=== PATIENT | female | born 1955 | race Caucasian/White ===

== ENCOUNTER 2021-10-02 18:14 | Observation (INO) ==
[2021-10-02] MEDS ORDERED: PANTOprazole 80 MG in DEXTROSE 5% 100 ML IV STA (20:07)
--- NOTE | 2021-10-02 20:14 | Emergency Department Note ---
Impression & Plan Lower gastrointestinal hemorrhage, Hematochezia, Feeling light headed ED Provider Note Provider: Wisam Alexander MD DATE OF SERVICE: 10/02/2021 CHIEF COMPLAINT: Bloody diarrhea HISTORY OF PRESENT ILLNESS: Patient is a 66-year-old female history of smoking, GI bleed, and thyroid dysfunction presenting here today reporting since this morning she has had numerous bloody bowel movements. Reports some abdominal distention at times and a little bit abdominal discomfort at times but denies any nausea vomiting or. Patient states he is a history of GI bleed last about 8 years ago. Some of these have required hospitalization and ICU stays with transfusion last at [place]. Patient states she has not had issues for the last 8 years. Patient states that been able from her knowledge to isolate where the bleeding was from. She denies significant alcohol or NSAID/aspirin issues. She denies use of blood thinners. Patient states he does feel a bit lightheaded at this time . She denies any sick contacts or suspect food intake. Patient denies fevers. Patient states in the hour and a half she was in the waiting room she had 3 bloody bowel movements in her bathroom. REVIEW OF SYSTEMS: A total of 10 review of systems was obtained and negative except as stated above in the HPI. PAST MEDICAL HISTORY: As noted above MEDICATIONS: Reviewed with patient does not include anticoagulants, an tiplatelets, or PPI SOCIAL HISTORY: Smoker PHYSICAL EXAM: GENERAL: alert and oriented in no acute distress on stretcher Head: normocephalic and atraumatic EYES: No injection, discharge or icterus. NECK: Trachea midline. ENT: Mucous membranes pink and moist. LUNGS: Airway patent. No retractions. Breath sounds clear HEART: Regular rate and rhythm. No chest wall tenderness ABDOMEN: Soft no tenderness. No guarding. SKIN: Acyanotic, warm, dry, without rashes EXTREMITIES: Without swelling, tenderness or deformity NEUROLOGICAL: No focal deficits. No aphasia. No facial droop or slurred speech. Ambulatory. EK beats beats per minute. Normal sinus rhythm. No PVC or PAC. No acute ST segment elevation with nonspecific lateral T wave changes. QTc 462. CONTINUOUS CARDIAC MONITORING: was ordered and showed a heart rate of 70s-80s bpm in normal sinus rhythm Patient's laboratory studies and imaging reviewed. Differential includes Diverticulosis, AVM, coagulopathy, colitis, inflammatory bowel disease, malignancy, So-Branch tear, esophagitis, peptic ulcer disease, variceal bleed, gastritis, epistaxis, fissure, hemorrhoids, as well as other pathologies. IMPRESSION/MEDICAL DECISION MAKING: Patient with significant GI bleed requiring transfusion. Unsure of what may have prompted this. CT of the abdomen pelvis to look for intra-abdominal pathology such as diverticulitis or lower GI bleed will be obtained as this is of most likely origin. Patient is a known AAA but denies any severe abdominal pain and I doubt rupture. Patient complains a little bit of lightheadedness but not hypotensive. Blood work and type and screen obtained. Given a dose of Protonix here although again I believe it is likely based on her description more of a lower GI bleed. Not having other infectious symptomatologies and doubt this is infectious bloody diarrhea. Patient does have a bloody bowel movement of dark red blood while here in the bathroom. Bladder without anemia mild leukocytosis. No significant electrolyte abnormality. Creatinine 1.39. Negative COVID. CT scan per radiology questions large hypodense area in the colon concerning for possible blood but no clear ac tive extract. Patient's had a total of more than 6 bloody bowel movements while here in the emergency department over the last several seems consistent with lower GI bleed again rather than upper GI bleed. Given the persistence of her bleeding and history of significant bleed requiring transfusion in the past discussion with the patient we will pursue observation at this time. Radiology report did not indicate any concerns for diverticulitis and will avoid antibiotics at this juncture. Discussed with the hospitalist. DIAGNOSIS: GI bleed/bloody diarrhea, lightheaded DISPOSITION: Hospitalist will evaluate Patient was agreeable with this plan. Past Med/Surg History Medical History (Updated 10/02/21 @ 22:57 by Wisam Alexander M.D.) Abnormal thyroid function test DM II (diabetes mellitus, type II), controlled Dysfunction of right eustachian tube High blood pressure Kidney disease stage III Lung disease Otalgia, right ear Sensorineural hearing loss (SNHL) of right ear with restricted hearing of left ear Surgical History History of back surgery History of delivery x2 History of hernia repair x2 History of knee replacement bilateral History of ovarian cystectomy History of vaginal hysterectomy Family History Other Allergies Asthma Cancer Hearing loss Heart disease Hypertension Social History Smoking Status: Current every day smoker Tobacco Type: Cigarettes packs per day: 0.5; Cigarettes Per Day: started smoking in 1971; Hx Alcohol Use: Yes Hx Substance Use: No Preferred Language: Egyptian Communication Ability: Effective marital status: Single Current Living Situation: Alone current occupational status: retired How many Children do You have: 1 Feels Safe at Home: Yes Allergies Allergies Allergy/AdvReac Type Severity Reaction Status Date / Time chlorhexidine Allergy Intermediate ITCHING,RED Verified 10/02/21 18:31 NESS Quinolones Allergy Intermediate RASH Verified 10/02/21 18:31 Sulfa (Sulfonamide Allergy Intermediate RASH Verified 10/02/21 18:31 Antibiotics) Penicillins Allergy Unknown Unknown Verified 10/02/21 18:31 azithromycin Allergy Anaphylaxis Verified 10/02/21 18:31 Cipro TABS Allergy Unknown Uncoded 10/02/21 18:31 Home Meds Home Medications Medication Instructions Recorded Confirmed metformin 500 mg tablet 500 mg PO DAILY 09/03/20 10/02/21 rosuvastatin 20 mg tablet 20 mg PO DAILY 09/03/20 10/02/21 Bifidobacterium infantis 4 mg 4 mg PO DAILY 03/17/21 10/02/21 capsule (Align) baclofen 10 mg tablet 10 mg PO DAILY 03/17/21 10/02/21 psyllium husk 3.4 gram/5.4 gram 1 tbsp PO BID 03/17/21 10/02/21 oral powder (Metamucil) lisinopril 30 mg tablet 30 mg PO DAILY 10/02/21 10/02/21 montelukast 10 mg tablet 10 mg PO DAILY 10/02/21 10/02/21 Results & Data (ED) Vital Signs Vital Signs - 24 hr 10/02/21 18:58 10/02/21 20:33 10/02/21 21:07 Temperature 36.8 C Temperature Source Temporal Artery Scan Pulse Rate 97 H Pulse Rate [Finger] 80 82 Pulse Rhythm Regular Pulse Rhythm [Finger] Regular Regular Pulse Strength Normal Pulse Strength [Finger] Normal Normal Respiratory Rate 18 18 18 Respiratory Effort / Characteristics Non-Labored Spontaneous Non-Labored Spontaneous Non-Labored Spontaneous Respiratory Depth Normal Normal Normal Respiratory Pattern Regular Blood Pressure 151/88 H Blood Pressure [Right Arm] 188/102 H 161/97 H Blood Pressure Mean 109 Blood Pressure Mean [Right Arm] 130 118 Blood Pressure Position Sitting Blood Pressure Position [Right Arm] Sitting Sitting Pulse Oximetry 93 98 98 Oxygen Delivery Method Room Air Room Air Room Air Sepsis Recent Fever Within 48 Hours No Sepsis New/Unexplained Change in Mental Status N/A Sepsis Action Taken by Nursing No Action Required 10/02/21 22:57 Temperature Temperature Source Pulse Rate Pulse Rate [Finger] 70 Pulse Rhythm Pulse Rhythm [Finger] Regular Pulse Strength Pulse Strength [Finger] Normal Respiratory Rate 18 Respiratory Effort / Characteristics Non-Labored Spontaneous Respiratory Depth Normal Respiratory Pattern Regular Blood Pressure Blood Pressure [Right Arm] 177/105 H Blood Pressure Mean Blood Pressure Mean [Right Arm] 129 Blood Pressure Position Blood Pressure Position [Right Arm] Sitting Pulse Oximetry 98 Oxygen Delivery Method Room Air Sepsis Recent Fever Within 48 Hours Sepsis New/Unexplained Change in Mental Status Sepsis Action Taken by Nursing Laboratory Data Result diagrams: 10/02/21 20:24 10/02/21 20:24 Lab Results 10/02/21 10/02/21 10/02/21 Range/Units 20:08 20:24 20:24 WBC 12.83 H (4.8-10.8) K/uL RBC 4.41 (4.2-5.4) M/uL Hgb 13.9 (12.0-16.0) g/dL Hct 41.5 (37-47) % MCV 94.1 (80-100) fL MCH 31.5 (25-34) pg MCHC 33.5 (32-36) g/dL RDW Std Deviation 47.5 H (36.4-46.3) fL RDW Coeff of Susan 13.9 (11.5-14.5) % Plt Count 183 (130-400) K/uL MPV 11.7 H (7.4-10.4) fL PT 10.7 (9.0-12.0) Seconds INR 1.0 (0.9-1.1) APTT 24.9 (21.0-31.0) Seconds PTT Ratio 0.9 Sodium (136-145) mmol/L Potassium (3.5-5.1) mmol/L Chloride (98-107) mmol/L Carbon Dioxide (21-32) mmol/L Anion Gap (3-11) BUN (6-23) mg/dl Creatinine (0.6-1.2) mg/dl Est Cr Clr Drug Dosing ml/min Est GFR ( Amer) ml/min Est GFR (Non-Af Amer) ml/min BUN/Creatinine Ratio (10-20) Glucose (70-99(Fasting)) mg/dl Calcium (8.5-10.1) mg/dl Total Bilirubin (0.2-1.0) mg/dl AST (13-39) U/L ALT (7-52) U/L Alkaline Phosphatase (34-104) U/L Troponin I High Sens (0-14) pg/ml Total Protein (6.0-8.3) gm/dl Albumin (3.4-5.0) gm/dl Globulin (2.5-4.0) gm/dl Albumin/Globulin Ratio (0.9-2) Lipase (11-82) U/L TSH (0.300-4.500) uIu/ml POC Stool Occult Blood Positive A (Negative) SARS-CoV-2, RNA, NAAT (NEGATIVE) Blood Type Antibody Screen 10/02/21 10/02/21 10/02/21 Range/Units 20:24 20:24 20:29 WBC (4.8-10.8) K/uL RBC (4.2-5.4) M/uL Hgb (12.0-16.0) g/dL Hct (37-47) % MCV (80-100) fL MCH (25-34) pg MCHC (32-36) g/dL RDW Std Deviation (36.4-46.3) fL RDW Coeff of Susan (11.5-14.5) % Plt Count (130-400) K/uL MPV (7.4-10.4) fL PT (9.0-12.0) Seconds INR (0.9-1.1) APTT (21.0-31.0) Seconds PTT Ratio Sodium 139 (136-145) mmol/L Potassium 4.6 (3.5-5.1) mmol/L Chloride 109 H (98-107) mmol/L Carbon Dioxide 23 (21-32) mmol/L Anion Gap 7 (3-11) BUN 33 H (6-23) mg/dl Creatinine 1.39 H (0.6-1.2) mg/dl Est Cr Clr Drug Dosing 36.1 ml/min Est GFR ( Amer) 45.0 ml/min Est GFR (Non-Af Amer) 38.8 ml/min BUN/Creatinine Ratio 23.7 H (10-20) Glucose 95 (70-99(Fasting)) mg/dl Calcium 8.9 (8.5-10.1) mg/dl Total Bilirubin 0.5 (0.2-1.0) mg/dl AST 14 (13-39) U/L ALT 7 (7-52) U/L Alkaline Phosphatase 69 (34-104) U/L Troponin I High Sens 11.2 (0-14) pg/ml Total Protein 6.9 (6.0-8.3) gm/dl Albumin 4.3 (3.4-5.0) gm/dl Globulin 2.6 (2.5-4.0) gm/dl Albumin/Globulin Ratio 1.7 (0.9-2) Lipase 61 (11-82) U/L TSH 2.275 (0.300-4.500) uIu/ml POC Stool Occult Blood Positive A (Negative) SARS-CoV-2, RNA, NAAT (NEGATIVE) Blood Type Antibody Screen 10/02/21 10/02/21 Range/Units 20:33 21:36 WBC (4.8-10.8) K/uL RBC (4.2-5.4) M/uL Hgb (12.0-16.0) g/dL Hct (37-47) % MCV (80-100) fL MCH (25-34) pg MCHC (32-36) g/dL RDW Std Deviation (36.4-46.3) fL RDW Coeff of Susan (11.5-14.5) % Plt Count (130-400) K/uL MPV (7.4-10.4) fL PT (9.0-12.0) Seconds INR (0.9-1.1) APTT (21.0-31.0) Seconds PTT Ratio Sodium (136-145) mmol/L Potassium (3.5-5.1) mmol/L Chloride (98-107) mmol/L Carbon Dioxide (21-32) mmol/L Anion Gap (3-11) BUN (6-23) mg/dl Creatinine (0.6-1.2) mg/dl Est Cr Clr Drug Dosing ml/min Est GFR ( Amer) ml/min Est GFR (Non-Af Amer) ml/min BUN/Creatinine Ratio (10-20) Glucose (70-99(Fasting)) mg/dl Calcium (8.5-10.1) mg/dl Total Bilirubin (0.2-1.0) mg/dl AST (13-39) U/L ALT (7-52) U/L Alkaline Phosphatase (34-104) U/L Troponin I High Sens (0-14) pg/ml Total Protein (6.0-8.3) gm/dl Albumin (3.4-5.0) gm/dl Globulin (2.5-4.0) gm/dl Albumin/Globulin Ratio (0.9-2) Lipase (11-82) U/L TSH (0.300-4.500) uIu/ml POC Stool Occult Blood (Negative) SARS-CoV-2, RNA, NAAT NEGATIVE (NEGATIVE) Blood Type B Positive Antibody Screen NEGATIVE Administered Medications Discontinued Medications Pantoprazole Sodium 80 mg/ (Dextrose) 100 mls @ 400 mls/hr IV ONE STA Stop: 10/02/21 20:21 Last Infusion: 10/02/21 21:07 Dose: 0 mls/hr Documented by: [id number] Admin: 10/02/21 20:32 Dose: 400 mls/hr Documented by: [id number] Ioversol (Optiray 320 125ml) 120 ml IV ONCE ONE Stop: 10/02/21 21:47 Last Admin: 10/02/21 21:46 Dose: 120 ml Documented by: [id number] Imaging Data Radiologist's Impression: Abdomen/Pelvis CTA 10/02/21 20:10 CT ANGIOGRAM OF THE ABDOMEN AND PELVIS CLINICAL HISTORY: GI bleeding. COMPARISON STUDY: No priors. TECHNIQUE: Following the IV administration of 120 cc of Optiray 320, CT angiogram of the abdomen and pelvis was performed from the lung bases the proximal femora. Images are reviewed in the axial, sagittal, and coronal planes. 3-D MIPS images are created and assessed. IV contrast was administered without complication. A dose lowering technique was utilized adhering to the principles of ALARA. CT DOSE: 260.80 mGy.cm FINDINGS: Lower chest: The heart is normal in size and without pericardial effusion. There are coronary artery calcifications. Emphysematous change is noted at the lung bases. There is bibasilar scarring/atelectasis. No airspace consolidation or pleural effusion is identified. There are scattered calcified granulomas. Liver: The contrast-enhanced liver is normal in size, contour, and attenuation. There is no intrahepatic biliary ductal dilatation. The main portal vein appears patent. Gallbladder: Unremarkable. Spleen: Normal in size and attenuation noting heterogeneous arterial phase and splint. Pancreas: Moderately atrophic and grossly unremarkable. Adrenal glands: Unremarkable. Kidneys: The contrast enhanced kidneys demonstrate cortical atrophy and are without hydronephrosis. The kidneys enhance symmetrically. Abdominal aorta and iliac arteries: There is advanced atherosclerotic plaque se en throughout the abdominal aorta. There is a bilobed infrarenal abdominal aortic aneurysm. The larger inferior component of the aneurysm sac measures up to 4.2 x 4.3 cm (AP x transverse). The aneurysm sac extends approximately 9 cm in craniocaudal length, and originates approximately 0.5 cm below the origin of the left renal artery extending to the bifurcation. The abdominal aorta is patent with mural thrombus within the aneurysm sac. No dissection is seen. Advanced atherosclerotic plaque and irregularity is seen throughout the iliac arteries with diffuse luminal narrowing. There is moderate stenosis at the origin of the right external iliac artery seen on image #240. 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 This extends approximately 6 cm in length with reconstitution above the common femoral artery as seen on image #303. The left internal iliac artery is patent. Major branches of the abdominal aorta: The celiac trunk, superior mesenteric, and inferior mesenteric arteries are patent noting atherosclerotic plaque and irregularity. The inferior mesenteric artery arises from the inferior lobe of the aneurysm sac. Hepatic arterial anatomy is conventional. The splenic artery is patent. There are single bilateral renal arteries. There is at least mild stenosis at the origin of both renal arteries. Bowel: There is advanced colonic diverticulosis without CT evidence of acute diverticulitis. No bowel obstruction is identified. The appendix is not visualized. There is hyperdense material within the lumen of the distal transverse colon seen on axial image #140. This is indeterminant, and a focus of active extravasation is not excluded. Peritoneum: There is no intraperitoneal free air or abdominal ascites. There is evidence of previous ventral hernia repair. There is laxity of the ventral wall of the pelvis with protrusion of bowel loops. Lymphadenopathy: None. Pelvic viscera: The bladder is largely decompressed and grossly unremarkable. The uterus is surgically absent. No adnexal lesion is seen. Skeletal structures: The skeletal structures are osteopenic. There is a sacral spondylosis with postoperative change from lumbar spinal fusion at L4-L5. No lytic or blastic lesions are seen. IMPRESSION: 1. Hyperdense intraluminal material is present within the distal transverse colon. This is nonspecific and a focus of active contrast extravasation is not excluded. This could be further assessed with endoscopy if clinically warranted. 2. Advanced colonic diverticulosis without CT evidence of acute diverticulitis. 3. Emphysema. 4. Advanced atherosclerotic change is seen throughout the abdominal aorta and its major branches. 5. There is a bilobed infrarenal abdominal aortic aneurysm as detailed above. The largest component of the aneurysm sac measures 4.2 x 4.3 cm. 6. 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 7. The major branches of the abdominal aorta are patent. 8. There is at least mild stenosis at the origin of both renal arteries. 9. Additional findings as above. ACT 112: Negative or not required by law. Electronically signed by: Ace Coley M.D. 10/02/2021 10:09 PM Discharge Plan Visit Data Chief Complaint: Rectal Bleed Stated Complaint: RECTAL BLEEDING, BRIGHT RED ED Provider: Wisam Alexander Discharge Problem: Lower gastrointestinal hemorrhage, Hematochezia, Feeling light headed Patient Disposition: Being Evaluated by Hospitalist Forms Stand Alone Forms: My [facility] Prescriptions Prescriptions: No Action rosuvastatin 20 mg tablet 20 mg PO DAILY RF: 0 metformin 500 mg tablet 500 mg PO DAILY RF: 0 baclofen 10 mg tablet 10 mg PO DAILY RF: 0 Metamucil 3.4 gram/5.4 gram powder 1 tbsp PO BID RF: 0 Align 4 mg capsule 4 mg PO DAILY RF: 0 lisinopril 30 mg tablet 30 mg PO DAILY RF: 0 montelukast 10 mg tablet 10 mg PO DAILY RF: 0 Referrals Referrals: Pedro Saba MD [Primary Care Provider] -
[2021-10-02 20:46] LABS: Hematocrit (blood only) 41.5 % (37-47); Hemoglobin 13.9 g/dL (12.0-16.0); Mean Corpuscular Hemoglobin 31.5 pg (25-34); Mean Corpuscular Hgb Conc 33.5 g/dL (32-36); Mean Corpuscular Volume 94.1 fL (80-100); Mean Platelet Volume 11.7 fL (7.4-10.4); Platelet Count 183 K/uL (130-400); RDW Coefficient of Variation 13.9 % (11.5-14.5); RDW Standard Deviation 47.5 fL (36.4-46.3); Red Blood Count 4.41 M/uL (4.2-5.4); White Blood Count 12.83 K/uL (4.8-10.8)
[2021-10-02 21:03] LABS: Partial Thromboplastin Ratio 0.9; Partial Thromboplastin Time 24.9 Seconds (21.0-31.0); Prothrombin Time 10.7 Seconds (9.0-12.0)
[2021-10-02 21:13] LABS: Troponin I High Sensitivity 11.2 pg/ml (0-14)
[2021-10-02 21:17] LABS: Albumin Globulin Ratio 1.7 (0.9-2); Albumin Level 4.3 gm/dl (3.4-5.0); BUN Creatinine Ratio 23.7 (10-20); Bilirubin,Total 0.5 mg/dl (0.2-1.0); Calcium 8.9 mg/dl (8.5-10.1); Creatinine Clr Calc Pharmacy 36.1 ml/min; Est GFR (Non-African American) 38.8 ml/min; Globulin 2.6 gm/dl (2.5-4.0); Potassium 4.6 mmol/L (3.5-5.1); Total Protein 6.9 gm/dl (6.0-8.3)
[2021-10-02] MEDS ORDERED: OPTIRAY 320 125ml IV ONE (21:46)
--- NOTE | 2021-10-02 22:12 | CT Scan Report ---
CT ANGIOGRAM OF THE ABDOMEN AND PELVIS CLINICAL HISTORY: GI bleeding. COMPARISON STUDY: No priors. TECHNIQUE: Following the IV administration of 120 cc of Optiray 320, CT angiogram of the abdomen and pelvis was performed from the lung bases the proximal femora. Images are reviewed in the axial, sagit shena, and coronal planes. 3-D MIPS images are created and assessed. IV contrast was administered witho ut complication. A dose lowering technique was utilized adhering to the principles of ALARA. CT DOSE: 260.80 mGy.cm FINDINGS: Lower chest: The heart is normal in size and without pericardial effusion. There are coronary artery calcifications. Emphysematous change is noted at the lung bases. There is bibasilar scarring/atelecta sis. No airspace consolidation or pleural effusion is identified. There are scattered calcified granu christie. Liver: The contrast-enhanced liver is normal in size, contour, and attenuation. There is no intrahepa tic biliary ductal dilatation. The main portal vein appears patent. Gallbladder: Unremarkable. Spleen: Normal in size and attenuation noting heterogeneous arterial phase and splint. Pancreas: Moderately atrophic and grossly unremarkable. Adrenal glands: Unremarkable. Kidneys: The contrast enhanced kidneys demonstrate cortical atrophy and are without hydronephrosis. T he kidneys enhance symmetrically. Abdominal aorta and iliac arteries: There is advanced atherosclerotic plaque seen throughout the abdo beckie aorta. There is a bilobed infrarenal abdominal aortic aneurysm. The larger inferior component o f the aneurysm sac measures up to 4.2 x 4.3 cm (AP x transverse). The aneurysm sac extends approximat gisel 9 cm in craniocaudal length, and originates approximately 0.5 cm below the origin of the left piage al artery extending to the bifurcation. The abdominal aorta is patent with mural thrombus within the aneurysm sac. No dissection is seen. Advanced atherosclerotic plaque and irregularity is seen through out the iliac arteries with diffuse luminal narrowing. There is moderate stenosis at the origin of th e right external iliac artery seen on image #240. There is complete thrombosis of the left external i liac artery at the iliac bifurcation. This extends approximately 6 cm in length with reconstitution a sima the common femoral artery as seen on image #303. The left internal iliac artery is patent. Major branches of the abdominal aorta: The celiac trunk, superior mesenteric, and inferior mesenteric arteries are patent noting atherosclerotic plaque and irregularity. The inferior mesenteric artery a rises from the inferior lobe of the aneurysm sac. Hepatic arterial anatomy is conventional. The splen ic artery is patent. There are single bilateral renal arteries. There is at least mild stenosis at t he origin of both renal arteries. Bowel: There is advanced colonic diverticulosis without CT evidence of acute diverticulitis. No bowel obstruction is identified. The appendix is not visualized. There is hyperdense material within the lumen of the distal transverse colon seen on axial image #140. This is indeterminant, and a focus of active extravasation is not excluded. Peritoneum: There is no intraperitoneal free air or abdominal ascites. There is evidence of previous ventral hernia repair. There is laxity of the ventral wall of the pelvis with protrusion of bowel loo ps. Lymphadenopathy: None. Pelvic viscera: The bladder is largely decompressed and grossly unremarkable. The uterus is surgicall y absent. No adnexal lesion is seen. Skeletal structures: The skeletal structures are osteopenic. There is a sacral spondylosis with posto perative change from lumbar spinal fusion at L4-L5. No lytic or blastic lesions are seen. IMPRESSION: 1. Hyperdense intraluminal material is present within the distal transverse colon. This is nonspecifi c and a focus of active contrast extravasation is not excluded. This could be further assessed with e ndoscopy if clinically warranted. 2. Advanced colonic diverticulosis without CT evidence of acute diverticulitis. 3. Emphysema. 4. Advanced atherosclerotic change is seen throughout the abdominal aorta and its major branches. 5. There is a bilobed infrarenal abdominal aortic aneurysm as detailed above. The largest component o f the aneurysm sac measures 4.2 x 4.3 cm. 6. 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 7. The major branches of the abdominal aorta are patent. 8. There is at least mild stenosis at the origin of both renal arteries. 9. Additional findings as above. ACT 112: Negative or not required by law. Electronically signed by: Ace Coley M.D. 10/02/2021 10:09 PM
--- NOTE | 2021-10-03 00:05 | XRay Report ---
SINGLE VIEW CHEST CLINICAL HISTORY: Renal failure. FINDINGS: 2 AP, portable, upright chest radiographs are compared to study dated 01/24/2013. The heart is top normal in size noting atherosclerotic calcification of the thoracic aorta. The pulmonary vascu lature is noncongested. Chronic interstitial thickening is similar to previous. Scarring/atelectasis is seen at the lung bases. The lungs and pleural spaces are otherwise clear. No pneumothorax is seen. The skeletal structures are osteopenic. The bony thorax is grossly intact. Fusion hardware is noted in the lower cervical spine. IMPRESSION: No acute cardiopulmonary abnormality. ACT 112: Negative or not required by law. Electronically signed by: Ace Coley M.D. 10/03/2021 12:03 AM
[2021-10-03 00:19] LABS: Magnesium 1.9 mg/dl (1.7-2.4)
[2021-10-03] MEDS ORDERED: SODIUM CHLORIDE 0.9% 1000ML 1,000 ML IV STA (01:18)
[2021-10-03] MEDS ORDERED: amLODIPine BESYLATE 5 MG TAB PO STA (01:18)
--- NOTE | 2021-10-03 01:30 | History & Physical Report ---
Date of Service October 03, 2021 Assessment & Plan (1) GI bleed: Plan: Combined UGI B/L GIB CO PD, stable disease hypertensive urgency secondary to discomfort ARF secondary to diarrhea hyperlipidemia on statin Rx AAA, stable measurement on comparison with most recent outpatient study, patient [place] [facility] [facility] [place]. DM2 on oral medications, well-controlled as of recent hemoglobin A1c of 5.10 May 2021 ongoing tobacco abuse Medical telemetry given elevated BP IV PPI Hold home aspirin for now Serial H&H, transfuse PRBC if hemoglobin less than 8 and or for symptomatic anemia (hx PVD) IV PPI for UGI B GI consult Re: GI bleed N.p.o. until patient seen by GI in a.m. in anticipation of procedure Baseline UA, monitor creatinine response to IVF Appropriate to hold lisinopril for now until creatinine back to baseline Amlodipine for BP control while lisinopril on hold Basal bolus insulin adjusted for n.p.o. status, ISS goal 1 10-1 40 Nicotine patch as needed DVT prophylaxis. SCDs Re: GI bleed Full code Text document was generated using [employer] voice recognition software. It may contain grammatical or spelling errors. Kindly contact undersigned for clarification of any documentation item in question. History of Present Illness Chief Complaint: GI bleed Primary Care Provider: Pedro Saba MD History obtained from patient and records. Medical history significant for CO PD, hypertension, hyperlipidemia, AAA, DM2 on oral medications, diverticulosis, internal hemorrhoids as per records, ongoing tobacco abuse. Last confinement 2009 for COPD exacerbation. 1 day history of bloody bowel movements mixed with black stools. No fever, no chills. No chest pain, no SOB. Some lower abdominal cramping. No recent antibiotic Rx/travel/sick contacts. No emesis. Some lightheadedness. Patient consulted ER for evaluation. IV PPI given for UGIB. 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 Allergies Allergy/AdvReac Type Severity Reaction Status Date / Time chlorhexidine Allergy Intermediate ITCHING,RED Verified 10/02/21 18:31 NESS Quinolones Allergy Intermediate RASH-cipro Verified 10/03/21 01:18 Sulfa (Sulfonamide Allergy Intermediate RASH Verified 10/02/21 18:31 Antibiotics) Penicillins Allergy Unknown Unknown Verified 10/02/21 18:31 azithromycin Allergy Anaphylaxis Verified 10/02/21 18:31 Home Medications Medication Instructions Recorded Confirmed Type metformin 500 mg tablet 500 mg PO DAILY 09/03/20 10/02/21 History rosuvastatin 20 mg tablet 20 mg PO DAILY 09/03/20 10/02/21 History Bifidobacterium infantis 4 mg 4 mg PO DAILY 03/17/21 10/02/21 History capsule (Align) baclofen 10 mg tablet 10 mg PO DAILY 03/17/21 10/02/21 History psyllium husk 3.4 gram/5.4 gram 1 tbsp PO BID 03/17/21 10/02/21 History oral powder (Metamucil) lisinopril 30 mg tablet 30 mg PO DAILY 10/02/21 10/02/21 History montelukast 10 mg tablet 10 mg PO DAILY 10/02/21 10/02/21 History Past Med/Surg History Medical History (Updated 10/03/21 @ 08:36 by Gio Marroquin MD) Abnormal thyroid function test DM II (diabetes mellitus, type II), controlled Dysfunction of right eustachian tube High blood pressure Kidney disease stage III Lung disease Otalgia, right ear Sensorineural hearing loss (SNHL) of right ear with restricted hearing of left ear Surgical History History of back surgery History of delivery x2 History of hernia repair x2 History of knee replacement bilateral History of ovarian cystectomy History of vaginal hysterectomy Family History Other Allergies Asthma Cancer Hearing loss Heart disease Hypertension Social History Smoking Status: Current every day smoker Tobacco Type: Cigarettes packs per day: 0.5; Cigarettes Per Day: started smoking in 1971; Hx Alcohol Use: Yes Alcohol type: beer and hard liquor Hx Substance Use: No Preferred Language: [place] Communication Ability: Effective marital status: Single Current Living Situation: Family current occupational status: retired How many Children do You have: 1 Feels Safe at Home: Yes Review of Systems Review of Systems: As per HPI, all other systems reviewed and negative Physical Exam Physical Exam: GENERAL: Comfortable, pleasant, no respiratory distress SKIN: Normal color, warm HEENT: [place] palpebral conjunctivae, no ptosis, dry buccal mucosa NECK : Supple, no tenderness CHEST : Decreased breath sounds, occasional expiratory wheezes, no tenderness HEART : RRR, no obvious murmurs ABDOMEN: Some distention, nontender EXTREMITIES : No LE swelling/tenderness, no other conspicuous deformities noted NEUROLOGIC : Coherent, no facial asymmetry, no other gross focality Results & Data Results & Data ([facility]) Vital Signs (Past 12 Hours) Vital Signs Temp Pulse Pulse Resp BP BP Pulse Ox 10/03/21 00:47 77 20 174/97 H 93 10/02/21 22:57 70 18 177/105 H 98 10/02/21 21:07 82 18 161/97 H 98 10/02/21 20:33 80 18 188/102 H 98 10/02/21 18:58 36.8 C 97 H 18 151/88 H 93 Laboratory Results Laboratory Results WBC 12.83 K/uL (4.8-10.8) H 10/02/21 20:24 RBC 4.41 M/uL (4.2-5.4) 10/02/21 20:24 Hgb 13.9 g/dL (12.0-16.0) 10/02/21 20:24 Hct 41.5 % (37-47) 10/02/21 20:24 MCV 94.1 fL (80-100) 10/02/21 20:24 MCH 31.5 pg (25-34) 10/02/21 20:24 MCHC 33.5 g/dL (32-36) 10/02/21 20:24 RDW Std Deviation 47.5 fL (36.4-46.3) H 10/02/21 20:24 RDW Coeff of Susan 13.9 % (11.5-14.5) 10/02/21 20:24 Plt Count 183 K/uL (130-400) 10/02/21 20:24 MPV 11.7 fL (7.4-10.4) H 10/02/21 20:24 PT 10.7 Seconds (9.0-12.0) 10/02/21 20:24 INR 1.0 (0.9-1.1) 10/02/21 20:24 APTT 24.9 Seconds (21.0-31.0) 10/02/21 20:24 PTT Ratio 0.9 10/02/21 20:24 Sodium 139 mmol/L (136-145) 10/02/21 20:24 Potassium 4.6 mmol/L (3.5-5.1) 10/02/21 20:24 Chloride 109 mmol/L (98-107) H 10/02/21 20:24 Carbon Dioxide 23 mmol/L (21-32) 10/02/21 20:24 Anion Gap 7 (3-11) 10/02/21 20:24 BUN 33 mg/dl (6-23) H 10/02/21 20:24 Creatinine 1.39 mg/dl (0.6-1.2) H 10/02/21 20:24 Est Cr Clr Drug Dosing 36.1 ml/min 10/02/21 20:24 Est GFR ( Amer) 45.0 ml/min 10/02/21 20:24 Est GFR (Non-Af Amer) 38.8 ml/min 10/02/21 20:24 BUN/Creatinine Ratio 23.7 (10-20) H 10/02/21 20:24 Glucose 95 mg/dl (70-99(Fasting)) 10/02/21 20:24 Calcium 8.9 mg/dl (8.5-10.1) 10/02/21 20:24 Magnesium 1.9 mg/dl (1.7-2.4) 10/02/21 20:24 Total Bilirubin 0.5 mg/dl (0.2-1.0) 10/02/21 20:24 AST 14 U/L (13-39) 10/02/21 20:24 ALT 7 U/L (7-52) 10/02/21 20:24 Alkaline Phosphatase 69 U/L (34-104) 10/02/21 20:24 Troponin I High Sens 11.2 pg/ml (0-14) 10/02/21 20:24 Total Protein 6.9 gm/dl (6.0-8.3) 10/02/21 20:24 Albumin 4.3 gm/dl (3.4-5.0) 10/02/21 20:24 Globulin 2.6 gm/dl (2.5-4.0) 10/02/21 20:24 Albumin/Globulin Ratio 1.7 (0.9-2) 10/02/21 20:24 Lipase 61 U/L (11-82) 10/02/21 20:24 TSH 2.275 uIu/ml (0.300-4.500) 10/02/21 20:24 POC Stool Occult Blood Positive (Negative) A 10/02/21 20:29 SARS-CoV-2, RNA, NAAT NEGATIVE (NEGATIVE) 10/02/21 20:33 Blood Type B Positive 10/02/21 21:36 Antibody Screen NEGATIVE 10/02/21 21:36 Impressions Abdomen/Pelvis CTA 10/02/21 20:10 CT ANGIOGRAM OF THE ABDOMEN AND PELVIS CLINICAL HISTORY: GI bleeding. COMPARISON STUDY: No priors. TECHNIQUE: Following the IV administration of 120 cc of Optiray 320, CT angiogram of the abdomen and pelvis was performed from the lung bases the proximal femora. Images are reviewed in the axial, sagittal, and coronal planes. 3-D MIPS images are created and assessed. IV contrast was administered without complication. A dose lowering technique was utilized adhering to the principles of ALARA. CT DOSE: 260.80 mGy.cm FINDINGS: Lower chest: The heart is normal in size and without pericardial effusion. There are coronary artery calcifications. Emphysematous change is noted at the lung bases. There is bibasilar scarring/atelectasis. No airspace consolidation or pleural effusion is identified. There are scattered calcified granulomas. Liver: The contrast-enhanced liver is normal in size, contour, and attenuation. There is no intrahepatic biliary ductal dilatation. The main portal vein appears patent. Gallbladder: Unremarkable. Spleen: Normal in size and attenuation noting heterogeneous arterial phase and splint. Pancreas: Moderately atrophic and grossly unremarkable. Adrenal glands: Unremarkable. Kidneys: The contrast enhanced kidneys demonstrate cortical atrophy and are without hydronephrosis. The kidneys enhance symmetrically. Abdominal aorta and iliac arteries: There is advanced atherosclerotic plaque seen throughout the abdominal aorta. There is a bilobed infrarenal abdominal aortic aneurysm. The larger inferior component of the aneurysm sac measures up to 4.2 x 4.3 cm (AP x transverse). The aneurysm sac extends approximately 9 cm in craniocaudal length, and originates approximately 0.5 cm below the origin of the left renal artery extending to the bifurcation. The abdominal aorta is patent with mural thrombus within the aneurysm sac. No dissection is seen. Advanced atherosclerotic plaque and irregularity is seen throughout the iliac arteries with diffuse luminal narrowing. There is moderate stenosis at the origin of the right external iliac artery seen on image #240. 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 This extends approximately 6 cm in length with reconstitution above the common femoral artery as seen on image #303. The left internal iliac artery is patent. Major branches of the abdominal aorta: The celiac trunk, superior mesenteric, and inferior mesenteric arteries are patent noting atherosclerotic plaque and irregularity. The inferior mesenteric artery arises from the inferior lobe of the aneurysm sac. Hepatic arterial anatomy is conventional. The splenic artery is patent. There are single bilateral renal arteries. There is at least mild stenosis at the origin of both renal arteries. Bowel: There is advanced colonic diverticulosis without CT evidence of acute diverticulitis. No bowel obstruction is identified. The appendix is not visualized. There is hyperdense material within the lumen of the distal transverse colon seen on axial image #140. This is indeterminant, and a focus of active extravasation is not excluded. Peritoneum: There is no intraperitoneal free air or abdominal ascites. There is evidence of previous ventral hernia repair. There is laxity of the ventral wall of the pelvis with protrusion of bowel loops. Lymphadenopathy: None. Pelvic viscera: The bladder is largely decompressed and grossly unremarkable. The uterus is surgically absent. No adnexal lesion is seen. Skeletal structures: The skeletal structures are osteopenic. There is a sacral spondylosis with postoperative change from lumbar spinal fusion at L4-L5. No lytic or blastic lesions are seen. IMPRESSION: 1. Hyperdense intraluminal material is present within the distal transverse colon. This is nonspecific and a focus of active contrast extravasation is not excluded. This could be further assessed with endoscopy if clinically warranted. 2. Advanced colonic diverticulosis without CT evidence of acute diverticulitis. 3. Emphysema. 4. Advanced atherosclerotic change is seen throughout the abdominal aorta and its major branches. 5. There is a bilobed infrarenal abdominal aortic aneurysm as detailed above. The largest component of the aneurysm sac measures 4.2 x 4.3 cm. 6. 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 7. The major branches of the abdominal aorta are patent. 8. There is at least mild stenosis at the origin of both renal arteries. 9. Additional findings as above. ACT 112: Negative or not required by law. Electronically signed by: Ace Coley M.D. 10/02/2021 10:09 PM Chest X-Ray 10/02/21 23:45 SINGLE VIEW CHEST CLINICAL HISTORY: Renal failure. FINDINGS: 2 AP, portable, upright chest radiographs are compared to study dated 01/24/2013. The heart is top normal in size noting atherosclerotic calcification of the thoracic aorta. The pulmonary vasculature is noncongested. Chronic interstitial thickening is similar to previous. Scarring/atelectasis is seen at the lung bases. The lungs and pleural spaces are otherwise clear. No pneumothorax is seen. The skeletal structures are osteopenic. The bony thorax is grossly intact. Fusion hardware is noted in the lower cervical spine. IMPRESSION: No acute cardiopulmonary abnormality. ACT 112: Negative or not required by law. Electronically signed by: Ace Coley M.D. 10/03/2021 12:03 AM Diagnostic Findings EKG as per my interpretation : Rate 70, NSR, normal axis, nonspecific T wave abNormalities
[2021-10-03 02:26] LABS: Hematocrit (blood only) 35.8 % (37-47); Hemoglobin 11.8 g/dL (12.0-16.0)
[2021-10-03] MEDS ORDERED: GLUCOSE 10 TABS/TUBE PO PRN (03:02)
[2021-10-03] MEDS ORDERED: traMADol HCL 50 MG TABLET PO PRN (03:02)
[2021-10-03] MEDS ORDERED: ACETAMINOPHEN 325 MG TAB PO PRN (03:02)
[2021-10-03] MEDS ORDERED: CARBOHYDRATES FOR HYPOGLYCEMIA PO PRN (03:02)
[2021-10-03] MEDS ORDERED: GLUCAGON FOR INJ 1 MG VIAL SQ PRN (03:02)
[2021-10-03] MEDS ORDERED: DEXTROSE 50% 50 ML SYRINGE IV PRN (03:02)
[2021-10-03] MEDS ORDERED: PROMETHAZINE HCL 6.25 MG in SODIUM CHLORIDE 0.9% 50 ML IV PRN (03:02)
[2021-10-03] MEDS ORDERED: GLUCOSE 40% GEL 15 GM TUBE PO PRN (03:02)
[2021-10-03] MEDS: INSULIN ASPART PER UNIT SC SCH ×5 (03:50→20:43)
[2021-10-03] MEDS: PANTOprazole 40 MG in DEXTROSE 5% 100 ML IV SCH ×4 (05:00→20:10)
[2021-10-03 07:12] LABS: Basophils # (auto) 0.02 K/uL (0-0.2); Basophils % (auto) 0.2 %; Eosinophils # (auto) 0.27 K/uL (0-0.5); Eosinophils % (auto) 2.7 %; Hematocrit (blood only) 35.5 % (37-47); Hemoglobin 11.7 g/dL (12.0-16.0); Immature Granulocytes # (auto) 0.02 K/uL (0.00-0.02); Immature Granulocytes % (auto) 0.2 %; Lymphocytes # (auto) 3.33 K/uL (1.2-3.4); Lymphocytes % (auto) 33.7 %; Mean Corpuscular Volume 94.2 fL (80-100); Mean Platelet Volume 11.5 fL (7.4-10.4); Monocytes # (auto) 0.44 K/uL (0.11-0.59); Monocytes % (auto) 4.4 %; Neutrophils # (auto) 5.81 K/uL (1.4-6.5); Neutrophils % (auto) 58.8 %; Platelet Count 162 K/uL (130-400); RDW Coefficient of Variation 14.1 % (11.5-14.5); RDW Standard Deviation 48.1 fL (36.4-46.3); Red Blood Count 3.77 M/uL (4.2-5.4); White Blood Count 9.89 K/uL (4.8-10.8)
[2021-10-03 07:18] LABS: Appearance Urine Clear (Clear); Bacteria Urine Automated Negative (Negative); Bilirubin Urine Negative (Negative); Blood Urine 2+ (Negative); Color Urine Yellow; Glucose Urine UA Negative (Negative); Ketones Urine Negative (Negative); Leukocyte Esterase Urine Negative (Negative); Nitrite Urine Negative (Negative); Protein Urine Negative (Negative); RBC Urine Automated 0-4 /hpf (0-4); Specific Gravity Urine > 1.045 (1.000-1.030); Urobilinogen Urine Negative (Negative)
[2021-10-03 07:55] LABS: Calcium 8.7 mg/dl (8.5-10.1); Potassium 4.5 mmol/L (3.5-5.1)
[2021-10-03] MEDS: MONTELUKAST SODIUM 10 MG TABLET PO SCH (07:57)
[2021-10-03] MEDS: BACLOFEN 10 MG TAB PO SCH (07:57)
[2021-10-03] MEDS: ROSUVASTATIN CALCIUM 20 MG TAB PO SCH (07:57)
[2021-10-03 08:00] LABS: BUN Creatinine Ratio 29.6 (10-20); Creatinine Clr Calc Pharmacy 42.6 ml/min; Est GFR (African American) 56.6 ml/min; Est GFR (Non-African American) 48.9 ml/min
--- NOTE | 2021-10-03 10:55 | Hospitalist Progress Note ---
Date of Service October 03, 2021 Assessment & Plan Admission and Anticipated Discharge Date Admission Date: October 03, 2021 Subjective Patient admitted earlier today for 1 day of black/tarry stools with streaks of blood. Patient denies NSAIDs use other than aspirin 81mg which she is prescribed Denies abdominal pain, nausea/vomiting, recent illness Currently NPO and on IV protonix. GI consult pending. If not plan for endoscopy by 1pm, would place her on clears for remainder of day Asthma, current smoker. Counseled cessation. Wagner PANTOJA ordered Full note to follow tomorrow Results & Data Results & Data ([facility]) Vital Signs (Past 12 Hours) Vital Signs Temp Pulse Pulse Resp BP Pulse Ox 10/03/21 08:29 36.7 C 82 18 149/76 H 94 10/03/21 07:26 68 10/03/21 03:12 72 10/03/21 02:50 36.5 C 72 18 154/74 H 96 10/03/21 02:35 78 20 144/84 H 97 10/03/21 00:47 77 20 174/97 H 93 10/02/21 22:57 70 18 177/105 H 98
[2021-10-03] MEDS: ALBUT/IPRATROP 3MG/0.5MG NEB 3 ML VIAL NEB SCH ×3 (11:11→20:09)
[2021-10-03 12:33] LABS: Hematocrit (blood only) 34.9 % (37-47); Hemoglobin 11.4 g/dL (12.0-16.0); Mean Corpuscular Hemoglobin 30.7 pg (25-34); Mean Corpuscular Hgb Conc 32.7 g/dL (32-36); Mean Corpuscular Volume 94.1 fL (80-100); Mean Platelet Volume 11.2 fL (7.4-10.4); Platelet Count 157 K/uL (130-400); RDW Coefficient of Variation 14.1 % (11.5-14.5); RDW Standard Deviation 48.5 fL (36.4-46.3); Red Blood Count 3.71 M/uL (4.2-5.4); White Blood Count 7.98 K/uL (4.8-10.8)
--- NOTE | 2021-10-03 13:13 | Gastrointestinal Consultation ---
Date of Consultation October 03, 2021 Supervising Physician Co-Signing Physician Notes IV PPI is fine. No plans for an egd at the current time. Continue IV PPI. Clear liquids. If no further bleeding, consider discharging home to on oral ppi once daily and avoid nsaid's. Likely this was a diverticular bleed, if signs of dark blood continue iv ppi or further drop in hgb or bun rise, keep npo after midnite on tuesday for possible egd tuesday. History of Present Illness Reason for Consultation: ? GI bleedin Requesting Physician: Dr. Gusman Attending Physician: Lexi Salazar MD History of Present Illness 66 yo fm wtih a history of htn, hl, aaa, type 2 dm, copd, admitted through the er overnite for reports of painless hematochezia, ? dark stools. She is sleepy when seeing her but arousable. She reports no issues other than one episode a few hours of ago of hematochezia no ass abd pain. She denies recent nsaid use. No history of liver disease. Recently covid positive within the last 30 days. No acute issues reported to me of pain, nausea, vomiting, diarrhea. Allergies Allergy/AdvReac Type Severity Reaction Status Date / Time chlorhexidine Allergy Intermediate ITCHING,RED Verified 10/02/21 18:31 NESS Quinolones Allergy Intermediate RASH-cipro Verified 10/03/21 01:18 Sulfa (Sulfonamide Allergy Intermediate RASH Verified 10/02/21 18:31 Antibiotics) Penicillins Allergy Unknown Unknown Verified 10/02/21 18:31 azithromycin Allergy Anaphylaxis Verified 10/02/21 18:31 Home Medications Medication Instructions Recorded Confirmed Type metformin 500 mg tablet 500 mg PO DAILY 09/03/20 10/02/21 History rosuvastatin 20 mg tablet 20 mg PO DAILY 09/03/20 10/02/21 History Bifidobacterium infantis 4 mg 4 mg PO DAILY 03/17/21 10/02/21 History capsule (Align) baclofen 10 mg tablet 10 mg PO DAILY 03/17/21 10/02/21 History psyllium husk 3.4 gram/5.4 gram 1 tbsp PO BID 03/17/21 10/02/21 History oral powder (Metamucil) lisinopril 30 mg tablet 30 mg PO DAILY 10/02/21 10/02/21 History montelukast 10 mg tablet 10 mg PO DAILY 10/02/21 10/02/21 History Patient History Medical History (Updated 10/03/21 @ 08:36 by Gio Marroquin MD) Abnormal thyroid function test DM II (diabetes mellitus, type II), controlled Dysfunction of right eustachian tube High blood pressure Kidney disease stage III Lung disease Otalgia, right ear Sensorineural hearing loss (SNHL) of right ear with restricted hearing of left ear Surgical History History of back surgery History of delivery x2 History of hernia repair x2 History of knee replacement bilateral History of ovarian cystectomy History of vaginal hysterectomy Family History Other Allergies Asthma Cancer Hearing loss Heart disease Hypertension Social History Smoking Status: Current every day smoker Tobacco Type: Cigarettes packs per day: 0.5; Cigarettes Per Day: started smoking in 1971; Hx Alcohol Use: Yes Alcohol type: beer and hard liquor Hx Substance Use: No Preferred Language: Irish Communication Ability: Effective marital status: Single Current Living Situation: Family current occupational status: retired How many Children do You have: 1 Feels Safe at Home: Yes Review of Systems Review of Systems: All systems reviewed & are unremarkable except as noted in HPI & below Physical Exam Physical Exam: Thin female in nad Eyes: PERRL, conjunctivae normal, anicteric sclerae Neck: Normal neck Chest (Breasts): Additional Comments: slight scar on her upper chest near her sternal notch Gastrointestinal (Abdomen): normal bowel sounds, soft, nontender, no hepatosplenomegaly Results & Data ([facility]) Vital Signs (Past 12 Hours) Vital Signs Temp Pulse Pulse Resp BP Pulse Ox 10/03/21 12:02 36.7 C 64 18 159/82 H 98 10/03/21 11:14 62 18 96 10/03/21 08:29 36.7 C 82 18 149/76 H 94 10/03/21 07:26 68 10/03/21 03:12 72 10/03/21 02:50 36.5 C 72 18 154/74 H 96 10/03/21 02:35 78 20 144/84 H 97 Laboratory Results 2 gram drop in hgb 13.9->11.4, bun is 34 however no prior one to compare it too Last egd/colon were in 2020 at [facility], significant left sided diverticulosis was noted
[2021-10-03] MEDS ORDERED: amLODIPine BESYLATE 5 MG TAB PO SCH (21:00)
[2021-10-04] MEDS: PANTOprazole 40 MG in DEXTROSE 5% 100 ML IV SCH ×5 (01:32→21:36)
[2021-10-04] MEDS: ALBUT/IPRATROP 3MG/0.5MG NEB 3 ML VIAL NEB SCH ×2 (07:00→10:15)
[2021-10-04 07:20] LABS: Hematocrit (blood only) 33.7 % (37-47); Mean Corpuscular Hemoglobin 30.6 pg (25-34); Mean Corpuscular Hgb Conc 32.6 g/dL (32-36); Mean Corpuscular Volume 93.6 fL (80-100); Platelet Count 152 K/uL (130-400); RDW Coefficient of Variation 14.2 % (11.5-14.5); RDW Standard Deviation 48.8 fL (36.4-46.3); White Blood Count 6.92 K/uL (4.8-10.8)
[2021-10-04] MEDS: MONTELUKAST SODIUM 10 MG TABLET PO SCH (07:41)
[2021-10-04] MEDS: ROSUVASTATIN CALCIUM 20 MG TAB PO SCH (07:41)
[2021-10-04] MEDS: BACLOFEN 10 MG TAB PO SCH (07:41)
[2021-10-04 07:42] LABS: BUN Creatinine Ratio 29.2 (10-20); Creatinine Clr Calc Pharmacy 46.3 ml/min; Est GFR (African American) 62.5 ml/min; Est GFR (Non-African American) 53.9 ml/min; Potassium 4.5 mmol/L (3.5-5.1)
[2021-10-04] MEDS: INSULIN ASPART PER UNIT SC SCH ×4 (08:00→20:43)
--- NOTE | 2021-10-04 08:18 | Electrocardiogram Report ---
Test Reason : Blood Pressure : / mmHG Vent. Rate : 071 BPM Atrial Rate : 071 BPM P-R Int : 190 ms QRS Dur : 080 ms QT Int : 426 ms P-R-T Axes : 068 028 117 degrees QTc Int : 462 ms Normal sinus rhythm Nonspecific ST and T wave abnormality Abnormal ECG When compared with ECG of 24-JAN-2013 12:53, Nonspecific T wave abnormality, worse in Anterior leads Confirmed by Sudarshan Schroeder ([id number]) on 10/04/2021 8:18:24 AM Referred By: REFERRED SELF Confirmed By:Sudarshan Schroeder
--- NOTE | 2021-10-04 12:06 | Communication Note ---
Date of Service: October 04, 2021 Chart reviewed Patient seen sitting in the bed briefly Per chart review - darker stool Hgb and vital remains stable Continue IV PPI, npo after midnitie for possible egd tomorrow.
[2021-10-04] MEDS ORDERED: ALBUT/IPRATROP 3MG/0.5MG NEB 3 ML VIAL NEB PRN (13:14)
[2021-10-04] MEDS: lisinopril 10 MG TAB PO SCH (14:27)
--- NOTE | 2021-10-04 16:21 | Hospitalist Progress Note ---
Date of Service October 04, 2021 Assessment & Plan (1) GI bleed: Plan: Unclear etiology. Continue protonix drip Hb 13.9 on admission and now 11 Possible EGD tomorrow, patient may benefit from colonoscopy as well but will defer management to GI Plan: Poorly controlled HTN -resumed lisinopril 30mg daily NIDDM -correctional scale insulin while here HLD -statin Reactive airway disease -stable currently, continue montelukast, Duoneb PRN DVT ppx SCDs for now Admit to inpatient Admission and Anticipated Discharge Date Admission Date: October 04, 2021 Subjective One episode of black, and blood streaked stools Physical Exam 2 Physical Exam: Appears well, no acute distress, non toxic Respiratory: Breathing comfortably on room air, no wheezing/rhonchi Cardiovascular: regular rate and rhythm, no murmurs/rubs/gallops Gastrointestinal (Abdomen): soft, non tender Musculoskeletal: No edema Neurologic: awake, alert, spontaneously moving extremities Results & Data Results & Data ([facility]) Vital Signs (Past 12 Hours) Vital Signs Temp Pulse Pulse Resp BP BP Pulse Ox 10/04/21 14:39 36.3 C L 72 18 179/86 H 97 10/04/21 11:13 36.5 C 98 H 18 184/92 H 98 10/04/21 10:15 60 18 94 10/04/21 07:39 36.7 C 66 20 156/82 H 95 10/04/21 07:30 64 10/04/21 07:01 76 20 92
[2021-10-05] MEDS: PANTOprazole 40 MG in DEXTROSE 5% 100 ML IV SCH ×3 (02:40→14:04)
[2021-10-05 06:46] LABS: Hematocrit (blood only) 35.3 % (37-47); Hemoglobin 11.7 g/dL (12.0-16.0); Mean Corpuscular Hemoglobin 31.3 pg (25-34); Mean Corpuscular Hgb Conc 33.1 g/dL (32-36); Mean Corpuscular Volume 94.4 fL (80-100); Mean Platelet Volume 11.1 fL (7.4-10.4); Platelet Count 180 K/uL (130-400); RDW Coefficient of Variation 14.2 % (11.5-14.5); RDW Standard Deviation 49.1 fL (36.4-46.3); Red Blood Count 3.74 M/uL (4.2-5.4); White Blood Count 8.01 K/uL (4.8-10.8)
[2021-10-05 07:11] LABS: BUN Creatinine Ratio 25.9 (10-20); Calcium 9.3 mg/dl (8.5-10.1); Creatinine Clr Calc Pharmacy 43.1 ml/min; Est GFR (African American) 58.5 ml/min; Est GFR (Non-African American) 50.4 ml/min; Potassium 3.8 mmol/L (3.5-5.1)
[2021-10-05] MEDS: INSULIN ASPART PER UNIT SC SCH ×4 (07:41→20:37)
--- NOTE | 2021-10-05 08:29 | Anesthesiology Consultation ---
Date of Service October 05, 2021 Assessment & Plan (1) Encounter for pre-operative examination: Chart Review Chart Review: Acceptable Risk for Surgery, Patient NOT seen in Pre Admission Testing and entry level account representative initiated Consults Requested none History Surgery Operation Date: 10/05/21 17:30 Proposed Procedures p Esophagogastroduodenoscopy Dr Knight - Alyson Knight, DO Height/Weight Height: 5 ft 7 in Weight: 56.8 kg Allergies Allergy/AdvReac Type Severity Reaction Status Date / Time chlorhexidine Allergy Intermediate ITCHING,RED Verified 10/02/21 18:31 NESS Quinolones Allergy Intermediate RASH-cipro Verified 10/03/21 01:18 Sulfa (Sulfonamide Allergy Intermediate RASH Verified 10/02/21 18:31 Antibiotics) Penicillins Allergy Unknown Unknown Verified 10/02/21 18:31 azithromycin Allergy Anaphylaxis Verified 10/02/21 18:31 Medications Home Medications Medication Instructions Recorded Confirmed Last Taken metformin 500 mg tablet 500 mg PO DAILY 09/03/20 10/02/21 Unknown rosuvastatin 20 mg tablet 20 mg PO DAILY 09/03/20 10/02/21 Unknown Bifidobacterium infantis 4 mg 4 mg PO DAILY 03/17/21 10/02/21 Unknown capsule (Align) baclofen 10 mg tablet 10 mg PO DAILY 03/17/21 10/02/21 Unknown psyllium husk 3.4 gram/5.4 gram 1 tbsp PO BID 03/17/21 10/02/21 Unknown oral powder (Metamucil) lisinopril 30 mg tablet 30 mg PO DAILY 10/02/21 10/02/21 Unknown montelukast 10 mg tablet 10 mg PO DAILY 10/02/21 10/02/21 Unknown Active Medications Generic Name Dose Route Start Last Admin Trade Name Freq PRN Reason Stop Dose Admin Baclofen 10 mg 10/03/21 09:00 10/04/21 07:41 Baclofen 10 Mg Tab PO 11/02/21 08:59 10 mg DAILY CLARKE Administration Pantoprazole Sodium 40 mg/ 100 mls @ 20 mls/hr 10/03/21 03:45 10/05/21 07:41 Dextrose IV 11/02/21 03:44 8 mg/hr Q5H CLARKE 20 mls/hr Administration 8 MG/HR Insulin Aspart 0 units 10/03/21 16:30 10/05/21 07:41 Insulin Aspart Per Unit SC 07/04/22 16:29 Not Given ACHS CLARKE Lisinopril 30 mg 10/04/21 14:00 10/04/21 14:27 Lisinopril 10 Mg Tab PO 11/03/21 13:59 30 mg QAM CLARKE Administration Montelukast Sodium 10 mg 10/03/21 09:00 10/04/21 07:41 Montelukast Sodium 10 Mg Tablet PO 11/02/21 08:59 10 mg DAILY CLARKE Administration Rosuvastatin Calcium 20 mg 10/03/21 09:00 10/04/21 07:41 Rosuvastatin Calcium 20 Mg Tab PO 11/02/21 08:59 20 mg DAILY CLARKE Administration Past Medical History Medical History (Updated 10/05/21 @ 08:32 by Amrit Guerrero MD) Abnormal thyroid function test DM II (diabetes mellitus, type II), controlled Dysfunction of right eustachian tube Encounter for pre-operative examination High blood pressure Kidney disease stage III Lung disease Otalgia, right ear Sensorineural hearing loss (SNHL) of right ear with restricted hearing of left ear Past Family History Family History Other Allergies Asthma Cancer Hearing loss Heart disease Hypertension Past Surgical History Surgical History History of back surgery History of delivery x2 History of hernia repair x2 History of knee replacement bilateral History of ovarian cystectomy History of vaginal hysterectomy Social History Smoking Status: Current every day smoker Smoking cigarettes per day: started smoking in 1971 Hx Alcohol Use: Yes Alcohol type: beer and hard liquor alcohol intake frequency: a few times a month Hx Substance Use: No Physical Exam Vital Signs Last Vital Signs Temp 36.5 C 10/05/21 06:33 Pulse 68 10/05/21 06:33 Resp 18 10/05/21 06:33 BP 136/74 10/05/21 06:33 Pulse Ox 93 10/05/21 06:33 Testing Laboratory Results 10/05/21 06:29 10/05/21 06:29 PT 10.7 Seconds (9.0-12.0) 10/02/21 20:24 INR 1.0 (0.9-1.1) 10/02/21 20:24 APTT 24.9 Seconds (21.0-31.0) 10/02/21 20:24 Urine Color Yellow 10/03/21 06:35 Urine Appearance Clear (Clear) 10/03/21 06:35 Urine pH 5.0 (4.5-7.5) 10/03/21 06:35 Ur Specific [place] > 1.045 (1.000-1.030) H 10/03/21 06:35 Urine Protein Negative (Negative) 10/03/21 06:35 Urine Glucose (UA) Negative (Negative) 10/03/21 06:35 Urine Ketones Negative (Negative) 10/03/21 06:35 Urine Nitrite Negative (Negative) 10/03/21 06:35 Ur Leukocyte Esterase Negative (Negative) 10/03/21 06:35 Urine WBC (Auto) 1-5 /hpf (0-5) 10/03/21 06:35 Urine RBC (Auto) 0-4 /hpf (0-4) 10/03/21 06:35 U Hyaline Cast (Auto) 1-5 /lpf (0-5) 10/03/21 06:35 U Epithel Cells (Auto) 10-20 /lpf (0-5) H 10/03/21 06:35 Urine Bacteria (Auto) Negative (Negative) 10/03/21 06:35 Blood Type B Positive 10/02/21 21:36 Antibody Screen NEGATIVE 10/02/21 21:36 10/05/21 07:31 POC Glucose 123 H Electrocardiogram Date: 10/02/21 Normal sinus rhythm Nonspecific ST and T wave abnormality Abnormal ECG When compared with ECG of 24-JAN-2013 12:53, Nonspecific T wave abnormality, worse in Anterior leads Confirmed by Sudarshan Schroeder ([id number]) on 10/04/2021 8:18:24 AM Chest X-Ray Date: 10/02/21 SINGLE VIEW CHEST CLINICAL HISTORY: Renal failure. FINDINGS: 2 AP, portable, upright chest radiographs are compared to study dated 01/24/2013. The heart is top normal in size noting atherosclerotic calcification of the thoracic aorta. The pulmonary vasculature is noncongested. Chronic interstitial thickening is similar to previous. Scarring/atelectasis is seen at the lung bases. The lungs and pleural spaces are otherwise clear. No pneumothorax is seen. The skeletal structures are osteopenic. The bony thorax is grossly intact. Fusion hardware is noted in the lower cervical spine. IMPRESSION: No acute cardiopulmonary abnormality.
[2021-10-05] MEDS ORDERED: LIDOCAINE 2% 2 ML VIAL/AMP(20MG/ML) INFIL ONE (08:58)
[2021-10-05] MEDS ORDERED: PROPOFOL IV EMULSION 10 MG/ML 20 ML VIAL IV ONE (08:58)
--- NOTE | 2021-10-05 09:08 | History & Physical Report ---
Date of Service October 05, 2021 Assessment & Plan (1) GI bleed: Plan: EGD today. Suspect bleeding is lower in nature. If EGD is negative, would let patient eat and monitor. Hsjoe just had a colonoscopy in January and has known diverticulosis and hemorrhoids,. Admission and Anticipated Discharge Date Admission Date: October 04, 2021 History of Present Illness Chief Complaint: rectal bleeding; ?melena episode had EGD and colo in January 2021 Primary Care Provider: Pedro Saba MD GI bleed Allergies Allergy/AdvReac Type Severity Reaction Status Date / Time chlorhexidine Allergy Intermediate ITCHING,RED Verified 10/05/21 08:55 NESS Quinolones Allergy Intermediate RASH-cipro Verified 10/05/21 08:55 Sulfa (Sulfonamide Allergy Intermediate RASH Verified 10/05/21 08:55 Antibiotics) Penicillins Allergy Unknown Unknown Verified 10/05/21 08:55 azithromycin Allergy Anaphylaxis Verified 10/05/21 08:55 Home Medications Medication Instructions Recorded Confirmed Type metformin 500 mg tablet 500 mg PO DAILY 09/03/20 10/02/21 History rosuvastatin 20 mg tablet 20 mg PO DAILY 09/03/20 10/02/21 History Bifidobacterium infantis 4 mg 4 mg PO DAILY 03/17/21 10/02/21 History capsule (Align) baclofen 10 mg tablet 10 mg PO DAILY 03/17/21 10/02/21 History psyllium husk 3.4 gram/5.4 gram 1 tbsp PO BID 03/17/21 10/02/21 History oral powder (Metamucil) lisinopril 30 mg tablet 30 mg PO DAILY 10/02/21 10/02/21 History montelukast 10 mg tablet 10 mg PO DAILY 10/02/21 10/02/21 History Past Med/Surg History Medical History Abnormal thyroid function test DM II (diabetes mellitus, type II), controlled Dysfunction of right eustachian tube Encounter for pre-operative examination High blood pressure Kidney disease stage III Lung disease Otalgia, right ear Sensorineural hearing loss (SNHL) of right ear with restricted hearing of left ear Surgical History History of back surgery History of delivery x2 History of hernia repair x2 History of knee replacement bilateral History of ovarian cystectomy History of vaginal hysterectomy Family History Other Allergies Asthma Cancer Hearing loss Heart disease Hypertension Social History Smoking Status: Current every day smoker Tobacco Type: Cigarettes packs per day: 0.5; Cigarettes Per Day: started smoking in 1971; Hx Alcohol Use: Yes Alcohol type: beer and hard liquor Hx Substance Use: No Preferred Language: Mexican Communication Ability: Effective marital status: Single Current Living Situation: Family current occupational status: retired How many Children do You have: 1 Feels Safe at Home: Yes Review of Systems All systems reviewed & are unremarkable except as noted in HPI & below Physical Exam Constitutional: WD/WN, vitals as above Respiratory: normal respiratory effort, lungs clear to auscultation Cardiovascular: RRR, no murmur, no edema Gastrointestinal (Abdomen): normal bowel sounds, soft, nontender, no hepatosplenomegaly Results & Data ([facility]) Vital Signs (Past 12 Hours) Vital Signs Temp Pulse Pulse Resp BP BP Pulse Ox 10/05/21 08:56 36.4 C L 10/05/21 06:33 36.5 C 68 18 136/74 93 10/05/21 03:59 36.8 C 63 16 171/69 H 93 10/04/21 23:46 36.7 C 65 18 169/84 H 98 10/04/21 22:33 66 Code Status & VTE Plan VTE Prophylaxis Plan VTE Prophylaxis will be ordered: Yes
[2021-10-05] MEDS ORDERED: ONDANSETRON INJ 2 MG/ML 2 ML VIAL ONE (09:18)
[2021-10-05] MEDS ORDERED: GLYCOPYRROLATE 0.2 MG/ML VIAL ONE (09:18)
--- NOTE | 2021-10-05 09:52 | GI REPORT ---
Patient Name: Shannan Barrera Procedure Date: 10/05/2021 9:32 AM Date of : 1955 Admit Type: Inpatient Age: 66 Gender: Female Attending MD: Alyson Knight DO Procedure: Upper GI endoscopy Providers: Alyson Knight DO Referring MD: Sofia Salazar Md Indications: Recent gastrointestinal bleeding Medicines: Propofol per Anesthesia Complications: No immediate complications. Estimated blood loss: None. Estimated Blood Loss: Estimated blood loss: none. Procedure: Pre-Anesthesia Assessment: - Prior to the procedure, a History and Physical was performed, and patient medications, allergies and sensitivities were reviewed. The patient's tolerance of previous anesthesia was reviewed. - The risks and benefits of the procedure and the sedation options and risks were discussed with the patient. All questions were answered and informed consent was obtained. - Patient identification and proposed procedure were verified prior to the procedure by the physician and the nurse. The procedure was verified in the pre-procedure area in the procedure room. - Mental Status Examination: alert and oriented. Airway Examination: normal oropharyngeal airway and neck mobility. Respiratory Examination: clear to auscultation. CV Examination: normal. Abdominal Examination: bowel sounds present, abdomen soft and non-tender, no masses or organomegaly noted. - ASA Grade Assessment: II - A patient with mild systemic disease. After obtaining informed consent, the endoscope was passed under direct vision. Throughout the procedure, the patient's blood pressure, pulse, and oxygen saturations were monitored continuously. The Endoscope was introduced through the mouth, and advanced to the second part of duodenum. The upper GI endoscopy was accomplished without difficulty. The patient tolerated the procedure well. Findings: The esophagus was normal. The stomach was normal. The examined duodenum was normal. Impression: - Normal esophagus. No esophagitis. - Normal stomach. No ulcers. - Normal examined duodenum. Recommendation: - Follow an antireflux regimen. - OK to allow patient to eat today. Monitor symptoms. No plan for colonoscopy. - Return patient to hospital [facility] for ongoing care. Paola Richards DO 10/05/2021 9:51:58 AM This report has been signed electronically. Note Initiated On: 10/05/2021 9:32 AM Number of Addenda: 0 I attest to the content of the Intraoperative Record and orders documented therein, exceptions below {[id number]}
[2021-10-05] MEDS: ROSUVASTATIN CALCIUM 20 MG TAB PO SCH (11:00)
[2021-10-05] MEDS: lisinopril 10 MG TAB PO SCH (11:01)
[2021-10-05] MEDS: BACLOFEN 10 MG TAB PO SCH (11:01)
[2021-10-05] MEDS: MONTELUKAST SODIUM 10 MG TABLET PO SCH (11:01)
--- NOTE | 2021-10-05 14:09 | Anesthesiology Progress Note ---
Date of Service October 05, 2021 Anesthesia Post Procedure Vital Signs Vital Signs: Temp Pulse Pulse Resp BP BP Pulse Ox 10/05/21 10:57 36.3 C L 74 18 164/95 H 90 10/05/21 10:15 73 16 152/84 H 95 10/05/21 10:04 74 16 105/70 96 10/05/21 09:49 74 16 106/51 L 97 10/05/21 09:07 64 10/05/21 08:56 36.4 C L 10/05/21 06:33 36.5 C 68 18 136/74 93 10/05/21 03:59 36.8 C 63 16 171/69 H 93 10/04/21 23:46 36.7 C 65 18 169/84 H 98 10/04/21 22:33 66 10/04/21 18:44 36.7 C 71 16 185/88 H 98 10/04/21 16:51 65 10/04/21 14:39 36.3 C L 72 18 179/86 H 97 Transfer of Care Handoff Completed per policy Notes Mental Status: alert / awake / arousable and participated in evaluation Patient Amnestic to Procedure: Yes Nausea / Vomiting: adequately controlled Pain: adequately controlled Airway Patency, RR, SpO2: stable & adequate BP & HR: stable & adequate Hydration State: stable & adequate Anesthetic Complications: no major complications apparent and Pt Satisfied with anesthetic care
--- NOTE | 2021-10-05 15:42 | Hospitalist Progress Note ---
Date of Service October 05, 2021 Assessment & Plan (1) GI bleed: Plan: Likely diverticular bleed EGD normal d/c IV protonix, start PO protonix Plan: Poorly controlled HTN -continue lisinopril 30mg daily NIDDM -correctional scale insulin while here HLD -statin Reactive airway disease -stable currently, continue montelukast, Duoneb PRN DVT ppx SCDs for now Disposition: discharge home tomorrow if H/h remains stable Admission and Anticipated Discharge Date Admission Date: October 04, 2021 Subjective Feels well Had EGD today Tolerating diet No BM since yesterday afternoon (the one she had yesterday afternoon had blood clots) Physical Exam Physical Exam: Appears well, no acute distress, non toxic Respiratory: Breathing comfortably on room air, no wheezing/rhonchi/rales Cardiovascular: regular rate and rhythm, no murmurs/rubs/gallops Gastrointestinal (Abdomen): soft, non tender Musculoskeletal: No edema Neurologic: Awake, alert, spontaneously moving extremities Results & Data Results & Data ([facility]) Vital Signs (Past 12 Hours) Vital Signs Temp Pulse Pulse Resp BP BP Pulse Ox 10/05/21 10:57 36.3 C L 74 18 164/95 H 90 10/05/21 10:15 73 16 152/84 H 95 10/05/21 10:04 74 16 105/70 96 10/05/21 09:49 74 16 106/51 L 97 10/05/21 09:07 64 10/05/21 08:56 36.4 C L 10/05/21 06:33 36.5 C 68 18 136/74 93 10/05/21 03:59 36.8 C 63 16 171/69 H 93 Laboratory Results Short CBC 10/05/21 Range/Units 06:29 WBC 8.01 (4.8-10.8) K/uL Hgb 11.7 L (12.0-16.0) g/dL Hct 35.3 L (37-47) % Plt Count 180 (130-400) K/uL BMP 10/05/21 06:29 Sodium 141 Potassium 3.8 Chloride 111 H Carbon Dioxide 23 BUN 29 H Creatinine 1.12 Glucose 93 Calcium 9.3 Medications Administered Current Inpatient Medications Acetaminophen (Acetaminophen 325 Mg Tab) 650 mg PO Q4H PRN PRN Reason: Pain or Fever Stop: 11/02/21 03:01 Albuterol (Albut/Ipratrop 3mg/0.5mg Neb 3 Ml Vial) 3 ml NEB QIDR PRN; Protocol PRN Reason: Shortness Of Breath Or Wheezing Stop: 10/08/21 10:59 Baclofen (Baclofen 10 Mg Tab) 10 mg PO DAILY CLARKE Stop: 11/02/21 08:59 Last Admin: 10/05/21 11:01 Dose: 10 mg Documented by: Dextrose (Dextrose 50% 50 Ml Syringe) 25 - 50 ml IV UD PRN; Protocol PRN Reason: Hypoglycemia Protocol Stop: 11/02/21 03:01 Glucagon (Glucagon For Inj 1 Mg Vial) 1 mg SQ UD PRN; Protocol PRN Reason: Hypoglycemia Protocol Stop: 11/02/21 03:01 Glucose (Glucose 10 Tabs/Tube) 4 - 8 tabs PO UD PRN; Protocol PRN Reason: Hypoglycemia Protocol Stop: 11/02/21 03:01 Glucose (Glucose 40% Gel 15 Gm Tube) 15 - 30 gm PO UD PRN; Protocol PRN Reason: Hypoglycemia Protocol Stop: 11/02/21 03:01 Promethazine HCl 6.25 mg/ (Sodium Chloride) 50.25 mls @ 201 mls/hr IV Q6H PRN PRN Reason: Nausea And Vomiting Stop: 11/02/21 03:01 Insulin Aspart (Insulin Aspart Per Unit) 0 units SC ACHS [facility] Stop: 11/02/21 16:29 Last Admin: 10/05/21 12:09 Dose: 1 units Documented by: Lisinopril (Lisinopril 10 Mg Tab) 30 mg PO QAM [facility] Stop: 11/03/21 13:59 Last Admin: 10/05/21 11:01 Dose: 30 mg Documented by: Miscellaneous (Carbohydrates For Hypoglycemia ) 15 - 30 gm PO UD PRN PRN Reason: Hypoglycemia Protocol Stop: 11/02/21 03:01 Montelukast Sodium (Montelukast Sodium 10 Mg Tablet) 10 mg PO DAILY [facility] Stop: 11/02/21 08:59 Last Admin: 10/05/21 11:01 Dose: 10 mg Documented by: Pantoprazole Sodium (Pantoprazole 40 Mg Tab) 40 mg PO QAM [facility] Stop: 11/05/21 08:59 Rosuvastatin Calcium (Rosuvastatin Calcium 20 Mg Tab) 20 mg PO DAILY [facility] Stop: 11/02/21 08:59 Last Admin: 10/05/21 11:00 Dose: 20 mg Documented by: Tramadol HCl (Tramadol Hcl 50 Mg Tablet) 25 - 50 mg PO Q4H PRN PRN Reason: Pain Stop: 11/02/21 03:01
[2021-10-06] MEDS ORDERED: lisinopril 40 MG TAB PO SCH (02:45)
[2021-10-06 07:28] LABS: Hematocrit (blood only) 34.1 % (37-47); Mean Corpuscular Hemoglobin 30.2 pg (25-34); Mean Corpuscular Hgb Conc 32.3 g/dL (32-36); Mean Corpuscular Volume 93.7 fL (80-100); Mean Platelet Volume 11.2 fL (7.4-10.4); Platelet Count 174 K/uL (130-400); RDW Coefficient of Variation 14.2 % (11.5-14.5); RDW Standard Deviation 48.1 fL (36.4-46.3); Red Blood Count 3.64 M/uL (4.2-5.4); White Blood Count 8.72 K/uL (4.8-10.8)
[2021-10-06] MEDS: INSULIN ASPART PER UNIT SC SCH ×2 (07:48→12:56)
[2021-10-06 07:49] LABS: BUN Creatinine Ratio 25.5 (10-20); Calcium 8.9 mg/dl (8.5-10.1); Est GFR (African American) 42.8 ml/min; Est GFR (Non-African American) 36.9 ml/min
[2021-10-06] MEDS: BACLOFEN 10 MG TAB PO SCH (07:49)
[2021-10-06] MEDS ORDERED: PANTOprazole 40 MG TAB PO SCH (09:00)
[2021-10-06] MEDS: MONTELUKAST SODIUM 10 MG TABLET PO SCH (09:26)
[2021-10-06] MEDS: ROSUVASTATIN CALCIUM 20 MG TAB PO SCH (09:26)
--- NOTE | 2021-10-06 10:15 | Gastroenterology Progress Note ---
Date of Service October 06, 2021 Assessment & Plan (1) Hematochezia: Plan: 66 y/o female w/ hematochezia. EGD yesterday was normal. H&H stable, tolerating a regular diet. No further GIB. She is HD stable. Abd soft. Suspect etiology of bleeding was lower GI. History of diverticulosis and hemorrhoids on previous colonoscopy 01/2021. - Diet as tolerated - Antireflux regimen - Monitor for recurrent symptoms, document GI output - Trend H&H, transfuse PRN - No plan for repeat colonoscopy - GI will sign off, please call with questions Thank you for allowing us to participate in the care of this patient. Please call with any acute changes, questions or concerns. Please see addendum below with additional recommendation from my supervising physician. Admission and Anticipated Discharge Date Admission Date: October 04, 2021 Supervising Physician Co-Signing Physician Notes Late entry: Patient was seen and examined on 10/06 with Jamie Martines PA-C. Her note reflects our fidnings and plan. Subjective Patient seen and examined, chart reviewed. No acute changes overnight. No stool output, no hematochezia, melena, hematemesis, n/v, abd pain. + passing flatus. Is tolerating a regular diet and feeling well. H&H and BUN are stable. Physical Exam Constitutional: WD/WN, vitals as above Respiratory: normal respiratory effort, lungs clear to auscultation Cardiovascular: RRR, no murmur, no edema Gastrointestinal (Abdomen): normal bowel sounds, soft, nontender, no hepatosplenomegaly Skin: no rashes, warm and dry Psychiatric: A+Ox3, euthymic affect Results & Data ([facility]) Vital Signs (Past 12 Hours) Vital Signs Temp Pulse Resp BP Pulse Ox 10/06/21 09:31 156/74 H 10/06/21 06:37 36.3 C L 61 18 177/97 H 96 10/06/21 03:22 36.8 C 68 18 198/94 H 96 10/05/21 22:54 36.9 C 62 18 174/89 H 94 Laboratory Results 10/06/21 10/06/21 10/06/21 Range/Units 07:32 06:55 06:55 WBC 8.72 (4.8-10.8) K/uL RBC 3.64 L (4.2-5.4) M/uL Hgb 11.0 L (12.0-16.0) g/dL Hct 34.1 L (37-47) % MCV 93.7 (80-100) fL MCH 30.2 (25-34) pg MCHC 32.3 (32-36) g/dL RDW Std Deviation 48.1 H (36.4-46.3) fL RDW Coeff of Susan 14.2 (11.5-14.5) % Plt Count 174 (130-400) K/uL MPV 11.2 H (7.4-10.4) fL Sodium 139 (136-145) mmol/L Potassium 4.0 (3.5-5.1) mmol/L Chloride 110 H (98-107) mmol/L Carbon Dioxide 24 (21-32) mmol/L Anion Gap 5 (3-11) BUN 37 H (6-23) mg/dl Creatinine 1.45 H D (0.6-1.2) mg/dl Est Cr Clr Drug Dosing 34.0 ml/min Est GFR ( Amer) 42.8 ml/min Est GFR (Non-Af Amer) 36.9 ml/min BUN/Creatinine Ratio 25.5 H (10-20) Glucose 95 (70-99(Fasting)) mg/dl POC Glucose 105 H (70-99) mg/dl Calcium 8.9 (8.5-10.1) mg/dl Magnesium 2.0 (1.7-2.4) mg/dl 10/05/21 10/05/21 10/05/21 Range/Units 20:16 16:25 11:24 WBC (4.8-10.8) K/uL RBC (4.2-5.4) M/uL Hgb (12.0-16.0) g/dL Hct (37-47) % MCV (80-100) fL MCH (25-34) pg MCHC (32-36) g/dL RDW Std Deviation (36.4-46.3) fL RDW Coeff of Susan (11.5-14.5) % Plt Count (130-400) K/uL MPV (7.4-10.4) fL Sodium (136-145) mmol/L Potassium (3.5-5.1) mmol/L Chloride (98-107) mmol/L Carbon Dioxide (21-32) mmol/L Anion Gap (3-11) BUN (6-23) mg/dl Creatinine (0.6-1.2) mg/dl Est Cr Clr Drug Dosing ml/min Est GFR ( Amer) ml/min Est GFR (Non-Af Amer) ml/min BUN/Creatinine Ratio (10-20) Glucose (70-99(Fasting)) mg/dl POC Glucose 110 H 128 H 89 (70-99) mg/dl Calcium (8.5-10.1) mg/dl Magnesium (1.7-2.4) mg/dl Diagnostic Findings EGD 10/05/21: Patient Name: Shannan Barrera Procedure Date: 10/05/2021 9:32 AM Date of : 1955 Admit Type: Inpatient Age: 66 Gender: Female Attending MD: Alyson Knight DO Procedure: Upper GI endoscopy Providers: Alyson Knight DO Referring MD: Sofia Salazar Md Indications: Recent gastrointestinal bleeding Medicines: Propofol per Anesthesia Complications: No immediate complications. Estimated blood loss: None. Estimated Blood Loss: Estimated blood loss: none. Procedure: Pre-Anesthesia Assessment: - Prior to the procedure, a History and Physical was performed, and patient medications, allergies and sensitivities were reviewed. The patient's tolerance of previous anesthesia was reviewed. - The risks and benefits of the procedure and the sedation options and risks were discussed with the patient. All questions were answered and informed consent was obtained. - Patient identification and proposed procedure were verified prior to the procedure by the physician and the nurse. The procedure was verified in the pre-procedure area in the procedure room. - Mental Status Examination: alert and oriented. Airway Examination: normal oropharyngeal airway and neck mobility. Respiratory Examination: clear to auscultation. CV Examination: normal. Abdominal Examination: bowel sounds present, abdomen soft and non-tender, no masses or organomegaly noted. - ASA Grade Assessment: II - A patient with mild systemic disease. After obtaining informed consent, the endoscope was passed under direct vision. Throughout the procedure, the patient's blood pressure, pulse, and oxygen saturations were monitored continuously. The Endoscope was introduced through the mouth, and advanced to the second part of duodenum. The upper GI endoscopy was accomplished without difficulty. The patient tolerated the procedure well. Findings: The esophagus was normal. The stomach was normal. The examined duodenum was normal. Impression: - Normal esophagus. No esophagitis. - Normal stomach. No ulcers. - Normal examined duodenum. Recommendation: - Follow an antireflux regimen. - OK to allow patient to eat today. Monitor symptoms. No plan for colonoscopy. - Return patient to hospital [facility] for ongoing care.
--- NOTE | 2021-10-06 13:41 | Discharge Summary ---
Date of Service October 06, 2021 Admission HPI Per Admitting Provider History obtained from patient and records. Medical history significant for CO PD, hypertension, hyperlipidemia, AAA, DM2 on oral medications, diverticulosis, internal hemorrhoids as per records, ongoing tobacco abuse. Last confinement 2009 for COPD exacerbation. 1 day history of bloody bowel movements mixed with black stools. No fever, no chills. No chest pain, no SOB. Some lower abdominal cramping. No recent antibiotic Rx/travel/sick contacts. No emesis. Some lightheadedness. Patient consulted ER for evaluation. IV PPI given for UGIB. Principal Diagnosis Diverticular Bleed Poorly controlled hypertension Acute kidney injury Discharge Exam Patient feels well. Last BM was 10/04. Tolerating diet. Gen- appears well, no acute distress, non toxic CV- regular rate and rhythm Pulm- breathing comfortably on room air, no wheezing/rhonchi Abd- soft, non tender Extr- no edema Discharge Data Allergies Allergy/AdvReac Type Severity Reaction Status Date / Time chlorhexidine Allergy Intermediate ITCHING,RED Verified 10/05/21 08:55 NESS Quinolones Allergy Intermediate RASH-cipro Verified 10/05/21 08:55 Sulfa (Sulfonamide Allergy Intermediate RASH Verified 10/05/21 08:55 Antibiotics) Penicillins Allergy Unknown Unknown Verified 10/05/21 08:55 azithromycin Allergy Anaphylaxis Verified 10/05/21 08:55 Consultations 10/02/21 22:58 ED Decision to Admit Stat 10/03/21 03:02 Consult Gastroenterology Routine Procedures Performed Operation Date: 10/05/21 17:30 Actual Procedures p Esophagogastroduodenoscopy - Alyson Knight, Ordered Studies 10/02/21 20:10 CT angio abdomen pelvis w con Stat Hospital Course (1) GI bleed: Ms Shannan Barrera is a 66 year old female who is a current smoker, who has poorly controlled HTN, non insulin dependent diabetes and diverticulosis presented to the ER 10/03 with several episodes of black stool mixed with blood/clots. Patient with recent colonoscopy 01/2021 which reportedly only showed diverticulosis and she denies NSAIDs or blood thinner use. She also denies epigastric pain or discomfort. She was admitted for GI bleed (upper vs lower) and was placed on a protonix drip. She was seen by GI and since she recently had a colonoscopy it was recommended she receive an EGD here. She had an EGD 10/05 which was normal and she was placed back on a diet. Her GI bleed is likely lower from diverticulosis. Her bleeding had resolved by time of discharge, last episode was 10/04/2021. While here, she was noted to have poorly controlled blood pressure. In addition, she also had JENIFFER with Cr up to 1.45 at the time of discharge. She was instructed to increase her fluid intake and her lisinopril was discontinued. Instead she was discharged on amlodipine 10mg daily. She was instructed to follow up with her PCP for repeat BMP in 1 week and follow up with him in 1-2 weeks for blood pressure management. She was instructed to keep a daily log book of her blood pressure readings. Patient felt comfortable returning home with close follow up and all questions were answered. Her PCP was also updated on her hospital course. Total Time Total Time Spent Total Time Spent (In Minutes): 38 Discharge Plan Discharge Items Patient Disposition: Home - Self-Care Reason For Visit: UGIB, HTN URG Discharge Diagnosis: Diverticular Bleed Poorly controlled hypertension Acute kidney injury Condition on Discharge: Good Activity: Resume your previous activity Non-emergency contact: Primary Care Provider and Craft Superintendent Call non-emergency contact if: you have any medication questions Follow-up/Referrals: Pedro Saba MD [Primary Care Provider] - Diet: Heart Healthy Addtl Attending Provider Instructions: For your bloody stools You were admitted for bloody bowel movements, last was on 10/04 You had an EGD (upper endoscopy) here which was normal You recently had a colonoscopy several months ago which showed diverticulosis Your bleeding was likely from a diverticulosis For your kidney injury and High Blood pressure Your Cr at discharge had increased to 1.45 so your Lisinopril was discontinued. You were started on amlodipine 10mg daily for blood pressure. Please stay hydrated and avoid alcohol and caffeine. Please follow up with your primary care physician for a repeat BMP (chemistry panel) in 1 week. Please keep a log book of your blood pressure readings and follow up with your primary care physician in 1-2 weeks for blood pressure management. Pending Studies at Discharge: No Stand-Alone Forms: [employer] Smoking Cessation Medications and DC Order Prescriptions: New pantoprazole 40 mg Tablet,Delayed Release (Dr/Ec) 40 mg PO QAM 14 Days Qty: 14 RF: 0 amlodipine 10 mg tablet 10 mg PO DAILY Qty: 30 RF: 0 Continued rosuvastatin 20 mg tablet 20 mg PO DAILY RF: 0 metformin 500 mg tablet 500 mg PO DAILY RF: 0 baclofen 10 mg tablet 10 mg PO DAILY RF: 0 Metamucil 3.4 gram/5.4 gram powder 1 tbsp PO BID RF: 0 Align 4 mg capsule 4 mg PO DAILY RF: 0 montelukast 10 mg tablet 10 mg PO DAILY RF: 0 Discontinued lisinopril 30 mg tablet 30 mg PO DAILY RF: 0 Discharge Orders: Discharge Order (Routine); Ordered 10/06/21 Ordered By: Lexi Salazar Admission Data Admit Date/Time: 10/04/21 16:07 Attending Provider: Lexi Salazar Admit Provider: Gio Marroquin Primary Care Provider: Pedro Saba Other Providers: Gio Marroquin ; Rachel Hopson ; Katy Martines ; Emma Nuñez ; More Sanabria ; Shon Ortega ; Rebekah Hope ; Óscar Armando ; Will El ; Joselyn Henry ; Alyson Knight ; Manuela Braga ; Gemini Stern ; Negrita Brooks Other Interventions: Discharge Summary Assessment (RN) Last Done: 10/06/21 13:10
== END 2021-10-06 14:33 | disposition home or self-care (01) ==
LOC: ED 18:14 → 2N 18:14

== ENCOUNTER 2022-05-21 08:54 | Inpatient (IN) ==
[2022-05-21 09:29] LABS: Basophils # (auto) 0.05 K/uL (0-0.2); Basophils % (auto) 0.4 %; Eosinophils # (auto) 0.13 K/uL (0-0.50); Hemoglobin 15.7 g/dl (12.0-16.0); Immature Granulocytes # (auto) 0.03 K/uL (0.00-0.02); Immature Granulocytes % (auto) 0.2 %; Lymphocytes # (auto) 2.51 K/uL (1.2-3.4); Lymphocytes % (auto) 19.2 %; Mean Corpuscular Hemoglobin 29.7 pg (25.0-34.0); Mean Corpuscular Hgb Conc 32.7 g/dL (32.0-36.0); Mean Corpuscular Volume 90.7 fL (80.0-100.0); Mean Platelet Volume 11.6 fL (9.4-12.3); Monocytes # (auto) 0.55 K/uL (0.24-0.82); Monocytes % (auto) 4.2 %; Neutrophils # (auto) 9.77 K/uL (1.4-6.5); Platelet Count 243 K/uL (130-400); RDW Coefficient of Variation 13.4 % (11.5-14.5); RDW Standard Deviation 44.5 fL (36.4-46.3); Red Blood Count 5.29 M/uL (3.93-5.22); White Blood Count 13.04 K/ul (4.8-10.8)
[2022-05-21 09:49] LABS: Albumin Globulin Ratio 1.6 (0.9-2); Albumin Level 4.5 gm/dl (3.4-5.0); BUN Creatinine Ratio 19.3 (10-20); Bilirubin,Total 0.4 mg/dl (0.2-1.0); Calcium 9.4 mg/dl (8.5-10.1); Creatinine Clr Calc Pharmacy 38.7 ml/min; Est GFR (African American) 46.3 ml/min; Globulin 2.9 gm/dl (2.5-4.0); Potassium 3.9 mmol/L (3.5-5.1); Total Protein 7.4 gm/dl (6.0-8.3)
[2022-05-21] MEDS: SODIUM CHLORIDE 0.9% 1000ML 1,000 ML IV SCH ×3 (09:53→18:04)
--- NOTE | 2022-05-21 10:11 | CT Scan Report ---
CT abd pelvis wo con CLINICAL HISTORY: abd pain, distention, constipation TECHNIQUE: Helical axial images of the abdomen and pelvis were obtained. Automated dose lowering tech niques and/or adjustment according to patient size were utilized for this exam. This exam was perfor med without intravenous contrast. CT DOSE: 266.24 mGy.cm COMPARISON: Comparison is made to CT abdomen pelvis 10/02/2021 FINDINGS: Lower chest: Bibasilar atelectasis versus scarring is seen. Liver: Unremarkable. No focal lesions are seen. Gallbladder and biliary tree: No calcified gallstones. Normal caliber wall. No intra- or extrahepatic biliary ductal dilation. Pancreas: Unremarkable, no focal lesions. Spleen: Unremarkable. Adrenals: Unremarkable. Kidneys and ureters: Unremarkable. Bladder: Limited evaluation due to underdistention. Reproductive organs: Unremarkable. Bowel: Numerous diverticula are seen with bowel wall thickening and increased vascularity extending f rom the distal transverse colon to the sigmoid colon.. Thickening is also noted in the distal transve rse colon. Postsurgical changes of appendectomy are seen. Lymph nodes Retroperitoneal: Unremarkable. Pelvic: Unremarkable. Mesenteric: Unremarkable. Peritoneum: Normal. Vessels: Infrarenal aortic aneurysms measure up to 44 mm in diameter. Abdominal wall: Unremarkable. Bones: Degenerative changes in the visualized spine. Posterior fixation hardware is seen spanning L4- L5. IMPRESSION: 1. Thickening of the wall of the sigmoid and transverse colon noted compatible with nonspecific coli tis, infectious/inflammatory or ischemic in the CORINNE distribution. 2. Infrarenal aortic aneurysm. 3. Additional findings as above. ACT 112: Negative or not required by law. Electronically signed by: Russ Thacker M.D. 05/21/2022 10:10 AM
[2022-05-21] MEDS ORDERED: METOCLOPRAMIDE HCL INJ 5 MG/ML 2 ML VIAL IV ONE (12:23)
[2022-05-21] MEDS ORDERED: DICYCLOMINE HCL 10 MG/ML 2 ML AMP/VIAL IM ONE (12:23)
--- NOTE | 2022-05-21 12:23 | Emergency Department Note ---
Impression & Plan Abdominal pain, Constipation ED Provider Note ED Provider Note NAME: ERIKA HI AGE:67 SEX: Female : 1955 ARRIVES VIA: Private vehicle INFORMANT: Patient ED PROVIDER(s): Shraddha Mariano DO CHIEF COMPLAINT: Abdominal pain, distention, constipation HPI: This is a 67-year-old female presents emergency department due to concern for abdominal pain, constipation, and distention. Patient states she does have a long history of bowel problems and has had frequent episodes of constipation previously. No prior history of IBS or IBD. Patient has previously had colonoscopies without any problems or complications per her report. Patient states her last normal bowel movement was somewhere between 10 to 14 days ago. She states in the interim she will pass gas and only passed a very small negative stool. She denies any melena or hematochezia. She states she feels increasingly distended and bloated and has intermittent sharp spasms of abdominal pain. Patient has had prior abdominal surgeries. She denies fevers or chills. States she was nauseated this morning but no overt vomiting. PAST MEDICAL HISTORY:See Below PAST SURGICAL HISTORY:See Below FAMILY HISTORY:See Below SOCIAL HISTORY:See Below HOME MEDICATIONS:See Below ALLERGIES:See Below VITALS:See Below PHYSICAL EXAMINATION: GENERAL: alert, well appearing, well nourished, no distress, non-toxic EYE EXAM: normal conjunctiva, PERRL and EOM's grossly intact OROPHARYNX: no exudate, no erythema, lips, buccal mucosa, and tongue normal and mucous membranes are moist NECK: supple, no nuchal rigidity, no adenopathy, non-tender LUNGS: Clear to auscultation. Normal chest wall mechanics, no w/r/r HEART: no murmurs, S1 normal and S2 normal ABDOMEN: abdomen soft, distended, generalized discomfort with palpation, normo-active bowel sounds, no masses, no rebound or guarding. Tympanitic to percussion. RECTAL: Rectal exam performed at bedside with nurse manager money to him, no obvious external hemorrhoids or anal fissure, no stool in the rectal vault, guaiac testing heme-negative BACK: Back is symmetrical on inspection and there is no deformity, no midline tenderness, no CVA tenderness. SKIN: no rashes, petechiae, orbruising UPPER EXTREMITIES: upper extremities are grossly normal. FROM, nml pulses b/l. LOWER EXTREMITIES: No pitting edema. FROM, nml pulses b/l. NEURO EXAM: Normal sensorium, cranial nerves II-XII grossly intact, normal speech, no facial droop,nogross weakness of arms, no gross weakness of legs. Gross sensation intact. No ataxia. Vital Signs: reviewed and remarkable Differential Diagnosis: Constipation, bowel obstruction, volvulus, perforation, colitis, GI bleed, mesenteric ischemia, as well as others were considered MEDICAL DECISION MAKING: This is a 67-year-old female presents to the emergency department due to concern for abdominal distention, pain, and constipation. Patient with obvious distention on exam and tympany. Given history of prior surgeries, concern for SBO. Rectal exam with no stool in the vault. No obvious constipation on CT however dilated loops of bowel were noted although rad read stated no SBO and no volvulus. Labs are drawn and sent and otherwise reassuring. Patient was given IV fluids here as well as IV Reglan and Bentyl to help with symptoms. Case discussed with general surgery for additional evaluation given atypical history, exam, in conjunction with CT findings. They were in agreement with plan for admission to medicine and possible need for additional GI consult/evaluation. Patient verbalized understanding of all results and was in agreement with the plan. Consultation(s): 1433: Discussed with Nathalia Cotter PA-C with general surgery. They will evaluate the patient 1558: Discussed with Brandy Rodrigez [facility]. ER Treatment Provided: See below Diagnostics Interpreted By Me: -ECG: -Cardiac Monitoring: An order was placed for continuous cardiac monitoring. The monitor shows a rate of 70 with normal sinus rhythm. -Laboratory studies: As stated above and show below. -Imaging studies: CT abdomen and pelvis Triage Nursing Note Reviewed Prior/Outside Records Reviewed -outpatient records of colonoscopy from [facility] from March 2021, as well as EGD from September 2021 Procedures: [] Critical Care: [] Past Med/Surg History Medical History (Updated 05/21/22 @ 16:08 by Kaylie Rankin PA-C) AAA (abdominal aortic aneurysm) Abnormal thyroid function test DM II (diabetes mellitus, type II), controlled Dysfunction of right eustachian tube Feeling light headed Hematochezia HLD (hyperlipidemia) Hypertension Kidney disease stage III Large bowel obstruction Lower gastrointestinal hemorrhage Lung disease Otalgia, right ear Sensorineural hearing loss (SNHL) of right ear with restricted hearing of left ear Surgical History (Updated 05/21/22 @ 15:33 by Gallo Montero DO, FACS) History of back surgery History of delivery x2 History of hernia repair x2 History of knee replacement bilateral History of ovarian cystectomy History of vaginal hysterectomy Family History Other Allergies Asthma Cancer Hearing loss Heart disease Hypertension Social History Smoking Status: Current every day smoker Tobacco Type: Cigarettes packs per day: 0.5; Cigarettes Per Day: started smoking in 1971; Hx Alcohol Use: Yes Alcohol type: beer and hard liquor Hx Substance Use: No Preferred Language: Faroese Communication Ability: Effective marital status: Single Current Living Situation: Family current occupational status: retired How many Children do You have: 1 Feels Safe at Home: Yes Assistive Devices: None Allergies Allergies Allergy/AdvReac Type Severity Reaction Status Date / Time chlorhexidine Allergy Intermediate ITCHING,RED Verified 05/21/22 16:05 NESS Quinolones Allergy Intermediate RASH-cipro Verified 05/21/22 16:05 Sulfa (Sulfonamide Allergy Intermediate RASH Verified 05/21/22 16:05 Antibiotics) Penicillins Allergy Unknown Unknown Verified 05/21/22 16:05 azithromycin Allergy Anaphylaxis Verified 05/21/22 16:05 Home Meds Home Medications Medication Instructions Recorded Confirmed rosuvastatin 20 mg tablet 20 mg PO HS 09/03/20 05/21/22 montelukast 10 mg tablet 10 mg PO HS 10/02/21 05/21/22 amlodipine 5 mg tablet 5 mg PO QAM 05/21/22 05/21/22 aspirin 81 mg tablet,delayed 81 mg PO DAILY 05/21/22 05/21/22 release bismuth subsalicylate 262 mg tablet 2 tab PO QID PRN Gi Upset 05/21/22 05/21/22 duloxetine 30 mg capsule,delayed 30 mg PO QAM 05/21/22 05/21/22 release lisinopril 30 mg tablet 30 mg PO QAM 05/21/22 05/21/22 pantoprazole 40 mg tablet,delayed 40 mg PO QAM 05/21/22 05/21/22 release Results & Data (ED) Vital Signs Vital Signs - 24 hr 05/21/22 09:15 05/21/22 09:31 05/21/22 09:31 Temperature 36.9 C Temperature Source Oral Pulse Rate 74 Pulse Rate [Apical] Pulse Rate from SpO2 Sensor 71 Pulse Rhythm Regular Pulse Strength Normal Respiratory Rate 20 Respiratory Effort / Characteristics Non-Labored Spontaneous Respiratory Depth Normal Respiratory Pattern Regular Blood Pressure 166/86 H 155/87 H Blood Pressure [Right Arm] Blood Pressure Mean 112 109 Blood Pressure Mean [Right Arm] Blood Pressure Position Sitting Pulse Oximetry 98 96 Oxygen Delivery Method Room Air Room Air Sepsis Recent Fever Within 48 Hours No Sepsis New/Unexplained Change in Mental Status N/A Sepsis Action Taken by Nursing No Action Required 05/21/22 10:00 05/21/22 10:00 05/21/22 10:30 Temperature Temperature Source Pulse Rate 69 67 Pulse Rate [Apical] Pulse Rate from SpO2 Sensor 70 67 Pulse Rhythm Pulse Strength Respiratory Rate 19 17 Respiratory Effort / Characteristics Respiratory Depth Respiratory Pattern Blood Pressure 160/91 H Blood Pressure [Right Arm] Blood Pressure Mean 114 Blood Pressure Mean [Right Arm] Blood Pressure Position Pulse Oximetry 97 98 Oxygen Delivery Method Sepsis Recent Fever Within 48 Hours Sepsis New/Unexplained Change in Mental Status Sepsis Action Taken by Nursing 05/21/22 10:31 05/21/22 10:31 05/21/22 11:00 Temperature Temperature Source Pulse Rate 67 Pulse Rate [Apical] 68 Pulse Rate from SpO2 Sensor 67 Pulse Rhythm Pulse Strength Respiratory Rate 20 16 Respiratory Effort / Characteristics Non-Labored Respiratory Depth Normal Respiratory Pattern Blood Pressure 175/85 H Blood Pressure [Right Arm] 188/90 H Blood Pressure Mean 115 Blood Pressure Mean [Right Arm] 122 Blood Pressure Position Pulse Oximetry 98 96 Oxygen Delivery Method Room Air Sepsis Recent Fever Within 48 Hours Sepsis New/Unexplained Change in Mental Status Sepsis Action Taken by Nursing 05/21/22 13:00 05/21/22 15:00 Temperature Temperature Source Pulse Rate Pulse Rate [Apical] 72 83 Pulse Rate from SpO2 Sensor Pulse Rhythm Pulse Strength Respiratory Rate 18 16 Respiratory Effort / Characteristics Non-Labored Non-Labored Respiratory Depth Normal Normal Respiratory Pattern Blood Pressure Blood Pressure [Right Arm] 179/95 H 178/98 H Blood Pressure Mean Blood Pressure Mean [Right Arm] 123 124 Blood Pressure Position Pulse Oximetry 96 98 Oxygen Delivery Method Room Air Room Air Sepsis Recent Fever Within 48 Hours Sepsis New/Unexplained Change in Mental Status Sepsis Action Taken by Nursing Laboratory Data 05/21/22 08:30 05/21/22 08:30 Lab Results 05/21/22 05/21/22 05/21/22 Range/Units 08:30 08:30 10:46 WBC 13.04 H (4.8-10.8) K/ul RBC 5.29 H (3.93-5.22) M/uL Hgb 15.7 (12.0-16.0) g/dl Hct 48.0 H (34.1-44.9) % MCV 90.7 (80.0-100.0) fL MCH 29.7 (25.0-34.0) pg MCHC 32.7 (32.0-36.0) g/dL RDW Std Deviation 44.5 (36.4-46.3) fL RDW Coeff of Susan 13.4 (11.5-14.5) % Plt Count 243 (130-400) K/uL MPV 11.6 (9.4-12.3) fL Immature Gran % (Auto) 0.2 % Neut % (Auto) 75.0 % Lymph % (Auto) 19.2 % White % (Auto) 4.2 % Eos % (Auto) 1.0 % Baso % (Auto) 0.4 % Neut # (Auto) 9.77 H (1.4-6.5) K/uL Lymph # (Auto) 2.51 (1.2-3.4) K/uL White # (Auto) 0.55 (0.24-0.82) K/uL Eos # (Auto) 0.13 (0-0.50) K/uL Baso # (Auto) 0.05 (0-0.2) K/uL Immature Gran # (Auto) 0.03 H (0.00-0.02) K/uL Sodium 139 (136-145) mmol/L Potassium 3.9 (3.5-5.1) mmol/L Chloride 107 (98-107) mmol/L Carbon Dioxide 24 (21-32) mmol/L Anion Gap 8 (3-11) BUN 26 H (6-23) mg/dl Creatinine 1.35 H (0.6-1.2) mg/dl Est Cr Clr Drug Dosing 38.7 ml/min Est GFR ( Amer) 46.3 ml/min Est GFR (Non-Af Amer) 40.0 ml/min BUN/Creatinine Ratio 19.3 (10-20) Glucose 144 H (70-99(Fasting)) mg/dl Lactate 0.8 (0.4-2.0) mmol/L Calcium 9.4 (8.5-10.1) mg/dl Total Bilirubin 0.4 (0.2-1.0) mg/dl AST 12 L (13-39) U/L ALT 6 L (7-52) U/L Alkaline Phosphatase 79 (34-104) U/L Total Protein 7.4 (6.0-8.3) gm/dl Albumin 4.5 (3.4-5.0) gm/dl Globulin 2.9 (2.5-4.0) gm/dl Albumin/Globulin Ratio 1.6 (0.9-2) Lipase 31 (11-82) U/L SARS-CoV-2, RNA, NAAT (NEGATIVE) 05/21/22 Range/Units Unknown WBC (4.8-10.8) K/ul RBC (3.93-5.22) M/uL Hgb (12.0-16.0) g/dl Hct (34.1-44.9) % MCV (80.0-100.0) fL MCH (25.0-34.0) pg MCHC (32.0-36.0) g/dL RDW Std Deviation (36.4-46.3) fL RDW Coeff of Susan (11.5-14.5) % Plt Count (130-400) K/uL MPV (9.4-12.3) fL Immature Gran % (Auto) % Neut % (Auto) % Lymph % (Auto) % White % (Auto) % Eos % (Auto) % Baso % (Auto) % Neut # (Auto) (1.4-6.5) K/uL Lymph # (Auto) (1.2-3.4) K/uL White # (Auto) (0.24-0.82) K/uL Eos # (Auto) (0-0.50) K/uL Baso # (Auto) (0-0.2) K/uL Immature Gran # (Auto) (0.00-0.02) K/uL Sodium (136-145) mmol/L Potassium (3.5-5.1) mmol/L Chloride (98-107) mmol/L Carbon Dioxide (21-32) mmol/L Anion Gap (3-11) BUN (6-23) mg/dl Creatinine (0.6-1.2) mg/dl Est Cr Clr Drug Dosing ml/min Est GFR ( Amer) ml/min Est GFR (Non-Af Amer) ml/min BUN/Creatinine Ratio (10-20) Glucose (70-99(Fasting)) mg/dl Lactate (0.4-2.0) mmol/L Calcium (8.5-10.1) mg/dl Total Bilirubin (0.2-1.0) mg/dl AST (13-39) U/L ALT (7-52) U/L Alkaline Phosphatase (34-104) U/L Total Protein (6.0-8.3) gm/dl Albumin (3.4-5.0) gm/dl Globulin (2.5-4.0) gm/dl Albumin/Globulin Ratio (0.9-2) Lipase (11-82) U/L SARS-CoV-2, RNA, NAAT NEGATIVE (NEGATIVE) Administered Medications Discontinued Medications Dicyclomine HCl (Dicyclomine Hcl 10 Mg/Ml 2 Ml Amp/Vial) 20 mg IM NOW ONE Stop: 05/21/22 12:24 Last Admin: 05/21/22 12:30 Dose: 20 mg Documented By: CITLALY Sodium Chloride (Nss 1000ml) 1,000 mls @ 200 mls/hr IV .Q5H CLARKE Stop: 06/20/22 09:14 Last Infusion: 05/21/22 14:59 Dose: 0 mls/hr Documented By: Admin: 05/21/22 09:53 Dose: 200 mls/hr Documented By: PIPPA Metoclopramide HCl (Metoclopramide Hcl Inj 5 Mg/Ml 2 Ml Vial) 5 mg IV ONE ONE Stop: 05/21/22 12:24 Last Admin: 05/21/22 12:30 Dose: 5 mg Documented By: CITLALY Imaging Data Radiologist's Impression: Abdomen/Pelvis CT 05/21/22 09:13 CT abd pelvis wo con CLINICAL HISTORY: abd pain, distention, constipation TECHNIQUE: Helical axial images of the abdomen and pelvis were obtained. Automated dose lowering techniques and/or adjustment according to patient size were utilized for this exam. This exam was performed without intravenous contrast. CT DOSE: 266.24 mGy.cm COMPARISON: Comparison is made to CT abdomen pelvis 10/02/2021 FINDINGS: Lower chest: Bibasilar atelectasis versus scarring is seen. Liver: Unremarkable. No focal lesions are seen. Gallbladder and biliary tree: No calcified gallstones. Normal caliber wall. No intra- or extrahepatic biliary ductal dilation. Pancreas: Unremarkable, no focal lesions. Spleen: Unremarkable. Adrenals: Unremarkable. Kidneys and ureters: Unremarkable. Bladder: Limited evaluation due to underdistention. Reproductive organs: Unremarkable. Bowel: Numerous diverticula are seen with bowel wall thickening and increased vascularity extending from the distal transverse colon to the sigmoid colon.. Thickening is also noted in the distal transverse colon. Postsurgical changes of appendectomy are seen. Lymph nodes Retroperitoneal: Unremarkable. Pelvic: Unremarkable. Mesenteric: Unremarkable. Peritoneum: Normal. Vessels: Infrarenal aortic aneurysms measure up to 44 mm in diameter. Abdominal wall: Unremarkable. Bones: Degenerative changes in the visualized spine. Posterior fixation hardware is seen spanning L4-L5. IMPRESSION: 1. Thickening of the wall of the sigmoid and transverse colon noted compatible with nonspecific colitis, infectious/inflammatory or ischemic in the CORINNE distribution. 2. Infrarenal aortic aneurysm. 3. Additional findings as above. ACT 112: Negative or not required by law. Electronically signed by: Russ Thacker M.D. 05/21/2022 10:10 AM Discharge Plan Visit Data Chief Complaint: Constipation Stated Complaint: AB PAIN, CONSTIPATION ED Provider: Shraddha Mariano Discharge Problem: Abdominal pain, Constipation Forms Stand Alone Forms: [facility] [employer] Prescriptions Prescriptions: No Action rosuvastatin 20 mg tablet 20 mg PO HS pantoprazole 40 mg tablet,delayed release (DR/EC) 40 mg PO QAM duloxetine 30 mg capsule,delayed release(DR/EC) 30 mg PO QAM amlodipine 5 mg tablet 5 mg PO QAM lisinopril 30 mg tablet 30 mg PO QAM aspirin [Aspir-81] 81 mg Tablet,Delayed Release (Dr/Ec) 81 mg PO DAILY bismuth subsalicylate 262 mg Tablet 2 tab PO QID PRN (Reason: Gi Upset) montelukast 10 mg tablet 10 mg PO HS Referrals Referrals: Pedro Saba MD [Primary Care Provider] -
--- NOTE | 2022-05-21 15:39 | Surgery Consultation ---
Date of Consultation May 21, 2022 Assessment & Plan (1) Large bowel obstruction: 67-year-old female with what appears to be a partial large bowel obstruction of unknown etiology. Most likely this is a diverticular stricture which may or may not be exacerbated by some mild diverticulitis. May also represent an obstructing cancer, though she did have a colonoscopy that showed no tumor but did require pediatric scope due to narrowing, and a normal CT scan performed in the summer. There is no indication for acute surgical intervention, and if this were need to be performed she would likely end up with a colostomy. No acute surgical intervention indicated at this time Recommend medicine admission Would cover with antibiotics Suppositories and/or enemas to assist with bowel movements Recommend GI consultation for colonoscopy and possible decompression Repeat KUB in the morning N.p.o., IV fluids Would need cardiac clearance prior to surgery given aneurysm and smoking has significant risk factors Surgery will continue to follow, call with questions or concerns (2) Current smoker: (3) DM II (diabetes mellitus, type II), controlled: (4) Kidney disease: (5) AAA (abdominal aortic aneurysm): History of Present Illness Reason for Consultation: Large bowel obstruction History of Present Illness 67-year-old female presented to the emergency department with chief complaint of constipation. Over the past 2 weeks she is felt constipated and has not been able to have a bowel movement. She has been passing very minimal flatus over the past day or 2. She tried enemas as well as some fiber. She always has problems going to the bathroom but never this bad. She did have a colonoscopy 2 years ago and they needed to use a pediatric scope due to narrowing at the rectosigmoid colon. I do not have access to these records but they were performed at [facility]. She was here back in the summer for a GI bleed and had an upper endoscopy performed and a CTA, both of which were unremarkable. There was no significant obstruction in her large colon at the time. She is an active smoker and smokes about a half a pack per day. 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 She does not take any blood thinners. She reports a history of C-sections as well as a hysterectomy, and 2 hernias that were repaired in her lower abdomen. She believes they used mesh and is not sure if it was inguinal or incisional. Allergies Allergy/AdvReac Type Severity Reaction Status Date / Time chlorhexidine Allergy Intermediate ITCHING,RED Verified 10/05/21 08:55 NESS Quinolones Allergy Intermediate RASH-cipro Verified 10/05/21 08:55 Sulfa (Sulfonamide Allergy Intermediate RASH Verified 10/05/21 08:55 Antibiotics) Penicillins Allergy Unknown Unknown Verified 10/05/21 08:55 azithromycin Allergy Anaphylaxis Verified 10/05/21 08:55 Home Medications Medication Instructions Recorded Confirmed Type metformin 500 mg tablet 500 mg PO DAILY 09/03/20 10/02/21 History rosuvastatin 20 mg tablet 20 mg PO DAILY 09/03/20 10/02/21 History Bifidobacterium infantis 4 mg 4 mg PO DAILY 03/17/21 10/02/21 History capsule (Align) baclofen 10 mg tablet 10 mg PO DAILY 03/17/21 10/02/21 History psyllium husk 3.4 gram/5.4 gram 1 tbsp PO BID 03/17/21 10/02/21 History oral powder (Metamucil) montelukast 10 mg tablet 10 mg PO DAILY 10/02/21 10/02/21 History amlodipine 10 mg tablet 10 mg PO DAILY #30 tabs 10/06/21 Rx Patient History Medical History (Updated 05/21/22 @ 15:33 by Gallo Montero DO, FACS) AAA (abdominal aortic aneurysm) Abnormal thyroid function test DM II (diabetes mellitus, type II), controlled Dysfunction of right eustachian tube Feeling light headed Hematochezia High blood pressure Kidney disease stage III Large bowel obstruction Lower gastrointestinal hemorrhage Lung disease Otalgia, right ear Sensorineural hearing loss (SNHL) of right ear with restricted hearing of left ear Surgical History (Updated 05/21/22 @ 15:33 by Gallo Montero DO, FACS) History of back surgery History of delivery x2 History of hernia repair x2 History of knee replacement bilateral History of ovarian cystectomy History of vaginal hysterectomy Family History Other Allergies Asthma Cancer Hearing loss Heart disease Hypertension Social History Smoking Status: Current every day smoker Tobacco Type: Cigarettes packs per day: 0.5; Cigarettes Per Day: started smoking in 1971; Hx Alcohol Use: Yes Alcohol type: beer and hard liquor Hx Substance Use: No Preferred Language: Gabonese Communication Ability: Effective marital status: Single Current Living Situation: Family current occupational status: retired How many Children do You have: 1 Feels Safe at Home: Yes Assistive Devices: None Review of Systems Review of Systems: All systems reviewed & are unremarkable except as noted in HPI & below Physical Exam Constitutional: WD/WN, vitals as above no acute distress Respiratory: normal respiratory effort, lungs clear to auscultation Cardiovascular: RRR, no murmur, no edema Gastrointestinal (Abdomen): Inspection/Auscultation: + abdomen distended and + abdominal surgical scar (Low) Percussion/Palpation: abdomen soft and + tympanic to percussion; abdomen nontender, no guarding, abdomen not rigid and no hepatosplenomegaly Results & Data ([facility]) Vital Signs (Past 12 Hours) Vital Signs Temp Pulse Pulse Resp BP BP Pulse Ox 05/21/22 13:00 72 18 179/95 H 96 05/21/22 11:00 68 16 188/90 H 96 05/21/22 10:31 67 20 98 05/21/22 10:31 175/85 H 05/21/22 10:30 67 17 98 05/21/22 10:00 69 19 97 05/21/22 10:00 160/91 H 05/21/22 09:31 96 05/21/22 09:31 155/87 H 05/21/22 09:15 36.9 C 74 20 166/86 H 98 O2 Del Method 05/21/22 13:00 Room Air 05/21/22 11:00 Room Air 05/21/22 10:31 05/21/22 10:31 05/21/22 10:30 05/21/22 10:00 05/21/22 10:00 05/21/22 09:31 Room Air 05/21/22 09:31 05/21/22 09:15 Room Air Laboratory Results Laboratory Results - last 24 hr 05/21/22 05/21/22 05/21/22 08:30 08:30 10:46 WBC 13.04 H RBC 5.29 H Hgb 15.7 Hct 48.0 H MCV 90.7 MCH 29.7 MCHC 32.7 RDW Std Deviation 44.5 RDW Coeff of Susan 13.4 Plt Count 243 MPV 11.6 Immature Gran % (Auto) 0.2 Neut % (Auto) 75.0 Lymph % (Auto) 19.2 Mcmullen % (Auto) 4.2 Eos % (Auto) 1.0 Baso % (Auto) 0.4 Neut # (Auto) 9.77 H Lymph # (Auto) 2.51 Mcmullen # (Auto) 0.55 Eos # (Auto) 0.13 Baso # (Auto) 0.05 Immature Gran # (Auto) 0.03 H Sodium 139 Potassium 3.9 Chloride 107 Carbon Dioxide 24 Anion Gap 8 BUN 26 H Creatinine 1.35 H Est Cr Clr Drug Dosing 38.7 Est GFR ( Amer) 46.3 Est GFR (Non-Af Amer) 40.0 BUN/Creatinine Ratio 19.3 Glucose 144 H Lactate 0.8 Calcium 9.4 Total Bilirubin 0.4 AST 12 L ALT 6 L Alkaline Phosphatase 79 Total Protein 7.4 Albumin 4.5 Globulin 2.9 Albumin/Globulin Ratio 1.6 Lipase 31 Diagnostic Findings I personally reviewed and interpreted the CT scan and also reviewed the scan with the radiologist. I agree with the assessment that there is colonic dilation with a narrowing at the rectosigmoid junction. Unclear etiology, mild colitis around this. Could represent diverticular stricture with mild diverticulitis versus tumor. No free air or obvious evidence of ischemia or perforation. ADDENDUM There is nonspecific focal narrowing at the junction of the descending colon and proximal sigmoid. This may represent physiologic underdistention versus stricture or obstructive mass. No mass lesion was seen at this level on the prior exam. If there is clinical concern, correlation with colonoscopy can be performed. Electronically signed by: Russ Thacker M.D. 05/21/2022 11:[address] abd pelvis wo con CLINICAL HISTORY: abd pain, distention, constipation TECHNIQUE: Helical axial images of the abdomen and pelvis were obtained. Automated dose lowering techniques and/or adjustment according to patient size were utilized for this exam. This exam was performed without intravenous contrast. CT DOSE: 266.24 mGy.cm COMPARISON: Comparison is made to CT abdomen pelvis 10/02/2021 FINDINGS: Lower chest: Bibasilar atelectasis versus scarring is seen. Liver: Unremarkable. No focal lesions are seen. Gallbladder and biliary tree: No calcified gallstones. Normal caliber wall. No intra- or extrahepatic biliary ductal dilation. Pancreas: Unremarkable, no focal lesions. Spleen: Unremarkable. Adrenals: Unremarkable. Kidneys and ureters: Unremarkable. Bladder: Limited evaluation due to underdistention. Reproductive organs: Unremarkable. Bowel: Numerous diverticula are seen with bowel wall thickening and increased vascularity extending from the distal transverse colon to the sigmoid colon.. Thickening is also noted in the distal transverse colon. Postsurgical changes of appendectomy are seen. Lymph nodes Retroperitoneal: Unremarkable. Pelvic: Unremarkable. Mesenteric: Unremarkable. Peritoneum: Normal. Vessels: Infrarenal aortic aneurysms measure up to 44 mm in diameter. Abdominal wall: Unremarkable. Bones: Degenerative changes in the visualized spine. Posterior fixation hardware is seen spanning L4-L5. IMPRESSION: 1. Thickening of the wall of the sigmoid and transverse colon noted compatible with nonspecific colitis, infectious/inflammatory or ischemic in the CORINNE distribution. 2. Infrarenal aortic aneurysm. 3. Additional findings as above. PG Care Time/CCT Total # of Minutes Spent Total Time Spent with Patient: Total time spent is greater than 50% in coordination of care (as documented) at patient's floor/unit and/or counseling patient: Coding Level of Care Code 39317 Office/Outpt Visit, New History Expanded Problem Focused Exam Expanded Problem Focused Medical Decision Making Moderate Complexity Diagnoses Large bowel obstruction K56.609 Current smoker F17.200 DM II (diabetes mellitus, type II), controlled E11.9 Kidney disease N28.9 AAA (abdominal aortic aneurysm) I71.40
--- NOTE | 2022-05-21 16:12 | History & Physical Report ---
Date of Service May 21, 2022 Assessment & Plan (1) Abdominal discomfort: Plan: - Admit to med surg with tele -CT abdomen pelvis is reviewed showing thickening wall of the sigmoid and transverse colon, nonspecific colitis, infectious/inflammatory or ischemic in th e CORINNE distribution -Distention, tinkling BS and tympany on exam concerning for bowel obstruction, no bowel movement x10 days, nausea - if worsening nausea or vomiting then will need NGT placed - WBC is 13 K, lactate is negative, will check blood cultures x 2, Will start IV antibiotics for colitis with cipro flagyl - NSS at 100ml/hr x 3 L -Order dulcolax suppository now, enema prn -Consulted general surgery- appreciate recs -Consult GI for possible decompression with colonoscopy - Last colonoscopy was from 02/12/2021, showing normal colon, significant left- sided diverticulosis, internal hemorrhoids -Last EGD was done on 10/05/2021 after a GI bleed, esophagus was normal, stomach was normal no ulcers and normal examined duodenum (2) Hypertension: Plan: - Pt did not get her home medications today, will transition to IV hydralazine - Hold amlodipine and lisinopril for now (3) HLD (hyperlipidemia): Plan: - Hold statin while NPO (4) AAA (abdominal aortic aneurysm): Plan: - Stable, noted (5) DM II (diabetes mellitus, type II), controlled: Plan: - ISS with accuchecks with achs - Currently NPO, monitor glucose checks - Not on medication for such as an outpatient (6) Kidney disease: Plan: - Stage IIIa - Holding lisinopril and amlodipine DVT ppx: - teds, scds CODE: Full code Dispo: From home, likely to remain in the hospital x 1-2 days A total of 77 minutes were spent with greater than 50% of that time face to face with the patient, personally reviewing all current laboratories, imaging studies, past medication reconciliation, outpatient chart review, and discussion with specialists to collaborate care for the patient with attending. Please see attending documentation for corrections and/or additions. History of Present Illness Chief Complaint: Abdominal distension Primary Care Provider: Pedro Saba MD This is a 67-year-old female with PMHx of HTN, HLD, ANGELITA and COPD overlap syndrome, history of abdominal AAA measuring 4.3 cm, PVD, CKD stage III, chronic low back pain, and history of GI bleed who presents to the ER with acute worsening abdominal distention. She has not had a bowel movement in nearly two weeks,and reports her appetite has been significantly reduced since then She reports that she is nauseous with dry heaves but denies any vomiting today. She feels extremely distended in her abdomen and denies any positional changes alleviate her pain. She has been using enemas, laxative, stool softener and suppository to help alleviate her abdominal pain and promote a bowel movement without success. She has also been using bismuth salicylate p.o. the last 2 days without any relief. She denies any recent illnesses. She lives at home with her son and grandson. Patient also notes that she has had multiple abdominal surgeries including appendectomy, x2, hysterectomy, inguinal hernia repair in the past. She has had no recent abdominal surgeries however. Patient did not take any of her home medications today due to abdominal pain. Allergies Allergy/AdvReac Type Severity Reaction Status Date / Time chlorhexidine Allergy Intermediate ITCHING,RED Verified 05/21/22 16:05 NESS Quinolones Allergy Intermediate RASH-cipro Verified 05/21/22 16:05 Sulfa (Sulfonamide Allergy Intermediate RASH Verified 05/21/22 16:05 Antibiotics) Penicillins Allergy Unknown Unknown Verified 05/21/22 16:05 azithromycin Allergy Anaphylaxis Verified 05/21/22 16:05 Home Medications Medication Instructions Recorded Confirmed Type rosuvastatin 20 mg tablet 20 mg PO HS 09/03/20 05/21/22 History montelukast 10 mg tablet 10 mg PO HS 10/02/21 05/21/22 History amlodipine 5 mg tablet 5 mg PO QAM 05/21/22 05/21/22 History aspirin 81 mg tablet,delayed 81 mg PO DAILY 05/21/22 05/21/22 History release bismuth subsalicylate 262 mg tablet 2 tab PO QID PRN Gi Upset 05/21/22 05/21/22 History duloxetine 30 mg capsule,delayed 30 mg PO QAM 05/21/22 05/21/22 History release lisinopril 30 mg tablet 30 mg PO QAM 05/21/22 05/21/22 History pantoprazole 40 mg tablet,delayed 40 mg PO QAM 05/21/22 05/21/22 History release Past Med/Surg History Medical History (Updated 05/21/22 @ 16:08 by Kaylie Rankin PA-C) AAA (abdominal aortic aneurysm) Abnormal thyroid function test DM II (diabetes mellitus, type II), controlled Dysfunction of right eustachian tube Feeling light headed Hematochezia HLD (hyperlipidemia) Hypertension Kidney disease stage III Large bowel obstruction Lower gastrointestinal hemorrhage Lung disease Otalgia, right ear Sensorineural hearing loss (SNHL) of right ear with restricted hearing of left ear Surgical History (Updated 05/21/22 @ 15:33 by Gallo Montero DO, FACS) History of back surgery History of delivery x2 History of hernia repair x2 History of knee replacement bilateral History of ovarian cystectomy History of vaginal hysterectomy Family History Other Allergies Asthma Cancer Hearing loss Heart disease Hypertension Social History Smoking Status: Current every day smoker Tobacco Type: Cigarettes packs per day: 0.5; Cigarettes Per Day: started smoking in 1971; Hx Alcohol Use: Yes Alcohol type: beer and hard liquor Hx Substance Use: No Preferred Language: Icelandic Communication Ability: Effective marital status: Single Current Living Situation: Family current occupational status: retired How many Children do You have: 1 Feels Safe at Home: Yes Assistive Devices: None Review of Systems Review of Systems: Constitutional: No fever, sweats, + chills Eyes: No diplopia, no worsening or blurred vision ENT: normal hearing, no trouble swallowing Respiratory: No cough, sputum, dyspnea at rest or on exertion Cardiovascular: No chest pain, tightness or palpitations Abdomen:+ abdominal distension and pain as per HPI, +nausea, no vomiting, no BM x 2 weeks. Musculoskeletal: No joint pain, calf pain, swelling Neurologic: No weakness, numbness/tingling, or balance problems Psychiatric: No anxiety or depression Skin: No rash or itch Physical Exam Physical Exam: General: awake, alert, + mild discomfort, no acute distress Head: Normocephalic, atraumatic ENT: PERRL, EOMI, no pharyngeal exudate, mucous membranes moist Chest: Clear to auscultation, on room air, no adventitious breath sounds Cardiac: Regular rate and rhythm, no murmur, no JVD, normal peripheral pulses, good capillary refill Abdominal: + Distended abdomen, + abdominal tinkling in the LUQ and RUQ, +tender to palpation due to distension, no rebound or guarding Extremities: Normal inspection, no peripheral edema or erythema, calfs nontender to palpation Psych: Normal mood and affect Neuro: AAO x 3, strength intact bilaterally and rated 5/5, no motor deficits, speech is clear, no peripheral sensory deficits Results & Data Results & Data ([facility]) Vital Signs (Past 12 Hours) Vital Signs Temp Pulse Pulse Resp BP BP Pulse Ox 05/21/22 15:00 83 16 178/98 H 98 05/21/22 13:00 72 18 179/95 H 96 05/21/22 11:00 68 16 188/90 H 96 05/21/22 10:31 67 20 98 05/21/22 10:31 175/85 H 05/21/22 10:30 67 17 98 05/21/22 10:00 69 19 97 05/21/22 10:00 160/91 H 05/21/22 09:31 96 05/21/22 09:31 155/87 H 05/21/22 09:15 36.9 C 74 20 166/86 H 98 O2 Del Method 05/21/22 15:00 Room Air 05/21/22 13:00 Room Air 05/21/22 11:00 Room Air 05/21/22 10:31 05/21/22 10:31 05/21/22 10:30 05/21/22 10:00 05/21/22 10:00 05/21/22 09:31 Room Air 05/21/22 09:31 05/21/22 09:15 Room Air Laboratory Results 05/21/22 05/21/22 05/21/22 Unknown 10:46 08:30 WBC RBC Hgb Hct MCV MCH MCHC RDW Std Deviation RDW Coeff of Susan Plt Count MPV Immature Gran % (Auto) Neut % (Auto) Lymph % (Auto) Stafford % (Auto) Eos % (Auto) Baso % (Auto) Neut # (Auto) Lymph # (Auto) Stafford # (Auto) Eos # (Auto) Baso # (Auto) Immature Gran # (Auto) Sodium 139 Potassium 3.9 Chloride 107 Carbon Dioxide 24 Anion Gap 8 BUN 26 H Creatinine 1.35 H Est Cr Clr Drug Dosing 38.7 Est GFR ( Amer) 46.3 Est GFR (Non-Af Amer) 40.0 BUN/Creatinine Ratio 19.3 Glucose 144 H Lactate 0.8 Calcium 9.4 Total Bilirubin 0.4 AST 12 L ALT 6 L Alkaline Phosphatase 79 Total Protein 7.4 Albumin 4.5 Globulin 2.9 Albumin/Globulin Ratio 1.6 Lipase 31 SARS-CoV-2, RNA, NAAT NEGATIVE 05/21/22 08:30 WBC 13.04 H RBC 5.29 H Hgb 15.7 Hct 48.0 H MCV 90.7 MCH 29.7 MCHC 32.7 RDW Std Deviation 44.5 RDW Coeff of Susan 13.4 Plt Count 243 MPV 11.6 Immature Gran % (Auto) 0.2 Neut % (Auto) 75.0 Lymph % (Auto) 19.2 Stafford % (Auto) 4.2 Eos % (Auto) 1.0 Baso % (Auto) 0.4 Neut # (Auto) 9.77 H Lymph # (Auto) 2.51 Stafford # (Auto) 0.55 Eos # (Auto) 0.13 Baso # (Auto) 0.05 Immature Gran # (Auto) 0.03 H Sodium Potassium Chloride Carbon Dioxide Anion Gap BUN Creatinine Est Cr Clr Drug Dosing Est GFR ( Amer) Est GFR (Non-Af Amer) BUN/Creatinine Ratio Glucose Lactate Calcium Total Bilirubin AST ALT Alkaline Phosphatase Total Protein Albumin Globulin Albumin/Globulin Ratio Lipase SARS-CoV-2, RNA, NAAT Diagnostic Findings Abdomen/Pelvis CT 05/21/22 09:13 CT abd pelvis wo con CLINICAL HISTORY: abd pain, distention, constipation TECHNIQUE: Helical axial images of the abdomen and pelvis were obtained. Automated dose lowering techniques and/or adjustment according to patient size were utilized for this exam. This exam was performed without intravenous contrast. CT DOSE: 266.24 mGy.cm COMPARISON: Comparison is made to CT abdomen pelvis 10/02/2021 FINDINGS: Lower chest: Bibasilar atelectasis versus scarring is seen. Liver: Unremarkable. No focal lesions are seen. Gallbladder and biliary tree: No calcified gallstones. Normal caliber wall. No intra- or extrahepatic biliary ductal dilation. Pancreas: Unremarkable, no focal lesions. Spleen: Unremarkable. Adrenals: Unremarkable. Kidneys and ureters: Unremarkable. Bladder: Limited evaluation due to underdistention. Reproductive organs: Unremarkable. Bowel: Numerous diverticula are seen with bowel wall thickening and increased vascularity extending from the distal transverse colon to the sigmoid colon.. Thickening is also noted in the distal transverse colon. Postsurgical changes of appendectomy are seen. Lymph nodes Retroperitoneal: Unremarkable. Pelvic: Unremarkable. Mesenteric: Unremarkable. Peritoneum: Normal. Vessels: Infrarenal aortic aneurysms measure up to 44 mm in diameter. Abdominal wall: Unremarkable. Bones: Degenerative changes in the visualized spine. Posterior fixation hardware is seen spanning L4-L5. IMPRESSION: 1. Thickening of the wall of the sigmoid and transverse colon noted compatible with nonspecific colitis, infectious/inflammatory or ischemic in the CORINNE distribution. 2. Infrarenal aortic aneurysm. 3. Additional findings as above. ACT 112: Negative or not required by law. Electronically signed by: Russ Thacker M.D. 05/21/2022 10:10 AM Code Status & VTE Plan Code Status Full code- discussed with the patient at bedside Supervising Physician Co-Signing Physician Notes Attending addendum: The patient was seen and examined in emergency room She has been complaining of abdominal distention and constipation for about last 2 weeks Has had more pain and distention this morning Has been feeling a little better during examination and has had a small bowel movement Denies any fever and or chills, no nausea no vomiting, no chest pain, palpitation or shortness of breath On examination Lying in bed with minimal distress Blood pressure was noted to be high at 178/98 Chest-clear to auscultate bilateral Heart-S1, S2 regular Abdomen-distended, soft, mildly tender all over but more on the left lower quadrant, bowel sound decreased Extremities-trace edema bilateral FRANCHISE MANAGER-alert, awake and oriented x3 Her admission labs, imaging studies and EKG reviewed He did show nonspecific colitis involving sigmoid and transverse colon and also possible stricture involving proximal sigmoid CT did not show any obstruction Blood pressure noted to be high Appreciate surgery input and recommendation Will start intravenous antibiotic with Zosyn and IV fluid GI has been consulted Agree with assessment and plan as outlined above by Kaylie East
[2022-05-21] MEDS ORDERED: hydrALAZINE HCL 20 MG/ML VIAL IV STA (17:03)
[2022-05-21] MEDS ORDERED: GLUCOSE 10 TAB/TUBE PO PRN (17:09)
[2022-05-21] MEDS ORDERED: MoRPHine SULFATE 2 MG/ML CARP IV PRN (17:09)
[2022-05-21] MEDS ORDERED: DEXTROSE 50% 50 ML SYRINGE IV PRN (17:09)
[2022-05-21] MEDS ORDERED: GLUCOSE 40% GEL 15 GM TUBE PO PRN (17:09)
[2022-05-21] MEDS ORDERED: GLUCAGON FOR INJ 1 MG VIAL SQ PRN (17:09)
[2022-05-21] MEDS ORDERED: CARBOHYDRATES FOR HYPOGLYCEMIA PO PRN (17:09)
[2022-05-21] MEDS ORDERED: CIPROFLOXACIN / D5W 400 MG/200 ML BAG IV SCH (17:15)
[2022-05-21] MEDS ORDERED: metroNIDAZOLE 500 MG/100 ML BAG IV ONE (17:45)
[2022-05-21] MEDS: CEFEPIME 2,000 MG in SYRINGE 0 ML IV SCH (20:35)
[2022-05-21] MEDS ORDERED: ONDANSETRON INJ 2 MG/ML 2 ML VIAL IV PRN (21:09)
[2022-05-21] MEDS ORDERED: ACETAMINOPHEN 325 MG TAB PO PRN (21:09)
[2022-05-21] MEDS: hydrALAZINE HCL 20 MG/ML VIAL IV PRN (21:42)
[2022-05-21] MEDS: INSULIN ASPART PER UNIT SC SCH (21:45)
[2022-05-21] MEDS: bisacodyL 10 MG SUPP PR SCH (21:47)
[2022-05-22] MEDS: metroNIDAZOLE 500 MG/100 ML BAG IV SCH ×3 (01:26→17:20)
[2022-05-22] MEDS: SODIUM CHLORIDE 0.9% 1000ML 1,000 ML IV SCH (03:24)
[2022-05-22 06:37] LABS: Hematocrit (blood only) 44.6 % (34.1-44.9); Hemoglobin 14.5 g/dl (12.0-16.0); Mean Corpuscular Hemoglobin 29.5 pg (25.0-34.0); Mean Corpuscular Hgb Conc 32.5 g/dL (32.0-36.0); Mean Corpuscular Volume 90.8 fL (80.0-100.0); Mean Platelet Volume 11.6 fL (9.4-12.3); Platelet Count 212 K/uL (130-400); RDW Coefficient of Variation 13.8 % (11.5-14.5); RDW Standard Deviation 46.1 fL (36.4-46.3); Red Blood Count 4.91 M/uL (3.93-5.22); White Blood Count 15.22 K/ul (4.8-10.8)
[2022-05-22 07:17] LABS: Calcium 9.1 mg/dl (8.5-10.1); Magnesium 2.2 mg/dl (1.7-2.4); Potassium 4.7 mmol/L (3.5-5.1)
[2022-05-22 07:21] LABS: Est GFR (African American) 46.3 ml/min; Phosphorus 4.5 mg/dl (2.5-4.9)
[2022-05-22] MEDS: INSULIN ASPART PER UNIT SC SCH ×4 (07:48→20:13)
[2022-05-22] MEDS: bisacodyL 10 MG SUPP PR SCH (07:49)
[2022-05-22] MEDS: CEFEPIME 2,000 MG in SYRINGE 0 ML IV SCH ×2 (07:50→20:13)
[2022-05-22] MEDS: D5W AND NSS 1,000 ML IV SCH ×2 (09:35→22:33)
--- NOTE | 2022-05-22 10:53 | XRay Report ---
XR KUB/Abdomen 1 view CLINICAL HISTORY: large bowel obstruction TECHNIQUE: 1 view of the abdomen was obtained. Comparison: Comparison is made to CT abdomen pelvis 05/21/2022 FINDINGS: Lung bases are unremarkable. The osseous structures are grossly unremarkable. Compared to the prior C T abdomen pelvis, there is increased distention of small bowel loops measuring up to 34 mm. The cecum is possibly slightly increased in diameter from prior exam measuring 10.5 cm compared to 9.5 cm. IMPRESSION: Interval increase in gaseous distention compatible of small as well as large bowel compatible with co ntinued obstruction from stricture versus less likely mass in this patient with normal colonoscopy 2 years ago. Within the limits of a supine portable radiograph, no evidence of perforation or pneumatos is intestinalis. ACT 112: Negative or not required by law. Electronically signed by: Russ Thacker M.D. 05/22/2022 10:50 AM
--- NOTE | 2022-05-22 12:39 | Gastrointestinal Consultation ---
Date of Consultation May 22, 2022 Assessment & Plan (1) Diverticulitis: (2) Large bowel obstruction: Plan I reviewed CT images from yesterday and KUB images from today with Dr. Thacker (radiology). Yesterday cecal diameter around 9 and today around 10.5 and now bowel dilation is progressing to small bowel as well as small bowel loops are distended on KUB. Patient without any nausea or vomiting clinically but does have notable abdominal distention and feels firm to palpation. I suspect she has diverticulitis with worsening of a known diverticular stricture as last colonoscopy required an ultrathin scope for successful completion in 01/2021. It is highly unlikely a colon cancer causing obstruction that grew in the 2 years since last colonoscopy. Colonoscopy in setting of acute diverticulitis would be contraindicated at this time given very high risk of perforation and with her known stricture this will likely require surgical intervention. I am concerned that her bowel distention is worsening and her small bowel is now distended. plan: -Recommend IV antibiotics which may help to open the stricture which is likely worsened from acute inflammation. -NG tube to LIS given small bowel distention -enemas TID -remain NPO, IV fluids -daily KUB -if worsening distention or patient clinically deteriorates would recommend surgical intervention. Unfortunately, there is nothing we can do with colonoscopy to fix the stricture and colonoscopy in setting of acute divertic ulitis would be contraindicated due to high risk of perforation. -if patient improves and does not require surgery while inpatient would plan for outpatient colonoscopy in 6-8 weeks and can re-evaluate that area -surgery is also following -GI will follow Bella Maloney, Gastroenterology and Hepatology History of Present Illness Reason for Consultation: diverticulitis and colonic distention, concern for stricture vs. mass Attending Physician: Rex Armstrong MD History of Present Illness Shannan Barrera is a 67 y/o F with PMH of AAA, DM2, CKD III, HTN, and SNHL, tobacco abuse currently smoking 1/2 PPD who presented to the ER yesterday with 2 weeks of constipation and lack of bowel movements. She reports that she has tried multiple OTC stool softeners, enemas, and laxatives and was unable to have a bowel movement in 2 weeks despite her best efforts. This progressed over the past couple days to abdominal distention. She did not have any nausea, vomiting, fevers, chills, or associated abdominal pain despite her distention. She had a colonoscopy in 01/2021 through [facility] and was noted to have multiple L sided diverticulosis as well as associated narrowing of the colon due to diverticulosis which required switching from the pediatric colonoscope to the ultrathin scope to achieve successful completion. She has had multiple surgeries in the past including hysterectomy, c-sections, and 2 hernias. On admission patient afebrile with WBC count 15. Ct abd/pelvis with thickening of the wall of the sigmoid and transverse colon compatible with non-specific colitis and focal narrowing at the junction of the descending colon and proximal sigmoid which could be related to stricture vs. possible mass. Today patient overall feels well without any abdominal pain. She is passing gas and having some liquid bowel movements and did have a bowel movement while I was in the room with her. Allergies Allergy/AdvReac Type Severity Reaction Status Date / Time chlorhexidine Allergy Intermediate ITCHING,RED Verified 05/21/22 16:05 NESS Quinolones Allergy Intermediate RASH-cipro Verified 05/21/22 16:05 Sulfa (Sulfonamide Allergy Intermediate RASH Verified 05/21/22 16:05 Antibiotics) Penicillins Allergy Unknown Unknown Verified 05/21/22 16:05 azithromycin Allergy Anaphylaxis Verified 05/21/22 16:05 Home Medications Medication Instructions Recorded Confirmed Type rosuvastatin 20 mg tablet 20 mg PO HS 09/03/20 05/21/22 History montelukast 10 mg tablet 10 mg PO HS 10/02/21 05/21/22 History amlodipine 5 mg tablet 5 mg PO QAM 05/21/22 05/21/22 History aspirin 81 mg tablet,delayed 81 mg PO DAILY 05/21/22 05/21/22 History release bismuth subsalicylate 262 mg tablet 2 tab PO QID PRN Gi Upset 05/21/22 05/21/22 History duloxetine 30 mg capsule,delayed 30 mg PO QAM 05/21/22 05/21/22 History release lisinopril 30 mg tablet 30 mg PO QAM 05/21/22 05/21/22 History pantoprazole 40 mg tablet,delayed 40 mg PO QAM 05/21/22 05/21/22 History release Patient History Medical History (Updated 05/22/22 @ 12:27 by Bella Maloney DO) AAA (abdominal aortic aneurysm) Abnormal thyroid function test DM II (diabetes mellitus, type II), controlled Dysfunction of right eustachian tube Feeling light headed Hematochezia HLD (hyperlipidemia) Hypertension Kidney disease stage III Large bowel obstruction Lower gastrointestinal hemorrhage Lung disease Otalgia, right ear Sensorineural hearing loss (SNHL) of right ear with restricted hearing of left ear Surgical History History of back surgery History of delivery x2 History of hernia repair x2 History of knee replacement bilateral History of ovarian cystectomy History of vaginal hysterectomy Family History Other Allergies Asthma Cancer Hearing loss Heart disease Hypertension Social History Smoking Status: Current every day smoker Tobacco Type: Cigarettes packs per day: 0.5; Cigarettes Per Day: 5; Second Hand Exposure: No; Do You Dip or Chew Tobacco: No; Tobacco Cessation Education Requested by Patient: No Hx Alcohol Use: No Preferred Language: Swedish Communication Ability: Effective Beliefs That Will Affect Care: None marital status: Single Current Living Situation: Family current occupational status: retired How many Children do You have: 1 Other Information That Helps Us Care for You: No Feels Safe at Home: Yes Safety Concerns: Feels Safe At This Time Assistive Devices: None Review of Systems Review of Systems: All systems reviewed & are unremarkable except as noted in HPI & below Physical Exam Constitutional: WD/WN, vitals as above Eyes: PERRL, conjunctivae normal, anicteric sclerae Respiratory: normal respiratory effort, lungs clear to auscultation Cardiovascular: RRR, no murmur, no edema Gastrointestinal (Abdomen): distended, moderately tense, non-tender, hypoactive bowel sounds Skin: no rashes, warm and dry Psychiatric: A+Ox3, euthymic affect Results & Data ([facility]) Vital Signs (Past 12 Hours) Vital Signs Temp Pulse Pulse Resp BP Pulse Ox O2 Del Method 05/22/22 11:40 37.1 C 84 20 183/82 H 94 Room Air 05/22/22 10:00 Room Air 05/22/22 07:36 37.0 C 88 20 150/82 H 91 Room Air 05/22/22 07:15 90 05/22/22 03:08 36.9 C 85 18 145/74 H 91 Room Air 05/22/22 01:17 90
[2022-05-22] MEDS: lisinopril 10 MG TAB PO SCH (12:46)
[2022-05-22] MEDS: amLODIPine BESYLATE 5 MG TAB PO SCH (12:46)
--- NOTE | 2022-05-22 13:16 | Surgery Progress Note ---
Date of Service May 22, 2022 Assessment & Plan (1) Large bowel obstruction: Plan: 67-year-old female with what appears to be a partial large bowel obstruction of unknown etiology. Most likely this is a diverticular stricture which may or may not be exacerbated by some mild diverticulitis. May also represent an obstructing cancer, though she did have a colonoscopy that showed no tumor but did require pediatric scope due to narrowing, and a normal CT scan performed in the summer. There is no indication for acute surgical intervention, and if this were need to be performed she would likely end up with a colostomy. No acute surgical intervention indicated at this time Appreciate medicine management and GI input on this patient Continue antibiotics Patient is not vomiting but does have some small bowel dilation on her x-ray which is new from yesterday, GI is ordered an NG tube Repeat KUB tomorrow N.p.o., IV fluids Would need cardiac clearance prior to surgery given aneurysm and smoking has significant risk factors Surgery will continue to follow, call with questions or concerns (2) Current smoker: (3) DM II (diabetes mellitus, type II), controlled: (4) Kidney disease: (5) AAA (abdominal aortic aneurysm): Admission and Anticipated Discharge Date Admission Date: May 21, 2022 Subjective 67-year-old female admitted for large bowel obstruction likely secondary to diverticular stricture with overlying inflammation from colitis versus diverticulitis. She feels better today, she has had a few bowel movements assoc iated with a suppository. She has passed some gas. Her abdomen feels less bloated but still uncomfortable. Physical Exam Constitutional: WD/WN, vitals as above no acute distress Respiratory: normal respiratory effort, lungs clear to auscultation Cardiovascular: RRR, no murmur, no edema Gastrointestinal (Abdomen): Inspection/Auscultation: + abdomen distended (Less distended than yesterday) and + abdominal surgical scar (Low midline) Percussion/Palpation: abdomen soft and + tympanic to percussion; abdomen nontender, no guarding, abdomen not rigid and no hepatosplenomegaly Results & Data ([facility]) Vital Signs (Past 12 Hours) Vital Signs Temp Pulse Pulse Resp BP Pulse Ox O2 Del Method 05/22/22 11:40 37.1 C 84 20 183/82 H 94 Room Air 05/22/22 10:00 Room Air 05/22/22 07:36 37.0 C 88 20 150/82 H 91 Room Air 05/22/22 07:15 90 05/22/22 03:08 36.9 C 85 18 145/74 H 91 Room Air 05/22/22 01:17 90 Diagnostic Findings Personally viewed and interpreted the x-ray and agree with the assessment of persistent large bowel dilation with some small bowel distention. XR KUB/Abdomen 1 view CLINICAL HISTORY: large bowel obstruction TECHNIQUE: 1 view of the abdomen was obtained. Comparison: Comparison is made to CT abdomen pelvis 05/21/2022 FINDINGS: Lung bases are unremarkable. The osseous structures are grossly unremarkable. Compared to the prior CT abdomen pelvis, there is increased distention of small bowel loops measuring up to 34 mm. The cecum is possibly slightly increased in diameter from prior exam measuring 10.5 cm compared to 9.5 cm. IMPRESSION: Interval increase in gaseous distention compatible of small as well as large bowel compatible with continued obstruction from stricture versus less likely mass in this patient with normal colonoscopy 2 years ago. Within the limits of a supine portable radiograph, no evidence of perforation or pneumatosis intestinalis. PG Care Time/CCT Total # of Minutes Spent Total Time Spent with Patient: Total time spent is greater than 50% in coordination of care (as documented) at patient's floor/unit and/or counseling patient: Coding Level of Care Code 24382 SUB INP/OBS CARE 05/26MIN Diagnoses Large bowel obstruction K56.609 Current smoker F17.200 DM II (diabetes mellitus, type II), controlled E11.9 Kidney disease N28.9 AAA (abdominal aortic aneurysm) I71.40
--- NOTE | 2022-05-22 13:19 | Hospitalist Progress Note ---
Date of Service May 22, 2022 Assessment & Plan (1) Abdominal discomfort: Plan: per Dr. East's notes with addendum: - Admit to med surg with tele -CT abdomen pelvis is reviewed showing thickening wall of the sigmoid and transverse colon, nonspecific colitis, infectious/inflammatory or ischemic in the CORINNE distribution -Distention, tinkling BS and tympany on exam concerning for bowel obstruction, no bowel movement x10 days, nausea - if worsening nausea or vomiting then will need NGT placed - WBC is 13 K, lactate is negative, will check blood cultures x 2, Will start IV antibiotics for colitis with cipro flagyl - NSS at 100ml/hr x 3 L -Order dulcolax suppository now, enema prn -Consulted general surgery- appreciate recs -Consult GI for possible decompression with colonoscopy - Last colonoscopy was from 02/12/2021, showing normal colon, significant left- sided diverticulosis, internal hemorrhoids -Last EGD was done on 10/05/2021 after a GI bleed, esophagus was normal, stomach was normal no ulcers and normal examined duodenum 05/22 KUB: Interval increase in gaseous distention compatible of small as well as large bowel compatible with continued obstruction from stricture versus less likely mass in this patient with normal colonoscopy 2 years ago. Within the limits of a supine portable radiograph, no evidence of perforation or pneumatosis intestinalis. discussed with GI NG tube, Enema TID continue Cefepime + Flagyl NPO, IV fluids repeat KUB tomorrow may need surgical evaluation if patient's bowel obstruction progresses (2) Hypertension: Plan: PO Amlodipine and Lisinopril PRN Hydralazine (3) HLD (hyperlipidemia): Plan: - Hold statin (4) AAA (abdominal aortic aneurysm): Plan: - Stable, noted (5) DM II (diabetes mellitus, type II), controlled: Plan: - ISS with accuchecks with achs - Currently NPO, monitor glucose checks - Not on medication for such as an outpatient (6) Kidney disease: Plan: - Stage IIIa monitor DVT ppx: - teds, scds CODE: Full code Dispo:pending lives at home Admission and Anticipated Discharge Date Admission Date: May 21, 2022 Subjective ff up for small and large bowel obstruction, etc seen resting in bed, not in distress still feels off- tired has intermittent waves of abdominal pain, nausea (+) small BM today no fever/chills no chest pain, dyspnea, palpitations, dizziness no other symptoms Review of Systems Review of Systems: all noted and negative except for above Physical Exam Physical Exam: General- oriented x 3, not in distress, speaks in sentences with no effort or accessory muscle use Eyes- anicteric Neck- no JVD Lungs- clear BS bilaterally, no rales/wheezes Heart- normal rate, regular rhythm; no murmurs Abdomen- normal bowel sounds, nondistended, soft, mild distended, hypoactive BS Extremities- no pretibial edema, no calf tenderness Neuro- alert, oriented x 3; no gross focal neurologic deficits Skin- warm & dry Results & Data Results & Data ([facility]) Vital Signs (Past 12 Hours) Vital Signs Temp Pulse Pulse Resp BP Pulse Ox O2 Del Method 05/22/22 11:40 37.1 C 84 20 183/82 H 94 Room Air 05/22/22 10:00 Room Air 05/22/22 07:36 37.0 C 88 20 150/82 H 91 Room Air 05/22/22 07:15 90 05/22/22 03:08 36.9 C 85 18 145/74 H 91 Room Air 05/22/22 01:17 90 all noted and reviewed including below
--- NOTE | 2022-05-22 14:39 | XRay Report ---
XR KUB/Abdomen 1 view CLINICAL HISTORY: NG tube placement TECHNIQUE: 1 view of the abdomen was obtained. Comparison: Comparison is made to abdomen radiograph 02/19/2023 FINDINGS: Enteric tube tip and side-port appear to lie above the diaphragm. Redemonstration of multiple gas dil ated loops of large and small bowel. Gaseous distention of the colon is seen. IMPRESSION: 1. The enteric tube tip and side-port lie above the diaphragm. Repositioning is recommended. 2. Gaseous distention of the large and small bowel redemonstrated. ACT 112: Negative or not required by law. Electronically signed by: Russ Thacker M.D. 05/22/2022 2:37 PM
--- NOTE | 2022-05-22 14:56 | XRay Report ---
XR KUB/Abdomen 1 view CLINICAL HISTORY: NG tube placement TECHNIQUE: 1 view of the abdomen was obtained. Comparison: Comparison is made to abdomen radiograph 05/22/2012 FINDINGS: Enteric tube is in satisfactory position with the side-port and tip below the diaphragm. Redemonstrat ion of gaseous distention of the large and small bowel. IMPRESSION: Satisfactory position of enteric tube. Redemonstration of gaseous distention of the large and small b owel. ACT 112: Negative or not required by law. Electronically signed by: Russ Thacker M.D. 05/22/2022 2:53 PM
[2022-05-23] MEDS: metroNIDAZOLE 500 MG/100 ML BAG IV SCH ×3 (01:48→18:09)
[2022-05-23] MEDS: amLODIPine BESYLATE 5 MG TAB PO SCH (07:43)
[2022-05-23] MEDS: lisinopril 10 MG TAB PO SCH (07:43)
[2022-05-23] MEDS: bisacodyL 10 MG SUPP PR SCH (07:43)
[2022-05-23] MEDS: CEFEPIME 2,000 MG in SYRINGE 0 ML IV SCH ×2 (07:44→19:26)
[2022-05-23] MEDS ORDERED: ALBUTEROL HFA 8 GM INHALER INH PRN (08:01)
--- NOTE | 2022-05-23 08:53 | XRay Report ---
KUB HISTORY: Obstruction follow up ff up small and large bowel obstruction COMPARISON: KUB 05/22/2022, CT 05/21/2022 FINDINGS: The enteric tube is coiled within the stomach. Persistent small bowel obstruction with dila rosalinda air-filled small bowel loops measuring up to 3.3 cm. Gaseous distention of the large bowel is als o again noted with cecum measuring up to 9.6 cm. No urolith identified. No pneumatosis or pneumoperit oneum. No acute fracture. Postoperative changes of the lumbar spine. IMPRESSION: 1. Enteric tube is coiled within the stomach. 2. Stable to slightly improved large and small bowel dilation suspicious for a distal obstruction. Co ntinued follow-up recommended. ACT 112: Negative or not required by law. The above report was generated using voice recognition software. It may contain grammatical, syntax o r spelling errors. Electronically signed by: Cesar Regan M.D. 05/23/2022 8:52 AM
[2022-05-23] MEDS ORDERED: OLODATEROL HCL 2.5MCG/ACTUATION 60 PUFFS/INHALER INH SCH (09:00)
[2022-05-23] MEDS: INSULIN ASPART PER UNIT SC SCH ×4 (09:30→20:10)
--- NOTE | 2022-05-23 09:47 | Surgery Progress Note ---
Date of Service May 23, 2022 Assessment & Plan (1) Large bowel obstruction: Plan: Partial large bowel obstruction likely secondary to diverticular stricture with overlying inflammation, appears to be improving. No indication for urgent surgical management. Continue NG tube today, repeat KUB in the morning Appreciate GI input, potential colonoscopy as an outpatient Surgery will follow, call questions or concerns Admission and Anticipated Discharge Date Admission Date: May 21, 2022 Subjective 67-year-old female admitted with partial large bowel obstruction secondary to likely diverticular stricture and overlying diverticulitis/colitis. She feels better, has been passing gas. She does not have any nausea. No abdominal pain. Physical Exam Constitutional: WD/WN, vitals as above Gastrointestinal (Abdomen): normal bowel sounds, soft, nontender, no hepatosplenomegaly Inspection/Auscultation: + abdomen distended (Slightly less distended) Results & Data ([facility]) Vital Signs (Past 12 Hours) Vital Signs Temp Pulse Pulse Resp BP BP Pulse Ox 05/23/22 06:31 36.7 C 82 20 152/78 H 92 05/23/22 03:37 36.4 C L 83 20 172/74 H 92 05/22/22 23:48 84 05/22/22 23:34 36.8 C 85 20 158/81 H 92 O2 Del Method 05/23/22 06:31 Room Air 05/23/22 03:37 Room Air 05/22/22 23:48 05/22/22 23:34 Room Air Laboratory Results Laboratory Results - last 24 hr 05/22/22 05/22/22 05/22/22 11:30 17:20 20:12 POC Glucose 125 H 156 H 126 H 05/23/22 07:33 POC Glucose 144 H Diagnostic Findings KUB HISTORY: Obstruction follow up ff up small and large bowel obstruction COMPARISON: KUB 05/22/2022, CT 05/21/2022 FINDINGS: The enteric tube is coiled within the stomach. Persistent small bowel obstruction with dilated air-filled small bowel loops measuring up to 3.3 cm. Gaseous distention of the large bowel is also again noted with cecum measuring up to 9.6 cm. No urolith identified. No pneumatosis or pneumoperitoneum. No acute fracture. Postoperative changes of the lumbar spine. IMPRESSION: 1. Enteric tube is coiled within the stomach. 2. Stable to slightly improved large and small bowel dilation suspicious for a distal obstruction. Continued follow-up recommended. PG Care Time/CCT Total # of Minutes Spent Total Time Spent with Patient: Total time spent is greater than 50% in coordination of care (as documented) at patient's floor/unit and/or counseling patient: Coding Level of Care Code 90756 SUB INP/OBS CARE 05/26MIN Diagnoses Large bowel obstruction K56.609
--- NOTE | 2022-05-23 10:11 | CT Scan Report ---
CT head/brain wo con CLINICAL HISTORY: 67 years-old Female with right lower extremity paresthesia. Acute strokelike sympt oms TECHNIQUE: Multiple axial CT images of the head were obtained without contrast. A dose lowering tech nique was utilized adhering to the principles of ALARA. CT DOSE: 844.62 mGy.cm COMPARISON: None FINDINGS: No acute intracranial hemorrhage, midline shift, intracranial mass, hydrocephalus, territorial ischem ia or abnormal extra-axial collection. White matter hypodensities suggestive of chronic microvascular ischemic disease. More heterogeneous decreased attenuation of the left frontal lobe rosado radiata, internal capsule and lentiform nucleus measuring up to 1.6 cm. Mildly motion degraded exam. Cerebral vascular calcifications. The calvarium is intact. The paranasal sinuses, mastoid air cells, and middle ear cavities are clear . IMPRESSION: 1. No acute intracranial abnormality. 2. White matter hypodensities suggestive of chronic chronic microvascular ischemic disease. 3. More focal hypodense foci within the left frontal lobe rosado radiata and internal capsule suggest pauly of age-indeterminate lacunar infarcts, also likely chronic. ACT 112: Negative or not required by law. The above report was generated using voice recognition software. It may contain grammatical, syntax o r spelling errors. Electronically signed by: Cesar Regan M.D. 05/23/2022 10:10 AM
[2022-05-23] MEDS: FLUTICASONE/VILANTEROL 100/25MCG 14 PUFFS/INHALER INH SCH (10:20)
--- NOTE | 2022-05-23 10:52 | Gastroenterology Progress Note ---
Date of Service May 23, 2022 Assessment & Plan (1) Large bowel obstruction: (2) Diverticulitis: Admission and Anticipated Discharge Date Admission Date: May 21, 2022 Supervising Physician Co-Signing Physician Notes Partial large bowel obstruction likely secondary to diverticular stricture with overlying inflammation, appears to be improving. KUB this AM with slight improvement in small and large bowel dilation. NG tube in place. I suspect she has diverticulitis with worsening of a known diverticular stricture as last colonoscopy required an ultrathin scope for successful completion in 01/2021. It is highly unlikely a colon cancer causing obstruction that grew in the 2 years since last colonoscopy. Colonoscopy in setting of acute diverticulitis would be contraindicated at this time given very high risk of perforation and with her known stricture this will likely require surgical intervention. I am concerned that her bowel distention is worsening and her small bowel is now distended. plan: -Continue with IV antibiotics which may help to open the stricture which is likely worsened from acute inflammation. -NG tube to LIS given small bowel distention -enemas TID -remain NPO, IV fluids -daily KUB -if worsening distention or patient clinically deteriorates would recommend surgical intervention. Unfortunately, there is nothing we can do with colonoscopy to fix the stricture and colonoscopy in setting of acute diverticulitis would be contraindicated due to high risk of perforation. -if patient improves and does not require surgery while inpatient would plan for outpatient colonoscopy in 6-8 weeks and can re-evaluate that area -surgery is also following -GI will follow Bella Maloney, DO Gastroenterology and Hepatology Subjective Patient seen and examined today. Does feel better today but is still not having BMs only passing liquid stools. KUB this AM with improved small and large bowel distention. Cecal diameter 9.6. She is passing gas. Denies abd pain and feels her distention is starting to improve. Review of Systems Review of Systems: All systems reviewed & are unremarkable except as noted in HPI & below Physical Exam Constitutional: WD/WN, vitals as above NG tube in place Eyes: PERRL, conjunctivae normal, anicteric sclerae Respiratory: normal respiratory effort, lungs clear to auscultation Cardiovascular: RRR, no murmur, no edema Gastrointestinal (Abdomen): soft, distended but no guarding or peritoneal signs, hypoactive bowel sounds Results & Data ([facility]) Vital Signs (Past 12 Hours) Vital Signs Temp Pulse Pulse Resp BP BP Pulse Ox 05/23/22 06:31 36.7 C 82 20 152/78 H 92 05/23/22 03:37 36.4 C L 83 20 172/74 H 92 05/22/22 23:48 84 05/22/22 23:34 36.8 C 85 20 158/81 H 92 O2 Del Method 05/23/22 06:31 Room Air 05/23/22 03:37 Room Air 05/22/22 23:48 05/22/22 23:34 Room Air
[2022-05-23] MEDS ORDERED: XOPENEX/ATROVENT 1.25mg/0.5MG NEB COMBO NEB SCH (13:00)
[2022-05-23] MEDS: IPRATROPIUM BROMIDE NEB SOLN 0.02% 2.5 ML VIAL INH SCH ×2 (13:01→19:20)
[2022-05-23] MEDS: LEVALBUTEROL 1.25MG/0.5ML NEB INH SCH ×2 (13:01→19:20)
[2022-05-23] MEDS: D5W AND NSS 1,000 ML IV SCH (15:20)
--- NOTE | 2022-05-23 15:59 | Hospitalist Progress Note ---
Date of Service May 23, 2022 Assessment & Plan (1) Abdominal discomfort: Plan: per Dr. East's notes with addendum: - Admit to med surg with tele -CT abdomen pelvis is reviewed showing thickening wall of the sigmoid and transverse colon, nonspecific colitis, infectious/inflammatory or ischemic in the CORINNE distribution -Distention, tinkling BS and tympany on exam concerning for bowel obstruction, no bowel movement x10 days, nausea - if worsening nausea or vomiting then will need NGT placed - WBC is 13 K, lactate is negative, will check blood cultures x 2, Will start IV antibiotics for colitis with cipro flagyl - NSS at 100ml/hr x 3 L -Order dulcolax suppository now, enema prn -Consulted general surgery- appreciate recs -Consult GI for possible decompression with colonoscopy - Last colonoscopy was from 02/12/2021, showing normal colon, significant left- sided diverticulosis, internal hemorrhoids -Last EGD was done on 10/05/2021 after a GI bleed, esophagus was normal, stomach was normal no ulcers and normal examined duodenum 05/23 Small and large bowel obstruction likely secondary to acute diverticulitis Patient showing improvement after NG tube insertion yesterday and continued IV cefepime plus Flagyl Repeat KUB showing improvement as well Continue with NG tube, enema 3 times daily, cefepime plus Flagyl NPO, IV fluids repeat KUB tomorrow may need surgical evaluation if patient's bowel obstruction progresses Appreciate GI and General surgery recommendations Wheezing, History of Asthma uses PRN Albuterol at home Nebs q6h Right Lower Extremity Paresthesia CT head: negative from radiculopathy? (2) Hypertension: Plan: PO Amlodipine and Lisinopril PRN Hydralazine (3) HLD (hyperlipidemia): Plan: - Hold statin (4) AAA (abdominal aortic aneurysm): Plan: - Stable, noted (5) DM II (diabetes mellitus, type II), controlled: Plan: - ISS with accuchecks with achs - Currently NPO, monitor glucose checks - Not on medication for such as an outpatient (6) Kidney disease: Plan: - Stage IIIa monitor DVT ppx: - teds, scds CODE: Full code Dispo:pending lives at home Admission and Anticipated Discharge Date Admission Date: May 21, 2022 Subjective Follow-up for small and large bowel obstruction, likely secondary to acute diverticulitis, etc. Seen resting in bed, comfortable, not in distress NG tube in place States she feels somewhat improved compared to yesterday, no nausea No abdominal discomfort Positive flatus, no BMs Reports some wheezing Patient states she uses as needed inhalers at home Reports right lower extremity paresthesia-feels heavy, able to move completely No other neurologic deficits Review of Systems Review of Systems: all noted and negative except for above Physical Exam Physical Exam: General- oriented x 3, not in distress, speaks in sentences with no effort or accessory muscle use Nose-NG tube in place draining brownish output Eyes- anicteric Neck- no JVD Lungs-positive faint wheezing bilaterally, no crackles, good air entry bilaterally Heart- normal rate, regular rhythm; no murmurs Abdomen-hypoactive bowel sounds, mildly distended, soft, no tenderness Extremities- no pretibial edema, no calf tenderness Neuro- alert, oriented x 3; no gross focal neurologic deficits Skin- warm & dry Results & Data Results & Data ([facility]) Vital Signs (Past 12 Hours) Vital Signs Temp Pulse Resp BP BP Pulse Ox O2 Del Method 05/23/22 13:02 80 18 91 Room Air 05/23/22 08:00 Room Air 05/23/22 11:44 36.5 C 76 18 180/84 H 91 Room Air 05/23/22 06:31 36.7 C 82 20 152/78 H 92 Room Air all noted and reviewed including below
[2022-05-24] MEDS: metroNIDAZOLE 500 MG/100 ML BAG IV SCH ×3 (01:22→18:10)
[2022-05-24] MEDS: D5W AND NSS 1,000 ML IV SCH ×2 (01:26→14:49)
[2022-05-24] MEDS: IPRATROPIUM BROMIDE NEB SOLN 0.02% 2.5 ML VIAL INH SCH ×3 (06:56→19:16)
[2022-05-24] MEDS: LEVALBUTEROL 1.25MG/0.5ML NEB INH SCH ×3 (06:56→19:16)
[2022-05-24] MEDS: INSULIN ASPART PER UNIT SC SCH ×3 (07:54→16:46)
[2022-05-24 08:13] LABS: Basophils # (auto) 0.05 K/uL (0-0.2); Basophils % (auto) 0.4 %; Eosinophils # (auto) 0.16 K/uL (0-0.50); Eosinophils % (auto) 1.4 %; Hematocrit (blood only) 39.9 % (34.1-44.9); Hemoglobin 13.1 g/dl (12.0-16.0); Immature Granulocytes # (auto) 0.02 K/uL (0.00-0.02); Immature Granulocytes % (auto) 0.2 %; Lymphocytes # (auto) 1.84 K/uL (1.2-3.4); Lymphocytes % (auto) 16.4 %; Mean Corpuscular Hemoglobin 29.2 pg (25.0-34.0); Mean Corpuscular Hgb Conc 32.8 g/dL (32.0-36.0); Mean Corpuscular Volume 88.9 fL (80.0-100.0); Mean Platelet Volume 11.3 fL (9.4-12.3); Monocytes # (auto) 0.81 K/uL (0.24-0.82); Monocytes % (auto) 7.2 %; Neutrophils # (auto) 8.36 K/uL (1.4-6.5); Neutrophils % (auto) 74.4 %; Platelet Count 179 K/uL (130-400); RDW Coefficient of Variation 13.6 % (11.5-14.5); RDW Standard Deviation 44.3 fL (36.4-46.3); Red Blood Count 4.49 M/uL (3.93-5.22); White Blood Count 11.24 K/ul (4.8-10.8)
--- NOTE | 2022-05-24 08:24 | Surgery Progress Note ---
Date of Service May 24, 2022 Assessment & Plan (1) Large bowel obstruction: Plan: bowel obstruction 2/2 likely diverticular stricture pt denies pain/nausea/vomiting. passing flatus, no true BM yet NGT documented 350cc abdomen distended, non tender KUB read pending this AM continue current management for now, will f/u on KUB read Appreciate GI's input Admission and Anticipated Discharge Date Admission Date: May 21, 2022 Supervising Physician Co-Signing Physician Notes Patient seen examined, agree with above. Partial lower bowel obstruction secondary to likely diverticular stricture and overlying diverticulitis. Feels better this morning, less bloated, passing gas and has had several liquid bowel movements. Afebrile stable vitals, abdomen less distended, nontender. KUB reviewed and appears to be improved on my read, however official read pending. Following official read by radiology, will potentially clamp NG. Will need outpatient colonoscopy and likely elective sigmoidectomy. Subjective Patient feeling okay. Denies nausea/vomiting or abdominal pain. Passing some flatus. Is bloated, but says it's getting better. Physical Exam Physical Exam: awake/alert Respiratory: normal respiratory effort Gastrointestinal (Abdomen): Inspection/Auscultation: + abdomen distended Percussion/Palpation: abdomen soft; abdomen nontender Results & Data ([facility]) Vital Signs (Past 12 Hours) Vital Signs Temp Pulse Pulse Resp BP BP Pulse Ox 05/24/22 07:30 75 05/24/22 07:12 36.7 C 60 18 158/67 H 99 05/24/22 06:56 75 18 93 05/24/22 04:16 36.6 C 76 20 161/83 H 93 05/23/22 23:08 81 05/23/22 22:52 36.6 C 81 20 178/89 H 93 O2 Del Method 05/24/22 07:30 05/24/22 07:12 Room Air 05/24/22 06:56 Room Air 05/24/22 04:16 Room Air 05/23/22 23:08 05/23/22 22:52 Room Air PG Care Time/CCT Total # of Minutes Spent Total Time Spent with Patient: Total time spent is greater than 50% in coordination of care (as documented) at patient's floor/unit and/or counseling patient: Coding Level of Care Code 64608 SUB INP/OBS CARE 1/25MIN Diagnoses Large bowel obstruction K56.607
[2022-05-24] MEDS: amLODIPine BESYLATE 5 MG TAB PO SCH (09:12)
[2022-05-24] MEDS: bisacodyL 10 MG SUPP PR SCH (09:12)
[2022-05-24] MEDS: lisinopril 10 MG TAB PO SCH (09:12)
[2022-05-24] MEDS: CEFEPIME 2,000 MG in SYRINGE 0 ML IV SCH ×2 (09:12→20:43)
[2022-05-24] MEDS: FLUTICASONE/VILANTEROL 100/25MCG 14 PUFFS/INHALER INH SCH (09:12)
[2022-05-24 09:23] LABS: BUN Creatinine Ratio 19.2 (10-20); Calcium 8.3 mg/dl (8.5-10.1); Creatinine Clr Calc Pharmacy 53.1 ml/min; Est GFR (African American) 67.4 ml/min; Est GFR (Non-African American) 58.1 ml/min; Magnesium 1.9 mg/dl (1.7-2.4); Potassium 3.8 mmol/L (3.5-5.1)
--- NOTE | 2022-05-24 11:05 | Gastroenterology Progress Note ---
Date of Service May 24, 2022 Assessment & Plan (1) Large bowel obstruction: (2) Diverticulitis: Plan Patient is a 67 years old female with past medical history of AAA, hypertension, hyperlipidemia, diabetes mellitus type 2, kidney disease, who is followed for suspected diverticulitis, diverticular stricture resulting in bowel obstruction. KUB showed improvement in cecal dilation 83 mm today, she is passing flatus and bowel movements this morning. - NPO - Continue Cefepime and Flagyl IV - Daily KUB - NGT to LIS - Dulcolax PRN daily - Surgery following - Defer colonoscopy until acute issues of diverticulitis and obstruction has resolved, in 6-8 weeks time - We will continue to follow along Admission and Anticipated Discharge Date Admission Date: May 21, 2022 Supervising Physician Co-Signing Physician Notes 67 y/o F with partial large bowel obstruction likely secondary to diverticular stricture with overlying inflammation, appears to be improving. KUB this AM with slight improvement in small and large bowel dilation. NG tube in place. I suspect she has diverticulitis with worsening of a known diverticular stricture as last colonoscopy required an ultrathin scope for successful completion in 01/2021. It is highly unlikely a colon cancer causing obstruction that grew in the 2 years since last colonoscopy. Colonoscopy in setting of acute diverticulitis would be contraindicated at this time given very high risk of perforation and with her known stricture this will likely require surgical intervention. Awaiting results of KUB read today. On exam today patient's abdomen is still distended but improved from yesterday and softer. She was finally able to have 2 small bowel movements this AM. Passing gas. Continue IV abx, NG tube to LIS, daily KUB, bowel regimen with enemas TID. If worsening distention or patient clinically deteriorates would recommend surgical intervention. Unfortunately, there is nothing we can do with colonoscopy to fix the stricture and colonoscopy in setting of acute diverticulitis would be contraindicated due to high risk of perforation. If she improves and does not re quire surgery would recommend outpatient colonoscopy in 6-8 weeks. Bella Maloney, DO Gastroenterology and Hepatology Subjective Patient denies any abdominal pain, is passing flatus, and did pass bowel movements as well. No nausea or vomiting. NG tube output about 350 cc Review of Systems Review of Systems: All systems reviewed & are unremarkable except as noted in HPI & below Physical Exam Constitutional: WD/WN, vitals as above well groomed, cooperative and comfortable Eyes: PERRL, conjunctivae normal, anicteric sclerae ENMT: external ear and nose normal, oropharynx normal Respiratory: normal respiratory effort, lungs clear to auscultation Cardiovascular: RRR, no murmur, no edema Chest (Breasts): Additional Comments: Mild distention but soft, bowel sound present, nontender Skin: no rashes, warm and dry no jaundice Psychiatric: A+Ox3, euthymic affect Lymphatic: no lymphedema Results & Data ([facility]) Vital Signs (Past 12 Hours) Vital Signs Temp Pulse Pulse Resp BP BP Pulse Ox 05/24/22 07:30 75 05/24/22 07:12 36.7 C 60 18 158/67 H 99 05/24/22 06:56 75 18 93 05/24/22 04:16 36.6 C 76 20 161/83 H 93 05/23/22 23:08 81 O2 Del Method 05/24/22 07:30 05/24/22 07:12 Room Air 05/24/22 06:56 Room Air 05/24/22 04:16 Room Air 05/23/22 23:08
--- NOTE | 2022-05-24 13:44 | XRay Report ---
XR KUB/Abdomen 1 view CLINICAL HISTORY: ff up small and large bowel obstruction TECHNIQUE: 1 view of the abdomen was obtained. Comparison: Comparison is made to abdomen radiograph 05/23/2022 FINDINGS: Enteric tube is in satisfactory position. Multiple gas-distended loops of large and small bowel are s een. Cecal diameter is minimally decreased. Multiple gas-distended loops of small bowel measuring 36 mm in diameter. Degenerative changes are seen in the visualized skeleton. IMPRESSION: Redemonstration of gaseous distention of large and small bowel, possibly improved from prior exam. ACT 112: Negative or not required by law. Electronically signed by: Russ Thacker M.D. 05/24/2022 1:43 PM
--- NOTE | 2022-05-24 14:49 | Hospitalist Progress Note ---
Date of Service May 24, 2022 Assessment & Plan (1) Abdominal discomfort: Plan: - Admit to med surg with tele -CT abdomen pelvis is reviewed showing thickening wall of the sigmoid and transverse colon, nonspecific colitis, infectious/inflammatory or ischemic in th e CORINNE distribution -Distention, tinkling BS and tympany on exam concerning for bowel obstruction, no bowel movement x10 days, nausea - if worsening nausea or vomiting then will need NGT placed - WBC is 13 K, lactate is negative, will check blood cultures x 2, Will start IV antibiotics for colitis with cipro flagyl - NSS at 100ml/hr x 3 L -Order dulcolax suppository now, enema prn -Consulted general surgery- appreciate recs -Consult GI for possible decompression with colonoscopy - Last colonoscopy was from 02/12/2021, showing normal colon, significant left- sided diverticulosis, internal hemorrhoids -Last EGD was done on 10/05/2021 after a GI bleed, esophagus was normal, stomach was normal no ulcers and normal examined duodenum 05/24 Small and large bowel obstruction likely secondary to acute diverticulitis Continue with NG tube, enema 3 times daily, cefepime plus Flagyl NPO, IV fluids Repeat KUB is showing minimal improvement Appreciate GI and General surgery recommendations-no colonoscopy until the infection is controlled may been about 6 to 8 weeks We will monitor electrolytes Wheezing, History of Asthma Mild exacerbation of asthma treated with every 6 hourly as needed nebs Right Lower Extremity Paresthesia CT head: negative from radiculopathy? (2) Hypertension: Plan: PO Amlodipine and Lisinopril PRN Hydralazine (3) HLD (hyperlipidemia): Plan: - Hold statin (4) AAA (abdominal aortic aneurysm): Plan: - Stable, noted (5) DM II (diabetes mellitus, type II), controlled: Plan: - ISS with accuchecks with achs - Currently NPO, monitor glucose checks - Not on medication for such as an outpatient (6) Kidney disease: Plan: - Stage IIIa monitor DVT ppx: - teds, scds CODE: Full code Dispo:pending lives at home Admission and Anticipated Discharge Date Admission Date: May 21, 2022 Subjective 05/24/2022 The patient was seen and examined in medical telemetry unit She has been feeling a little better with minimal improvement of abdominal swelling and discomfort No nausea and or vomiting and she has been passing gas Review of Systems Review of Systems: All systems reviewed and are unremarkable except as noted below Physical Exam Physical Exam: Lying in bed without any acute distress Constitutional: well developed, well nourished, + ill appearing and average body habitus Eyes: PERRL, conjunctivae normal, anicteric sclerae ENMT: external ear and nose normal, oropharynx normal Neck: trachea midline, no thyromegaly Respiratory: no respiratory distress Auscultation: lungs clear to auscultation bilaterally Cardiovascular: Rate/Rhythm: regular rate and regular rhythm; not tachycardic Heart Sounds: normal S1 and normal S2; no murmur Extremities: no edema Gastrointestinal (Abdomen): Inspection/Auscultation: + abdomen distended (Minimally distended); + abnormal bowel sounds (Sluggish) Percussion/Palpation: + abdomen tender (Mildly tender all over and in right lower quadrant without guarding and rig) and abdomen soft Musculoskeletal: No acute arthritis involving any joint Neurologic: normal touch/pain/proprioception and moves all extremities; no focal motor deficits Psychiatric: A+Ox3, euthymic affect Lymphatic: no cervical or axillary lymphadenopathy Results & Data Results & Data ([facility]) Vital Signs (Past 12 Hours) Vital Signs Temp Pulse Pulse Resp BP BP Pulse Ox 05/24/22 13:30 79 18 92 05/24/22 11:15 36.6 C 79 16 164/82 H 92 05/24/22 07:30 75 05/24/22 07:12 36.7 C 60 18 158/67 H 99 05/24/22 06:56 75 18 93 05/24/22 04:16 36.6 C 76 20 161/83 H 93 O2 Del Method 05/24/22 13:30 Room Air 05/24/22 11:15 Room Air 05/24/22 07:30 05/24/22 07:12 Room Air 05/24/22 06:56 Room Air 05/24/22 04:16 Room Air Laboratory Results Short CBC 05/24/22 Range/Units 07:19 WBC 11.24 H (4.8-10.8) K/ul Hgb 13.1 (12.0-16.0) g/dl Hct 39.9 (34.1-44.9) % Plt Count 179 (130-400) K/uL BMP 05/24/22 05/24/22 07:18 07:18 Sodium 139 Potassium 3.8 Chloride 111 H Carbon Dioxide 23 BUN 19 Creatinine Cancelled 0.99 Glucose 137 H Calcium 8.3 L Medications Administered Current Inpatient Medications Acetaminophen (Acetaminophen 325 Mg Tab) 650 mg PO Q4H PRN PRN Reason: Moderate Pain Stop: 06/20/22 21:08 Amlodipine Besylate (Amlodipine Besylate 5 Mg Tab) 5 mg PO QAM [place] Stop: 06/21/22 11:29 Last Admin: 05/24/22 09:12 Dose: 5 mg Bisacodyl (Bisacodyl 10 Mg Supp) 10 mg LA DAILY [place] Stop: 06/20/22 21:08 Last Admin: 05/24/22 09:12 Dose: 10 mg Dextrose (Dextrose 50% 50 Ml Syringe) 25 - 50 ml IV UD PRN; Protocol PRN Reason: Hypoglycemia Protocol Stop: 06/20/22 17:08 Fluticasone/Vilanterol (Fluticasone/Vilanterol 100/25mcg 14 Puffs/Inhaler) 1 puffs INH DAILY CL[place]KE Stop: 06/22/22 09:29 Last Admin: 05/24/22 09:12 Dose: 1 puffs Glucagon (Glucagon For Inj 1 Mg Vial) 1 mg SQ UD PRN; Protocol PRN Reason: Hypoglycemia Protocol Stop: 06/20/22 17:08 Glucose (Glucose 40% Gel 15 Gm Tube) 15 - 30 gm PO UD PRN; Protocol PRN Reason: Hypoglycemia Protocol Stop: 06/20/22 17:08 Glucose (Glucose 10 Tab/Tube) 4 - 8 tab PO UD PRN; Protocol PRN Reason: Hypoglycemia Treatment Stop: 06/20/22 17:08 Hydralazine HCl (Hydralazine Hcl 20 Mg/Ml Vial) 10 mg IV Q6H PRN PRN Reason: Hypertension Stop: 06/20/22 16:59 Last Admin: 05/21/22 21:42 Dose: 10 mg Metronidazole (Flagyl) 500 mg in 100 mls @ 100 mls/hr IV Q8H [place] Stop: 06/01/22 01:59 Last Infusion: 05/24/22 11:16 Dose: Infused Cefepime HCl 2,000 mg/ Syringe 20 mls @ 5 mls/min IV Q12H [place]KE; Protocol Stop: 05/31/22 19:59 Last Admin: 05/24/22 09:12 Dose: 5 mls/min Dextrose/Sodium Chloride (D5w And Nss) 1,000 mls @ 80 mls/hr IV .[id number] [facility] Stop: 06/21/22 09:29 Last Admin: 05/24/22 01:26 Dose: 80 mls/hr Insulin Aspart (Insulin Aspart Per Unit) 0 units SC ACHS [facility] Stop: 06/20/22 20:59 Last Admin: 05/24/22 12:12 Dose: Not Given Ipratropium [place] (Ipratropium [place] Neb Soln 0.02% 2.5 Ml Vial) 0.5 mg INH Q6RWA [facility] Stop: 06/22/22 12:59 Last Admin: 05/24/22 13:36 Dose: 0.5 mg Levalbuterol HCl (Levalbuterol 1.25mg/0.5ml Neb) 1.25 mg INH Q6RWA [facility] Stop: 06/22/22 12:59 Last Admin: 05/24/22 13:36 Dose: 1.25 mg Lisinopril (Lisinopril 10 Mg Tab) 30 mg PO QAM [facility] Stop: 06/21/22 11:29 Last Admin: 05/24/22 09:12 Dose: 30 mg Miscellaneous (Carbohydrates For Hypoglycemia ) 15 - 30 gm PO UD PRN PRN Reason: Hypoglycemia Protocol Stop: 06/20/22 17:08 Morphine Sulfate (Morphine Sulfate 2 Mg/Ml [place]) 2 mg IV Q6H PRN PRN Reason: Pain, moderate, rating 5-6-7-8 Stop: 06/04/22 17:08 Ondansetron HCl (Ondansetron Inj 2 Mg/Ml 2 Ml Vial) 4 mg IV Q4H PRN PRN Reason: Nausea And Vomiting Stop: 06/20/22 21:08 Last Admin: 05/21/22 21:41 Dose: 4 mg
[2022-05-25] MEDS: INSULIN ASPART PER UNIT SC SCH ×4 (00:42→18:17)
[2022-05-25] MEDS: metroNIDAZOLE 500 MG/100 ML BAG IV SCH ×3 (01:52→17:35)
[2022-05-25] MEDS: D5W AND NSS 1,000 ML IV SCH ×3 (05:25→22:33)
[2022-05-25] MEDS: IPRATROPIUM BROMIDE NEB SOLN 0.02% 2.5 ML VIAL INH SCH (07:05)
[2022-05-25] MEDS: LEVALBUTEROL 1.25MG/0.5ML NEB INH SCH (07:05)
[2022-05-25 08:03] LABS: Creatinine Clr Calc Pharmacy 57.2 ml/min; Est GFR (African American) 73.6 ml/min; Est GFR (Non-African American) 63.5 ml/min
[2022-05-25] MEDS: lisinopril 10 MG TAB PO SCH (08:44)
[2022-05-25] MEDS: bisacodyL 10 MG SUPP PR SCH (08:44)
[2022-05-25] MEDS: amLODIPine BESYLATE 5 MG TAB PO SCH (08:44)
[2022-05-25] MEDS: CEFEPIME 2,000 MG in SYRINGE 0 ML IV SCH ×2 (08:45→22:31)
[2022-05-25] MEDS: FLUTICASONE/VILANTEROL 100/25MCG 14 PUFFS/INHALER INH SCH (08:45)
--- NOTE | 2022-05-25 09:28 | Gastroenterology Progress Note ---
Date of Service May 25, 2022 Assessment & Plan (1) Large bowel obstruction: (2) Diverticulitis: Plan Patient is a 67 years old female with past medical history of AAA, hypertension, hyperlipidemia, diabetes mellitus type 2, kidney disease, who is followed for suspected diverticulitis, diverticular stricture resulting in bowel obstruction. Abd feels more distended today but non tender. Awaiting KUB. - NPO - Continue Cefepime and Flagyl IV - Awaiting KUB - NGT to LIS ; may trial clamp today depending on KUB - Dulcolax OK daily - Surgery following - Defer colonoscopy until acute issues of diverticulitis and obstruction has resolved, in 6-8 weeks time. However if still having colonic distension due to stricture, may consider colonic stent Admission and Anticipated Discharge Date Admission Date: May 21, 2022 Supervising Physician Co-Signing Physician Notes 67 y/o F with partial large bowel obstruction likely secondary to diverticular stricture with overlying inflammation, appears to be improving. KUB this AM with only marginal improvement in small and large bowel dilation. NG tube in place. I suspect she has diverticulitis with worsening of a known diverticular stricture as last colonoscopy required an ultrathin scope for successful completion in 01/2021. It is highly unlikely a colon cancer causing obstruction that grew in the 2 years since last colonoscopy. Colonoscopy in setting of acute diverticulitis would be contraindicated at this time given very high risk of perforation and with her known stricture this will likely require surgical intervention. On exam today patient's abdomen is still distended and slightly worse than yesterday. passing gas and had liquid stool today. KUB only marginally improved. plan: -spoke with advanced endoscopist Dr. Hope as well as Dr. Montero from general surgery regarding this patient. Dr. Hope will attempt a colonic stent tomorrow as a bridge to outpatient surgery. Will need enemas at 10 AM and 12 PM prior to afternoon procedure tomorrow. -NPO at midnight -clears today -continue IV abx -continue NGT to LIS -daily KUB Bella Maloney, DO Gastroenterology and Hepatology Subjective Pt had last BM yesterday afternoon. Is passing flatus. No n/v. NGT output 350ml but she's sipping on water. Review of Systems Review of Systems: All systems reviewed & are unremarkable except as noted in HPI & below Physical Exam Constitutional: WD/WN, vitals as above well groomed, cooperative and comfortable Eyes: PERRL, conjunctivae normal, anicteric sclerae ENMT: external ear and nose normal, oropharynx normal Respiratory: normal respiratory effort, lungs clear to auscultation Cardiovascular: RRR, no murmur, no edema Gastrointestinal (Abdomen): + distended, BS hypoactive, non tender Skin: no rashes, warm and dry no jaundice Psychiatric: A+Ox3, euthymic affect Lymphatic: no lymphedema Results & Data ([facility]) Vital Signs (Past 12 Hours) Vital Signs Temp Pulse Pulse Resp BP Pulse Ox O2 Del Method 05/25/22 07:57 78 05/25/22 07:06 83 16 94 Nasal Cannula 05/25/22 04:00 37.0 C 78 18 165/74 H 91 Room Air 05/24/22 23:00 36.8 C 79 18 167/79 H 92 Room Air 05/25/22 00:00 81 O2 Flow Rate 05/25/22 07:57 05/25/22 07:06 2 05/25/22 04:00 05/24/22 23:00 05/25/22 00:00
--- NOTE | 2022-05-25 09:32 | XRay Report ---
KUB HISTORY: Follow-up study in a patient with reported small bowel obstruction re-eval colonic distensi on, bowel obstruction COMPARISON: KUB May 24, 2022 FINDINGS: Persistent large and small bowel dilation with small bowel loops measuring up to 4.3 cm, si milar to prior. The degree of large bowel distention has mildly improved. Distal tip of enteric tube is again noted projected over the mid stomach. No renal calculi. No ureteral calculi. No pneumoperit oneum or pneumatosis. Postoperative changes of the lumbar spine are again noted. No fracture. IMPRESSION: 1. Persistent large and small bowel distention suspicious for a distal obstruction. The degree of lar ge bowel distention has mildly improved. 2. Distal tip of enteric tube within the stomach. ACT 112: Negative or not required by law. The above report was generated using voice recognition software. It may contain grammatical, syntax o r spelling errors. Electronically signed by: Cesar Regan M.D. 05/25/2022 9:31 AM
[2022-05-25] MEDS ORDERED: LEVALBUTEROL 1.25MG/0.5ML NEB INH PRN (10:28)
[2022-05-25] MEDS ORDERED: IPRATROPIUM BROMIDE NEB SOLN 0.02% 2.5 ML VIAL INH PRN (10:28)
--- NOTE | 2022-05-25 11:25 | Hospitalist Progress Note ---
Date of Service May 25, 2022 Assessment & Plan (1) Abdominal discomfort: Plan: - Admit to med surg with tele -CT abdomen pelvis is reviewed showing thickening wall of the sigmoid and transverse colon, nonspecific colitis, infectious/inflammatory or ischemic in th e CORINNE distribution -Distention, tinkling BS and tympany on exam concerning for bowel obstruction, no bowel movement x10 days, nausea - if worsening nausea or vomiting then will need NGT placed - WBC is 13 K, lactate is negative, will check blood cultures x 2, Will start IV antibiotics for colitis with cipro flagyl - NSS at 100ml/hr x 3 L -Order dulcolax suppository now, enema prn -Consulted general surgery- appreciate recs -Consult GI for possible decompression with colonoscopy - Last colonoscopy was from 02/12/2021, showing normal colon, significant left- sided diverticulosis, internal hemorrhoids -Last EGD was done on 10/05/2021 after a GI bleed, esophagus was normal, stomach was normal no ulcers and normal examined duodenum -Minimally improved abdominal discomfort 05/24 Small and large bowel obstruction likely secondary to acute diverticulitis Continue with NG tube, enema 3 times daily, cefepime plus Flagyl NPO, IV fluids Repeat KUB is showing minimal improvement Appreciate GI and General surgery recommendations-no colonoscopy until the infection is controlled may been about 6 to 8 weeks We will monitor electrolytes 05/25 Repeat KUB shows improvement of colonic distention Patient has been feeling a little better We will continue n.p.o. and NG suction Wheezing, History of Asthma Mild exacerbation of asthma treated with every 6 hourly as needed nebs Nebs has been changed to as needed Right Lower Extremity Paresthesia CT head: negative from radiculopathy No acute issues (2) Hypertension: Plan: PO Amlodipine and Lisinopril PRN Hydralazine (3) HLD (hyperlipidemia): Plan: - Hold statin (4) AAA (abdominal aortic aneurysm): Plan: - Stable, noted (5) DM II (diabetes mellitus, type II), controlled: Plan: - ISS with accuchecks with achs - Currently NPO, monitor glucose checks - Not on medication for such as an outpatient (6) Kidney disease: Plan: - Stage IIIa monitor DVT ppx: - teds, scds CODE: Full code Dispo:pending lives at home Admission and Anticipated Discharge Date Admission Date: May 21, 2022 Subjective 05/24/2022 The patient was seen and examined in medical telemetry unit She has been feeling a little better with minimal improvement of abdominal swelling and discomfort No nausea and or vomiting and she has been passing gas 05/25/2022 The patient was seen and examined in medical telemetry unit She still complains to have nausea and abdominal discomfort Denies any shortness of breath, fever and or chills Review of Systems Review of Systems: All systems reviewed and are unremarkable except as noted below Gastrointestinal: Abdominal distention, discomfort with nausea Physical Exam Physical Exam: Lying in bed without any acute distress Constitutional: well developed, well nourished, + ill appearing and average body habitus Eyes: PERRL, conjunctivae normal, anicteric sclerae ENMT: external ear and nose normal, oropharynx normal Neck: trachea midline, no thyromegaly Respiratory: no respiratory distress Auscultation: lungs clear to auscultation bilaterally Cardiovascular: Rate/Rhythm: regular rate and regular rhythm; not tachycardic Heart Sounds: normal S1 and normal S2; no murmur Extremities: no edema Gastrointestinal (Abdomen): Inspection/Auscultation: + abdomen distended (Minimally distended); + abnormal bowel sounds (Sluggish) Percussion/Palpation: + abdomen tender (Mildly tender all over and in right lower quadrant without guarding and rig) and abdomen soft Musculoskeletal: No acute arthritis involving any of the joint Neurologic: normal touch/pain/proprioception and moves all extremities; no focal motor deficits Psychiatric: A+Ox3, euthymic affect Lymphatic: no cervical or axillary lymphadenopathy Results & Data Results & Data ([facility]) Vital Signs (Past 12 Hours) Vital Signs Temp Pulse Pulse Resp BP Pulse Ox O2 Del Method 05/25/22 10:57 Nasal Cannula 05/25/22 07:57 78 05/25/22 07:06 83 16 94 Nasal Cannula 05/25/22 04:00 37.0 C 78 18 165/74 H 91 Room Air 05/25/22 00:00 81 O2 Flow Rate 05/25/22 10:57 2 05/25/22 07:57 05/25/22 07:06 2 05/25/22 04:00 05/25/22 00:00 Laboratory Results BMP 05/25/22 06:55 Creatinine 0.92 Diagnostic Findings Laboratory Results WBC 11.24 K/ul (4.8-10.8) H 05/24/22 07:19 RBC 4.49 M/uL (3.93-5.22) 05/24/22 07:19 Hgb 13.1 g/dl (12.0-16.0) 05/24/22 07:19 Hct 39.9 % (34.1-44.9) 05/24/22 07:19 MCV 88.9 fL (80.0-100.0) 05/24/22 07:19 MCH 29.2 pg (25.0-34.0) 05/24/22 07:19 MCHC 32.8 g/dL (32.0-36.0) 05/24/22 07:19 RDW Std Deviation 44.3 fL (36.4-46.3) 05/24/22 07:19 RDW Coeff of Susan 13.6 % (11.5-14.5) 05/24/22 07:19 Plt Count 179 K/uL (130-400) 05/24/22 07:19 MPV 11.3 fL (9.4-12.3) 05/24/22 07:19 Immature Gran % (Auto) 0.2 % 05/24/22 07:19 Neut % (Auto) 74.4 % 05/24/22 07:19 Lymph % (Auto) 16.4 % 05/24/22 07:19 Ralls % (Auto) 7.2 % 05/24/22 07:19 Eos % (Auto) 1.4 % 05/24/22 07:19 Baso % (Auto) 0.4 % 05/24/22 07:19 Neut # (Auto) 8.36 K/uL (1.4-6.5) H 05/24/22 07:19 Lymph # (Auto) 1.84 K/uL (1.2-3.4) 05/24/22 07:19 Ralls # (Auto) 0.81 K/uL (0.24-0.82) 05/24/22 07:19 Eos # (Auto) 0.16 K/uL (0-0.50) 05/24/22 07:19 Baso # (Auto) 0.05 K/uL (0-0.2) 05/24/22 07:19 Immature Gran # (Auto) 0.02 K/uL (0.00-0.02) 05/24/22 07:19 Sodium 139 mmol/L (136-145) 05/24/22 07:18 Potassium 3.8 mmol/L (3.5-5.1) 05/24/22 07:18 Chloride 111 mmol/L (98-107) H 05/24/22 07:18 Carbon Dioxide 23 mmol/L (21-32) 05/24/22 07:18 Anion Gap 5 (3-11) 05/24/22 07:18 BUN 19 mg/dl (6-23) 05/24/22 07:18 Creatinine 0.92 mg/dl (0.6-1.2) 05/25/22 06:55 Est Cr Clr Drug Dosing 57.2 ml/min 05/25/22 06:55 Est GFR ( Amer) 73.6 ml/min 05/25/22 06:55 Est GFR (Non-Af Amer) 63.5 ml/min 05/25/22 06:55 BUN/Creatinine Ratio 19.2 (10-20) 05/24/22 07:18 Glucose 137 mg/dl (70-99(Fasting)) H 05/24/22 07:18 POC Glucose 135 mg/dl (70-99) H 05/25/22 07:53 Lactate 0.8 mmol/L (0.4-2.0) 05/21/22 10:46 Calcium 8.3 mg/dl (8.5-10.1) L 05/24/22 07:18 Phosphorus 4.5 mg/dl (2.5-4.9) 05/22/22 05:23 Magnesium 1.9 mg/dl (1.7-2.4) 05/24/22 07:18 Total Bilirubin 0.4 mg/dl (0.2-1.0) 05/21/22 08:30 AST 12 U/L (13-39) L 05/21/22 08:30 ALT 6 U/L (7-52) L 05/21/22 08:30 Alkaline Phosphatase 79 U/L (34-104) 05/21/22 08:30 Total Protein 7.4 gm/dl (6.0-8.3) 05/21/22 08:30 Albumin 4.5 gm/dl (3.4-5.0) 05/21/22 08:30 Globulin 2.9 gm/dl (2.5-4.0) 05/21/22 08:30 Albumin/Globulin Ratio 1.6 (0.9-2) 05/21/22 08:30 Lipase 31 U/L (11-82) 05/21/22 08:30 SARS-CoV-2, RNA, NAAT NEGATIVE (NEGATIVE) 05/21/22 Unknown Impressions Abdomen/Pelvis CT 05/21/22 09:13 CT abd pelvis wo con CLINICAL HISTORY: abd pain, distention, constipation TECHNIQUE: Helical axial images of the abdomen and pelvis were obtained. Automated dose lowering techniques and/or adjustment according to patient size were utilized for this exam. This exam was performed without intravenous contrast. CT DOSE: 266.24 mGy.cm COMPARISON: Comparison is made to CT abdomen pelvis 10/02/2021 FINDINGS: Lower chest: Bibasilar atelectasis versus scarring is seen. Liver: Unremarkable. No focal lesions are seen. Gallbladder and biliary tree: No calcified gallstones. Normal caliber wall. No intra- or extrahepatic biliary ductal dilation. Pancreas: Unremarkable, no focal lesions. Spleen: Unremarkable. Adrenals: Unremarkable. Kidneys and ureters: Unremarkable. Bladder: Limited evaluation due to underdistention. Reproductive organs: Unremarkable. Bowel: Numerous diverticula are seen with bowel wall thickening and increased vascularity extending from the distal transverse colon to the sigmoid colon.. Thickening is also noted in the distal transverse colon. Postsurgical changes of appendectomy are seen. Lymph nodes Retroperitoneal: Unremarkable. Pelvic: Unremarkable. Mesenteric: Unremarkable. Peritoneum: Normal. Vessels: Infrarenal aortic aneurysms measure up to 44 mm in diameter. Abdominal wall: Unremarkable. Bones: Degenerative changes in the visualized spine. Posterior fixation hardware is seen spanning L4-L5. IMPRESSION: 1. Thickening of the wall of the sigmoid and transverse colon noted compatible with nonspecific colitis, infectious/inflammatory or ischemic in the CORINNE distribution. 2. Infrarenal aortic aneurysm. 3. Additional findings as above. ACT 112: Negative or not required by law. Electronically signed by: Russ Thacker M.D. 05/21/2022 10:[address] 05/23/22 09:16 CT head/brain wo con CLINICAL HISTORY: 67 years-old Female with right lower extremity paresthesia. Acute strokelike symptoms TECHNIQUE: Multiple axial CT images of the head were obtained without contrast. A dose lowering technique was utilized adhering to the principles of ALARA. CT DOSE: 844.62 mGy.cm COMPARISON: None FINDINGS: No acute intracranial hemorrhage, midline shift, intracranial mass, hydrocephalus, territorial ischemia or abnormal extra-axial collection. White matter hypodensities suggestive of chronic microvascular ischemic disease. More heterogeneous decreased attenuation of the left frontal lobe rosado radiata, internal capsule and lentiform nucleus measuring up to 1.6 cm. Mildly motion degraded exam. Cerebral vascular calcifications. The calvarium is intact. The paranasal sinuses, mastoid air cells, and middle ear cavities are clear. IMPRESSION: 1. No acute intracranial abnormality. 2. White matter hypodensities suggestive of chronic chronic microvascular ischemic disease. 3. More focal hypodense foci within the left frontal lobe rosado radiata and internal capsule suggestive of age-indeterminate lacunar infarcts, also likely chronic. ACT 112: Negative or not required by law. The above report was generated using voice recognition software. It may contain grammatical, syntax or spelling errors. Electronically signed by: Cesar Regan M.D. 05/23/2022 10:10 AM KUB X-Ray 05/25/22 07:00 KUB HISTORY: Follow-up study in a patient with reported small bowel obstruction re- eval colonic distension, bowel obstruction COMPARISON: KUB May 24, 2022 FINDINGS: Persistent large and small bowel dilation with small bowel loops measuring up to 4.3 cm, similar to prior. The degree of large bowel distention has mildly improved. Distal tip of enteric tube is again noted projected over the mid stomach. No renal calculi. No ureteral calculi. No pneumoperitoneum or pneumatosis. Postoperative changes of the lumbar spine are again noted. No fracture. IMPRESSION: 1. Persistent large and small bowel distention suspicious for a distal obstruction. The degree of large bowel distention has mildly improved. 2. Distal tip of enteric tube within the stomach. ACT 112: Negative or not required by law. The above report was generated using voice recognition software. It may contain grammatical, syntax or spelling errors. Electronically signed by: Cesar Regan M.D. 05/25/2022 9:31 AM Medications Administered Current Inpatient Medications Acetaminophen (Acetaminophen 325 Mg Tab) 650 mg PO Q4H PRN PRN Reason: Moderate Pain Stop: 06/20/22 21:08 Amlodipine Besylate (Amlodipine Besylate 5 Mg Tab) 5 mg PO QAM [facility] Stop: 06/21/22 11:29 Last Admin: 05/25/22 08:44 Dose: 5 mg Bisacodyl (Bisacodyl 10 Mg Supp) 10 mg TX DAILY [facility] Stop: 06/20/22 21:08 Last Admin: 05/25/22 08:44 Dose: 10 mg Dextrose (Dextrose 50% 50 Ml Syringe) 25 - 50 ml IV UD PRN; Protocol PRN Reason: Hypoglycemia Protocol Stop: 06/20/22 17:08 Fluticasone/Vilanterol (Fluticasone/Vilanterol 100/25mcg 14 Puffs/Inhaler) 1 puffs INH DAILY [facility] Stop: 06/22/22 09:29 Last Admin: 05/25/22 08:45 Dose: 1 puffs Glucagon (Glucagon For Inj 1 Mg Vial) 1 mg SQ UD PRN; Protocol PRN Reason: Hypoglycemia Protocol Stop: 06/20/22 17:08 Glucose (Glucose 40% Gel 15 Gm Tube) 15 - 30 gm PO UD PRN; Protocol PRN Reason: Hypoglycemia Protocol Stop: 06/20/22 17:08 Glucose (Glucose 10 Tab/Tube) 4 - 8 tab PO UD PRN; Protocol PRN Reason: Hypoglycemia Treatment Stop: 06/20/22 17:08 Hydralazine HCl (Hydralazine Hcl 20 Mg/Ml Vial) 10 mg IV Q6H PRN PRN Reason: Hypertension Stop: 06/20/22 16:59 Last Admin: 05/21/22 21:42 Dose: 10 mg Metronidazole (Flagyl) 500 mg in 100 mls @ 100 mls/hr IV Q8H [facility] Stop: 06/01/22 01:59 Last Admin: 05/25/22 10:29 Dose: 100 mls/hr Cefepime HCl 2,000 mg/ Syringe 20 mls @ 5 mls/min IV Q12H CLARKE; Protocol Stop: 05/31/22 19:59 Last Admin: 05/25/22 08:45 Dose: 5 mls/min Dextrose/Sodium Chloride (D5w And Nss) 1,000 mls @ 80 mls/hr IV .[id number] [facility] Stop: 06/21/22 09:29 Last Admin: 05/25/22 08:45 Dose: 80 mls/hr Insulin Aspart (Insulin Aspart Per Unit) 0 units SC Q6 [facility] Stop: 06/24/22 11:59 Ipratropium Vallecitos (Ipratropium Vallecitos Neb Soln 0.02% 2.5 Ml Vial) 0.5 mg INH Q6RWA PRN PRN Reason: Shortness Of Breath Or Wheezing Stop: 06/22/22 12:59 Levalbuterol HCl (Levalbuterol 1.25mg/0.5ml Neb) 1.25 mg INH Q6RWA PRN PRN Reason: Shortness Of Breath Or Wheezing Stop: 06/22/22 12:59 Lisinopril (Lisinopril 10 Mg Tab) 30 mg PO QAM [facility] Stop: 06/21/22 11:29 Last Admin: 05/25/22 08:44 Dose: 30 mg Miscellaneous (Carbohydrates For Hypoglycemia ) 15 - 30 gm PO UD PRN PRN Reason: Hypoglycemia Protocol Stop: 06/20/22 17:08 Morphine Sulfate (Morphine Sulfate 2 Mg/Ml Carp) 2 mg IV Q6H PRN PRN Reason: Pain, moderate, rating 5-6-7-8 Stop: 06/04/22 17:08 Ondansetron HCl (Ondansetron Inj 2 Mg/Ml 2 Ml Vial) 4 mg IV Q4H PRN PRN Reason: Nausea And Vomiting Stop: 06/20/22 21:08 Last Admin: 05/21/22 21:41 Dose: 4 mg
--- NOTE | 2022-05-25 12:05 | Anesthesiology Consultation ---
Date of Service May 25, 2022 Assessment & Plan (1) Encounter for pre-operative examination: Chart Review Chart Review: Acceptable Risk for Surgery and Patient NOT seen in Pre Admission Testing Consults Requested none History Surgery Operation Date: 05/26/22 13:00 Proposed Procedures p Colonoscopy with Stent - Rebekah Hope, Height/Weight Height: 5 ft 7.5 in Weight: 64.2 kg Allergies Allergy/AdvReac Type Severity Reaction Status Date / Time chlorhexidine Allergy Intermediate ITCHING,RED Verified 05/21/22 16:05 NESS Quinolones Allergy Intermediate RASH-cipro Verified 05/21/22 16:05 Sulfa (Sulfonamide Allergy Intermediate RASH Verified 05/21/22 16:05 Antibiotics) Penicillins Allergy Unknown Unknown Verified 05/21/22 16:05 azithromycin Allergy Anaphylaxis Verified 05/21/22 16:05 Medications Home Medications Medication Instructions Recorded Confirmed Last Taken rosuvastatin 20 mg tablet 20 mg PO HS 09/03/20 05/21/22 05/20/22 montelukast 10 mg tablet 10 mg PO HS 10/02/21 05/21/22 05/20/22 amlodipine 5 mg tablet 5 mg PO QAM 05/21/22 05/21/22 05/20/22 aspirin 81 mg tablet,delayed 81 mg PO DAILY 05/21/22 05/21/22 05/20/22 release bismuth subsalicylate 262 mg tablet 2 tab PO QID PRN Gi Upset 05/21/22 05/21/22 05/20/22 duloxetine 30 mg capsule,delayed 30 mg PO QAM 05/21/22 05/21/22 05/17/22 release pt holding med lisinopril 30 mg tablet 30 mg PO QAM 05/21/22 05/21/22 05/20/22 pantoprazole 40 mg tablet,delayed 40 mg PO QAM 05/21/22 05/21/22 05/20/22 release Active Medications Generic Name Dose Route Start Last Admin Trade Name Freq PRN Reason Stop Dose Admin Amlodipine Besylate 5 mg 05/22/22 11:30 05/25/22 08:44 Amlodipine Besylate 5 Mg Tab PO 06/21/22 11:29 5 mg QAM CL[facility]KE Administration Bisacodyl 10 mg 05/21/22 21:09 05/25/22 08:44 Bisacodyl 10 Mg Supp OH 06/20/22 21:08 10 mg DAILY [facility] Administration Fluticasone/Vilanterol 1 puffs 05/23/22 09:30 05/25/22 08:45 Fluticasone/Vilanterol 100/25mcg 14 Puffs/Inhaler INH 06/22/22 09:29 1 puffs DAILY [facility] Administration Hydralazine HCl 10 mg 05/21/22 16:47 05/21/22 21:42 Hydralazine Hcl 20 Mg/Ml Vial IV 06/20/22 16:59 10 mg Q6H PRN Administration Hypertension Metronidazole 500 mg in 100 mls @ 100 mls/hr 05/22/22 02:00 05/25/22 11:37 Flagyl IV 06/01/22 01:59 Infused Q8H [facility] Infusion Cefepime HCl 2,000 mg/ Syringe 20 mls @ 5 mls/min 05/21/22 20:00 05/25/22 08:45 IV 05/31/22 19:59 5 mls/min Q12H [facility] Administration Protocol Dextrose/Sodium Chloride 1,000 mls @ 80 mls/hr 05/22/22 09:30 05/25/22 08:45 D5w And Nss IV 06/21/22 09:29 80 mls/hr .[id number] [facility] Administration Lisinopril 30 mg 05/22/22 11:30 05/25/22 08:44 Lisinopril 10 Mg Tab PO 06/21/22 11:29 30 mg QAM [facility] Administration Ondansetron HCl 4 mg 05/21/22 21:09 05/21/22 21:41 Ondansetron Inj 2 Mg/Ml 2 Ml Vial IV 06/20/22 21:08 4 mg Q4H PRN Administration Nausea And Vomiting Past Medical History Medical History AAA (abdominal aortic aneurysm) Abnormal thyroid function test DM II (diabetes mellitus, type II), controlled Dysfunction of right eustachian tube Feeling light headed Hematochezia HLD (hyperlipidemia) Hypertension Kidney disease stage III Large bowel obstruction Lower gastrointestinal hemorrhage Lung disease Otalgia, right ear Sensorineural hearing loss (SNHL) of right ear with restricted hearing of left ear (1) Abdominal discomfort: Plan: - Admit to med surg with tele -CT abdomen pelvis is reviewed showing thickening wall of the sigmoid and transverse colon, nonspecific colitis, infectious/inflammatory or ischemic in the CORINNE distribution -Distention, tinkling BS and tympany on exam concerning for bowel obstruction, no bowel movement x10 days, nausea - if worsening nausea or vomiting then will need NGT placed - WBC is 13 K, lactate is negative, will check blood cultures x 2, Will start IV antibiotics for colitis with cipro flagyl - NSS at 100ml/hr x 3 L -Order dulcolax suppository now, enema prn -Consulted general surgery- appreciate recs -Consult GI for possible decompression with colonoscopy - Last colonoscopy was from 02/12/2021, showing normal colon, significant left- sided diverticulosis, internal hemorrhoids -Last EGD was done on 10/05/2021 after a GI bleed, esophagus was normal, stomach was normal no ulcers and normal examined duodenum -Minimally improved abdominal discomfort Past Family History Family History Other Allergies Asthma Cancer Hearing loss Heart disease Hypertension Past Surgical History Surgical History History of back surgery History of delivery x2 History of hernia repair x2 History of knee replacement bilateral History of ovarian cystectomy History of vaginal hysterectomy Social History Smoking Status: Current every day smoker tobacco type: cigarettes Smoking cigarettes per day: 5 Do You Dip or Chew Tobacco: No Hx Alcohol Use: No Alcohol type: beer and hard liquor alcohol intake frequency: 0-2 drinks per day Physical Exam Vital Signs Last Vital Signs Temp 36.4 C L 05/25/22 11:52 Pulse 82 05/25/22 11:52 Resp 14 05/25/22 11:52 BP 186/91 H 05/25/22 11:52 Pulse Ox 92 05/25/22 11:52 O2 Del Method 05/25/22 11:52 O2 Flow Rate 2 05/25/22 10:57 Testing Laboratory Results 05/24/22 07:19 05/25/22 06:55 05/21/22 17:11 Aerobic Blood Culture - Preliminary Blood No growth in Aerobic bottle after 48 hours. Anaerobic Blood Culture - Preliminary No growth in Anaerobic bottle after 48 hours. 05/21/22 17:20 Aerobic Blood Culture - Preliminary Blood No growth in Aerobic bottle after 48 hours. Anaerobic Blood Culture - Preliminary No growth in Anaerobic bottle after 48 hours. 05/25/22 05/25/22 05/25/22 11:48 07:53 07:51 POC Glucose 105 H 135 H 148 H 05/25/22 05:52 POC Glucose 128 H Laboratory Tests 05/24/22 07:18 Sodium 139 Potassium 3.8 Chloride 111 H Carbon Dioxide 23 BUN 19 Creatinine 0.99 Glucose 137 H Electrocardiogram Date: 10/03/21 DICTATED BY:Sudarshan Schroeder MD Test Reason : Blood Pressure : / mmHG Vent. Rate : 071 BPM Atrial Rate : 071 BPM P-R Int : 190 ms QRS Dur : 080 ms QT Int : 426 ms P-R-T Axes : 068 028 117 degrees QTc Int : 462 ms Normal sinus rhythm Nonspecific ST and T wave abnormality Abnormal ECG When compared with ECG of 24-JAN-2013 12:53, Nonspecific T wave abnormality, worse in Anterior leads Confirmed by Sudarshan Schroeder ([id number]) on 10/04/2021 8:18:24 AM Other Testing KUB 05/25/21 HISTORY: Follow-up study in a patient with reported small bowel obstruction re- eval colonic distension, bowel obstruction COMPARISON: KUB May 24, 2022 FINDINGS: Persistent large and small bowel dilation with small bowel loops measuring up to 4.3 cm, similar to prior. The degree of large bowel distention h as mildly improved. Distal tip of enteric tube is again noted projected over the mid stomach. No renal calculi. No ureteral calculi. No pneumoperitoneum or pneumatosis. Postoperative changes of the lumbar spine are again noted. No fracture. IMPRESSION: 1. Persistent large and small bowel distention suspicious for a distal obstruction. The degree of large bowel distention has mildly improved. 2. Distal tip of enteric tube within the stomach. 05/21/22: ADDENDUM There is nonspecific focal narrowing at the junction of the descending colon and proximal sigmoid. This may represent physiologic underdistention versus stricture or obstructive mass. No mass lesion was seen at this level on the prior exam. If there is clinical concern, correlation with colonoscopy can be performed. Electronically signed by: Russ Thacker M.D. 05/21/2022 11:[address] abd pelvis wo con CLINICAL HISTORY: abd pain, distention, constipation TECHNIQUE: Helical axial images of the abdomen and pelvis were obtained. Automated dose lowering techniques and/or adjustment according to patient size were utilized for this exam. This exam was performed without intravenous contrast. CT DOSE: 266.24 mGy.cm COMPARISON: Comparison is made to CT abdomen pelvis 10/02/2021 FINDINGS: Lower chest: Bibasilar atelectasis versus scarring is seen. Liver: Unremarkable. No focal lesions are seen. Gallbladder and biliary tree: No calcified gallstones. Normal caliber wall. No intra- or extrahepatic biliary ductal dilation. Pancreas: Unremarkable, no focal lesions. Spleen: Unremarkable. Adrenals: Unremarkable. Kidneys and ureters: Unremarkable. Bladder: Limited evaluation due to underdistention. Reproductive organs: Unremarkable. Bowel: Numerous diverticula are seen with bowel wall thickening and increased vascularity extending from the distal transverse colon to the sigmoid colon.. Thickening is also noted in the distal transverse colon. Postsurgical changes of appendectomy are seen. Lymph nodes Retroperitoneal: Unremarkable. Pelvic: Unremarkable. Mesenteric: Unremarkable. Peritoneum: Normal. Vessels: Infrarenal aortic aneurysms measure up to 44 mm in diameter. Abdominal wall: Unremarkable. Bones: Degenerative changes in the visualized spine. Posterior fixation hardware is seen spanning L4-L5. IMPRESSION: 1. Thickening of the wall of the sigmoid and transverse colon noted compatible with nonspecific colitis, infectious/inflammatory or ischemic in the CORINNE distribution. 2. Infrarenal aortic aneurysm. 3. Additional findings as above.
--- NOTE | 2022-05-25 13:34 | Surgery Progress Note ---
Date of Service May 25, 2022 Assessment & Plan (1) Large bowel obstruction: Plan: bowel obstruction 2/2 likely diverticular stricture pt denies pain/nausea/vomiting. passing flatus and BM KUB shows persisting bowel obstruction, with improved large bowel distention she is examining about the same. continues with NGT in place GI re evaluated the patient today and are willing to perform colonoscopy +/- stenting of stricture tomorrow we will follow along closely Admission and Anticipated Discharge Date Admission Date: May 21, 2022 Supervising Physician Co-Signing Physician Notes Patient seen examined, imaging reviewed, agree with above. 67-year-old female admitted with large bowel obstruction secondary to diverticular stricture. She has had some relief with antibiotics and bowel rest. However she still has some distention on exam and on her imaging. After discussion with GI we will plan for colonoscopy tomorrow with possible stent. This will be a temporizing measure for the next few weeks and we will plan for elective resection. Subjective Patient is feeling about the same. Denies abdominal pain, nausea/vomiting. Reports passing flatus and BMs Physical Exam Physical Exam: awake/alert Respiratory: normal respiratory effort Gastrointestinal (Abdomen): Inspection/Auscultation: + abdomen distended Percussion/Palpation: abdomen soft; abdomen nontender Results & Data ([facility]) Vital Signs (Past 12 Hours) Vital Signs Temp Pulse Pulse Resp BP BP Pulse Ox 05/25/22 12:01 179/86 H 05/25/22 11:52 36.4 C L 82 14 186/91 H 92 05/25/22 10:57 05/25/22 07:57 78 05/25/22 07:06 83 16 94 05/25/22 04:00 37.0 C 78 18 165/74 H 91 O2 Del Method O2 Flow Rate 05/25/22 12:01 05/25/22 11:52 Room Air 05/25/22 10:57 Nasal Cannula 2 05/25/22 07:57 05/25/22 07:06 Nasal Cannula 2 05/25/22 04:00 Room Air PG Care Time/CCT Total # of Minutes Spent Total Time Spent with Patient: Total time spent is greater than 50% in coordination of care (as documented) at patient's floor/unit and/or counseling patient: Coding Level of Care Code 63124 SUB INP/OBS CARE 05/26MIN Diagnoses Large bowel obstruction K56.609
[2022-05-25] MEDS ORDERED: Nursing to Pharmacy Communication SCH (17:15)
[2022-05-26] MEDS: INSULIN ASPART PER UNIT SC SCH ×4 (00:05→18:16)
[2022-05-26] MEDS: metroNIDAZOLE 500 MG/100 ML BAG IV SCH ×3 (02:10→18:16)
[2022-05-26] MEDS: lisinopril 10 MG TAB PO SCH (07:24)
[2022-05-26] MEDS: amLODIPine BESYLATE 5 MG TAB PO SCH (07:24)
--- NOTE | 2022-05-26 07:41 | XRay Report ---
KUB HISTORY: re-eval colonic distension COMPARISON: KUB 05/25/2022. FINDINGS: Redemonstration of the mildly distended gas-filled loops of large or small bowel seen throu ghout the abdomen. This may represent a distal large bowel obstruction. L4-5 lumbar spinal fusion samira dware again noted. Nasogastric tube is curled within the stomach. The small bowel measures up to 4.5 cm in diameter. No renal calculi. No ureteral calculi. No pneumoperitoneum or pneumatosis. IMPRESSION: 1. Persistent large and small bowel distention concerning for a distal large bowel obstruction. This is similar to the prior study. 2. Nasogastric tube is curled within the stomach. ACT 112: Negative or not required by law. Electronically signed by: Bruce Hunter M.D. 05/26/2022 7:40 AM
[2022-05-26] MEDS: bisacodyL 10 MG SUPP PR SCH (08:05)
[2022-05-26] MEDS: FLUTICASONE/VILANTEROL 100/25MCG 14 PUFFS/INHALER INH SCH (08:09)
[2022-05-26] MEDS: CEFEPIME 2,000 MG in SYRINGE 0 ML IV SCH ×2 (08:14→21:12)
[2022-05-26] MEDS: hydrALAZINE HCL 20 MG/ML VIAL IV PRN (08:15)
[2022-05-26 11:19] LABS: Basophils # (auto) 0.05 K/uL (0-0.2); Basophils % (auto) 0.4 %; Eosinophils # (auto) 0.28 K/uL (0-0.50); Eosinophils % (auto) 2.5 %; Hematocrit (blood only) 40.8 % (34.1-44.9); Hemoglobin 13.5 g/dl (12.0-16.0); Immature Granulocytes # (auto) 0.22 K/uL (0.00-0.02); Immature Granulocytes % (auto) 1.9 %; Lymphocytes # (auto) 1.15 K/uL (1.2-3.4); Lymphocytes % (auto) 10.2 %; Mean Corpuscular Hemoglobin 29.3 pg (25.0-34.0); Mean Corpuscular Hgb Conc 33.1 g/dL (32.0-36.0); Mean Corpuscular Volume 88.7 fL (80.0-100.0); Mean Platelet Volume 11.7 fL (9.4-12.3); Monocytes # (auto) 0.78 K/uL (0.24-0.82); Monocytes % (auto) 6.9 %; Neutrophils # (auto) 8.83 K/uL (1.4-6.5); Neutrophils % (auto) 78.1 %; Platelet Count 178 K/uL (130-400); RDW Coefficient of Variation 13.4 % (11.5-14.5); RDW Standard Deviation 43.5 fL (36.4-46.3); White Blood Count 11.31 K/ul (4.8-10.8)
[2022-05-26] MEDS: D5W AND NSS 1,000 ML IV SCH (11:20)
--- NOTE | 2022-05-26 12:38 | Gastroenterology Progress Note ---
Date of Service May 26, 2022 Assessment & Plan (1) Large bowel obstruction: (2) Diverticulitis: Plan Patient is a 67 years old female with past medical history of AAA, hypertension, hyperlipidemia, diabetes mellitus type 2, kidney disease, who is followed for suspected diverticulitis, diverticular stricture resulting in bowel obstruction. She had small amount of bowel movement about 2 days ago, serial KUBs otherwise still showed persistent dilation of her small intestine and large bowel obstruction. - NPO - Continue Cefepime and Flagyl IV - Daily KUB - NGT to LIS - Dulcolax TN daily - Surgery following - Plan for colonoscopy with colonic stent placement by . Tap water enema x 2 pre procedure ordered Admission and Anticipated Discharge Date Admission Date: May 21, 2022 Supervising Physician Co-Signing Physician Notes I saw and evaluated the patient. We were asked to perform a sigmoidoscopy / colonoscopy with possible colonic stent placement for a benign stricture related to diverticulosis. This is been requested by general surgery to allow for colonic decompression for potential surgical resection of the colon at a later date. I discussed risks and benefits of the procedure with the patient to include bleeding, infection, perforation, pain, inability to place a stent and the potential for stent migration. Subjective Patient reports still passing small amounts of flatus, no more bowel movements. Denies abdominal pain, nausea or vomiting. NG tube in place, output 400mL Review of Systems Review of Systems: All systems reviewed & are unremarkable except as noted in HPI & below Physical Exam Constitutional: WD/WN, vitals as above well groomed, cooperative and comfortable Eyes: PERRL, conjunctivae normal, anicteric sclerae ENMT: external ear and nose normal, oropharynx normal Respiratory: normal respiratory effort, lungs clear to auscultation Cardiovascular: RRR, no murmur, no edema Gastrointestinal (Abdomen): Distended, non tender, BS hypoactive Skin: no rashes, warm and dry no jaundice Psychiatric: A+Ox3, euthymic affect Lymphatic: no lymphedema Results & Data ([facility]) Vital Signs (Past 12 Hours) Vital Signs Temp Pulse Pulse Resp BP BP Pulse Ox 05/26/22 08:17 36.7 C 77 18 182/86 H 94 05/26/22 07:20 86 05/26/22 03:43 36.3 C L 83 18 183/89 H 92 05/26/22 00:41 85 O2 Del Method 05/26/22 08:17 Room Air 05/26/22 07:20 05/26/22 03:43 Room Air 05/26/22 00:41
--- NOTE | 2022-05-26 12:42 | Surgery Progress Note ---
Date of Service May 26, 2022 Assessment & Plan (1) Large bowel obstruction: Plan: bowel obstruction 2/2 likely diverticular stricture pt denies pain/nausea/vomiting. passing flatus and BM KUB shows persisting bowel obstruction, similar to yesterday's study she is examining about the same. continues with NGT in place GI planning on performing colonoscopy +/- stenting of stricture today we will follow along closely..and if successful will plan on elective surgical planning in a couple weeks Admission and Anticipated Discharge Date Admission Date: May 21, 2022 Subjective The patient is doing about the same. No current complaints. No pain/n/v. Continues with + bowel function Physical Exam Physical Exam: awake/alert Respiratory: normal respiratory effort Gastrointestinal (Abdomen): Inspection/Auscultation: + abdomen distended Percussion/Palpation: abdomen soft; abdomen nontender Results & Data ([facility]) Vital Signs (Past 12 Hours) Vital Signs Temp Pulse Pulse Resp BP BP Pulse Ox 05/26/22 12:05 37.0 C 78 18 166/80 H 92 05/26/22 08:17 36.7 C 77 18 182/86 H 94 05/26/22 07:20 86 05/26/22 03:43 36.3 C L 83 18 183/89 H 92 05/26/22 00:41 85 O2 Del Method 05/26/22 12:05 Room Air 05/26/22 08:17 Room Air 05/26/22 07:20 05/26/22 03:43 Room Air 05/26/22 00:41 PG Care Time/CCT Total # of Minutes Spent Total Time Spent with Patient: Total time spent is greater than 50% in coordination of care (as documented) at patient's floor/unit and/or counseling patient: Coding Level of Care Code 99102 SUB INP/OBS CARE 05/26MIN Diagnoses Large bowel obstruction K56.609
[2022-05-26] MEDS ORDERED: fentaNYL citrate 100 MCG/2 ML VIAL ONE (13:22)
[2022-05-26] MEDS ORDERED: LIDOCAINE 2% MPF LOCAL 5 ML VIAL INFIL ONE (13:24)
[2022-05-26] MEDS ORDERED: PROPOFOL IV EMULSION 10 MG/ML 20 ML VIAL IV ONE (13:24)
[2022-05-26] MEDS ORDERED: ONDANSETRON INJ 2 MG/ML 2 ML VIAL ONE (13:24)
--- NOTE | 2022-05-26 13:32 | Hospitalist Progress Note ---
Date of Service May 26, 2022 Assessment & Plan (1) Diverticulitis: Plan 67-year-old lady with PMH of HTN, HLD, ANGELITA and COPD overlap syndrome, AAA measuring 4.3 cm, PVD, CKD stage III, chronic low back pain and history of GI bleed presented to the ED 05/21 with complaint of acute worsening of abdominal distention. At presentation, she had not had bowel movement in nearly 2 weeks and her appetite had significantly reduced at the time, associated symptoms were nausea with dry heaves. Of note, patient has multiple abdominal surgeries including appendectomy, x2, hysterectomy, inguinal hernia repair in the past. She is being managed for the following: IMAGINGS: 05/21 CTAP: Thickening of the wall of the sigmoid and transverse colon compatible with nonspecific colitis. Nonspecific focal narrowing at the junction of the descending colon and proximal sigmoid which may represent stricture or obstructive mass or physiologic underdistention. 05/22 KUB x-ray: Increasing gaseous distention compatible of small as well as large bowel obstruction. 05/23 KUB x-ray: A stable to slightly improved large and small bowel dilation suspicious for distal obstruction. 05/23 CT head: No acute findings. 05/24 KUB x-ray: Somewhat improved gaseous distention of large and small bowel. 05/25 KUB x-ray: Mild improvement in the degree of large bowel distention. Persistent large and small bowel distention. 05/26 KUB x-ray: Persistent large and small bowel distention concerning for distal large bowel obstruction. Abdominal discomfort Small and large bowel obstruction Diverticulitis complicated with likely diverticular stricture Patient presents with acute worsening of abdominal distention associated with decreased appetite and no bowel movement for 2 weeks [employer]. Last colonoscopy was from 02/12/2021, showing normal colon, significant left- sided diverticulosis, internal hemorrhoids Last EGD was done on 10/05/2021 after a GI bleed, esophagus was normal, stomach was normal no ulcers and normal examined duodenum Admitting imagings and follow-up imagings ----see above. Admitting blood culture, no growth so far. General surgery on board, appreciate recommendation. Will likely need OP f/u. Patient with NG tube in situ, bilious to clear drainage in the collection noted. Discussed with GI, plan for enema today and colonoscopy/stenting of the stricture later in the day. Patient is moving gas, has not moved bowel. KUB has only marginally improved. Patient with no nausea, vomiting, reports no belly pain today. Has not moved bowel. Continue n.p.o., NG tube, Dulcolax NH daily. Continue with cefepime 05/21 and metronidazole 05/22. Monitor and replete lytes. Will put in iv folic acid and iv thiamine for now. Wheezing, history of asthma --- improved, nebs as needed. RLE paresthesia: CT head 05/23 negative for acute findings, likely from radiculopathy, no acute issues, will need ongoing follow-up/monitoring with PCP as an outpatient. Hypertension: Fairly elevated, likely secondary to acute illness. As needed IV medications on board, will resume oral medications once able to take p.o. Other chronic medical conditions: HLD, AAA, DM2, CKD stage IIIa --- continue with/resume home meds as and when able DVT prophylaxis: Teds, SCDs CODE STATUS: Full code Disposition: Pending improvement in abdominal symptoms. Admission and Anticipated Discharge Date Admission Date: May 21, 2022 Subjective Patient seen and examined at bedside as a follow-up of a small and large bowel obstruction likely secondary to acute diverticulitis. Patient was lying in bed, on room air, NAD, reports no new acute event overnight, is n.p.o. and has NG tube in situ, denies belly pain, reports moving gas, has not moved bowel, denies chest pain/headache/dizziness/other review of symptoms. Discussed with GI, plan for scope today. Physical Exam Physical Exam: GENERAL: Alert and oriented x3. NAD, on RA. NG tube in situ, with bilious to clear fluid noted in the collection. HEENT: No pallor, no icterus. Pupils equal, round and reactive to light. Oral mucosa moist. NECK: No JVD, no neck masses. HEART: S1 and S2 heard. Regular rate and rhythm. No murmur, no gallop. RESPIRATORY SYSTEM: Normal AP diameter. No accessory muscle use. No wheezing, no crackles. ABDOMEN: Soft, bowel sounds present, nontender, + distention. CENTRAL NERVOUS SYSTEM: No facial droop. Speech is clear. Obeys simple commands. Moves extremities. EXTREMITIES: No edema, no erythema seen. Results & Data Results & Data ([facility]) Vital Signs (Past 12 Hours) Vital Signs Temp Pulse Pulse Resp BP BP Pulse Ox 05/26/22 12:05 37.0 C 78 18 166/80 H 92 05/26/22 08:17 36.7 C 77 18 182/86 H 94 05/26/22 07:20 86 05/26/22 03:43 36.3 C L 83 18 183/89 H 92 O2 Del Method 05/26/22 12:05 Room Air 05/26/22 08:17 Room Air 05/26/22 07:20 05/26/22 03:43 Room Air
--- NOTE | 2022-05-26 13:37 | History & Physical Bridge Note ---
Date of Service May 26, 2022 History & Physical Bridge Note I have examined the patient, reviewed the History & Physical and in the interval since the performance of the History & Physical I have noted the following changes of clinical significance: no changes noted
[2022-05-26] MEDS ORDERED: ATROPINE SULFATE 0.1 MG/ML 10ML SYR IV PRN (13:44)
[2022-05-26] MEDS ORDERED: FLUMAZENIL 0.1 MG/1 ML 10 ML VIAL IV PRN (13:44)
[2022-05-26] MEDS ORDERED: NALOXONE HCL 0.4 MG/1 ML VIAL/CARP IV PRN (13:44)
[2022-05-26] MEDS ORDERED: fentaNYL citrate 100 MCG/2 ML VIAL IV PRN (13:44)
[2022-05-26] MEDS ORDERED: ePHEDrine sulfate 50 MG/ML AMP IV PRN (13:44)
[2022-05-26] MEDS ORDERED: PROMETHAZINE HCL 12.5 MG in SODIUM CHLORIDE 0.9% 50 ML IV PRN (13:44)
[2022-05-26] MEDS ORDERED: ONDANSETRON INJ 2 MG/ML 2 ML VIAL IV PRN (13:44)
[2022-05-26] MEDS ORDERED: MINERAL OIL 30 ML UDC ONE (14:11)
[2022-05-26] MEDS ORDERED: PHENYLEPHRINE HCL 10 MG/ML VIAL ONE (14:21)
[2022-05-26] MEDS ORDERED: ESMOLOL HCL INJ 10 MG/ML 10ML VIAL IV ONE (14:21)
[2022-05-26] MEDS ORDERED: SUCCINYLCHOLINE CHLORIDE 20 MG/ML 10 ML VIAL IV ONE (14:26)
--- NOTE | 2022-05-26 14:46 | Post Operative Brief Note ---
Immediate Post Op Note v1 Date of Surgery May 26, 2022 Pre & Post Diagnosis Operation Date: 05/26/22 13:00 Pre-Op Diagnosis: colonic stricture I identified the patient and participated in the time-out.: Yes Procedure Operation Date: 05/26/22 13:00 Colonoscopy with colonic stent placement Surgeon Rebekah Hope DO [employer] Supervisor None Estimated Blood Loss 0 Findings Consistent with Post-Op Diagnosis
--- NOTE | 2022-05-26 14:49 | Communication Note ---
Date of Service: May 26, 2022 The patient underwent a colonoscopy with colonic stent placement today. She did have a stricture in the distal portion of the descending colon. Th The stricture was stented with a 6 cm and a 9 cm. Stent placement seems to be adequate decompression of the colon. If this is ineffective the patient may require more urgent surgical intervention. Recomendations: NPO Daily KUB
--- NOTE | 2022-05-26 14:57 | GI REPORT ---
Patient Name: Shannan Barrera Procedure Date: 05/26/2022 1:33 PM Date of : 1955 Admit Type: Inpatient Age: 67 Gender: Female Attending MD: Rebekah Hope DO, Procedure: Colonoscopy Providers: Rebekah Hope DO Referring MD: Charissa Poole Md, Gallo Montero Do Indications: This patient was referred for a therapeutic procedure, For therapy of colonic obstruction Medicines: Monitored Anesthesia Care Complications: No immediate complications. Estimated blood loss: Minimal. Estimated Blood Loss: Estimated blood loss was minimal. Procedure: Pre-Anesthesia Assessment: - Prior to the procedure, a History and Physical was performed, and patient medications, allergies and sensitivities were reviewed. The patient's tolerance of previous anesthesia was reviewed. - The risks and benefits of the procedure and the sedation options and risks were discussed with the patient. All questions were answered and informed consent was obtained. - Patient identification and proposed procedure were verified prior to the procedure by the physician, the nurse and the field clinical engineer. The procedure was verified in the procedure room. - Pre-procedure physical examination revealed no contraindications to sedation. - ASA Grade Assessment: III - A patient with severe systemic disease. - After reviewing the risks and benefits, the patient was deemed in satisfactory condition to undergo the procedure. - The anesthesia plan was to use monitored anesthesia care (MAC). - Immediately prior to administration of medications, the patient was re-assessed for adequacy to receive sedatives. - The heart rate, respiratory rate, oxygen saturations, blood pressure, adequacy of pulmonary ventilation, and response to care were monitored throughout the procedure. - The physical status of the patient was re-assessed after the procedure. After I obtained informed consent, the scope was passed under direct vision. Throughout the procedure, the patient's blood pressure, pulse, and oxygen saturations were monitored continuously.The colonoscopy was performed without difficulty. The patient tolerated the procedure well. The quality of the bowel preparation was good. The Endoscope was introduced through the anus and advanced to the sigmoid colon to examine a stenosis. This was the intended extent. Findings: Hemorrhoids were found on perianal exam. Multiple diverticula were found in the sigmoid colon. There was narrowing of the colon in association with the diverticular opening. A severe stenosis measuring 3 mm (inner diameter) was found in the distal descending colon at about 50 cm and was non-traversed. A 0.035 in Acrobat 2 guidwire was passed into the sticture and contrast injected through an ERCP exraction balloon. There was a narrow stricture of 4-6 cm in lenth. This was stented with a Cook Evolution 25 mm x 8 cm stent under fluoroscopic guidance, however the proximal end of the stent was still within the strictue. The proximal margin of the stricute was stented with a second Cook Evolution 25 mm x 6 cm stent. Impression: - Hemorrhoids found on perianal exam. - Severe diverticulosis in the sigmoid colon. There was narrowing of the colon in association with the diverticular opening. - Stricture in the distal descending colon. Prosthesis placed. - No specimens collected. Recommendation: - Return patient to hospital [facility] for ongoing care. - Patient will need definitive surgical managment (hopefully electively) - NPO - Daily KUB / continue antibiotic coverage. Rebekah Hope D.O. Rebekah Hope, 05/26/2022 2:57:11 PM This report has been signed electronically. Note Initiated On: 05/26/2022 1:33 PM Number of Addenda: 0 I attest to the content of the Intraoperative Record and orders documented therein, exceptions below {[id number]}
--- NOTE | 2022-05-26 14:59 | Fluoroscopy Report ---
FL KUB CLINICAL HISTORY: COLONSCOPY WITH STENTstatus post colonoscopy with stent placement COMPARISON STUDY: CT abdomen pelvis May 21, 2022 FLUOROSCOPY TIME: 39.8 seconds FLUOROSCOPY IMAGES: 8 EXPOSURE DOSE: 6.30 mGy FINDINGS: Partially imaged lumbar spinal fusion hardware. Endoscope is noted within the rectum. A mauri dewire is present within the sigmoid with subsequent images demonstrating deployment of a metallic st ent. IMPRESSION: Fluoroscopic assistance as above. ACT 112: Negative or not required by law. Electronically signed by: Cesar Regan M.D. 05/26/2022 2:57 PM
[2022-05-26] MEDS ORDERED: ALBUTEROL HFA 8 GM INHALER INH ONE (15:25)
--- NOTE | 2022-05-26 16:06 | Communication Note ---
Date of Service: May 26, 2022 Patient presented for colonscopy w/ large intestine stent placement. Pt had NG tube in situ.Pt had a GETA w/ RSI & cricoid pressure w/o incident. After intubation, patient went into AFib w/ RVR at 140's. Pt was administered esmolol and eventual conversion to SR. Pt. has significant COPD /smoking Hx. Pt took a considerable time to extubation 2ndary to desaturation in the 70's. After extubation, patient was brought to PACU w/ O2 FM on, then placed on BiPap facemask by respiratory therapy. Patient is stable at this time Dr [facility] and patient care was discussed. He will coordinate cardiology consultation and further respiratory care of pt.
--- NOTE | 2022-05-26 16:21 | Anesthesiology Progress Note ---
Date of Service May 26, 2022 Anesthesia Post Procedure Vital Signs Vital Signs: Temp Pulse Pulse Resp BP BP Pulse Ox 05/26/22 15:45 71 26 H 102/59 L 976 H 05/26/22 15:36 36.9 C 77 28 H 137/90 97 05/26/22 15:40 88 27 H 95 05/26/22 13:25 37 C 81 18 164/87 H 95 05/26/22 12:05 37.0 C 78 18 166/80 H 92 05/26/22 08:17 36.7 C 77 18 182/86 H 94 05/26/22 07:20 86 05/26/22 03:43 36.3 C L 83 18 183/89 H 92 05/26/22 00:41 85 05/25/22 22:32 37.1 C 86 18 181/89 H 91 05/25/22 22:45 05/25/22 19:21 36.9 C 77 18 173/93 H 92 O2 Del Method O2 Flow Rate FiO2 05/26/22 15:45 BiPAP 5 05/26/22 15:36 Oxymask 5 05/26/22 15:40 40 05/26/22 13:25 Room Air 05/26/22 12:05 Room Air 05/26/22 08:17 Room Air 05/26/22 07:20 05/26/22 03:43 Room Air 05/26/22 00:41 05/25/22 22:32 Room Air 05/25/22 22:45 Room Air 05/25/22 19:21 Room Air Pain Intensity Abdomen: Pain Intensity: 7 Transfer of Care Handoff Completed per policy Notes Mental Status: alert / awake / arousable Nausea / Vomiting: adequately controlled Pain: adequately controlled Airway Patency, RR, SpO2: stable & adequate BP & HR: stable & adequate Hydration State: stable & adequate Anesthetic Complications: no major complications apparent Notes: Patient is stable at this time.HR is under control;Pt is oxygenating w/ bipap mask on w/ SPO2's at 94%.
--- NOTE | 2022-05-26 16:40 | XRay Report ---
XR chest 1V portable CLINICAL HISTORY: b/l crackles. TECHNIQUE: Single frontal radiograph of the chest was obtained. Comparison: Comparison is made to chest radiograph 10/02/2021 FINDINGS: Enteric tube tip and side-port lie below the diaphragm. The aorta is tortuous. The remainder of the c ardiomediastinal silhouette is unremarkable. Right lower lung airspace opacity is seen. There is a sm all to moderate right pleural effusion. IMPRESSION: 1. Small to moderate right pleural effusion, new from prior exam. 2. Right airspace opacity likely represents atelectasis with or without superimposed pneumonia and/o r aspiration. ACT 112: Negative or not required by law. Electronically signed by: Russ Thacker M.D. 05/26/2022 4:37 PM
[2022-05-26] MEDS: THIAMINE HCL 100 MG in SYRINGE 9 ML IV SCH (17:08)
[2022-05-26] MEDS: FOLIC ACID 1 MG in SYRINGE 9.8 ML IV SCH (17:08)
[2022-05-26 17:34] LABS: Calcium 8.3 mg/dl (8.5-10.1); Creatinine Clr Calc Pharmacy 52.6 ml/min; Est GFR (African American) 66.6 ml/min; Est GFR (Non-African American) 57.4 ml/min; Magnesium 1.9 mg/dl (1.7-2.4); Phosphorus 3.9 mg/dl (2.5-4.9); Potassium 3.4 mmol/L (3.5-5.1)
--- NOTE | 2022-05-26 18:06 | Electrocardiogram Report ---
Test Reason : Blood Pressure : / mmHG Vent. Rate : 074 BPM Atrial Rate : 074 BPM P-R Int : 170 ms QRS Dur : 092 ms QT Int : 446 ms P-R-T Axes : 019 000 139 degrees QTc Int : 495 ms Normal sinus rhythm Prolonged QT Abnormal ECG When compared with ECG of 02-OCT-2021 20:43, Inverted T waves have replaced nonspecific T wave abnormality in Anterior leads Confirmed by Antonio Dickens ([id number]) on 05/26/2022 6:06:18 PM Referred By: REFERRED SELF Confirmed By:Abhijit Dickens
[2022-05-26] MEDS ORDERED: POTASSIUM CHLORIDE CRTAB 20 MEQ TABCR PO STA (18:32)
[2022-05-26] MEDS ORDERED: MAGNESIUM SULFATE / D5W 1 GM/100 ML BAG IV ONE ×2 (19:00→22:56)
[2022-05-26] MEDS: POTASSIUM CHLORIDE / WTR 10 MEQ/100 ML PLCT IV SCH ×2 (21:03→23:03)
--- NOTE | 2022-05-26 21:34 | Communication Note ---
Date of Service: May 26, 2022 9:30 PM Stroke alert called. Patient right side noted to be weak as per RN. Patient last known to be well around 8 PM as per RN. PPE: Slow to respond No obvious facial asymmetry MMTS RUE 3/5, RLE 2/5, LUE/LLE 4/5 CT head initial read: Acute have a subacute infarct in the left ACAterritory. See the concomitant CTAhead report. No acute intracranial bleed. Nasogastric tube. CT angio head initial read: There is a high-grade stenosis of the terminal left vertebral artery. Otherwise, the remainder of the cerebral arteries are widelypatent. Comparison made to noncontrast head CT fromthe same day CT angio neck initial read: There is a 50%stenosis of the proximal right ICA. Otherwise, the left carotid and vertebral arteries are widelypatent. Right pleural effusion. Mild to moderate centrilobular emphysematous changes. Status post anterior fusion of the cervical spine with expected postsurgical changes. There is an NG tube in place. No comparisons. AP Acute CVA hx PAF hx GI bleed (09/2021) Case discussed with ([facility] neurologist). Patient not a candidate for TPA given CT findings and GI bleed history as per discussion w neurologist. She recommends resumption of ASA home Rx for secondary stroke prevention if GI agreeable. Additional recommendations include statin rx, IV magnesium, MRI brain, TTE, and Neurology consult. Anticoagulation may be considered at a later date given possible embolic mechanism given afib as per neurologist. Case d/w Dr. Maloney (GI) who is agreeable to ASA rx. Ps son updated of developments over the phone.
[2022-05-26] MEDS ORDERED: OPTIRAY 320 500ml IV ONE ×2 (21:45→21:58)
[2022-05-26] MEDS ORDERED: LACTATED RINGER'S 1,000 ML IV ONE (22:30)
[2022-05-26 22:51] LABS: BUN Creatinine Ratio 15.2 (10-20); Calcium 8.4 mg/dl (8.5-10.1); Creatinine Clr Calc Pharmacy 50.1 ml/min; Est GFR (African American) 62.8 ml/min; Est GFR (Non-African American) 54.1 ml/min; Potassium 3.6 mmol/L (3.5-5.1)
[2022-05-26] MEDS ORDERED: ASPIRIN 300 MG SUPP PR ONE (22:56)
[2022-05-26 23:06] LABS: Partial Thromboplastin Time 27.2 Seconds (21.0-31.0)
[2022-05-26] MEDS ORDERED: PHARMACIST DISCHARGE MED REC CONSULT PRN (23:07)
[2022-05-27] MEDS: INSULIN ASPART PER UNIT SC SCH ×4 (01:06→17:35)
[2022-05-27] MEDS: POTASSIUM CHLORIDE / WTR 10 MEQ/100 ML PLCT IV SCH (01:11)
[2022-05-27] MEDS: metroNIDAZOLE 500 MG/100 ML BAG IV SCH ×3 (02:12→17:28)
[2022-05-27 08:41] LABS: BUN Creatinine Ratio 20.5 (10-20); Calcium 8.5 mg/dl (8.5-10.1); Chol HDL Ratio 2.3 (0-5); Creatinine Clr Calc Pharmacy 67.4 ml/min; Est GFR (African American) 89.9 ml/min; Est GFR (Non-African American) 77.6 ml/min; Magnesium 2.2 mg/dl (1.7-2.4); Phosphorus 3.4 mg/dl (2.5-4.9); Potassium 3.7 mmol/L (3.5-5.1)
[2022-05-27 09:12] LABS: Estimated Average Glucose 151 mg/dl; Hemoglobin A1C 6.9 % (4.5-5.6)
[2022-05-27 09:29] LABS: Hematocrit (blood only) 40.5 % (37.0-47.0); Hemoglobin 13.4 g/dl (12.0-16.0); Mean Corpuscular Hemoglobin 29.5 pg (25.0-34.0); Mean Corpuscular Hgb Conc 33.1 g/dL (32.0-36.0); Mean Platelet Volume 11.6 fL (9.4-12.4); Platelet Count 174 K/uL (130-400); RDW Coefficient of Variation 13.8 % (11.5-14.5); RDW Standard Deviation 44.7 fL (36.4-46.3); Red Blood Count 4.55 M/uL (4.20-5.40); White Blood Count 14.83 K/ul (4.8-10.8)
[2022-05-27] MEDS: THIAMINE HCL 100 MG in SYRINGE 9 ML IV SCH (09:32)
[2022-05-27] MEDS: FOLIC ACID 1 MG in SYRINGE 9.8 ML IV SCH (09:33)
[2022-05-27] MEDS: FLUTICASONE/VILANTEROL 100/25MCG 14 PUFFS/INHALER INH SCH (09:33)
[2022-05-27] MEDS: bisacodyL 10 MG SUPP PR SCH (09:34)
[2022-05-27] MEDS: ASPIRIN 81 MG ECTAB PO SCH (09:34)
[2022-05-27] MEDS: ATORVASTATIN 40 MG TAB PO SCH (09:34)
--- NOTE | 2022-05-27 09:58 | Magnetic Resonance Report ---
MRI OF THE BRAIN WITHOUT CONTRAST CLINICAL HISTORY: Cerebrovascular accident. COMPARISON STUDY: Head CT May 23, [address] and CTA of the head May 26, 2022. TECHNIQUE: Utilizing a 1.5 Milady magnet and dedicated coil, multiplanar, multiecho imaging of the bra in was performed without IV contrast. FINDINGS: Note is made of a moderate sized acute left anterior cerebral artery distribution infarct i nvolving the left frontal and parietal lobes. There is mild mass effect with sulcal effacement. There is no evidence for hemorrhage. The ventricular system is normal. Basal cisterns are patent. No extra -axial fluid collections are present. Old infarct within left basal ganglia is noted. White matter T2 hyperintense foci favor small vessel disease. No intracranial masses identified on this unenhanced e xam. There is no evidence for sinusitis. There is no mastoid fluid. 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 Mild mass effect with sulcal effacement. No acute hemorrhage. ACT 112: Negative or not required by law. Electronically signed by: Paul Su M.D. 05/27/2022 7:38 AM
--- NOTE | 2022-05-27 09:58 | CT Scan Report ---
CT OF THE HEAD WITHOUT CONTRAST CLINICAL HISTORY: stroke COMPARISON STUDY: Head CT May 23, 2022. TECHNIQUE: Helical axial images of the head were obtained without IV contrast. Automated exposure con trol was utilized for the study. A dose lowering technique was utilized adhering to the principles o f ALARA. FINDINGS: No acute intracranial hemorrhage is present. There has been interval development of hypoden sity with loss of blankenship-white differentiation within the left anterior cerebral artery distribution, i nvolving the left frontal and parietal lobes. There is mild mass effect with sulcal effacement and mi ld subfalcine shift. Ventricular system is unremarkable. Basal cisterns are patent. Old infarcts with in the left internal capsule and basal ganglia are again noted. Additional white matter hypodensity s uggests small vessel disease. IMPRESSION: Acute left anterior cerebral artery distribution infarct with mild mass effect including sulcal effacement and mild subfalcine shift. Short-term follow-up head CT could be obtained to reasse ss mass effect. ACT 112: Negative or not required by law. Electronically signed by: Paul Su M.D. 05/27/2022 7:44 AM
--- NOTE | 2022-05-27 09:59 | CT Scan Report ---
CTA ANGIOGRAPHY OF THE HEAD CLINICAL HISTORY: Cerebrovascular accident. COMPARISON STUDY: Head CT May 23, 2022. TECHNIQUE: Helical axial images of the head were obtained following uneventful intravenous administr ation of 109 cc of Optiray. Sagittal and coronal reconstructions were viewed as well as maximal inten sity projections on an independent 3-D workstation. Automated exposure control was utilized for the study. A dose lowering technique was utilized adhering to the principles of ALARA. FINDINGS: Note is made of abrupt occlusion of the A2 segment of the left anterior cerebral artery edenilson wn on axial image 148 of 257. This accounts for the acute left KATARZYNA distribution infarct, better depic rosalinda on head CT. No additional sites of vessel occlusion are present. There is no intracranial aneurys m. There is extensive plaque within the bilateral cavernous carotids without significant stenosis. Th ere is severe stenosis of the intracranial portion of the left vertebral artery. The basilar artery i s patent. There is persistence of the right posterior cerebral artery. Moderate stenosis of the right P2 segment is noted. There are also mild stenoses of the left P2 segment. IMPRESSION: 1. Abrupt occlusion of the A2 segment of the left anterior cerebral artery which accounts for acute i nfarct shown on head CT. 2. Extensive plaque within the intracranial vessels. Moderate to severe multifocal stenoses, as descr ibed above. ACT 112: Negative or not required by law. Electronically signed by: Paul Su M.D. 05/27/2022 8:18 AM
--- NOTE | 2022-05-27 09:59 | CT Scan Report ---
CT ANGIOGRAPHY OF THE NECK WITH CONTRAST CLINICAL HISTORY: Cerebrovascular accident. COMPARISON STUDY: No previous studies for comparison. Technique: CT angiography of the carotid and vertebral arteries was obtained using Optiray and 3D rec onstruction on an independent workstation. NASCET criteria was utilized. Automated exposure control was utilized for the study. A dose lowering technique was utilized adhering to the principles of ALA RA. CT DOSE: 2481.51 mGy.cm Findings: Emphysema is noted within the lung apices. There is extensive plaque of the visualized aort ic arch with partially visualized outpouching along the undersurface of the aortic arch. Bilateral pl eural effusions, right larger than left, are partially imaged. There is a nasogastric tube. There is no cervical lymphadenopathy. C5-C7 anterior discectomy and fusion is noted. There are no acute cervic al spine fractures. Right vertebral artery is dominant and patent. There are moderate-sized vertebral stenosis within the cervical portion of the left retrocardiac. Severe stenoses within the intracrani al portion of the left vertebral artery are noted. There is extensive plaque within the bilateral car otid bifurcations. This results in mild stenosis of the proximal right internal carotid artery approx imately 30%. There is no significant stenosis of the left common carotid or cervical internal carotid arteries. CTA of the head will be reported separately. IMPRESSION: 1. Extensive atherosclerotic plaque within the bilateral carotid bifurcations which results in mild s tenosis of the proximal right internal carotid artery. No significant stenosis of the left common car otid or cervical internal carotid artery. 2. Moderate to severe multifocal stenoses within the left vertebral artery, as above. Dominant, paten t right vertebral artery. 3. Emphysema, bilateral pleural effusions and extensive plaque of the aortic arch, partially visualiz ed within the chest. ACT 112: Negative or not required by law. Electronically signed by: Paul Su M.D. 05/27/2022 7:56 AM
[2022-05-27] MEDS: CEFEPIME 2,000 MG in SYRINGE 0 ML IV SCH ×3 (10:06→19:21)
--- NOTE | 2022-05-27 10:34 | XRay Report ---
KUB HISTORY: Acute generalized abdominal pain with a colonic stent s/p colonic stent placement COMPARISON: KUB 05/26/2022 FINDINGS: Status post placement of a stent within the distal descending colon. There is improved gase ous distention of the large and small bowel. Small bowel loops remain dilated within the midabdomen a t 4.2 cm, previously 4.5 cm. Contrast noted within the urinary bladder. Distal tip of enteric tube pr ojects over the stomach. No renal calculi. No ureteral calculi. No pneumoperitoneum or pneumatosis. L umbar spinal fusion hardware. No fracture. IMPRESSION: 1. Status post placement of a colonic stent with colonic obstruction. There is mildly decreased large and small bowel gaseous distention compared to the prior study. 2. Distal tip of enteric tube is noted in the stomach. ACT 112: Negative or not required by law. The above report was generated using voice recognition software. It may contain grammatical, syntax o r spelling errors. Electronically signed by: Cesar Regan M.D. 05/27/2022 10:33 AM
--- NOTE | 2022-05-27 10:43 | Gastroenterology Progress Note ---
Date of Service May 27, 2022 Assessment & Plan (1) Large bowel obstruction: (2) Diverticulitis: (3) Stroke: Plan Patient is a 67 years old female with past medical history of AAA, hypertension, hyperlipidemia, diabetes mellitus type 2, kidney disease, who is followed for suspected diverticulitis, diverticular stricture resulting in bowel obstruction. She had small amount of bowel movement about 2 days ago, serial KUBs otherwise still showed persistent dilation of her small intestine and large bowel obstruction. She underwent colonic stents x 2 placement yesterday. KUB this morning showed mild decrease of the small and large bowel distention. She had a bowel movement yesterday. Developed atrial fibrillation during intubation, converted back to sinus rhythm after administration of esmolol. Last night she was found to have right-sided weakness and noted to have left cerebral artery infarct on head CT. Currently being treated with aspirin - NPO, NGT to LIS - Continue Cefepime and Flagyl IV - Daily KUB - Surgery following - Stroke management per primary team and Neurology Admission and Anticipated Discharge Date Admission Date: May 21, 2022 Supervising Physician Co-Signing Physician Notes 67 y/o F with partial large bowel obstruction secondary to diverticular stricture with overlying inflammation 2/2 diverticulitis. Underwent colonic stenting to the stricture yesterday. Yesterday evening she unfortunately suffered an acute KATARZYNA stroke. Unable to move R side of body today. Abdomen remains distended. KUB shows only mildly improved large and small bowel distention but not as much as would be expected after stenting. At this time there is nothing further endoscopically we could offer for this s tricture. Would defer further management to surgery though with recent acute stroke this will complicate things. Stroke management per primary and neurology. Continue daily KUBs and NG to LIS as well as abx. Bella Maloney, DO Gastroenterology and Hepatology Subjective Patient developed atrial fibrillation with RVR, heart rate in the 140s after intubated for colonic stent placement yesterday. Given esmolol and converted back to sinus rhythm. Last night she was noticed to have right-sided weakness, found to have left cerebral artery infarct. Not a candidate for tPA, per on- call neurologist, currently on aspirin 81 mg. Patient denies having abdominal pain, nausea or vomiting. NG tube still in place on low intermittent suction. Output noted to be around 300 mL. She did pass a bowel movement yesterday. Review of Systems Review of Systems: All systems reviewed & are unremarkable except as noted in HPI & below Physical Exam Constitutional: WD/WN, vitals as above well groomed, cooperative and comfortable Eyes: PERRL, conjunctivae normal, anicteric sclerae ENMT: external ear and nose normal, oropharynx normal Respiratory: normal respiratory effort, lungs clear to auscultation Cardiovascular: RRR, no murmur, no edema Gastrointestinal (Abdomen): Mildly distended, hypoactive bowel sounds, nontender or guarding noted Skin: no rashes, warm and dry no jaundice Neurologic: Right-sided weakness noted. Mild right facial droop Psychiatric: A+Ox3, euthymic affect Lymphatic: no lymphedema Results & Data ([facility]) Vital Signs (Past 12 Hours) Vital Signs Temp Pulse Pulse Resp BP Pulse Ox O2 Del Method 05/27/22 08:00 112 H 05/27/22 07:52 36.5 C 87 22 147/82 H 96 Nasal Cannula 05/27/22 03:58 36.5 C 85 22 161/83 H 93 Nasal Cannula 05/26/22 23:14 67 05/26/22 23:15 Nasal Cannula 05/26/22 23:46 84 22 175/89 H 95 Nasal Cannula O2 Flow Rate 05/27/22 08:00 05/27/22 07:52 2 05/27/22 03:58 2 05/26/22 23:14 05/26/22 23:15 2 05/26/22 23:46 2
--- NOTE | 2022-05-27 12:34 | Cardiology Consultation ---
Date of Consultation May 27, 2022 Assessment & Plan (1) Large bowel obstruction: (2) Stroke: (3) Diverticulitis: (4) AAA (abdominal aortic aneurysm): (5) PAF (paroxysmal atrial fibrillation): Plan The patient for the most part is maintaining sinus rhythm but eventually she wo uld benefit from the start of a beta-estephanie and if necessary antiarrhythmic medication which I would recommend to be amiodarone. She will also have to be anticoagulated. Neurology has yet to see her and we will await their assessment. Otherwise currently she is clinically stable. History of Present Illness Attending Physician: Charissa Poole MD History of Present Illness This is a 67-year-old female who had a colon obstruction due to diverticular disease and underwent a colonoscopy with stent placement to try to relieve that obstruction. During that procedure she went into atrial fibrillation with RVR treated with esmolol by anesthesia and spontaneously converting back to normal sinus rhythm. Unfortunately, post procedure the patient then had a CVA. History is taken from the medical record. She currently is in sinus mechanism and review of the telemetry would indicate that she has had 1 or 2 short bursts of SVT most likely PAF since she was admitted to telemetry. She is listed as having an abdominal aortic aneurysm. No prior history of heart disease. She is a type II diabetic. Allergies Allergy/AdvReac Type Severity Reaction Status Date / Time chlorhexidine Allergy Intermediate ITCHING,RED Verified 05/21/22 16:05 NESS Quinolones Allergy Intermediate RASH-cipro Verified 05/21/22 16:05 Sulfa (Sulfonamide Allergy Intermediate RASH Verified 05/21/22 16:05 Antibiotics) Penicillins Allergy Unknown Unknown Verified 05/21/22 16:05 azithromycin Allergy Anaphylaxis Verified 05/21/22 16:05 Home Medications Medication Instructions Recorded Confirmed Type rosuvastatin 20 mg tablet 20 mg PO HS 09/03/20 05/21/22 History montelukast 10 mg tablet 10 mg PO HS 10/02/21 05/21/22 History amlodipine 5 mg tablet 5 mg PO QAM 05/21/22 05/21/22 History aspirin 81 mg tablet,delayed 81 mg PO DAILY 05/21/22 05/21/22 History release bismuth subsalicylate 262 mg tablet 2 tab PO QID PRN Gi Upset 05/21/22 05/21/22 History duloxetine 30 mg capsule,delayed 30 mg PO QAM 05/21/22 05/21/22 History release lisinopril 30 mg tablet 30 mg PO QAM 05/21/22 05/21/22 History pantoprazole 40 mg tablet,delayed 40 mg PO QAM 05/21/22 05/21/22 History release apixaban 2.5 mg tablet (Eliquis) 2.5 mg PO BID #60 tabs 05/28/22 Rx Patient History Medical History AAA (abdominal aortic aneurysm) Abnormal thyroid function test DM II (diabetes mellitus, type II), controlled Dysfunction of right eustachian tube Feeling light headed Hematochezia HLD (hyperlipidemia) Hypertension Kidney disease stage III Large bowel obstruction Lower gastrointestinal hemorrhage Lung disease Otalgia, right ear Sensorineural hearing loss (SNHL) of right ear with restricted hearing of left ear Surgical History History of back surgery History of delivery x2 History of hernia repair x2 History of knee replacement bilateral History of ovarian cystectomy History of vaginal hysterectomy Family History Other Allergies Asthma Cancer Hearing loss Heart disease Hypertension Social History Smoking Status: Current every day smoker Tobacco Type: Cigarettes packs per day: 0.5; Cigarettes Per Day: 5; Second Hand Exposure: No; Do You Dip or Chew Tobacco: No; Tobacco Cessation Education Requested by Patient: No Hx Alcohol Use: No Preferred Language: Malian Communication Ability: Effective Beliefs That Will Affect Care: None marital status: Single Current Living Situation: Family current occupational status: retired How many Children do You have: 1 Other Information That Helps Us Care for You: No Feels Safe at Home: Yes Safety Concerns: Feels Safe At This Time Assistive Devices: Glasses Review of Systems Review of Systems: Not obtainable Physical Exam Physical Exam: General: The patient is alert to name Head: normocephalic, no masses, lesions, tenderness or abnormalities Eyes: conjunctiva are pink and non-injected, sclera clear Neck: supple, no adenopathy, no bruits, normal jugular venous pulse, no hepatojugular reflux Chest: normal shape and normal respiratory effort Lungs: clear to auscultation and percussion Cardiac Exam: - regular rate & rhythm, no murmurs gallops or rubs - normal S1, normal S2 Pulses: 2(+) throughout Abdomen: abdomen soft, non-tender, no abnormal masses and no hepatosplenomegaly Musculoskeletal: no gait disturbance, no joint inflammation, no deforming arthritis Extremities: no edema and no cyanosis Neuro: Right-sided neglect Results & Data ([facility]) Vital Signs (Past 12 Hours) Vital Signs Temp Pulse Pulse Resp BP Pulse Ox O2 Del Method 05/27/22 11:36 36.7 C 86 21 146/79 H 98 Oxymask 05/27/22 08:00 84 05/27/22 08:00 112 H 05/27/22 07:52 36.5 C 87 22 147/82 H 96 Nasal Cannula 05/27/22 03:58 36.5 C 85 22 161/83 H 93 Nasal Cannula O2 Flow Rate 05/27/22 11:36 6 05/27/22 08:00 05/27/22 08:00 05/27/22 07:52 2 05/27/22 03:58 2 Laboratory Results Laboratory Results - last 24 hr 05/26/22 05/26/22 05/26/22 11:43 13:26 15:46 WBC RBC Hgb Hct MCV MCH MCHC RDW Std Deviation RDW Coeff of Susan Plt Count MPV APTT PTT Ratio Sodium Potassium Chloride Carbon Dioxide Anion Gap BUN Creatinine Est Cr Clr Drug Dosing Est GFR ( Amer) Est GFR (Non-Af Amer) BUN/Creatinine Ratio Glucose POC Glucose 120 H 100 H 146 H Estimat Average Glucose Hemoglobin A1c Calcium Phosphorus Magnesium Triglycerides Cholesterol LDL Cholesterol, Calc VLDL Cholesterol, Calc HDL Cholesterol Cholesterol/HDL Ratio 05/26/22 05/26/22 05/26/22 17:01 18:09 21:29 WBC RBC Hgb Hct MCV MCH MCHC RDW Std Deviation RDW Coeff of Susan Plt Count MPV APTT PTT Ratio Sodium 139 Potassium 3.4 L Chloride 107 Carbon Dioxide 24 Anion Gap 8 BUN 13 Creatinine 1.00 Est Cr Clr Drug Dosing 52.6 Est GFR ( Amer) 66.6 Est GFR (Non-Af Amer) 57.4 BUN/Creatinine Ratio 13.0 Glucose 147 H POC Glucose 118 H 109 H Estimat Average Glucose Hemoglobin A1c Calcium 8.3 L Phosphorus 3.9 Magnesium 1.9 Triglycerides Cholesterol LDL Cholesterol, Calc VLDL Cholesterol, Calc HDL Cholesterol Cholesterol/HDL Ratio 05/26/22 05/26/22 05/27/22 22:17 22:17 01:04 WBC RBC Hgb Hct MCV MCH MCHC RDW Std Deviation RDW Coeff of Susan Plt Count MPV APTT 27.2 PTT Ratio 1.0 Sodium 138 Potassium 3.6 Chloride 105 Carbon Dioxide 27 Anion Gap 6 BUN 16 Creatinine 1.05 Est Cr Clr Drug Dosing 50.1 Est GFR ( Amer) 62.8 Est GFR (Non-Af Amer) 54.1 BUN/Creatinine Ratio 15.2 Glucose 97 POC Glucose 107 H Estimat Average Glucose Hemoglobin A1c Calcium 8.4 L Phosphorus Magnesium 2.0 Triglycerides Cholesterol LDL Cholesterol, Calc VLDL Cholesterol, Calc HDL Cholesterol Cholesterol/HDL Ratio 05/27/22 05/27/22 05/27/22 06:23 07:51 07:51 WBC 14.83 H RBC 4.55 Hgb 13.4 Hct 40.5 MCV 89.0 MCH 29.5 MCHC 33.1 RDW Std Deviation 44.7 RDW Coeff of Susan 13.8 Plt Count 174 MPV 11.6 APTT PTT Ratio Sodium 141 Potassium 3.7 Chloride 106 Carbon Dioxide 26 Anion Gap 9 BUN 16 Creatinine 0.78 Est Cr Clr Drug Dosing 67.4 Est GFR ( Amer) 89.9 Est GFR (Non-Af Amer) 77.6 BUN/Creatinine Ratio 20.5 H Glucose 91 POC Glucose 83 Estimat Average Glucose Hemoglobin A1c Calcium 8.5 Phosphorus 3.4 Magnesium 2.2 Triglycerides 90 Cholesterol 86 LDL Cholesterol, Calc 31 VLDL Cholesterol, Calc 18 HDL Cholesterol 37 Cholesterol/HDL Ratio 2.3 05/27/22 07:51 WBC RBC Hgb Hct MCV MCH MCHC RDW Std Deviation RDW Coeff of Susan Plt Count MPV APTT PTT Ratio Sodium Potassium Chloride Carbon Dioxide Anion Gap BUN Creatinine Est Cr Clr Drug Dosing Est GFR ( Amer) Est GFR (Non-Af Amer) BUN/Creatinine Ratio Glucose POC Glucose Estimat Average Glucose 151 Hemoglobin A1c 6.9 H Calcium Phosphorus Magnesium Triglycerides Cholesterol LDL Cholesterol, Calc VLDL Cholesterol, Calc HDL Cholesterol Cholesterol/HDL Ratio Diagnostic Findings The patient had an echocardiogram with poor acoustic windows. Medications Administered Current Inpatient Medications Acetaminophen (Acetaminophen 325 Mg Tab) 650 mg PO Q4H PRN PRN Reason: Moderate Pain Stop: 06/20/22 21:08 Aspirin (Aspirin 81 Mg Ectab) 81 mg PO QAM [facility] Stop: 06/26/22 08:59 Last Admin: 05/27/22 09:34 Dose: 81 mg Atorvastatin Calcium (Atorvastatin 40 Mg Tab) 40 mg PO QAM [facility] Stop: 06/26/22 08:59 Last Admin: 05/27/22 09:34 Dose: 40 mg Bisacodyl (Bisacodyl 10 Mg Supp) 10 mg HI DAILY [facility] Stop: 06/20/22 21:08 Last Admin: 05/27/22 09:34 Dose: 10 mg Dextrose (Dextrose 50% 50 Ml Syringe) 25 - 50 ml IV UD PRN; Protocol PRN Reason: Hypoglycemia Protocol Stop: 06/20/22 17:08 Fluticasone/Vilanterol (Fluticasone/Vilanterol 100/25mcg 14 Puffs/Inhaler) 1 puffs INH DAILY [facility] Stop: 06/22/22 09:29 Last Admin: 05/27/22 09:33 Dose: 1 puffs Glucagon (Glucagon For Inj 1 Mg Vial) 1 mg SQ UD PRN; Protocol PRN Reason: Hypoglycemia Protocol Stop: 06/20/22 17:08 Glucose (Glucose 40% Gel 15 Gm Tube) 15 - 30 gm PO UD PRN; Protocol PRN Reason: Hypoglycemia Protocol Stop: 06/20/22 17:08 Glucose (Glucose 10 Tab/Tube) 4 - 8 tab PO UD PRN; Protocol PRN Reason: Hypoglycemia Treatment Stop: 06/20/22 17:08 Hydralazine HCl (Hydralazine Hcl 20 Mg/Ml Vial) 10 mg IV Q6H PRN PRN Reason: Hypertension Stop: 06/20/22 16:59 Last Admin: 05/26/22 08:15 Dose: 10 mg Metronidazole (Flagyl) 500 mg in 100 mls @ 100 mls/hr IV Q8H [facility] Stop: 06/01/22 01:59 Last Admin: 05/27/22 10:00 Dose: 100 mls/hr Thiamine HCl 100 mg/ Syringe 10 mls @ 2 mls/min IV QAM [facility] Stop: 06/25/22 13:44 Last Admin: 05/27/22 09:32 Dose: 2 mls/min Folic Acid 1 mg/ Syringe 10 mls @ 5 mls/min IV QAM [facility] Stop: 06/25/22 13:44 Last Admin: 05/27/22 09:33 Dose: 5 mls/min Lactated Ringer's (Lr) 1,000 mls @ 50 mls/hr IV .Q20H [facility] Stop: 05/27/22 18:29 Last Admin: 05/26/22 22:47 Dose: 80 mls/hr Cefepime HCl 2,000 mg/ Syringe 20 mls @ 5 mls/min IV Q8H [facility]; Protocol Stop: 05/31/22 19:59 Last Admin: 05/27/22 10:06 Dose: 5 mls/min Insulin Aspart (Insulin Aspart Per Unit) 0 units SC Q6 [facility] Stop: 06/24/22 11:59 Last Admin: 05/27/22 06:26 Dose: Not Given Ipratropium [place] (Ipratropium [place] Neb Soln 0.02% 2.5 Ml Vial) 0.5 mg INH Q6RWA PRN PRN Reason: Shortness Of Breath Or Wheezing Stop: 06/22/22 12:59 Levalbuterol HCl (Levalbuterol 1.25mg/0.5ml Neb) 1.25 mg INH Q6RWA PRN PRN Reason: Shortness Of Breath Or Wheezing Stop: 06/22/22 12:59 Miscellaneous (Carbohydrates For Hypoglycemia ) 15 - 30 gm PO UD PRN PRN Reason: Hypoglycemia Protocol Stop: 06/20/22 17:08 Miscellaneous Information (Pharmacist Discharge Med Rec Consult) 1 each N/A UD PRN PRN Reason: Consult Stop: 06/25/22 23:06 Morphine Sulfate (Morphine Sulfate 2 Mg/Ml [place]) 2 mg IV Q6H PRN PRN Reason: Pain, moderate, rating 5-6-7-8 Stop: 06/04/22 17:08 Ondansetron HCl (Ondansetron Inj 2 Mg/Ml 2 Ml Vial) 4 mg IV Q4H PRN PRN Reason: Nausea And Vomiting Stop: 06/20/22 21:08 Last Admin: 05/21/22 21:41 Dose: 4 mg
--- NOTE | 2022-05-27 13:17 | Neurology Consultation ---
Date of Consultation May 27, 2022 Assessment & Plan (1) Stroke: Plan Neurology Consultation Assessment & Plan: Impression: pt with acute left KATARZYNA territory frontal ischemic stroke. pt with rt hemiparesis. Recommendations: * since pt does have atrial fib and Left A2 occlusion, she would benefit from anticoagulation. she does have AAA and hx of GI bleed, would recommend lower dose of OAC (e.g. Eliquis 2.5mg po bid) (no need for ASA once Eliquis started). ECHO essentially unremarkable. not candidate for interventional therapy at this point given the location and outside the treatment window. * Permissive Hypertension next 24 hrs. Keep SBP goal range less than 220. Avoid hypotension. Do not stop beta-estephanie if on it. * If noted for large intracranial vessel stenosis, slow reduction of BP and allowing permissive HTN next 7 days. * Long-term SBP goal less than 130. * Plenty of hydration including IV fluid (use isotonic solution) next 1-2 days if possible. Avoid hypovolemia and hypotension. * Initiate DVT prevention therapy * Avoid hypoglycemia, serum glucose goal during hospitalization: 140-180 * Long-term HgA1c goal less than 7 * Start statin if not on it.Long-term LDL goal of less than 70. * Head of bed up 30 degree if possible. * Stroke education * Fall precaution and aspiration precaution. * Physical/occupational therapy and speech path evaluations. * suspect pt will likely need intermediate rehab for her deficits. * please call again if new question. Chart reviewed I have spent more than 50% educating patient about potential diagnosis and neurological evaluation and coordinating care with patient's treatment team. Total time spent: 80 min (this includes chart review and documentation) Dr. Vel Miner MD [facility] Neurology Chief Complaint: stroke HISTORY OF PRESENT ILLNESS:pt with acute Left KATARZYNA area ischemic stroke. pt with rt hemiparesis. pt is being tx for diverticulitis. CTA noted for Left A2 occlusion. this morning pt sleepy but following command well. Admission/Initial HPI:This is a 67-year-old female with PMHx of HTN, HLD, ANGELITA and COPD overlap syndrome, history of abdominal AAA measuring 4.3 cm, PVD, CKD stage III, chronic low back pain, and history of GI bleed who presents to the ER with acute worsening abdominal distention. She has not had a bowel movement in nearly two weeks,and reports her appetite has been significantly reduced since t hen She reports that she is nauseous with dry heaves but denies any vomiting today. She feels extremely distended in her abdomen and denies any positional changes alleviate her pain. She has been using enemas, laxative, stool softener and suppository to help alleviate her abdominal pain and promote a bowel movement without success. She has also been using bismuth salicylate p.o. the last 2 days without any relief. She denies any recent illnesses. She lives at home with her son and grandson. Patient also notes that she has had multiple abdominal surgeries including appendectomy, x2, hysterectomy, inguinal hernia repair in the past. She has had no recent abdominal surgeries however. Patient did not take any of her home medications today due to abdominal pain. Past Medical History: See chart Meds: See chart Social & Family History: See chart Review of Systems: Per HPI. Physical Exam: General Statement: not in acute distress, well appearing Mental Status: Oriented to person and location but sleepy. Normal comprehension, no neglect. Cranial Nerves: PERRL.Extraocular movements were full with no nystagmus. Normal pursuit.Facial movements were symmetric.Hearing was grossly intact.Palate elevated symmetrically.Sternocleidomastoid and trapezius muscles were 5/5 and equal bilaterally. Motor: rt upper limb: 3/5 t/o. RLE: 2+/5 t/o. left side 5/5. no abnormal movements. Sensory:intact to touch grossly Coordination: left arm intact. History of Present Illness Attending Physician: Charissa Poole MD Allergies Allergy/AdvReac Type Severity Reaction Status Date / Time chlorhexidine Allergy Intermediate ITCHING,RED Verified 05/21/22 16:05 NESS Quinolones Allergy Intermediate RASH-cipro Verified 05/21/22 16:05 Sulfa (Sulfonamide Allergy Intermediate RASH Verified 05/21/22 16:05 Antibiotics) Penicillins Allergy Unknown Unknown Verified 05/21/22 16:05 azithromycin Allergy Anaphylaxis Verified 05/21/22 16:05 Home Medications Medication Instructions Recorded Confirmed Type rosuvastatin 20 mg tablet 20 mg PO HS 09/03/20 05/21/22 History montelukast 10 mg tablet 10 mg PO HS 10/02/21 05/21/22 History amlodipine 5 mg tablet 5 mg PO QAM 05/21/22 05/21/22 History aspirin 81 mg tablet,delayed 81 mg PO DAILY 05/21/22 05/21/22 History release bismuth subsalicylate 262 mg tablet 2 tab PO QID PRN Gi Upset 05/21/22 05/21/22 History duloxetine 30 mg capsule,delayed 30 mg PO QAM 05/21/22 05/21/22 History release lisinopril 30 mg tablet 30 mg PO QAM 05/21/22 05/21/22 History pantoprazole 40 mg tablet,delayed 40 mg PO QAM 05/21/22 05/21/22 History release Patient History Medical History AAA (abdominal aortic aneurysm) Abnormal thyroid function test DM II (diabetes mellitus, type II), controlled Dysfunction of right eustachian tube Feeling light headed Hematochezia HLD (hyperlipidemia) Hypertension Kidney disease stage III Large bowel obstruction Lower gastrointestinal hemorrhage Lung disease Otalgia, right ear Sensorineural hearing loss (SNHL) of right ear with restricted hearing of left ear Surgical History History of back surgery History of delivery x2 History of hernia repair x2 History of knee replacement bilateral History of ovarian cystectomy History of vaginal hysterectomy Family History Other Allergies Asthma Cancer Hearing loss Heart disease Hypertension Social History Smoking Status: Current every day smoker Tobacco Type: Cigarettes packs per day: 0.5; Cigarettes Per Day: 5; Second Hand Exposure: No; Do You Dip or Chew Tobacco: No; Tobacco Cessation Education Requested by Patient: No Hx Alcohol Use: No Preferred Language: Zambian Communication Ability: Effective Beliefs That Will Affect Care: None marital status: Single Current Living Situation: Family current occupational status: retired How many Children do You have: 1 Other Information That Helps Us Care for You: No Feels Safe at Home: Yes Safety Concerns: Feels Safe At This Time Assistive Devices: Glasses Results & Data ([facility] [place]) Vital Signs (Past 12 Hours) Vital Signs Temp Pulse Pulse Resp BP Pulse Ox O2 Del Method 05/27/22 11:36 36.7 C 86 21 146/79 H 98 Oxymask 05/27/22 08:00 84 05/27/22 08:00 112 H 05/27/22 07:52 36.5 C 87 22 147/82 H 96 Nasal Cannula 05/27/22 03:58 36.5 C 85 22 161/83 H 93 Nasal Cannula O2 Flow Rate 05/27/22 11:36 6 05/27/22 08:00 05/27/22 08:00 05/27/22 07:52 2 05/27/22 03:58 2
--- NOTE | 2022-05-27 13:45 | Surgery Progress Note ---
Date of Service May 27, 2022 Assessment & Plan (1) Large bowel obstruction: Plan: patient here with bowel obstruction 2/2 diverticular stricture colonoscopy yesterday confirmed diagnosis and they were able to stent across the area unfortunately post procedure pt developed afib and had a CVA, cardiology/neurology consulted KUB today shows mild decrease in small and large bowel distention Abdominal exam consistent with yesterday NGT in place...would continue for now. repeat KUB tomorrow Admission and Anticipated Discharge Date Admission Date: May 21, 2022 Supervising Physician Co-Signing Physician Notes Patient seen and examined, agree with above. Admitted with diverticular stricture, failure to progress with conservative measures. She underwent colonoscopy with stent placement at the stricture site. During the procedure she developed A. fib and later last night she was noted to have stroke. C ardiology and neurology are following. On exam she is afebrile stable vitals. She has right-sided weakness, facial droop, and expressive aphasia. Her abdomen is soft, less distended than yesterday. KUB reviewed and shows slightly less distention. We will continue NG tube for now, hopeful to remove it tomorrow. She will be able to advance her diet from that point, however may need speech eval per neurology or primary team. Was initially planning on surgical intervention in the next few weeks, however it would be better to let her result from her stroke. We will have to discuss this with the consulting teams and determine the best plan. Subjective patient resting in bed, eyes closed. currently denies pain/nausea. says "nope" when i ask her if she is passing gas or had any recent BMs today Physical Exam Physical Exam: awake, but resting Respiratory: on 6liter Gastrointestinal (Abdomen): Inspection/Auscultation: + abdomen distended Percussion/Palpation: abdomen soft; abdomen nontender Results & Data ([facility]) Vital Signs (Past 12 Hours) Vital Signs Temp Pulse Pulse Resp BP Pulse Ox O2 Del Method 05/27/22 11:36 36.7 C 86 21 146/79 H 98 Oxymask 05/27/22 08:00 84 05/27/22 08:00 112 H 05/27/22 07:52 36.5 C 87 22 147/82 H 96 Nasal Cannula 05/27/22 03:58 36.5 C 85 22 161/83 H 93 Nasal Cannula O2 Flow Rate 05/27/22 11:36 6 05/27/22 08:00 05/27/22 08:00 05/27/22 07:52 2 05/27/22 03:58 2 PG Care Time/CCT Total # of Minutes Spent Total Time Spent with Patient: Total time spent is greater than 50% in coordination of care (as documented) at patient's floor/unit and/or counseling patient: Coding Level of Care Code 30325 SUB INP/OBS CARE 05/26MIN Diagnoses Large bowel obstruction K56.609
--- NOTE | 2022-05-27 16:56 | Hospitalist Progress Note ---
Date of Service May 27, 2022 Assessment & Plan (1) Diverticulitis: Plan 67-year-old lady with PMH of HTN, HLD, ANGELITA and COPD overlap syndrome, AAA measuring 4.3 cm, PVD, CKD stage III, chronic low back pain and history of GI bleed presented to the ED 05/21 with complaint of acute worsening of abdominal distention. At presentation, she had not had bowel movement in nearly 2 weeks and her appetite had significantly reduced at the time, associated symptoms were nausea with dry heaves. Of note, patient has multiple abdominal surgeries including appendectomy, x2, hysterectomy, inguinal hernia repair in the past. She is being managed for the following: IMAGINGS: 05/21 CTAP: Thickening of the wall of the sigmoid and transverse colon compatible with nonspecific colitis. Nonspecific focal narrowing at the junction of the descending colon and proximal sigmoid which may represent stricture or obstructive mass or physiologic underdistention. 05/22 KUB x-ray: Increasing gaseous distention compatible of small as well as large bowel obstruction. 05/23 KUB x-ray: A stable to slightly improved large and small bowel dilation suspicious for distal obstruction. 05/23 CT head: No acute findings. 05/24 KUB x-ray: Somewhat improved gaseous distention of large and small bowel. 05/25 KUB x-ray: Mild improvement in the degree of large bowel distention. Persistent large and small bowel distention. 05/26 KUB x-ray: Persistent large and small bowel distention concerning for distal large bowel obstruction. 05/27 KUB x-ray: Status post placement of a colonic stent with colonic obstruction, mildly decreased large and small bowel gaseous distention. Abdominal discomfort Small and large bowel obstruction Diverticulitis complicated with likely diverticular stricture Patient presents with acute worsening of abdominal distention associated with decreased appetite and no bowel movement for 2 weeks [employer]. Last colonoscopy was from 02/12/2021, showing normal colon, significant left- sided diverticulosis, internal hemorrhoids Last EGD was done on 10/05/2021 after a GI bleed, esophagus was normal, stomach was normal no ulcers and normal examined duodenum Admitting imagings and follow-up imagings ----see above. Admitting blood culture, No Growth 5 days. S/p Colonoscopy and colonic stent placement: Severe diverticulosis in the sigmoid colon with narrowing of the colon in association with diverticular opening noted. Stricture in the distal descending colon noted, prosthesis placed. No specimens collected. General surgery on board, appreciate recommendation. Will likely need OP f/u. Patient had bowel movement 05/26 evening. GI on board, n.p.o., NGT to LIS, continue antibiotic coverage and daily KUB. KUB today reviewed, see above. Patient with no nausea, vomiting, reports no belly pain today. Moved bowel 05/26 evening Continue with cefepime 05/21 and metronidazole 05/22. Monitor and replete lytes. Continue with IV folic acid and IV thiamine for now. Continue gentle IV hydration until n.p.o./NG tube in. A. fib with RVR: Patient underwent A. fib with RVR with heart rate in the 140s during colonoscopy 05/26 while she was intubated, broke into NSR with esmolol, EKG and rhythm strip reviewed. Has been on normal sinus. Cardiology consulted, await recommendation. Stroke: Patient was a stroke alert in the night of 05/26 due to slow to respond, was found to have left KATARZYNA territory stroke on imaging. [place] neurology was contacted by night team which recommended resuming of home ASA and possible anticoagulation. 05/26 CT head: Acute left anterior cerebral artery distribution infarct with mild mass effect including sulcal effacement and mild subfalcine shift. Short-term follow-up head CT could be obtained to reassess mass effect. 05/26 CTA head: 1. Abrupt occlusion of the A2 segment of the left anterior cerebral artery which accounts for acute infarct shown on head CT. 2. Extensive plaque within the intracranial vessels. Moderate to severe multifocal stenoses, as described above. 05/26 CTA neck: 1. Extensive atherosclerotic plaque within the bilateral carotid bifurcations which results in mild stenosis of the proximal right internal carotid artery. No significant stenosis of the left common carotid or cervical internal carotid artery. 2. Moderate to severe multifocal stenoses within the left vertebral artery, as above. Dominant, patent right vertebral artery. 3. Emphysema, bilateral pleural effusions and extensive plaque of the aortic arch, partially visualized within the chest. 05/27 brain MRI: Acute left anterior cerebral artery distribution infarct. Mild mass effect with sulcal effacement. No acute hemorrhage. 05/27 echo reviewed, unremarkable. A1c of 6.9, LDL of 31. On exam, RUE motor 3/5, RLE motor 1/5. Neurology evaluated, permissive hypertension next 24 hours with SBP less than 220, avoid hypotension. Recommends anticoagulation with Eliquis 2.5 twice daily. No ASA once Eliquis is started. For prediabetes, follow-up A1c in 3 months, encourage lifestyle modification, follow-up with PCP. PT/OT and speech eval. Will start eliquis upon d/w patient and GI team. Wheezing, history of asthma --- improved, nebs as needed. RLE paresthesia: CT head 05/23 negative for acute findings, likely from radiculopathy, no acute issues, will need ongoing follow-up/monitoring with PCP as an outpatient. Hypertension: Fairly elevated, likely secondary to acute illness. Will allow permissive hypertension for now. Other chronic medical conditions: HLD, AAA, DM2, CKD stage IIIa --- continue with/resume home meds as and when able DVT prophylaxis: Teds, SCDs CODE STATUS: Full code Disposition: Uncertain, PT/OT, CM to assist with DC planning. Admission and Anticipated Discharge Date Admission Date: May 21, 2022 Subjective Patient seen and examined at bedside as a follow-up of a small and large bowel obstruction likely secondary to acute diverticulitis. Patient was lying in bed, on room air, NAD, reports no new acute event overnight, is n.p.o. and has NG tube in situ, denies belly pain, reports moving gas, has not moved bowel, denies chest pain/headache/dizziness/other review of symptoms. Discussed with GI, plan for scope today. Physical Exam Physical Exam: GENERAL: Alert and oriented x3. NAD, on RA. NG tube in situ, with bilious to clear fluid noted in the collection. HEENT: No pallor, no icterus. Pupils equal, round and reactive to light. Oral mucosa moist. NECK: No JVD, no neck masses. HEART: S1 and S2 heard. Regular rate and rhythm. No murmur, no gallop. RESPIRATORY SYSTEM: Normal AP diameter. No accessory muscle use. No wheezing, no crackles. ABDOMEN: Soft, bowel sounds present, nontender, + distention. CENTRAL NERVOUS SYSTEM: No facial droop. Speech is clear. Obeys simple commands. Moves extremities. EXTREMITIES: No edema, no erythema seen. Results & Data Results & Data ([facility]) Vital Signs (Past 12 Hours) Vital Signs Temp Pulse Pulse Resp BP Pulse Ox O2 Del Method 05/27/22 16:05 37 C 90 24 175/90 H 98 Oxymask 05/27/22 15:26 84 05/27/22 11:36 36.7 C 86 21 146/79 H 98 Oxymask 05/27/22 08:00 84 05/27/22 08:00 112 H 05/27/22 07:52 36.5 C 87 22 147/82 H 96 Nasal Cannula O2 Flow Rate 05/27/22 16:05 6 05/27/22 15:26 05/27/22 11:36 6 05/27/22 08:00 05/27/22 08:00 05/27/22 07:52 2
[2022-05-27] MEDS: LACTATED RINGER'S 1,000 ML IV SCH (17:24)
[2022-05-28] MEDS: INSULIN ASPART PER UNIT SC SCH ×4 (00:12→22:00)
[2022-05-28] MEDS: CEFEPIME 2,000 MG in SYRINGE 0 ML IV SCH ×3 (02:25→17:32)
[2022-05-28] MEDS: metroNIDAZOLE 500 MG/100 ML BAG IV SCH ×3 (02:26→17:33)
[2022-05-28 06:42] LABS: Hematocrit (blood only) 39.6 % (37.0-47.0); Hemoglobin 12.9 g/dl (12.0-16.0); Mean Corpuscular Hemoglobin 29.6 pg (25.0-34.0); Mean Corpuscular Hgb Conc 32.6 g/dL (32.0-36.0); Mean Corpuscular Volume 90.8 fL (80.0-100.0); Mean Platelet Volume 11.5 fL (9.4-12.4); Platelet Count 178 K/uL (130-400); RDW Coefficient of Variation 13.7 % (11.5-14.5); RDW Standard Deviation 45.7 fL (36.4-46.3); Red Blood Count 4.36 M/uL (4.20-5.40); White Blood Count 13.88 K/ul (4.8-10.8)
[2022-05-28 07:04] LABS: Calcium 8.5 mg/dl (8.5-10.1); Potassium 3.8 mmol/L (3.5-5.1)
[2022-05-28 07:10] LABS: BUN Creatinine Ratio 30.3 (10-20); Creatinine Clr Calc Pharmacy 69.2 ml/min; Est GFR (African American) 92.8 ml/min; Phosphorus 3.5 mg/dl (2.5-4.9)
--- NOTE | 2022-05-28 08:25 | XRay Report ---
XR chest 1V portable HISTORY: 67 years-old Female increasing O2 requirement acute hypoxia COMPARISON: Chest radiograph May 26, 2022 TECHNIQUE: AP view of the chest FINDINGS: Enteric tube is coiled within the stomach. Cardiac silhouette is enlarged. Pulmonary vascular congest ion. Atherosclerosis of the aorta. No pneumothorax. Small pleural effusions with mild bibasilar opaci ties. Degenerative changes of the shoulders and spine. Cervical spinal fusion hardware. IMPRESSION: 1. Cardiomegaly with pulmonary vascular congestion. 2. Layering pleural effusions with bibasilar opacities redemonstrated. 3. Distal tip of enteric tube is coiled within the stomach. ACT 112: Negative or not required by law. The above report was generated using voice recognition software. It may contain grammatical, syntax o r spelling errors. Electronically signed by: Cesar Regan M.D. 05/28/2022 8:22 AM
[2022-05-28] MEDS: bisacodyL 10 MG SUPP PR SCH (08:48)
[2022-05-28] MEDS: LACTATED RINGER'S 1,000 ML IV SCH (08:50)
[2022-05-28] MEDS: ASPIRIN 81 MG ECTAB PO SCH (08:51)
[2022-05-28] MEDS: FLUTICASONE/VILANTEROL 100/25MCG 14 PUFFS/INHALER INH SCH (08:52)
[2022-05-28] MEDS: FOLIC ACID 1 MG in SYRINGE 9.8 ML IV SCH (08:52)
[2022-05-28] MEDS: THIAMINE HCL 100 MG in SYRINGE 9 ML IV SCH (08:52)
[2022-05-28] MEDS: ATORVASTATIN 40 MG TAB PO SCH (08:52)
--- NOTE | 2022-05-28 09:03 | XRay Report ---
XR KUB/Abdomen 1 view CLINICAL HISTORY: eval bowel/gas pattern TECHNIQUE: 1 view of the abdomen was obtained. Comparison: Comparison is made to abdomen radiograph 05/27/2019 FINDINGS: Posterior fixation hardware is seen. Enteric tube tip projects over the gastric bubble. Degenerative changes are seen in the visualized skeleton. There is a noted small bowel distention has somewhat dec reased, now measures 34 mm compared to 42 mm in prior exam. A moderate amount of stool is noted withi n the large bowel. IMPRESSION: Interval improvement in gaseous distention of the large and small bowel. ACT 112: Negative or not required by law. Electronically signed by: Russ Thacker M.D. 05/28/2022 9:01 AM
--- NOTE | 2022-05-28 10:33 | Cardiology Progress Note ---
Date of Service May 28, 2022 Assessment & Plan (1) Large bowel obstruction: (2) Stroke: (3) Diverticulitis: (4) AAA (abdominal aortic aneurysm): (5) PAF (paroxysmal atrial fibrillation): Plan This is a complicated 67-year-old female who has a bowel obstruction and received a stent within her large colon. She had an episode of atrial fibrillation during the procedure and then had a left hemisphere stroke. As per neurology recommendations I would start Eliquis at 2.5 mg twice daily when appropriate and the patient able to take oral medications. Currently she is in sinus rhythm. Admission and Anticipated Discharge Date Admission Date: May 21, 2022 Subjective Patient not able to answer questions but is arousable. Review of Systems Review of Systems: Not obtainable Physical Exam Physical Exam: General: The patient is alert to name Head: normocephalic, no masses, lesions, tenderness or abnormalities Eyes: conjunctiva are pink and non-injected, sclera clear Neck: supple, no adenopathy, no bruits, normal jugular venous pulse, no hepatojugular reflux Chest: normal shape and normal respiratory effort Lungs: clear to auscultation and percussion Cardiac Exam: - regular rate & rhythm, no murmurs gallops or rubs - normal S1, normal S2 Pulses: 2(+) throughout Abdomen: abdomen soft, non-tender, no abnormal masses and no hepatosplenomegaly Musculoskeletal: no gait disturbance, no joint inflammation, no deforming arthritis Extremities: no edema and no cyanosis Neuro: Right-sided neglect Results & Data ([facility]) Vital Signs (Past 12 Hours) Vital Signs Temp Pulse Pulse Resp BP Pulse Ox O2 Del Method 05/28/22 07:52 92 H 05/28/22 07:51 36.3 C L 90 22 156/85 H 96 Oxymask 05/28/22 03:53 36.8 C 87 18 168/89 H 97 Oxymask 05/28/22 03:36 86 05/27/22 23:50 36.6 C 86 20 173/86 H 97 Oxymask O2 Flow Rate 05/28/22 07:52 05/28/22 07:51 6 05/28/22 03:53 05/28/22 03:36 05/27/22 23:50 7.0 Laboratory Results Laboratory Results - last 24 hr 05/27/22 05/27/2223 13:20 17:34 23:53 WBC RBC Hgb Hct MCV MCH MCHC RDW Std Deviation RDW Coeff of Susan Plt Count MPV Sodium Potassium Chloride Carbon Dioxide Anion Gap BUN Creatinine Est Cr Clr Drug Dosing Est GFR ( Amer) Est GFR (Non-Af Amer) BUN/Creatinine Ratio Glucose POC Glucose 90 83 81 Calcium Phosphorus Magnesium 05/28/22 05/28/22 05/28/22 05:56 06:05 06:05 WBC 13.88 H RBC 4.36 Hgb 12.9 Hct 39.6 MCV 90.8 MCH 29.6 MCHC 32.6 RDW Std Deviation 45.7 RDW Coeff of Susan 13.7 Plt Count 178 MPV 11.5 Sodium 142 Potassium 3.8 Chloride 107 Carbon Dioxide 26 Anion Gap 9 BUN 23 Creatinine 0.76 Est Cr Clr Drug Dosing 69.2 Est GFR ( Amer) 92.8 Est GFR (Non-Af Amer) 80.0 BUN/Creatinine Ratio 30.3 H Glucose 93 POC Glucose 102 H Calcium 8.5 Phosphorus 3.5 Magnesium 2.0 Medications Administered Current Inpatient Medications Acetaminophen (Acetaminophen 325 Mg Tab) 650 mg PO Q4H PRN PRN Reason: Moderate Pain Stop: 06/20/22 21:08 Aspirin (Aspirin 81 Mg Ectab) 81 mg PO QAM [facility] Stop: 06/26/22 08:59 Last Admin: 05/28/22 08:51 Dose: 81 mg Atorvastatin Calcium (Atorvastatin 40 Mg Tab) 40 mg PO QAM [facility] Stop: 06/26/22 08:59 Last Admin: 05/28/22 08:52 Dose: 40 mg Bisacodyl (Bisacodyl 10 Mg Supp) 10 mg [place] DAILY [facility] Stop: 06/20/22 21:08 Last Admin: 05/28/22 08:48 Dose: 10 mg Dextrose (Dextrose 50% 50 Ml Syringe) 25 - 50 ml IV UD PRN; Protocol PRN Reason: Hypoglycemia Protocol Stop: 06/20/22 17:08 Fluticasone/Vilanterol (Fluticasone/Vilanterol 100/25mcg 14 Puffs/Inhaler) 1 puffs INH DAILY [facility] Stop: 06/22/22 09:29 Last Admin: 05/28/22 08:52 Dose: 1 puffs Glucagon (Glucagon For Inj 1 Mg Vial) 1 mg SQ UD PRN; Protocol PRN Reason: Hypoglycemia Protocol Stop: 06/20/22 17:08 Glucose (Glucose 40% Gel 15 Gm Tube) 15 - 30 gm PO UD PRN; Protocol PRN Reason: Hypoglycemia Protocol Stop: 06/20/22 17:08 Glucose (Glucose 10 Tab/Tube) 4 - 8 tab PO UD PRN; Protocol PRN Reason: Hypoglycemia Treatment Stop: 06/20/22 17:08 Hydralazine HCl (Hydralazine Hcl 20 Mg/Ml Vial) 10 mg IV Q6H PRN PRN Reason: Hypertension Stop: 06/20/22 16:59 Last Admin: 05/26/22 08:15 Dose: 10 mg Metronidazole (Flagyl) 500 mg in 100 mls @ 100 mls/hr IV Q8H [facility] Stop: 06/01/22 01:59 Last Infusion: 05/28/22 03:28 Dose: Infused Thiamine HCl 100 mg/ Syringe 10 mls @ 2 mls/min IV QAM [facility] Stop: 06/25/22 13:44 Last Admin: 05/28/22 08:52 Dose: 2 mls/min Folic Acid 1 mg/ Syringe 10 mls @ 5 mls/min IV QAM [facility] Stop: 06/25/22 13:44 Last Admin: 05/28/22 08:52 Dose: 5 mls/min Cefepime HCl 2,000 mg/ Syringe 20 mls @ 5 mls/min IV Q8H [facility]; Protocol Stop: 05/31/22 19:59 Last Admin: 05/28/22 02:25 Dose: 5 mls/min Insulin Aspart (Insulin Aspart Per Unit) 0 units SC Q6 [facility] Stop: 06/24/22 11:59 Last Admin: 05/28/22 06:24 Dose: Not Given Ipratropium [place] (Ipratropium [place] Neb Soln 0.02% 2.5 Ml Vial) 0.5 mg INH Q6RWA PRN PRN Reason: Shortness Of Breath Or Wheezing Stop: 06/22/22 12:59 Levalbuterol HCl (Levalbuterol 1.25mg/0.5ml Neb) 1.25 mg INH Q6RWA PRN PRN Reason: Shortness Of Breath Or Wheezing Stop: 06/22/22 12:59 Miscellaneous (Carbohydrates For Hypoglycemia ) 15 - 30 gm PO UD PRN PRN Reason: Hypoglycemia Protocol Stop: 06/20/22 17:08 Miscellaneous Information (Pharmacist Discharge Med Rec Consult) 1 each N/A UD PRN PRN Reason: Consult Stop: 06/25/22 23:06 Morphine Sulfate (Morphine Sulfate 2 Mg/Ml Carp) 2 mg IV Q6H PRN PRN Reason: Pain, moderate, rating 5-6-7-8 Stop: 06/04/22 17:08 Ondansetron HCl (Ondansetron Inj 2 Mg/Ml 2 Ml Vial) 4 mg IV Q4H PRN PRN Reason: Nausea And Vomiting Stop: 06/20/22 21:08 Last Admin: 05/21/22 21:41 Dose: 4 mg
--- NOTE | 2022-05-28 11:35 | Pharmacy Report ---
- Date of Service May 28, 2022 - Pharmacy CVA/TIA Medication Review Medications to Prevent Stroke handout has been added to the patients discharge packet. Antiplatelet(s) * N/A --> transitioned to apixaban Cholesterol * High intensity statin: atorvastatin 40 mg daily Therapeutic Anticoagulation * Apixaban 2.5mg PO BID (d/t history of GIB and AAA) Type 2 Diabetes * Patient has T2DM, but per hospitalist, lifestyle modification, repeat A1C and follow up with PCP is required. "Medications to prevent stroke" handout has already been added to the patient's discharge packet, which instructs the patient to follow up with their outpatient provider to evaluate which diabetes medication with proven CVD benefit is best for them.
--- NOTE | 2022-05-28 12:38 | Surgery Progress Note ---
Date of Service May 28, 2022 Assessment & Plan (1) Diverticular stricture: Plan: 67 female status post successful stent placement for diverticular stricture, partial obstruction resolved. We can pull the NG tube and advance her diet from that perspective. Unfortunately due to her stroke she may need a swallow eval prior to advancing her diet. From a surgery perspective she may advance her diet as tolerated to low fiber. We will allow medicine to advance this as they see fit. Also, initially plan for stent to be a temporizing measure to decompress her colon and allow for minimal invasive single-stage sigmoidectomy due to her stricture in the next few weeks. However she should likely rehab from her stroke prior to any surgical intervention. We will touch base with the other services as an outpatient to determine the timing of this. DC NG tube From surgery perspective can advance diet to low fiber as tolerated, starting with clears However due to restriction May need a swallow eval Surgery will follow peripherally Dr. Hope from [facility] covering over the weekend (2) Large bowel obstruction: (3) Diverticulitis: (4) Stroke: (5) PAF (paroxysmal atrial fibrillation): Admission and Anticipated Discharge Date Admission Date: May 21, 2022 Subjective 67-year-old female admitted with partial large bowel obstruction secondary to diverticular stricture. She is status post stent placement which appears to relieve the obstruction. Unfortunately she had a CVA in the interim. She appears more awake, still with an expressive aphasia and right-sided weakness but facial droop is improved. Physical Exam Constitutional: WD/WN, vitals as above Respiratory: normal respiratory effort, lungs clear to auscultation Cardiovascular: RRR, no murmur, no edema Gastrointestinal (Abdomen): normal bowel sounds, soft, nontender, no hepatosplenomegaly Inspection/Auscultation: + abdomen distended (Less distended, nontender) Results & Data ([facility]) Vital Signs (Past 12 Hours) Vital Signs Temp Pulse Pulse Resp BP Pulse Ox O2 Del Method 05/28/22 11:41 36.5 C 86 18 177/97 H 99 Oxymask 05/28/22 08:00 Oxymask 05/28/22 07:52 92 H 05/28/22 07:51 36.3 C L 90 22 156/85 H 96 Oxymask 05/28/22 03:53 36.8 C 87 18 168/89 H 97 Oxymask 05/28/22 03:36 86 O2 Flow Rate 05/28/22 11:41 6 05/28/22 08:00 6 05/28/22 07:52 05/28/22 07:51 6 05/28/22 03:53 05/28/22 03:36 Diagnostic Findings KUB personally reviewed and agree with the assessment of significant decrease in large and small bowel distention. XR KUB/Abdomen 1 view CLINICAL HISTORY: eval bowel/gas pattern TECHNIQUE: 1 view of the abdomen was obtained. Comparison: Comparison is made to abdomen radiograph 05/27/2019 FINDINGS: Posterior fixation hardware is seen. Enteric tube tip projects over the gastric bubble. Degenerative changes are seen in the visualized skeleton. There is a noted small bowel distention has somewhat decreased, now measures 34 mm compared to 42 mm in prior exam. A moderate amount of stool is noted within the large bowel. IMPRESSION: Interval improvement in gaseous distention of the large and small bowel. PG Care Time/CCT Total # of Minutes Spent Total Time Spent with Patient: Total time spent is greater than 50% in coordination of care (as documented) at patient's floor/unit and/or counseling patient: Coding Level of Care Code 29165 SUB INP/OBS CARE 05/26MIN Diagnoses Diverticular stricture K56.699 Large bowel obstruction K56.609 Diverticulitis K57.92 Stroke I63.9 PAF (paroxysmal atrial fibrillation) I48.0
--- NOTE | 2022-05-28 13:51 | Hospitalist Progress Note ---
Date of Service May 28, 2022 Assessment & Plan (1) Diverticular stricture: Plan (1) Diverticulitis: Plan 67-year-old lady with PMH of HTN, HLD, ANGELITA and COPD overlap syndrome, AAA measuring 4.3 cm, PVD, CKD stage III, chronic low back pain and history of GI bleed presented to the ED 05/21 with complaint of acute worsening of abdominal distention. At presentation, she had not had bowel movement in nearly 2 weeks and her appetite had significantly reduced at the time, associated symptoms were nausea with dry heaves. Of note, patient has multiple abdominal surgeries including appendectomy, x2, hysterectomy, inguinal hernia repair in the past. She is being managed for the following: IMAGINGS: 05/21 CTAP: Thickening of the wall of the sigmoid and transverse colon compatible with nonspecific colitis. Nonspecific focal narrowing at the junction of the descending colon and proximal sigmoid which may represent stricture or obstructive mass or physiologic underdistention. 05/22 KUB x-ray: Increasing gaseous distention compatible of small as well as large bowel obstruction. 05/23 KUB x-ray: A stable to slightly improved large and small bowel dilation suspicious for distal obstruction. 05/23 CT head: No acute findings. 05/24 KUB x-ray: Somewhat improved gaseous distention of large and small bowel. 05/25 KUB x-ray: Mild improvement in the degree of large bowel distention. Persistent large and small bowel distention. 05/26 KUB x-ray: Persistent large and small bowel distention concerning for distal large bowel obstruction. 05/27 KUB x-ray: Status post placement of a colonic stent with colonic obstruction, mildly decreased large and small bowel gaseous distention. 05/28 KUB X-ray: Interval improvement in gaseous distention of the large and small bowel. Abdominal discomfort Small and large bowel obstruction Diverticulitis complicated with likely diverticular stricture Patient presents with acute worsening of abdominal distention associated with decreased appetite and no bowel movement for 2 weeks [employer]. Last colonoscopy was from 02/12/2021, showing normal colon, significant left- sided diverticulosis, internal hemorrhoids Last EGD was done on 10/05/2021 after a GI bleed, esophagus was normal, stomach was normal no ulcers and normal examined duodenum Admitting imagings and follow-up imagings ----see above. Admitting blood culture, No Growth 5 days. S/p Colonoscopy and colonic stent placement: Severe diverticulosis in the sigmoid colon with narrowing of the colon in association with diverticular opening noted. Stricture in the distal descending colon noted, prosthesis placed. No specimens collected. General surgery on board, appreciate recommendation. d/w Gen Sx, OP Gen Sx f/u recommended, pulling out NG tube today. Patient had bowel movement 05/26 evening. GI on board,appreciate recs KUB today reviewed, see above. Patient with no nausea, vomiting, reports no belly pain, belly distention improving. Moved bowel 05/26 evening Continue with cefepime 05/21 and metronidazole 05/22. Monitor and replete lytes. Continue with IV folic acid and IV thiamine for now. After NG tube is pulled out, speech eval - d/w speech therapy. IVF dc'd today due to increasing crackles in lung, will need small iv dose lasix if with increasing O2 requirement. A. fib with RVR:Patient underwent A. fib with RVR with heart rate in the 140s during colonoscopy 05/26 while she was intubated, broke into NSR with esmolol, EKG and rhythm strip reviewed. Has been on normal sinus. Cardiology consulted, appreciate recommendation. Stroke:Patient was a stroke alert in the night of 05/26 due to slow to respond, was found to have left KATARZYNA territory stroke on imaging. [place] neurology was c ontacted by night team which recommended resuming of home ASA and possible anticoagulation. 05/26 CT head:Acute left anterior cerebral artery distribution infarct with mild mass effect including sulcal effacement and mild subfalcine shift.Short-term follow-up head CT could be obtained to reassess mass effect. 05/26 CTA head: 1. Abrupt occlusion of the A2 segment of the left anterior cerebral artery which accounts for acute infarct shown on head CT. 2. Extensive plaque within the intracranial vessels. Moderate to severe multifocal stenoses, as described above. 05/26 CTA neck: 1. Extensive atherosclerotic plaque within the bilateral carotid bifurcations which results in mild stenosis of the proximal right internal carotid artery. No significant stenosis of the left common carotid or cervical internal carotid artery. 2. Moderate to severe multifocal stenoses within the left vertebral artery, as above. Dominant, patent right vertebral artery. 3. Emphysema, bilateral pleural effusions and extensive plaque of the aortic arch, partially visualized within the chest. 05/27 brain MRI:Acute left anterior cerebral artery distribution infarct. Mild mass effect with sulcal effacement. No acute hemorrhage. 05/27 echo reviewed, unremarkable. A1c of 6.9, LDL of 31. On exam, RUE motor 3/5, RLE motor 1/5. Neurology evaluated,recommends anticoagulation with Eliquis 2.5 twice daily. No ASA once Eliquis is started. For prediabetes, follow-up A1c in 3 months, encourage lifestyle modification, follow-up with PCP. PT/OT and speech eval.Will start her on eliquis, d/w GI team. Eliquis cost $19.5 a month. Discussed with patient's son regarding the need for anticoagulation and benefits and risk associated with it, patient's son agreeable with Eliquis. Wheezing, history of asthma--- improved, nebs as needed. RLE paresthesia: CT head 05/23 negative for acute findings, likely from radiculopathy, no acute issues,will need ongoing follow-up/monitoring with PCP as an outpatient. Hypertension:Fairly elevated, likely secondary to acute illness. Will allow permissive hypertension for now. Other chronic medical conditions:HLD, AAA, DM2, CKD stage IIIa --- continue with/resume home meds as and when able DVT prophylaxis:Teds, SCDs CODE STATUS:Full code Disposition:Uncertain, PT/OT, CM to assist with DC planning. Will need snf physical therapy. Admission and Anticipated Discharge Date Admission Date: May 21, 2022 Subjective Patient seen and examined at bedside as a follow-up of a small and large bowel obstruction likely secondary to acute diverticulitis. Of note, pt developed Left MCA territory stroke on 05/26 evening. Patient was lying in bed, on 6L via OM, NAD, is n.p.o. and had NG tube in situ, denies belly pain, reports moving gas, moved bowel day before yesterday, denies chest pain/headache/dizziness/other review of symptoms. d/w surgery, plan to pull out NG tube today. Speech made aware of need of speech eval, then we will continue w/ diet as recommended. Will hold her IVF today and more crackles are heard, since she will be having some PO intake after speech eval, we can give her a small dose of iv lasix due to her pulmonary congestion if with increasing O2 requirement. Physical Exam Physical Exam: GENERAL: Alert and awake. NAD, on 6L OM O2. NG tube in situ. Clear brown secretion ~300 ml noted in the collection. HEENT: No pallor, no icterus. Pupils equal, round and reactive to light. Oral mucosa moist. NECK: No JVD, no neck masses. HEART: S1 and S2 heard. Regular rate and rhythm. No murmur, no gallop. RESPIRATORY SYSTEM: Normal AP diameter. No accessory muscle use. No wheezing, b/l crackles. ABDOMEN: bowel sounds present,nontender, + distention -- improving. CENTRAL NERVOUS SYSTEM: No facial droop. Speech is clear. Obeys simple commands. RUE 3/5 and RLE 1/5 EXTREMITIES: No edema, no erythema seen. Results & Data Results & Data ([facility]) Vital Signs (Past 12 Hours) Vital Signs Temp Pulse Pulse Resp BP Pulse Ox O2 Del Method 05/28/22 13:38 92 Room Air 05/28/22 11:41 36.5 C 86 18 177/97 H 99 Oxymask 05/28/22 08:00 Oxymask 05/28/22 07:52 92 H 05/28/22 07:51 36.3 C L 90 22 156/85 H 96 Oxymask 05/28/22 03:53 36.8 C 87 18 168/89 H 97 Oxymask 05/28/22 03:36 86 O2 Flow Rate 05/28/22 13:38 05/28/22 11:41 6 05/28/22 08:00 6 05/28/22 07:52 05/28/22 07:51 6 05/28/22 03:53 05/28/22 03:36
[2022-05-28] MEDS ORDERED: FUROSEMIDE INJ 20 MG/2 ML VIAL IV ONE ×3 (13:56→17:17)
[2022-05-28] MEDS: APIXABAN 2.5 MG TAB PO SCH (20:36)
[2022-05-29] MEDS: metroNIDAZOLE 500 MG/100 ML BAG IV SCH ×3 (01:27→17:24)
[2022-05-29] MEDS: CEFEPIME 2,000 MG in SYRINGE 0 ML IV SCH ×3 (01:27→17:27)
[2022-05-29 08:01] LABS: Hematocrit (blood only) 38.4 % (37.0-47.0); Hemoglobin 12.6 g/dl (12.0-16.0); Mean Corpuscular Hemoglobin 29.4 pg (25.0-34.0); Mean Corpuscular Hgb Conc 32.8 g/dL (32.0-36.0); Mean Corpuscular Volume 89.5 fL (80.0-100.0); Mean Platelet Volume 11.2 fL (9.4-12.4); Platelet Count 197 K/uL (130-400); RDW Coefficient of Variation 13.7 % (11.5-14.5); RDW Standard Deviation 44.5 fL (36.4-46.3); Red Blood Count 4.29 M/uL (4.20-5.40); White Blood Count 12.38 K/ul (4.8-10.8)
[2022-05-29] MEDS: FOLIC ACID 1 MG in SYRINGE 9.8 ML IV SCH (08:12)
[2022-05-29] MEDS: FLUTICASONE/VILANTEROL 100/25MCG 14 PUFFS/INHALER INH SCH (08:12)
[2022-05-29] MEDS: ATORVASTATIN 40 MG TAB PO SCH (08:12)
[2022-05-29] MEDS: APIXABAN 2.5 MG TAB PO SCH ×2 (08:12→20:04)
[2022-05-29] MEDS: THIAMINE HCL 100 MG in SYRINGE 9 ML IV SCH (08:12)
[2022-05-29] MEDS: INSULIN ASPART PER UNIT SC SCH ×4 (08:14→20:40)
[2022-05-29] MEDS: bisacodyL 10 MG SUPP PR SCH (08:18)
[2022-05-29 08:33] LABS: Calcium 8.7 mg/dl (8.5-10.1); Potassium 3.3 mmol/L (3.5-5.1)
[2022-05-29 08:38] LABS: BUN Creatinine Ratio 38.5 (10-20); Creatinine Clr Calc Pharmacy 67.2 ml/min; Est GFR (African American) 89.9 ml/min; Est GFR (Non-African American) 77.6 ml/min; Phosphorus 2.8 mg/dl (2.5-4.9)
[2022-05-29 12:24] LABS: Adenovirus F 40/41 PCR Not Detected (NotDetected); Astrovirus PCR Not Detected (NotDetected); Campylobacter PCR Not Detected (NotDetected); Cryptosporidium PCR Not Detected (NotDetected); Cyclospora cayetanensis PCR Not Detected (NotDetected); Entamoeba histolytica PCR Not Detected (NotDetected); Enteroaggregative E.coli(EAEC) Not Detected (NotDetected); Enterotoxigenic E.coli (ETEC) Not Detected (NotDetected); Giardia lamblia PCR Not Detected (NotDetected); Norovirus GI/GII PCR Not Detected (NotDetected); Plesiomonas shigelloides PCR Not Detected (NotDetected); Rotavirus A PCR Not Detected (NotDetected); Salmonella PCR Not Detected (NotDetected); Sapovirus PCR Not Detected (NotDetected); Shiga-like Toxin E.coli (STEC) Not Detected (NotDetected); Shigella/Enteroinvasive E.coli Not Detected (NotDetected); Vibrio cholerae PCR Not Detected (NotDetected); Vibrio species PCR Not Detected (NotDetected); Yersinia enterocolitica PCR Not Detected (NotDetected)
[2022-05-29 12:34] LABS: Enteropathogenic E.coli (EPEC) DETECTED (NotDetected)
[2022-05-29] MEDS ORDERED: POTASSIUM CHLORIDE 20 MEQ/15 ML UDC PO STA (12:44)
--- NOTE | 2022-05-29 12:57 | Hospitalist Progress Note ---
Date of Service May 29, 2022 Assessment & Plan (1) Diverticular stricture: Plan (1) Diverticulitis: Plan 67-year-old lady with PMH of HTN, HLD, ANGELITA and COPD overlap syndrome, AAA measuring 4.3 cm, PVD, CKD stage III, chronic low back pain and history of GI bleed presented to the ED 05/21 with complaint of acute worsening of abdominal distention. At presentation, she had not had bowel movement in nearly 2 weeks and her appetite had significantly reduced at the time, associated symptoms were nausea with dry heaves. Of note, patient has multiple abdominal surgeries including appendectomy, x2, hysterectomy, inguinal hernia repair in the past. She is being managed for the following: IMAGINGS: 05/21 CTAP: Thickening of the wall of the sigmoid and transverse colon compatible with nonspecific colitis. Nonspecific focal narrowing at the junction of the descending colon and proximal sigmoid which may represent stricture or obstructive mass or physiologic underdistention. 05/22 KUB x-ray: Increasing gaseous distention compatible of small as well as large bowel obstruction. 05/23 KUB x-ray: A stable to slightly improved large and small bowel dilation suspicious for distal obstruction. 05/23 CT head: No acute findings. 05/24 KUB x-ray: Somewhat improved gaseous distention of large and small bowel. 05/25 KUB x-ray: Mild improvement in the degree of large bowel distention. Persistent large and small bowel distention. 05/26 KUB x-ray: Persistent large and small bowel distention concerning for distal large bowel obstruction. 05/27 KUB x-ray: Status post placement of a colonic stent with colonic obstruction, mildly decreased large and small bowel gaseous distention. 05/28 KUB X-ray: Interval improvement in gaseous distention of the large and small bowel. 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 Last colonoscopy was from 02/12/2021, showing normal colon, significant left- sided diverticulosis, internal hemorrhoids Last EGD was done on 10/05/2021 after a GI bleed, esophagus was normal, stomach was normal no ulcers and normal examined duodenum Admitting imagings and follow-up imagings ----see above. Admitting blood culture, No Growth 5 days. S/p Colonoscopy and colonic stent placement: Severe diverticulosis in the sigmoid colon with narrowing of the colon in association with diverticular opening noted. Stricture in the distal descending colon noted, prosthesis placed. No specimens collected. General surgery on board, appreciate recommendation. d/w Gen Sx, OP Gen Sx f/u recommended, pulling out NG tube today. Patient reporting BM. GI on board,appreciate recs Adv diet as hilaria. Continue with cefepime 05/21 and metronidazole 05/22. Monitor and replete lytes.KCL repleted. Thiamine and folic acid from iv to po t stephie. A. fib with RVR:Patient underwent A. fib with RVR with heart rate in the 140s during colonoscopy 05/26 while she was intubated, broke into NSR with esmolol, EKG and rhythm strip reviewed. Has been on normal sinus. Cardiology evaled, appreciate recommendation. Stroke:Patient was a stroke alert in the night of 05/26 due to slow to respond, was found to have left KATARZYNA territory stroke on imaging. [place] was contacted by night team which recommended resuming of home ASA and possible anticoagulation. 05/26 CT head:Acute left anterior cerebral artery distribution infarct with mild mass effect including sulcal effacement and mild subfalcine shift.Short-term follow-up head CT could be obtained to reassess mass effect. 05/26 CTA head: 1. Abrupt occlusion of the A2 segment of the left anterior cerebral artery which accounts for acute infarct shown on head CT. 2. Extensive plaque within the intracranial vessels. Moderate to severe multifocal stenoses, as described above. 05/26 CTA neck: 1. Extensive atherosclerotic plaque within the bilateral carotid bifurcations which results in mild stenosis of the proximal right internal carotid artery. No significant stenosis of the left common carotid or cervical internal carotid artery. 2. Moderate to severe multifocal stenoses within the left vertebral artery, as above. Dominant, patent right vertebral artery. 3. Emphysema, bilateral pleural effusions and extensive plaque of the aortic arch, partially visualized within the chest. 05/27 brain MRI:Acute left anterior cerebral artery distribution infarct. Mild mass effect with sulcal effacement. No acute hemorrhage. 05/27 echo reviewed, unremarkable. A1c of 6.9, LDL of 31. On exam, RUE motor 3/5, RLE motor 1/5. Neurology evaluated,recommends anticoagulation with Eliquis 2.5 twice daily. No ASA once Eliquis is started. For prediabetes, follow-up A1c in 3 months, encourage lifestyle modification, follow-up with PCP. PT/OT and speech eval. Eliquis started 05/28. Aspirin DC'd. Wheezing, history of asthma--- improved, nebs as needed. Hypertension:Fairly elevated, likely secondary to acute illness.Will gradually resume her home BP meds. Other chronic medical conditions:HLD, AAA, DM2, CKD stage IIIa --- continue with/resume home meds as and when able DVT prophylaxis:eliquis CODE STATUS:Full code Disposition:PT/OT, CM to assist with DC planning. Will need senior living physical therapy. Admission and Anticipated Discharge Date Admission Date: May 21, 2022 Subjective Patient seen and examined at bedside as a follow-up of a small and large bowel obstruction likely secondary to acute diverticulitis. Of note, pt developed Left MCA territory stroke on 05/26 evening. Patient was lying in bed, on 2L via NC, NAD, on full liq diet (to be adv as hilaria), denies belly pain, reports moving bowel in AM, denies chest pain/headache/dizziness/other review of symptoms. Physical Exam Physical Exam: GENERAL: Alert and awake. NAD, on 2L O2 via NC HEENT: No pallor, no icterus. Pupils equal, round and reactive to light. Oral mucosa moist. NECK: No JVD, no neck masses. HEART: S1 and S2 heard. Regular rate and rhythm. No murmur, no gallop. RESPIRATORY SYSTEM: Normal AP diameter. No accessory muscle use. No wheezing, b/l crackles. ABDOMEN: bowel sounds present,nontender, + distention -- improving. CENTRAL NERVOUS SYSTEM: No facial droop. Speech is clear. Obeys simple commands. RUE 2/5 and RLE 1/5 EXTREMITIES: No edema, no erythema seen. Results & Data Results & Data ([facility]) Vital Signs (Past 12 Hours) Vital Signs Temp Pulse Pulse Resp BP Pulse Ox O2 Del Method 05/29/22 11:29 36.4 C L 93 H 19 165/86 H 93 Nasal Cannula 05/29/22 07:31 Nasal Cannula 05/29/22 07:14 83 05/29/22 07:02 36.7 C 84 18 161/86 H 94 Nasal Cannula 05/29/22 04:21 36.7 C 88 20 160/83 H 92 Nasal Cannula O2 Flow Rate 05/29/22 11:29 2 05/29/22 07:31 2 05/29/22 07:14 05/29/22 07:02 2 05/29/22 04:21 2.0
--- NOTE | 2022-05-29 13:47 | Cardiology Progress Note ---
Date of Service May 29, 2022 Assessment & Plan (1) Diverticular stricture: Plan: - Status post colonic stents x2 (2) PAF (paroxysmal atrial fibrillation): Plan: - Remains in sinus rhythm on telemetry with rate in the range of 90 bpm, with occasional PACs. -She is 3 days removed from the acute stroke event on 05/26/2022 -Add metoprolol tartrate 25 mg twice daily for rate/rhythm control. -She is currently on Eliquis 2.5 mg twice daily in effort to minimize her risk of bleeding complication. This is however an off label dosing for this medication, as she is over 60 kg, less than 80 years old, and her creatinine is less than 1.5. If she tolerates this dose, would consider transitioning her to the standard 5 mg twice daily as time goes by. (3) Stroke: Plan: - Stroke alert called evening of 05/26/2022 when she was observed to have acute onset right hemiparesis. CTA, CT, MRI of the brain revealing acute left anterior cerebral artery infarct involving the left frontal and left parietal lobes. Old infarct within the left basal ganglia also observed. -Continue Eliquis as noted above. (4) AAA (abdominal aortic aneurysm): Admission and Anticipated Discharge Date Admission Date: May 21, 2022 Subjective Patient seen in cardiology follow-up. Denies acute complaints. Right upper, lower extremity hemiparesis noted. Telemetry reveals sinus rhythm with premature atrial contractions. Physical Exam Constitutional: no acute distress Respiratory: normal respiratory effort, lungs clear to auscultation Cardiovascular: RRR, no murmur, no edema Gastrointestinal (Abdomen): normal bowel sounds, soft, nontender, no hepa tosplenomegaly Neurologic: Right upper, lower extremity Results & Data ([facility]) Vital Signs (Past 12 Hours) Vital Signs Temp Pulse Pulse Resp BP Pulse Ox O2 Del Method 05/29/22 11:29 36.4 C L 93 H 19 165/86 H 93 Nasal Cannula 05/29/22 07:31 Nasal Cannula 05/29/22 07:14 83 05/29/22 07:02 36.7 C 84 18 161/86 H 94 Nasal Cannula 05/29/22 04:21 36.7 C 88 20 160/83 H 92 Nasal Cannula O2 Flow Rate 05/29/22 11:29 2 05/29/22 07:31 2 05/29/22 07:14 05/29/22 07:02 2 05/29/22 04:21 2.0
[2022-05-29] MEDS ORDERED: METOPROLOL TARTRATE 25 MG TAB PO ONE (14:20)
[2022-05-29] MEDS: amLODIPine BESYLATE 5 MG TAB PO SCH (20:04)
[2022-05-30] MEDS: CEFEPIME 2,000 MG in SYRINGE 0 ML IV SCH ×3 (02:21→17:46)
[2022-05-30] MEDS: metroNIDAZOLE 500 MG/100 ML BAG IV SCH ×3 (02:22→17:46)
[2022-05-30 08:07] LABS: Hematocrit (blood only) 39.2 % (37.0-47.0); Hemoglobin 12.7 g/dl (12.0-16.0); Mean Corpuscular Hemoglobin 29.7 pg (25.0-34.0); Mean Corpuscular Hgb Conc 32.4 g/dL (32.0-36.0); Mean Corpuscular Volume 91.6 fL (80.0-100.0); Mean Platelet Volume 11.4 fL (9.4-12.4); Platelet Count 198 K/uL (130-400); RDW Coefficient of Variation 13.8 % (11.5-14.5); RDW Standard Deviation 46.6 fL (36.4-46.3); Red Blood Count 4.28 M/uL (4.20-5.40); White Blood Count 12.74 K/ul (4.8-10.8)
[2022-05-30] MEDS: INSULIN ASPART PER UNIT SC SCH ×4 (08:28→20:35)
[2022-05-30] MEDS: FOLIC ACID 1 MG TAB PO SCH (09:23)
[2022-05-30] MEDS: ADVANCED PROBIOTIC 1250 MG CAPSULE PO SCH (09:23)
[2022-05-30] MEDS: ATORVASTATIN 40 MG TAB PO SCH (09:23)
[2022-05-30] MEDS: APIXABAN 2.5 MG TAB PO SCH ×2 (09:23→20:36)
[2022-05-30] MEDS: FLUTICASONE/VILANTEROL 100/25MCG 14 PUFFS/INHALER INH SCH (09:23)
[2022-05-30] MEDS: bisacodyL 10 MG SUPP PR SCH (09:23)
[2022-05-30] MEDS: lisinopril 10 MG TAB PO SCH (09:24)
[2022-05-30] MEDS: THIAMINE HCL 100 MG TAB PO SCH (09:24)
[2022-05-30] MEDS: METOPROLOL TARTRATE 25 MG TAB PO SCH ×2 (09:24→20:36)
[2022-05-30 11:17] LABS: BUN Creatinine Ratio 36.4 (10-20); Calcium 8.5 mg/dl (8.5-10.1); Creatinine Clr Calc Pharmacy 68.3 ml/min; Est GFR (African American) 91.3 ml/min; Est GFR (Non-African American) 78.8 ml/min; Magnesium 2.1 mg/dl (1.7-2.4); Phosphorus 2.5 mg/dl (2.5-4.9); Potassium 3.4 mmol/L (3.5-5.1)
[2022-05-30] MEDS ORDERED: POTASSIUM CHLORIDE 20 MEQ/15 ML UDC PO STA (12:24)
--- NOTE | 2022-05-30 12:30 | Hospitalist Progress Note ---
Date of Service May 30, 2022 Assessment & Plan (1) Diverticular stricture: Plan (1) Diverticulitis: Plan 67-year-old lady with PMH of HTN, HLD, ANGELITA and COPD overlap syndrome, AAA measuring 4.3 cm, PVD, CKD stage III, chronic low back pain and history of GI bleed presented to the ED 05/21 with complaint of acute worsening of abdominal distention. At presentation, she had not had bowel movement in nearly 2 weeks and her appetite had significantly reduced at the time, associated symptoms were nausea with dry heaves. Of note, patient has multiple abdominal surgeries including appendectomy, x2, hysterectomy, inguinal hernia repair in the past. She is being managed for the following: IMAGINGS: 05/21 CTAP: Thickening of the wall of the sigmoid and transverse colon compatible with nonspecific colitis. Nonspecific focal narrowing at the junction of the descending colon and proximal sigmoid which may represent stricture or obstructive mass or physiologic underdistention. 05/22 KUB x-ray: Increasing gaseous distention compatible of small as well as large bowel obstruction. 05/23 KUB x-ray: A stable to slightly improved large and small bowel dilation suspicious for distal obstruction. 05/23 CT head: No acute findings. 05/24 KUB x-ray: Somewhat improved gaseous distention of large and small bowel. 05/25 KUB x-ray: Mild improvement in the degree of large bowel distention. Persistent large and small bowel distention. 05/26 KUB x-ray: Persistent large and small bowel distention concerning for distal large bowel obstruction. 05/27 KUB x-ray: Status post placement of a colonic stent with colonic obstruction, mildly decreased large and small bowel gaseous distention. 05/28 KUB X-ray: Interval improvement in gaseous distention of the large and small bowel. 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 Admitting blood culture, No Growth 5 days. S/p Colonoscopy and colonic stent placement: Severe diverticulosis in the sigmoid colon with narrowing of the colon in association with diverticular opening noted. Stricture in the distal descending colon noted, prosthesis placed. No specimens collected. General surgery on board, appreciate recommendation. d/w Gen Sx, OP Gen Sx f/u recommended, pulling out NG tube today. Patient having BM. GI on board,appreciate recs Adv diet as hilaria. Continue with cefepime 05/21 and metronidazole 05/22. Monitor and replete lytes.KCL repleted. A. fib with RVR:Patient underwent A. fib with RVR with heart rate in the 140s during colonoscopy 05/26 while she was intubated, broke into NSR with esmolol, EKG and rhythm strip reviewed. Has been on normal sinus. Cardiology evaled, metoprolol added, appreciate recommendation; plan to increase eliquis dose later on. f/u cardio as OP. Stroke:Patient was a stroke alert in the night of 05/26 due to slow to respond, was found to have left KATARZYNA territory stroke on imaging. [facility] was contacted by night team which recommended resuming of home ASA and possible anticoagulation. 05/26 CT head:Acute left anterior cerebral artery distribution infarct with mild mass effect including sulcal effacement and mild subfalcine shift.Short-term follow-up head CT could be obtained to reassess mass effect. 05/26 CTA head: 1. Abrupt occlusion of the A2 segment of the left anterior cerebral artery which accounts for acute infarct shown on head CT. 2. Extensive plaque within the intracranial vessels. Moderate to severe multifocal stenoses, as described above. 05/26 CTA neck: 1. Extensive atherosclerotic plaque within the bilateral carotid bifurcations which results in mild stenosis of the proximal right internal carotid artery. No significant stenosis of the left common carotid or cervical internal carotid artery. 2. Moderate to severe multifocal stenoses within the left vertebral artery, as above. Dominant, patent right vertebral artery. 3. Emphysema, bilateral pleural effusions and extensive plaque of the aortic arch, partially visualized within the chest. 05/27 brain MRI:Acute left anterior cerebral artery distribution infarct. Mild mass effect with sulcal effacement. No acute hemorrhage. 05/27 echo reviewed, unremarkable. A1c of 6.9, LDL of 31. On exam, RUE motor 2/5, RLE motor 1/5. Neurology evaluated, appreciate recs For prediabetes, follow-up A1c in 3 months, encourage lifestyle modification, follow-up with PCP. PT/OT and speech eval. [place] started 05/28. Aspirin DC'd. Wheezing, history of asthma--- improved, nebs as needed. Hypertension:Fairly elevated, likely secondary to acute illness.Will gradually resume her home BP meds. Other chronic medical conditions:HLD, AAA, DM2, CKD stage IIIa --- continue wit h/resume home meds as and when able DVT prophylaxis:eliquis CODE STATUS:Full code Disposition:PT/OT, CM to assist with DC planning. Will need [facility]. Admission and Anticipated Discharge Date Admission Date: May 21, 2022 Subjective Patient seen and examined at bedside as a follow-up of a small and large bowel obstruction likely secondary to acute diverticulitis. Of note, pt developed Left MCA territory stroke on 05/26 evening. Patient was lying in bed, on 2L via NC, NAD, on HH diet, denies belly pain, per RN pt w/ poor appetite, has BM yesterday, pt denies chest pain /headache/dizziness/other review of symptoms but pt is found to be on/off confused. Physical Exam Physical Exam: GENERAL: Alert and awake. NAD, on 2L O2 via NC HEENT: No pallor, no icterus. Pupils equal, round and reactive to light. Oral mucosa moist. NECK: No JVD, no neck masses. HEART: S1 and S2 heard. Regular rate and rhythm. No murmur, no gallop. RESPIRATORY SYSTEM: Normal AP diameter. No accessory muscle use. No wheezing, b/l crackles. ABDOMEN: bowel sounds present,nontender, + distention -- improving. CENTRAL NERVOUS SYSTEM: No facial droop. Speech is clear. Obeys simple commands. RUE 2/5 and RLE 1/5 EXTREMITIES: No edema, no erythema seen. Results & Data Results & Data ([facility]) Vital Signs (Past 12 Hours) Vital Signs Temp Pulse Pulse Resp BP Pulse Ox O2 Del Method 05/30/22 11:39 36.5 C 68 17 Nasal Cannula 05/30/22 08:00 Nasal Cannula 05/30/22 09:05 79 16 94 Nasal Cannula 05/30/22 07:25 36.4 C L 79 20 155/77 H 93 Nasal Cannula 05/30/22 07:00 79 05/30/22 02:29 36.5 C 88 21 147/93 H 94 Nasal Cannula O2 Flow Rate 05/30/22 11:39 2 05/30/22 08:00 2 05/30/22 09:05 2 05/30/22 07:25 2 05/30/22 07:00 05/30/22 02:29 2
--- NOTE | 2022-05-30 14:43 | Cardiology Progress Note ---
Date of Service May 30, 2022 Assessment & Plan (1) Diverticular stricture: Plan: - Status post colonic stents x2 (2) PAF (paroxysmal atrial fibrillation): Plan: - Remains in sinus rhythm on telemetry with rate in the range of 90 bpm, with occasional PACs. -She is 4 days removed from the acute stroke event on 05/26/2022 -metoprolol tartrate 25 mg twice daily for rate/rhythm control. -She is currently on Eliquis 2.5 mg twice daily in effort to minimize her risk of bleeding complication. This is however an off label dosing for this medication, as she is over 60 kg, less than 80 years old, and her creatinine is less than 1.5. If she tolerates this dose, would consider transitioning her to the standard 5 mg twice daily as time goes by. (3) Stroke: Plan: - Stroke alert called evening of 05/26/2022 when she was observed to have acute onset right hemiparesis. CTA, CT, MRI of the brain revealing acute left anterior cerebral artery infarct involving the left frontal and left parietal lobes. Old infarct within the left basal ganglia also observed. -Continue Eliquis as noted above. (4) AAA (abdominal aortic aneurysm): Plan: - Per review of chart, patient has been followed by [facility] vascular [facility]. In July,, was found to have stable 4.3 cm abdominal aortic aneurysm and therefore the measurement of 4.[address] of the abdomen pelvis this admission is not significantly changed. Admission and Anticipated Discharge Date Admission Date: May 21, 2022 Subjective Patient seen in follow-up. No acute complaints. Telemetry reveals ongoing sinus rhythm in the range of 60s 70s, with occasional PACs, no additional atrial fibrillation noted overnight. Physical Exam Constitutional: WD/WN, vitals as above Respiratory: normal respiratory effort, lungs clear to auscultation Cardiovascular: RRR, no murmur, no edema Neurologic: Right upper and lower extremity hemiparesis Results & Data ([facility]) Vital Signs (Past 12 Hours) Vital Signs Temp Pulse Pulse Resp BP Pulse Ox O2 Del Method 05/30/22 11:39 36.5 C 68 17 Nasal Cannula 05/30/22 08:00 Nasal Cannula 05/30/22 09:05 79 16 94 Nasal Cannula 05/30/22 07:25 36.4 C L 79 20 155/77 H 93 Nasal Cannula 05/30/22 07:00 79 O2 Flow Rate 05/30/22 11:39 2 05/30/22 08:00 2 05/30/22 09:05 2 05/30/22 07:25 2 05/30/22 07:00 Laboratory Results CBC 05/30/22 Range/Units 07:18 WBC 12.74 H (4.8-10.8) K/ul RBC 4.28 (4.20-5.40) M/uL Hgb 12.7 (12.0-16.0) g/dl Hct 39.2 (37.0-47.0) % Plt Count 198 (130-400) K/uL Comprehensive Metabolic Panel 05/30/22 Range/Units 07:18 Sodium 145 (136-145) mmol/L Potassium 3.4 L (3.5-5.1) mmol/L Chloride 107 (98-107) mmol/L Carbon Dioxide 31 (21-32) mmol/L BUN 28 H (6-23) mg/dl Creatinine 0.77 (0.6-1.2) mg/dl Glucose 114 H (70-99(Fasting)) mg/dl Calcium 8.5 (8.5-10.1) mg/dl
[2022-05-30] MEDS: amLODIPine BESYLATE 5 MG TAB PO SCH (20:36)
[2022-05-31] MEDS: metroNIDAZOLE 500 MG/100 ML BAG IV SCH ×3 (01:47→17:03)
[2022-05-31] MEDS: CEFEPIME 2,000 MG in SYRINGE 0 ML IV SCH ×3 (02:01→17:03)
[2022-05-31 07:44] LABS: Calcium 8.5 mg/dl (8.5-10.1); Potassium 3.6 mmol/L (3.5-5.1)
[2022-05-31 07:49] LABS: BUN Creatinine Ratio 37.2 (10-20); Est GFR (African American) 89.9 ml/min; Est GFR (Non-African American) 77.6 ml/min
[2022-05-31] MEDS: ADVANCED PROBIOTIC 1250 MG CAPSULE PO SCH (08:35)
[2022-05-31] MEDS: APIXABAN 2.5 MG TAB PO SCH ×2 (08:35→20:15)
[2022-05-31] MEDS: ATORVASTATIN 40 MG TAB PO SCH (08:35)
[2022-05-31] MEDS: METOPROLOL TARTRATE 25 MG TAB PO SCH ×2 (08:35→20:15)
[2022-05-31] MEDS: FOLIC ACID 1 MG TAB PO SCH (08:36)
[2022-05-31] MEDS: bisacodyL 10 MG SUPP PR SCH (08:36)
[2022-05-31] MEDS: FLUTICASONE/VILANTEROL 100/25MCG 14 PUFFS/INHALER INH SCH (08:36)
[2022-05-31] MEDS: lisinopril 10 MG TAB PO SCH (08:36)
[2022-05-31] MEDS: THIAMINE HCL 100 MG TAB PO SCH (08:36)
[2022-05-31] MEDS: INSULIN ASPART PER UNIT SC SCH ×4 (08:38→20:54)
[2022-05-31] MEDS ORDERED: POTASSIUM CHLORIDE CRTAB 20 MEQ TABCR PO STA (11:48)
--- NOTE | 2022-05-31 11:48 | Cardiology Progress Note ---
Date of Service May 31, 2022 Assessment & Plan (1) Diverticular stricture: Plan: - Status post colonic stents x2 (2) PAF (paroxysmal atrial fibrillation): Plan: - Remains in sinus rhythm on telemetry with rate in the range of 90 bpm, with occasional PACs. -She is 5 days removed from the acute stroke event on 05/26/2022 -metoprolol tartrate 25 mg twice daily for rate/rhythm control. -She is currently on Eliquis 2.5 mg twice daily in effort to minimize her risk of bleeding complication. This is however an off label dosing for this medication, as she is over 60 kg, less than 80 years old, and her creatinine is less than 1.5. If she tolerates this dose, would consider transitioning her to the standard 5 mg twice daily as time goes by. (3) Stroke: Plan: - Stroke alert called evening of 05/26/2022 when she was observed to have acute onset right hemiparesis. CTA, CT, MRI of the brain revealing acute left anterior cerebral artery infarct involving the left frontal and left parietal lobes. Old infarct within the left basal ganglia also observed. -Continue Eliquis as noted above. (4) AAA (abdominal aortic aneurysm): Plan: - Per review of chart, patient has been followed by [facility] vascular [facility]. In July,, was found to have stable 4.3 cm abdominal aortic aneurysm and therefore the measurement of 4.[address] of the abdomen pelvis this admission is not significantly changed. Episode of NSVT -asymptomatic, supplement potassium, check magnesium. Admission and Anticipated Discharge Date Admission Date: May 21, 2022 Subjective Patient resting comfortably. Telemetry reveals SR in the 70s to 80s. She had a 12 beat run of non sustained ventricular tachycardia on 05/31/22 at 1:32 am. Physical Exam Constitutional: WD/WN, vitals as above no acute distress Respiratory: normal respiratory effort, lungs clear to auscultation Cardiovascular: RRR, no murmur, no edema Gastrointestinal (Abdomen): normal bowel sounds, soft, nontender, no hepatosplenomegaly Neurologic: right sided hemiparesis , unchanaged Results & Data ([facility]) Vital Signs (Past 12 Hours) Vital Signs Temp Pulse Pulse Resp BP Pulse Ox O2 Del Method 05/31/22 09:30 77 05/31/22 08:00 Nasal Cannula 05/31/22 03:02 37 C 75 20 146/86 H 92 Nasal Cannula 05/31/22 00:00 68 05/31/22 00:00 Nasal Cannula O2 Flow Rate 05/31/22 09:30 05/31/22 08:00 2 05/31/22 03:02 2 05/31/22 00:00 05/31/22 00:00 Laboratory Results Comprehensive Metabolic Panel 05/31/22 Range/Units 06:01 Sodium 141 (136-145) mmol/L Potassium 3.6 (3.5-5.1) mmol/L Chloride 106 (98-107) mmol/L Carbon Dioxide 29 (21-32) mmol/L BUN 29 H (6-23) mg/dl Creatinine 0.78 (0.6-1.2) mg/dl Glucose 95 (70-99(Fasting)) mg/dl Calcium 8.5 (8.5-10.1) mg/dl Intake and Output 05/30/22 05/31/22 05/31/22 22:59 06:59 14:59 Intake Total 100 / 640 100 / 640 Output Total 300 / 451 151 / 451 Balance -200 / 189 -51 / 189 Intake: IV 100 / 300 100 / 300 metroNIDAZOLE 500 mg In 100 ml 100 / 300 100 / 300 @ 100 mls/hr IV Q8H REPLACED BY [facility] Rx#: [id number] Output: Stool 150 / 150 Urine Amount (Catheter) 300 / 300 External 300 / 300 # Bowel Movements Other: Weight 61.4 kg Weight Measurement Method Built in [facility]
--- NOTE | 2022-05-31 14:21 | Hospitalist Progress Note ---
Date of Service May 31, 2022 Assessment & Plan (1) Diverticular stricture: Plan (1) Diverticulitis: Plan 67-year-old lady with PMH of HTN, HLD, ANGELITA and COPD overlap syndrome, AAA measuring 4.3 cm, PVD, CKD stage III, chronic low back pain and history of GI bleed presented to the ED 05/21 with complaint of acute worsening of abdominal distention. At presentation, she had not had bowel movement in nearly 2 weeks and her appetite had significantly reduced at the time, associated symptoms were nausea with dry heaves. Of note, patient has multiple abdominal surgeries including appendectomy, x2, hysterectomy, inguinal hernia repair in the past. She is being managed for the following: IMAGINGS: 05/21 CTAP: Thickening of the wall of the sigmoid and transverse colon compatible with nonspecific colitis. Nonspecific focal narrowing at the junction of the descending colon and proximal sigmoid which may represent stricture or obstructive mass or physiologic underdistention. 05/22 KUB x-ray: Increasing gaseous distention compatible of small as well as large bowel obstruction. 05/23 KUB x-ray: A stable to slightly improved large and small bowel dilation suspicious for distal obstruction. 05/23 CT head: No acute findings. 05/24 KUB x-ray: Somewhat improved gaseous distention of large and small bowel. 05/25 KUB x-ray: Mild improvement in the degree of large bowel distention. Persistent large and small bowel distention. 05/26 KUB x-ray: Persistent large and small bowel distention concerning for distal large bowel obstruction. 05/27 KUB x-ray: Status post placement of a colonic stent with colonic obstruction, mildly decreased large and small bowel gaseous distention. 05/28 KUB X-ray: Interval improvement in gaseous distention of the large and small bowel. 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 Last colonoscopy was from 02/12/2021, showing normal colon, significant left- sided diverticulosis, internal hemorrhoids Last EGD was done on 10/05/2021 after a GI bleed, esophagus was normal, stomach was normal no ulcers and normal examined duodenum Admitting imagings and follow-up imagings ----see above. Admitting blood culture, No Growth 5 days. S/p Colonoscopy and colonic stent placement: Severe diverticulosis in the sigmoid colon with narrowing of the colon in association with diverticular opening noted. Stricture in the distal descending colon noted, prosthesis placed. No specimens collected. General surgery evaled, appreciate recommendation. OP Gen Sx f/u recommended. Patient having BM. GI on evaled,appreciate recs Pt tolerating diet well. Continue with cefepime 05/21 and metronidazole 05/22 --10 day course, dc tavno. Monitor and replete lytes as appropriate A. fib with RVR:Patient underwent A. fib with RVR with heart rate in the 140s during colonoscopy 05/26 while she was intubated, broke into NSR with esmolol, EKG and rhythm strip reviewed. Has been on normal sinus. Cardiology evaled, metoprolol added, appreciate recommendation; plan to increase eliquis dose later on. f/u cardio as OP. Stroke:Patient was a stroke alert in the night of 05/26 due to slow to respond, was found to have left KATARZYNA territory stroke on imaging. [place] neurology was contacted by night team which recommended resuming of home ASA and possible anticoagulation. 05/26 CT head:Acute left anterior cerebral artery distribution infarct with mild mass effect including sulcal effacement and mild subfalcine shift.Short-term fo llow-up head CT could be obtained to reassess mass effect. 05/26 CTA head: 1. Abrupt occlusion of the A2 segment of the left anterior cerebral artery which accounts for acute infarct shown on head CT. 2. Extensive plaque within the intracranial vessels. Moderate to severe multifocal stenoses, as described above. 05/26 CTA neck: 1. Extensive atherosclerotic plaque within the bilateral carotid bifurcations which results in mild stenosis of the proximal right internal carotid artery. No significant stenosis of the left common carotid or cervical internal carotid artery. 2. Moderate to severe multifocal stenoses within the left vertebral artery, as above. Dominant, patent right vertebral artery. 3. Emphysema, bilateral pleural effusions and extensive plaque of the aortic arch, partially visualized within the chest. 05/27 brain MRI:Acute left anterior cerebral artery distribution infarct. Mild mass effect with sulcal effacement. No acute hemorrhage. 05/27 echo reviewed, unremarkable. A1c of 6.9, LDL of 31. On exam, RUE motor 2/5, RLE motor 1/5. Neurology evaluated, appreciate recs For prediabetes, follow-up A1c in 3 months, encourage lifestyle modification, follow-up with PCP. PT/OT and speech eval. Pritchettquis started 05/28. Aspirin DC'd. Wheezing, history of asthma--- improved, nebs as needed. Hypertension:Fairly elevated, despite resuming home meds. Will add HCTZ 12.5 for HTN 05/31. C/t monitor. Other chronic medical conditions:HLD, AAA, DM2, CKD stage IIIa --- continue with/resume home meds as and when able DVT prophylaxis:eliquis CODE STATUS:Full code Disposition:PT/OT, CM to assist with DC planning. Will need alf physical therapy. Medically stable for DC to rehab unless other new issues arise. Admission and Anticipated Discharge Date Admission Date: May 21, 2022 Subjective Patient seen and examined at bedside as a follow-up of a small and large bowel obstruction likely secondary to acute diverticulitis. Of note, pt developed Left MCA territory stroke on 05/26 evening. Patient was lying in bed, on 2L via NC, NAD, on HH diet, denies belly pain, per RN ate better today, pt moving bowels, is more alert today though sleepy on and off, pt denies chest pain/headache/dizziness/other review of symptoms but pt is found to be on/off confused. Physical Exam Physical Exam: GENERAL: Alert and awake. NAD, on 2L O2 via NC HEENT: No pallor, no icterus. Pupils equal, round and reactive to light. Oral mucosa moist. NECK: No JVD, no neck masses. HEART: S1 and S2 heard. Regular rate and rhythm. No murmur, no gallop. RESPIRATORY SYSTEM: Normal AP diameter. No accessory muscle use. No wheezing, b/l crackles. ABDOMEN: bowel sounds present,nontender, no distension. CENTRAL NERVOUS SYSTEM: No facial droop. Speech is clear. Obeys simple commands. RUE 2/5 and RLE 1/5 EXTREMITIES: No edema, no erythema seen. Results & Data Results & Data ([facility]) Vital Signs (Past 12 Hours) Vital Signs Temp Pulse Pulse Resp BP BP Pulse Ox 05/31/22 11:47 36.5 C 66 18 170/90 H 96 05/31/22 09:30 77 05/31/22 08:00 05/31/22 03:02 37 C 75 20 146/86 H 92 O2 Del Method O2 Flow Rate 05/31/22 11:47 Nasal Cannula 2 05/31/22 09:30 05/31/22 08:00 Nasal Cannula 2 05/31/22 03:02 Nasal Cannula 2
[2022-05-31] MEDS: hydroCHLOROthiazide 25 MG TAB PO SCH (15:23)
[2022-05-31] MEDS: amLODIPine BESYLATE 5 MG TAB PO SCH (20:14)
[2022-06-01 06:46] LABS: BUN Creatinine Ratio 40.6 (10-20); Calcium 8.7 mg/dl (8.5-10.1); Creatinine Clr Calc Pharmacy 78.7 ml/min; Est GFR (African American) 105.5 ml/min; Magnesium 1.9 mg/dl (1.7-2.4); Potassium 3.5 mmol/L (3.5-5.1)
[2022-06-01] MEDS: FOLIC ACID 1 MG TAB PO SCH (09:08)
[2022-06-01] MEDS: METOPROLOL TARTRATE 25 MG TAB PO SCH ×2 (09:08→20:26)
[2022-06-01] MEDS: ADVANCED PROBIOTIC 1250 MG CAPSULE PO SCH (09:08)
[2022-06-01] MEDS: ATORVASTATIN 40 MG TAB PO SCH (09:08)
[2022-06-01] MEDS: lisinopril 10 MG TAB PO SCH (09:08)
[2022-06-01] MEDS: APIXABAN 2.5 MG TAB PO SCH ×2 (09:08→20:26)
[2022-06-01] MEDS: hydroCHLOROthiazide 25 MG TAB PO SCH (09:09)
[2022-06-01] MEDS: FLUTICASONE/VILANTEROL 100/25MCG 14 PUFFS/INHALER INH SCH (09:09)
[2022-06-01] MEDS: THIAMINE HCL 100 MG TAB PO SCH (09:09)
[2022-06-01] MEDS: POTASSIUM CHLORIDE 10 MEQ TABCR PO SCH (09:14)
[2022-06-01] MEDS: bisacodyL 10 MG SUPP PR SCH (09:16)
[2022-06-01] MEDS: INSULIN ASPART PER UNIT SC SCH ×4 (10:01→21:42)
--- NOTE | 2022-06-01 14:38 | Hospitalist Progress Note ---
Date of Service June 01, 2022 Assessment & Plan (1) Diverticular stricture: Plan (1) Diverticulitis: Plan 67-year-old lady with PMH of HTN, HLD, ANGELITA and COPD overlap syndrome, AAA measuring 4.3 cm, PVD, CKD stage III, chronic low back pain and history of GI bleed presented to the ED 05/21 with complaint of acute worsening of abdominal distention. At presentation, she had not had bowel movement in nearly 2 weeks and her appetite had significantly reduced at the time, associated symptoms were nausea with dry heaves. Of note, patient has multiple abdominal surgeries including appendectomy, x2, hysterectomy, inguinal hernia repair in the past. She is being managed for the following: IMAGINGS: 05/21 CTAP: Thickening of the wall of the sigmoid and transverse colon compatible with nonspecific colitis. Nonspecific focal narrowing at the junction of the descending colon and proximal sigmoid which may represent stricture or obstructive mass or physiologic underdistention. 05/22 KUB x-ray: Increasing gaseous distention compatible of small as well as large bowel obstruction. 05/23 KUB x-ray: A stable to slightly improved large and small bowel dilation suspicious for distal obstruction. 05/23 CT head: No acute findings. 05/24 KUB x-ray: Somewhat improved gaseous distention of large and small bowel. 05/25 KUB x-ray: Mild improvement in the degree of large bowel distention. Persistent large and small bowel distention. 05/26 KUB x-ray: Persistent large and small bowel distention concerning for distal large bowel obstruction. 05/27 KUB x-ray: Status post placement of a colonic stent with colonic obstruction, mildly decreased large and small bowel gaseous distention. 05/28 KUB X-ray: Interval improvement in gaseous distention of the large and small bowel. 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 Last colonoscopy was from 02/12/2021, showing normal colon, significant left- sided diverticulosis, internal hemorrhoids Last EGD was done on 10/05/2021 after a GI bleed, esophagus was normal, stomach was normal no ulcers and normal examined duodenum Admitting imagings and follow-up imagings ----see above. Admitting blood culture, No Growth 5 days. S/p Colonoscopy and colonic stent placement: Severe diverticulosis in the sigmoid colon with narrowing of the colon in association with diverticular opening noted. Stricture in the distal descending colon noted, prosthesis placed. No specimens collected. General surgery evaled, appreciate recommendation. OP Gen Sx f/u recommended. Patient having BM. GI evaled,appreciate recs Pt tolerating diet well. Continue with cefepime 05/21 and metronidazole 05/22 --s/p 10 day course. Monitor and replete lytes as appropriate. 10 meq kcl daily added. A. fib with RVR:Patient underwent A. fib with RVR with heart rate in the 140s during colonoscopy 05/26 while she was intubated, broke into NSR with esmolol, EKG and rhythm strip reviewed. Has been on normal sinus. Cardiology evaled, metoprolol added, appreciate recommendation; plan to increase eliquis dose later on. f/u cardio as OP. Stroke:Patient was a stroke alert in the night of 05/26 due to slow to respond, was found to have left KATARZYNA territory stroke on imaging. [place] neurology was contacted by night team which recommended resuming of home ASA and possible anticoagulation. 05/26 CT head:Acute left anterior cerebral artery distribution infarct with mild mass effect including sulcal effacement and mild subfalcine shift.Short-term follow-up head CT could be obtained to reassess mass effect. 05/26 CTA head: 1. Abrupt occlusion of the A2 segment of the left anterior cerebral artery which accounts for acute infarct shown on head CT. 2. Extensive plaque within the intracranial vessels. Moderate to severe multifocal stenoses, as described above. 05/26 CTA neck: 1. Extensive atherosclerotic plaque within the bilateral carotid bifurcations which results in mild stenosis of the proximal right internal carotid artery. No significant stenosis of the left common carotid or cervical internal carotid artery. 2. Moderate to severe multifocal stenoses within the left vertebral artery, as above. Dominant, patent right vertebral artery. 3. Emphysema, bilateral pleural effusions and extensive plaque of the aortic arch, partially visualized within the chest. 05/27 brain MRI:Acute left anterior cerebral artery distribution infarct. Mild mass effect with sulcal effacement. No acute hemorrhage. 05/27 echo reviewed, unremarkable. A1c of 6.9, LDL of 31. On exam, RUE motor 1-2/5, RLE motor 1/5. Neurology evaluated, appreciate recs For prediabetes, follow-up A1c in 3 months, encourage lifestyle modification, follow-up with PCP. PT/OT and speech eval. Pritchettquis started 05/28. Aspirin DC'd. Wheezing, history of asthma--- improved, nebs as needed. Hypertension:Fairly elevated, despite resuming home meds. Added HCTZ 12.5 for HTN 05/31. C/t monitor. Now w/ better control. Other chronic medical conditions:HLD, AAA, DM2, CKD stage IIIa --- continue with/resume home meds as and when able DVT prophylaxis:eliquis CODE STATUS:Full code Disposition:PT/OT, CM to assist with DC planning. Will need snf physical therapy. Medically stable for DC to rehab unless other new issues arise. Awaiting encompass. Admission and Anticipated Discharge Date Admission Date: May 21, 2022 Subjective Patient seen and examined at bedside as a follow-up of a small and large bowel obstruction likely secondary to acute diverticulitis. Of note, pt developed Left MCA territory stroke on 05/26 evening. Patient was lying in bed, on 2L via NC, NAD, on HH diet, denies belly pain, per RN did eat some in AM, per pt, she is moving bowels, less sleepy than prior, pt denies chest pain/headache/dizziness/other review of symptoms. Physical Exam Physical Exam: GENERAL: Alert and awake. NAD, on 2L O2 via NC HEENT: No pallor, no icterus. Pupils equal, round and reactive to light. Oral mucosa moist. NECK: No JVD, no neck masses. HEART: S1 and S2 heard. Regular rate and rhythm. No murmur, no gallop. RESPIRATORY SYSTEM: Normal AP diameter. No accessory muscle use. No wheezing, b/l crackles. ABDOMEN: bowel sounds present,nontender, no distension. CENTRAL NERVOUS SYSTEM: No facial droop. Speech is clear. Obeys simple commands. RUE 1-2/5 and RLE 1/5 EXTREMITIES: No edema, no erythema seen. Results & Data Results & Data ([facility]) Vital Signs (Past 12 Hours) Vital Signs Temp Pulse Pulse Resp BP BP Pulse Ox 06/01/22 06:02 82 06/01/22 11:39 36.7 C 76 18 132/74 94 06/01/22 09:00 06/01/22 08:07 36.7 C 73 16 164/86 H 95 06/01/22 03:11 37 C 75 18 123/67 92 O2 Del Method O2 Flow Rate 06/01/22 06:02 06/01/22 11:39 Nasal Cannula 2 06/01/22 09:00 Nasal Cannula 2 06/01/22 08:07 Nasal Cannula 2 06/01/22 03:11 Nasal Cannula 2
[2022-06-01] MEDS: amLODIPine BESYLATE 5 MG TAB PO SCH (20:26)
[2022-06-01] MEDS ORDERED: ALBUT/IPRATROP 3MG/0.5MG NEB 3 ML VIAL NEB STA (23:29)
--- NOTE | 2022-06-01 23:37 | Communication Note ---
Date of Service: June 01, 2022 O2 sats noted to be 60s by RN on routine check. Concern for aspiration with cough symptoms as per RN. Patient complaining of shortness of breath. No chest pain. Epistaxis later resulted after RT performed nasotracheal suctioning. Patient denies headache symptoms. 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 Lasix 1 dose Hold Eliquis for now given epistaxis Resume once bleeding resolved and hemoglobin stable. Text document was generated using [employer] voice recognition software. It may contain grammatical or spelling errors. Kindly contact undersigned for clarification of any documentation item in question.
[2022-06-01] MEDS ORDERED: MAGNESIUM SULFATE / D5W 1 GM/100 ML BAG IV ONE (23:45)
[2022-06-01] MEDS ORDERED: methylPREDNISolone 20 MG in SYRINGE 0 ML IV ONE (23:45)
[2022-06-02] MEDS ORDERED: ERTAPENEM SODIUM 1,000 MG in SYRINGE 0 ML IV SCH
[2022-06-02] MEDS: POTASSIUM CHLORIDE / WTR 10 MEQ/100 ML PLCT IV SCH ×4 (00:07→02:58)
[2022-06-02 00:17] LABS: Base Excess ABG 7.1 mEq/L (-9-1.8); HCO3 ABG 32 mmol/L (19-24); Oxygen Saturation ABG 93.7 % (90-95); PCO2 ABG 45 mmHg (35-46); PO2 ABG 66 mmHg (80-95); pH ABG 7.46 (7.35-7.45)
[2022-06-02 00:19] LABS: Allen Test Pos (Pos)
[2022-06-02 00:34] LABS: Basophils # (auto) 0.06 K/uL (0-0.2); Basophils % (auto) 0.4 %; Eosinophils # (auto) 0.24 K/uL (0-0.50); Eosinophils % (auto) 1.7 %; Hematocrit (blood only) 43.7 % (37.0-47.0); Hemoglobin 14.3 g/dl (12.0-16.0); Immature Granulocytes # (auto) 0.14 K/uL (0.01-0.20); Lymphocytes # (auto) 2.07 K/uL (1.2-3.4); Lymphocytes % (auto) 14.7 %; Mean Corpuscular Hemoglobin 29.5 pg (25.0-34.0); Mean Corpuscular Hgb Conc 32.7 g/dL (32.0-36.0); Mean Corpuscular Volume 90.3 fL (80.0-100.0); Mean Platelet Volume 11.3 fL (9.4-12.4); Monocytes # (auto) 0.95 K/uL (0.11-0.59); Monocytes % (auto) 6.8 %; Neutrophils % (auto) 75.4 %; Platelet Count 256 K/uL (130-400); RDW Coefficient of Variation 13.6 % (11.5-14.5); RDW Standard Deviation 45.2 fL (36.4-46.3); Red Blood Count 4.84 M/uL (4.20-5.40); White Blood Count 14.06 K/ul (4.8-10.8)
[2022-06-02 00:39] LABS: BUN Creatinine Ratio 38.2 (10-20); Calcium 8.9 mg/dl (8.5-10.1); Creatinine Clr Calc Pharmacy 66.3 ml/min; Est GFR (African American) 92.8 ml/min; Potassium 3.5 mmol/L (3.5-5.1)
[2022-06-02 00:51] LABS: INR 1.1 (0.9-1.1); Partial Thromboplastin Ratio 1.1; Partial Thromboplastin Time 29.5 Seconds (21.0-31.0); Prothrombin Time 11.9 Seconds (9.0-12.0)
[2022-06-02] MEDS ORDERED: FUROSEMIDE INJ 20 MG/2 ML VIAL IV ONE ×2 (02:58→17:13)
[2022-06-02 07:51] LABS: BUN Creatinine Ratio 32.6 (10-20); Calcium 8.7 mg/dl (8.5-10.1); Creatinine Clr Calc Pharmacy 58.3 ml/min; Est GFR (African American) 76.6 ml/min; Est GFR (Non-African American) 66.1 ml/min
--- NOTE | 2022-06-02 08:03 | XRay Report ---
XR chest 1V portable HISTORY: 67 years-old Female low o2 acute hypoxia COMPARISON: 05/28/2022 TECHNIQUE: AP view of the chest FINDINGS: Cardiac silhouette is enlarged. 2.0 cm nodular density of the right lung apex is likely secondary to summation density. No pneumothorax. Small pleural effusions have mildly decreased in size. Emphysema. There is improved aeration of the lung bases with mild persistent bibasilar densities. Similar pulmo nary vascular congestion. With interval removal of the enteric tube. Cervical spinal fusion hardware. Degenerative changes of the shoulders and spine. IMPRESSION: 1. Cardiomegaly with pulmonary vascular congestion. 2. Decreased size of the small pleural effusions with persistent mild bibasilar opacities. 3. Pulmonary emphysema. 4. Interval removal of the enteric tube. ACT 112: Negative or not required by law. The above report was generated using voice recognition software. It may contain grammatical, syntax o r spelling errors. Electronically signed by: Cesar Regan M.D. 06/02/2022 8:01 AM
[2022-06-02] MEDS: FLUTICASONE/VILANTEROL 100/25MCG 14 PUFFS/INHALER INH SCH (08:59)
[2022-06-02] MEDS: METOPROLOL TARTRATE 25 MG TAB PO SCH ×2 (09:12→19:53)
[2022-06-02] MEDS: hydroCHLOROthiazide 25 MG TAB PO SCH (09:13)
[2022-06-02] MEDS: FOLIC ACID 1 MG TAB PO SCH (09:13)
[2022-06-02] MEDS: POTASSIUM CHLORIDE 10 MEQ TABCR PO SCH (09:13)
[2022-06-02] MEDS: ATORVASTATIN 40 MG TAB PO SCH (09:13)
[2022-06-02] MEDS: THIAMINE HCL 100 MG TAB PO SCH (09:13)
[2022-06-02] MEDS: lisinopril 10 MG TAB PO SCH (09:13)
[2022-06-02] MEDS: ADVANCED PROBIOTIC 1250 MG CAPSULE PO SCH (09:13)
[2022-06-02] MEDS: bisacodyL 10 MG SUPP PR SCH (09:19)
[2022-06-02] MEDS: INSULIN ASPART PER UNIT SC SCH ×4 (09:25→19:57)
--- NOTE | 2022-06-02 15:35 | Fluoroscopy Report ---
VIDEO SWALLOW STUDY CLINICAL HISTORY: Aspiration. COMPARISON STUDY: No priors. FLUOROSCOPY TIME: 2.0 minutes. FINDINGS: Fluoroscopic guidance was provided to the Department of speech pathology in performing a vi jose francisco swallow study. The patient consumed barium impregnated pudding, cracker with paste, thickened liq uids, and thin barium while the swallowing mechanism was observed in real-time. No penetration or asp iration was seen within the sampled textures. Fusion hardware is noted in the cervical spine. IMPRESSION: No penetration or aspiration was seen with any of the sampled textures. See dedicated spe ech pathology report for detailed findings and recommendations. Dictated: 06/02/2022 2:43 PM Transcribed: 06/02/2022 3:24 PM Leonard [id number] [email or web address] Electronically signed by: Ace Coley M.D. 06/02/2022 3:34 PM
[2022-06-02 16:27] LABS: Basophils # (auto) 0.05 K/uL (0-0.2); Basophils % (auto) 0.4 %; Eosinophils # (auto) 0.07 K/uL (0-0.50); Eosinophils % (auto) 0.5 %; Hematocrit (blood only) 41.9 % (37.0-47.0); Hemoglobin 13.5 g/dl (12.0-16.0); Immature Granulocytes # (auto) 0.08 K/uL (0.01-0.20); Immature Granulocytes % (auto) 0.6 %; Lymphocytes # (auto) 2.14 K/uL (1.2-3.4); Lymphocytes % (auto) 15.2 %; Mean Corpuscular Hemoglobin 29.3 pg (25.0-34.0); Mean Corpuscular Hgb Conc 32.2 g/dL (32.0-36.0); Mean Corpuscular Volume 90.9 fL (80.0-100.0); Mean Platelet Volume 11.2 fL (9.4-12.4); Monocytes % (auto) 7.1 %; Neutrophils # (auto) 10.72 K/uL (1.40-6.50); Neutrophils % (auto) 76.2 %; Platelet Count 259 K/uL (130-400); RDW Coefficient of Variation 13.6 % (11.5-14.5); Red Blood Count 4.61 M/uL (4.20-5.40); White Blood Count 14.06 K/ul (4.8-10.8)
--- NOTE | 2022-06-02 17:08 | Hospitalist Progress Note ---
Date of Service June 02, 2022 Assessment & Plan (1) Diverticular stricture: Plan 67-year-old lady with PMH of HTN, HLD, ANGELITA and COPD overlap syndrome, AAA measuring 4.3 cm, PVD, CKD stage III, chronic low back pain and history of GI bleed presented to the ED 05/21 with complaint of abdominal distension with no bowel movements in 2 weeks found to have colonic obstruction due to diverticular stricture now status post stenting. Her hospital course was complicated by onset of atrial fibrillation with RVR during endoscopy and afterwards found to have acute stroke. Hospital course by problem as below. IMAGINGS: 05/21 CTAP: Thickening of the wall of the sigmoid and transverse colon compatible with nonspecific colitis. Nonspecific focal narrowing at the junction of the descending colon and proximal sigmoid which may represent stricture or obstructi ve mass or physiologic underdistention. 05/22 KUB x-ray: Increasing gaseous distention compatible of small as well as large bowel obstruction. 05/23 KUB x-ray: A stable to slightly improved large and small bowel dilation suspicious for distal obstruction. 05/23 CT head: No acute findings. 05/24 KUB x-ray: Somewhat improved gaseous distention of large and small bowel. 05/25 KUB x-ray: Mild improvement in the degree of large bowel distention. Persistent large and small bowel distention. 05/26 KUB x-ray: Persistent large and small bowel distention concerning for distal large bowel obstruction. 05/27 KUB x-ray: Status post placement of a colonic stent with colonic obstruction, mildly decreased large and small bowel gaseous distention. 05/28 KUB X-ray: Interval improvement in gaseous distention of the large and small bowel. 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 Last colonoscopy was from 02/12/2021, showing normal colon, significant left- sided diverticulosis, internal hemorrhoids Last EGD was done on 10/05/2021 after a GI bleed, esophagus was normal, stomach was normal no ulcers and normal examined duodenum Admitting imagings and follow-up imagings ----see above. Admitting blood culture, No Growth 5 days. S/p Colonoscopy and colonic stent placement: Severe diverticulosis in the sigmoid colon with narrowing of the colon in association with diverticular opening noted. Stricture in the distal descending colon noted, prosthesis placed. No specimens collected. General surgery evaled, appreciate recommendation. OP Gen Sx f/u recommended. Patient having BM. GI evaled,appreciate recs Pt tolerating diet well. Received cefepime 05/21 and metronidazole 05/22 --finished 10 day course. Monitor and replete lytes as appropriate A. fib with RVR -Patient developed A. fib with RVR with heart rate in the 140s during colonoscopy 05/26 while she was intubated, broke into NSR with esmolol. Has been in normal sinus. -Cardiology evaluateded, metoprolol added, appreciate recommendation; currently on Eliquis 2.5mg BID (off label use, dose reduced to avoid bleeding complications)-- plan to increase eliquis dose later on if she tolerates this lower dose. f/u cardio as OP. -Eliquis was held overnight due to epistaxis related to suctioning, epistaxis now resolved so Eliquis will be resumed Acute left KATARZYNA Stroke -Patient was a stroke alert in the night of 05/26 due to slow to respond, was found to have left KATARZYNA territory stroke on imaging. [facility] neurology was contacted by night team which recommended resuming of home ASA and possible anticoagulation. 05/26 CT head:Acute left anterior cerebral artery distribution infarct with mild mass effect including sulcal effacement and mild subfalcine shift.Short-term follow-up head CT could be obtained to reassess mass effect. 05/26 CTA head: 1. Abrupt occlusion of the A2 segment of the left anterior cerebral artery which accounts for acute infarct shown on head CT. 2. Extensive plaque within the intracranial vessels. Moderate to severe multifocal stenoses, as described above. 05/26 CTA neck: 1. Extensive atherosclerotic plaque within the bilateral carotid bifurcations which results in mild stenosis of the proximal right internal carotid artery. No significant stenosis of the left common carotid or cervical internal carotid artery. 2. Moderate to severe multifocal stenoses within the left vertebral artery, as above. Dominant, patent right vertebral artery. 3. Emphysema, bilateral pleural effusions and extensive plaque of the aortic arch, partially visualized within the chest. 05/27 brain MRI:Acute left anterior cerebral artery distribution infarct. Mild mass effect with sulcal effacement. No acute hemorrhage. 05/27 echo reviewed, unremarkable. A1c of 6.9, LDL of 31. Neurology evaluated, appreciate recs For prediabetes, follow-up A1c in 3 months, encourage lifestyle modification, follow-up with PCP. PT/OT and speech eval. Eliquis started 05/28. Aspirin Discontinued Wheezing, history of asthma--- improved, nebs as needed. Poorly controlled Hypertension -Will increase lisinopril to 40mg daily, continue metoprolol 25mg BID. D/c HCTZ (will instead give lasix 20mg IV once now, likely she will need oral lasix at discharge) Acute hypoxic respiratory failure -CXR 06/01 consistent with CHF. TTE from 05/27 shows EF 65-70%, overall poor study. -wean oxygen as tolerated Acute diastolic CHF -s/p lasix 20mg IV once 06/01. Will give another dose of lasix 20mg IV now. Reassess need for lasix at time of discharge Other chronic medical conditions:HLD, AAA, DM2, CKD stage IIIa --- continue with/resume home meds as and when able DVT prophylaxis:eliquis CODE STATUS:Full code Disposition:PT/OT, CM to assist with DC planning. Will need retirement physical therapy. Admission and Anticipated Discharge Date Admission Date: May 21, 2022 Subjective Overnight patient noted with difficulty breathing and required placement onto Oxymizer. She had aggressive suctioning then developed epistaxis. CXR obtained showed CHF, she received 1 dose lasix 20mg IV and later oxygen was weaned down to 2L NC by morning. Patient also started on Ertapenem empirically Currently, patient reports her breathing is "sketchy" and she can not remember if it is improved right now compared to overnight. (patient can not recall overnight events) Per nursing, patient is eating well. No further bleeding Physical Exam Physical Exam: Appears older than stated age, thin, forgetful ENMT: dried/old blood on nares Respiratory: Diminished at bases, no wheezing, no rhonchi, mild pursed lip breathing Cardiovascular: Regular rate and rhythm, no murmurs/rubs/gallops Gastrointestinal (Abdomen): soft, non tender Musculoskeletal: thin, no edema Neurologic: awake, alert, forgetful Results & Data Results & Data ([facility]) Vital Signs (Past 12 Hours) Vital Signs Temp Pulse Pulse Resp BP BP Pulse Ox 06/02/22 14:00 71 06/02/22 16:49 36.6 C 80 18 148/82 H 94 06/02/22 08:50 06/02/22 07:45 36.5 C 78 16 120/71 95 06/02/22 06:00 74 O2 Del Method O2 Flow Rate 06/02/22 14:00 06/02/22 16:49 Room Air 06/02/22 08:50 Nasal Cannula 2 06/02/22 07:45 Oxymask 4 06/02/22 06:00
[2022-06-02] MEDS: amLODIPine BESYLATE 5 MG TAB PO SCH (19:53)
[2022-06-02] MEDS: APIXABAN 2.5 MG TAB PO SCH (20:24)
[2022-06-03 06:41] LABS: Basophils # (auto) 0.06 K/uL (0-0.2); Basophils % (auto) 0.5 %; Eosinophils # (auto) 0.24 K/uL (0-0.50); Eosinophils % (auto) 1.9 %; Hematocrit (blood only) 41.1 % (37.0-47.0); Hemoglobin 13.3 g/dl (12.0-16.0); Immature Granulocytes # (auto) 0.08 K/uL (0.01-0.20); Immature Granulocytes % (auto) 0.6 %; Lymphocytes # (auto) 2.74 K/uL (1.2-3.4); Lymphocytes % (auto) 21.8 %; Mean Corpuscular Hemoglobin 29.5 pg (25.0-34.0); Mean Corpuscular Hgb Conc 32.4 g/dL (32.0-36.0); Mean Corpuscular Volume 91.1 fL (80.0-100.0); Mean Platelet Volume 11.3 fL (9.4-12.4); Monocytes # (auto) 0.95 K/uL (0.11-0.59); Monocytes % (auto) 7.6 %; Neutrophils # (auto) 8.48 K/uL (1.40-6.50); Neutrophils % (auto) 67.6 %; Platelet Count 258 K/uL (130-400); RDW Coefficient of Variation 13.8 % (11.5-14.5); RDW Standard Deviation 45.7 fL (36.4-46.3); Red Blood Count 4.51 M/uL (4.20-5.40); White Blood Count 12.55 K/ul (4.8-10.8)
[2022-06-03 06:51] LABS: BUN Creatinine Ratio 37.5 (10-20); Calcium 8.8 mg/dl (8.5-10.1); Creatinine Clr Calc Pharmacy 64.9 ml/min; Est GFR (African American) 87.2 ml/min; Est GFR (Non-African American) 75.2 ml/min; Magnesium 2.1 mg/dl (1.7-2.4); Potassium 3.8 mmol/L (3.5-5.1)
[2022-06-03] MEDS: POTASSIUM CHLORIDE 10 MEQ TABCR PO SCH (08:24)
[2022-06-03] MEDS: ATORVASTATIN 40 MG TAB PO SCH (08:24)
[2022-06-03] MEDS: THIAMINE HCL 100 MG TAB PO SCH (08:24)
[2022-06-03] MEDS: ADVANCED PROBIOTIC 1250 MG CAPSULE PO SCH (08:24)
[2022-06-03] MEDS: FOLIC ACID 1 MG TAB PO SCH (08:24)
[2022-06-03] MEDS: METOPROLOL TARTRATE 25 MG TAB PO SCH (08:24)
[2022-06-03] MEDS: FLUTICASONE/VILANTEROL 100/25MCG 14 PUFFS/INHALER INH SCH (08:25)
[2022-06-03] MEDS: bisacodyL 10 MG SUPP PR SCH (08:25)
[2022-06-03] MEDS: INSULIN ASPART PER UNIT SC SCH ×2 (08:37→12:23)
[2022-06-03] MEDS ORDERED: lisinopril 40 MG TAB PO SCH (09:00)
[2022-06-03] MEDS: APIXABAN 2.5 MG TAB PO SCH (09:22)
[2022-06-03] MEDS ORDERED: POLYETHYLENE (MIRALAX) 17 GM PACK PO PRN (09:55)
[2022-06-03] MEDS ORDERED: FUROSEMIDE 40 MG/4 ML VIAL IV SCH (10:00)
--- NOTE | 2022-06-03 10:22 | XRay Report ---
XR chest 1V portable HISTORY: Shortness of breath. f/u CHF COMPARISON: Chest 06/02/2022. FINDINGS: No pneumothorax. Trace bilateral pleural effusions have improved. A few bibasilar linear de nsities favor subsegmental atelectasis. Otherwise, lungs are clear. The pulmonary edema has resolved. Mildly tortuous and calcified thoracic aorta again noted. The heart is normal in size. Cervical spin al fusion hardware. IMPRESSION: 1. Interval resolution of the pulmonary edema. 2. Trace bilateral pleural effusions have also improved. ACT 112: Negative or not required by law. Electronically signed by: Bruce Hunter M.D. 06/03/2022 10:21 AM
--- NOTE | 2022-06-03 12:03 | Discharge Summary ---
Date of Service June 03, 2022 Admission HPI Per Admitting Provider This is a 67-year-old female with PMHx of HTN, HLD, ANGELITA and COPD overlap syndrome, history of abdominal AAA measuring 4.3 cm, PVD, CKD stage III, chronic low back pain, and history of GI bleed who presents to the ER with acute worsening abdominal distention. She has not had a bowel movement in nearly two weeks,and reports her appetite has been significantly reduced since then She reports that she is nauseous with dry heaves but denies any vomiting today. She feels extremely distended in her abdomen and denies any positional changes alleviate her pain. She has been using enemas, laxative, stool softener and suppository to help alleviate her abdominal pain and promote a bowel movement without success. She has also been using bismuth salicylate p.o. the last 2 days without any relief. She denies any recent illnesses. She lives at home with her son and grandson. Patient also notes that she has had multiple abdominal surgeries including appendectomy, x2, hysterectomy, inguinal hernia repair in the past. She has had no recent abdominal surgeries however. Patient did not take any of her home medications today due to abdominal pain. Principal Diagnosis Diverticular stricture Colonic obstruction Acute Left KATARZYNA stroke Acute diastolic CHF Acute hypoxic respiratory failure Paroxysmal A fib with RVR Discharge Exam Patient was seen and examined on the day of discharge. When asked how she feels, " I feel great!". On exam, appears well Breathing comfortably on nasal canula, no wheezing/rhonchi Regular rate and rhythm Abdomen is soft, non tender Extremities with no edema Discharge Data Allergies Allergy/AdvReac Type Severity Reaction Status Date / Time chlorhexidine Allergy Intermediate ITCHING,RED Verified 05/21/22 16:05 NESS Quinolones Allergy Intermediate RASH-cipro Verified 05/21/22 16:05 Sulfa (Sulfonamide Allergy Intermediate RASH Verified 05/21/22 16:05 Antibiotics) Penicillins Allergy Unknown Unknown Verified 05/21/22 16:05 azithromycin Allergy Anaphylaxis Verified 05/21/22 16:05 Consultations 05/21/22 15:42 Consult General Surgery Routine 05/21/22 16:03 ED Decision to Admit Stat 05/21/22 16:14 Consult Gastroenterology Routine 05/21/22 21:09 Consult General Surgery Routine 05/26/22 15:26 Consult Cardiology Routine 05/26/22 23:07 Consult Neurology Routine Procedures Performed Operation Date: 05/26/22 13:00 Actual Procedures p Colonoscopy with stent placement - Rbeekah Hope, Ordered Studies 05/21/22 09:13 CT abd pelvis wo con Stat 05/23/22 09:16 CT head/brain wo con Stat 05/26/22 13:00 FL KUB Routine 05/26/22 21:33 CT angio head w con Urgent CT angio neck with con Urgent CT head/brain wo con Urgent 05/27/22 00:00 MR brain wo con Routine 06/02/22 11:30 FL video swallow Routine Hospital Course (1) Diverticular stricture: Plan 67-year-old lady with PMH of HTN, HLD, ANGELITA and COPD overlap syndrome, AAA measuring 4.3 cm, PVD, CKD stage III, chronic low back pain and history of GI bleed presented to the ED 05/21 with complaint of abdominal distension with no bowel movements in 2 weeks found to have colonic obstruction due to diverticular stricture now status post stenting. Her hospital course was complicated by onset of atrial fibrillation with RVR during endoscopy and afterwards found to have acute stroke. Hospital course by problem as below. IMAGINGS: 05/21 CTAP: Thickening of the wall of the sigmoid and transverse colon compatible with nonspecific colitis. Nonspecific focal narrowing at the junction of the descending colon and proximal sigmoid which may represent stricture or obstructive mass or physiologic underdistention. 05/22 KUB x-ray: Increasing gaseous distention compatible of small as well as large bowel obstruction. 05/23 KUB x-ray: A stable to slightly improved large and small bowel dilation suspicious for distal obstruction. 05/23 CT head: No acute findings. 05/24 KUB x-ray: Somewhat improved gaseous distention of large and small bowel. 05/25 KUB x-ray: Mild improvement in the degree of large bowel distention. Persistent large and small bowel distention. 05/26 KUB x-ray: Persistent large and small bowel distention concerning for distal large bowel obstruction. 05/27 KUB x-ray: Status post placement of a colonic stent with colonic obstruction, mildly decreased large and small bowel gaseous distention. 05/28 KUB X-ray: Interval improvement in gaseous distention of the large and small bowel. Abdominal discomfort Small and large bowel obstruction Diverticulitis complicated with likely diverticular stricture Patient presents with acute worsening of abdominal distention associated with decreased appetite and no bowel movement for 2 weeks prior to arrival. Last colonoscopy on 02/12/2021, showing normal colon, significant left-sided diverticulosis, internal hemorrhoids Last EGD on 10/05/2021 after a GI bleed, esophagus was normal, stomach was normal no ulcers and normal examined duodenum Admitting imagings and follow-up imagings ----see above. Admitting blood culture, No Growth 5 days. Underwent Colonoscopy on 05/26/2022 --Severe diverticulosis in the sigmoid colon with narrowing of the colon in association with diverticular opening noted. Stricture in the distal descending colon noted, stent placed. No specimens collected. General surgery evaluated and plan for outpatient surgery follow up to discuss resection. Finished 10 day course of cefepime and metronidazole for diverticulitis. Having bowel movements and tolerating a diet prior to discharge. A. fib with RVR -Patient developed A. fib with RVR with heart rate in the 140s during colono scopy 05/26 while she was intubated received esmolol and spontaneously converted to sinus rhythm. She remained in sinus rhythm for the remainder of her hospital stay. -Evaluated by Cardiology here and started on metoprolol and Eliquis 2.5mg BID (off label use, dose reduced to avoid bleeding complications) with plan to increase eliquis dose later on if she tolerates this lower dose. Will need to follow up with Cardiology after discharge. -Eliquis was held overnight due to epistaxis related to suctioning, epistaxis now resolved so Eliquis will be resumed Acute left KATARZYNA Stroke -Patient noted to be less responsive the night of 05/26 and a stroke alert was called. She was found to have a left KATARZYNA territory stroke on imaging. [place] neurology was contacted by night team which recommended resuming of home ASA and possible anticoagulation. 05/26 CT head:Acute left anterior cerebral artery distribution infarct with mild mass effect including sulcal effacement and mild subfalcine shift.Short-term follow-up head CT could be obtained to reassess mass effect. 05/26 CTA head: 1. Abrupt occlusion of the A2 segment of the left anterior cerebral artery which accounts for acute infarct shown on head CT. 2. Extensive plaque within the intracranial vessels. Moderate to severe multifocal stenoses, as described above. 05/26 CTA neck: 1. Extensive atherosclerotic plaque within the bilateral carotid bifurcations which results in mild stenosis of the proximal right internal carotid artery. No significant stenosis of the left common carotid or cervical internal carotid artery. 2. Moderate to severe multifocal stenoses within the left vertebral artery, as above. Dominant, patent right vertebral artery. 3. Emphysema, bilateral pleural effusions and extensive plaque of the aortic arch, partially visualized within the chest. 05/27 brain MRI:Acute left anterior cerebral artery distribution infarct. Mild mass effect with sulcal effacement. No acute hemorrhage. 05/27 echo reviewed, unremarkable. A1c of 6.9, LDL of 31. Evaluated by Neurology with recommendations for life style modification, follow up A1c in 3 months, recommend anticoagulation and discontinuation of aspirin. 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 Will be discharged to [facility] for continued rehab Wheezing, history of asthma--- improved, nebs as needed. Poorly controlled Hypertension -Lisinopril increased to 40mg daily, continue metoprolol 25mg BID and lasix 20mg daily added Acute diastolic CHF Acute hypoxic respiratory failure -the night of 06/01 developed worsening shortness of breath. CXR shows findings consistent with CHF. -Improved with treatment with parenteral diuresis. Repeat CXR 06/03 shows resolved CHF but patient still requiring oxygen supplementation. -Discharged on lasix 20mg daily -With her underlying smoking history, suspect she has underlying COPD which would be contributing to her hypoxia. Would continue to wean oxygen as tolerated and assess for home oxygen need prior to discharge from rehab s/p lasix 20mg IV once 06/01. Will give another dose of lasix 20mg IV now. Reassess need for lasix at time of discharge Other chronic medical conditions:HLD, AAA, DM2, CKD stage IIIa DVT prophylaxis:eliquis CODE STATUS:Full code Disposition:Patient discharged to [facility] for continued rehab Total Time Total Time Spent Total Time Spent (In Minutes): 60 Discharge Plan Discharge Items Patient Disposition: Transfer Shelter Fac Reason For Visit: ABDOMINAL DISTENSION Discharge Diagnosis: Diverticular stricture Colonic obstruction Acute Left KATARZYNA stroke Acute diastolic CHF Acute hypoxic respiratory failure Paroxysmal A fib with RVR Condition on Discharge: Good Activity: Resume your previous activity Non-emergency contact: Primary Care Provider, Surgeon, Crtts, Hotbed Transfer Operator and Neurologist Call non-emergency contact if: you have any medication questions and your symptoms worsen Follow-up/Referrals: Gallo Montero DO, FACS [Physician] - (Call to schedule follow up in clinic within 1-2 weeks for surgical planning) Pedro Saba MD [Primary Care Provider] - Diet: Low Fiber Addtl Attending Provider Instructions: Please follow up with surgery to determine time line for bowel surgery Please follow up with Cardiology for management of your A fib and to discuss when Eliquis dose can be increased Pending Studies at Discharge: No Stand-Alone Forms: My [facility], Medications to Prevent Stroke Skilled Items Patient informed of condition?: Yes DNR: No Discharge Level of Care: Skilled Communicable Disease: No Discharge Prognosis: Stable Lines: None Urinary Catheter: No Medications and DC Order Prescriptions: New Eliquis 2.5 mg tablet 2.5 mg PO BID Qty: 60 0RF polyethylene glycol 3350 [Miralax] 17 gram Powder In Packet 17 g PO DAILY 30 Days Qty: 30 0RF lisinopril [Zestril] 40 mg Tablet 40 mg PO QAM 30 Days Qty: 30 0RF ipratropium bromide 0.02 % Solution 0.5 mg inhalation Q6RWA PRN (Reason: shortness of breath or wheezing) 30 Days Qty: 30 0RF potassium chloride 10 mEq Tablet,Er Particles/Crystals 10 meq PO DAILY 7 Days Qty: 7 0RF metoprolol tartrate 25 mg Tablet 25 mg PO BID 30 Days Qty: 60 0RF levalbuterol HCl 1.25 mg/0.5 mL Solution For Nebulization 1.25 mg inhalation Q6RWA PRN (Reason: shortness of breath or wheezing) 30 Days Qty: 30 0RF fluticasone furoate-vilanterol [Breo Ellipta] 100-25 mcg/dose Blister With Device 1 puff inhalation DAILY 30 Days Qty: 1 0RF furosemide [Lasix] 20 mg tablet 20 mg PO DAILY Qty: 30 0RF Continued rosuvastatin 20 mg tablet 20 mg PO HS pantoprazole 40 mg tablet,delayed release (DR/EC) 40 mg PO QAM duloxetine 30 mg capsule,delayed release(DR/EC) 30 mg PO QAM amlodipine 5 mg tablet 5 mg PO QAM montelukast 10 mg tablet 10 mg PO HS Discontinued lisinopril 30 mg tablet 30 mg PO QAM aspirin [Aspir-81] 81 mg Tablet,Delayed Release (Dr/Ec) 81 mg PO DAILY bismuth subsalicylate 262 mg Tablet 2 tab PO QID PRN (Reason: Gi Upset) Discharge Orders: Discharge Order- CHF (Routine); Ordered 06/03/22 Ordered By: Lexi Jeronimo/Other Patient Handouts: Managing Type 2 Diabetes, Staying Smoke-Free, Stroke Self Care After Admission Data Admit Date/Time: 05/21/22 16:14 Attending Provider: Lexi Salazar Admit Provider: Eleonora East Primary Care Provider: Pedro Saba Other Providers: Gallo Montero ; Rex Armstrong ; Eleonora East ; Negrita Brooks ; Alessio Jiang ; Vel Miner ; [place],[facility] ; [facility] ; Charissa Poole Other Interventions: Discharge Summary Assessment (RN) Last Done: 06/03/22 15:50
[2022-06-04] MEDS ORDERED: POLYETHYLENE (MIRALAX) 17 GM PACK PO SCH (09:00)
== END 2022-06-03 15:51 | DRG 388 ==
LOC: ED 08:54 → 2N 16:14 → SUATTDRO 16:14 → 2N 21:11 → 1E 05-26 21:58 → 2E 05-26 22:56

== ENCOUNTER 2022-06-11 11:21 | Inpatient (IN) ==
--- NOTE | 2022-06-11 11:39 | Emergency Department Note ---
Impression & Plan Large bowel obstruction, Small bowel obstruction, Colonic stricture ED Provider Note Name: ERIKA HI Age: 67 Sex: F Arrives Via: Ambulance Informant: Patient, EMS, rehab physician ED Provider: Tremaine Haywood MD Chief Complaint: Abdominal distention Impression: As per impressions above Medical Decision Makin-year-old female with a history of hypertension, dyslipidemia, AAA, ANGELITA, COPD, PVCs, CKD arrives for evaluation of increasing abdominal distention. Patient had been admitted to the hospital in May 2022 for worsening abdominal distention at that time and found to have a diverticular stricture with obstruction. On the she was stented by GI. Unfortunately during this procedure patient went into A-fib RVR and that evening had a stroke resulting in extensive right-sided paralysis and neglect. She has since been on Eliquis. Currently did start having some bowel outs though concern for remaining partial obstruction. She has been at rehab for the last few days. Due to worsening distention concern for obstruction she was sent to the ER. CT here does reveal colonic stricture resulting in large bowel obstruction and small bowel obstr uction.: Is about 8 cm. Patient does not have any hallmarks of ischemia without any significant pain or significant tenderness palpation. Though she is quite distended. Patient has been declining any pain medications she is not significantly tachycardic and in no respiratory distress. Laboratory work-up is relatively benign with a white count of 14 but that seems to be stable for her. I discussed the case with general surgery (Dr Yusuf) who advised I discussed that with GI. I discussed the case with GI (Dr Hope & Dr Liu) who advised I discussed again with Gen surg as there is nothing really more to do from GI perspective given failure of stenting. I discussed it with Dr Yusuf who advised transfer for higher level of care. I discussed the case with Dr. De La Torre at [facility] for surgery who noted they will accept the patient however they will not be able to accept her for the next 1 to 2 days and advise she be evaluated by our general surgeon. I once again discussed it with Dr Yusuf who evaluated the patient at bedside and once again stated the patient needed to be transferred and she should be transferred immediately. I called [facility] and discussed the case with Dr. Ibrahim with her colorectal surgeon. He requested to talk to the Dr Yusuf who after their discussion will take the patient to the operating room at our facility. Dr. Yusuf was advised by Dr. Ibrahim to do a diverting colostomy. I discussed the case further with Dr. Jj who will manage the patient from a medical perspective is aware the plan for Dr. Yusuf to take to the OR. Prior Medical Record and Triage/Nursing Notes reviewed by Me Extensive chart review including recent discharge summary as well as discussions with rehab provider regarding patient's background history Differentials:Small bowel obstruction, large bowel obstruction, bowel ischemia, abscess, aspiration, diverticulitis, multiple other pathologies considered. Vital Signs: reviewed and remarkable for no significant abnormalities Interventions: Nss infusion, ativan, ng tube Labs:Reviewed and remarkable for WBC 14 she is mildly above her baseline. Other labs are mostly unremarkable including CBC, BMP, LFTs, lipase Imaging:CT of the abdomen pelvis and formal read by me reveals colonic obstruction with 8 cm colonic distention and the large bowel obstruction extending through to the small bowel but without much gastric secretions noted. See radiologist read for full report EKG:As per my interpretation. Indication preoperative testing. Normal sinus rhythm 85 bpm with a QTc of 442. There is no ectopy nor ischemia. When compared to an EKG from May 26, 2022 there is no significant change Cardiac/Tele Monitoring: Cardiac Monitoring: An Order was placed for continuous cardiac monitoring. The monitor shows a rate of 80 with a normal sinus rhythm. Consults:Dr. Yusuf of [facility] general surgery service at [place]. Dr. Liu/Jayy of the GI service at [facility]. Dr. De La Torre at [facility]. Dr. Ibrahim at [facility]. [facility] and not any Plan: Disposition:Hospitalization/OR planned Condition: Fair History of Present Illness:67-year-old female arrives for evaluation of abdominal distention. Patient with extensive history though complex last 2 weeks. She had a diverticular stricture stented about 2 weeks ago. This was complicated by postop stroke due to paroxysmal A-fib. She has been in a local rehab facility for the last few days. Increasing abdominal distention and some discomfort. KUB showed possible obstruction yesterday. Labs were unremarkable this morning. Patient on evaluation states she is not in any distress but states she has no appetite. She denies any recent vomiting or headaches neck pain or other concerning signs or symptoms. No medications prior to arrival today however did had an enema yesterday without any bowel outs. Past History:Extensive past medical surgical history see below Home Medications:See Below Allergies:See Below Vitals:Blood Pressure: 126/50, Pulse 67, RR 16, T 37.3C, O2 96% on 2L Physical Exam: GENERAL: Patient is chronically unwell appearing and in mild distress. EYES: No scleral icterus, unremarkable pupils. ENT: Mucous membranes dry, no nasal congestion. RESPIRATORY: No dyspnea. Clear to auscultation and equal bilaterally. No wheeze, no rhonchi. CARDIOVASCULAR: Regular rate and rhythm.No murmurs, rubs, gallops appreciated. GASTROINTESTINAL: Distended tympanic abdomen with hyperactive bowel sounds no tenderness to palpation EXTREMITIES: Normal motion all extremities, no cyanosis, no edema. NEUROLOGIC: Alert and oriented, tired exhausted with right arm leg weakness SKIN: No rash, no jaundice, no diaphoresis. PSYCH: Appropriate GCS: 15 ED Course: Times/Reassessments: Extensive repeat evaluations of patient. Patient is stable not vomiting but continues to have a significantly distended tympanic abdomen. I we discussed with patient multiple times especially when and of care changed. I will note patient was quite somnolent following the NG tube as she had required some Ativan due to significant discomfort. Patient does not appear in respiratory distress but is unable to give further information. Critical Care: I have personally spent 90 minutes of critical care time in the direct management of this patient. Acute large bowel obstruction requiring emergent surgery with extensive coordination of care including discussions with multiple outside hospital surgeons as well as not a surgeon. This was a life/limb threatening event. This 90 minutes is in excess of all separately billable procedures. Tremaine Haywood MD Past Med/Surg History Medical History AAA (abdominal aortic aneurysm) Abnormal thyroid function test Diverticular stricture DM II (diabetes mellitus, type II), controlled Dysfunction of right eustachian tube Feeling light headed Hematochezia HLD (hyperlipidemia) Hypertension Kidney disease stage III Large bowel obstruction Lower gastrointestinal hemorrhage Lung disease Otalgia, right ear Sensorineural hearing loss (SNHL) of right ear with restricted hearing of left ear Surgical History History of back surgery History of delivery x2 History of hernia repair x2 History of knee replacement bilateral History of ovarian cystectomy History of vaginal hysterectomy Family History Other Allergies Asthma Cancer Hearing loss Heart disease Hypertension Social History Smoking Status: Former smoker Tobacco Type: Cigarettes packs per day: 0.5; Cigarettes Per Day: 5; Second Hand Exposure: No; Hx Alcohol Use: No Preferred Language: Burmese Communication Ability: difficult Communication Ability Comment: old admisson used to answer questions, follows commands, speech garbled Special Education Educational Assistant Required: No Beliefs That Will Affect Care: None marital status: Single Current Living Situation: Family current occupational status: retired How many Children do You have: 1 Feels Safe at Home: Yes Assistive Devices: None Allergies Allergies Allergy/AdvReac Type Severity Reaction Status Date / Time chlorhexidine Allergy Intermediate ITCHING,RED Verified 05/21/22 16:05 NESS ciprofloxacin [From Cipro] Allergy Intermediate Rash Verified 06/11/22 19:59 Quinolones Allergy Intermediate RASH-cipro Verified 05/21/22 16:05 Sulfa (Sulfonamide Allergy Intermediate RASH Verified 05/21/22 16:05 Antibiotics) Penicillins Allergy Unknown Unknown Verified 05/21/22 16:05 azithromycin Allergy Anaphylaxis Verified 05/21/22 16:05 Home Meds Home Medications Medication Instructions Recorded Confirmed rosuvastatin 20 mg tablet 20 mg PO HS 09/03/20 06/11/22 montelukast 10 mg tablet 10 mg PO HS 10/02/21 06/11/22 amlodipine 5 mg tablet 5 mg PO QAM 05/21/22 06/11/22 duloxetine 30 mg capsule,delayed 30 mg PO QAM 05/21/22 06/11/22 release pantoprazole 40 mg tablet,delayed 40 mg PO QAM 05/21/22 06/11/22 release Previous Rx's Medication Instructions Recorded apixaban 2.5 mg tablet (Eliquis) 2.5 mg PO BID #60 tabs 05/28/22 fluticasone furoate 100 1 puff inhalation DAILY 30 days #1 06/03/22 mcg-vilanterol 25 mcg/dose ea inhalation powder (Breo Ellipta) furosemide 20 mg tablet (Lasix) 20 mg PO DAILY #30 tabs 06/03/22 ipratropium bromide 0.02 % 0.5 mg (2.5 mL) inhalation Q6RWA 06/03/22 solution for inhalation PRN shortness of breath or wheezing 30 days #30 mL levalbuterol HCl 1.25 mg/0.5 mL 1.25 mg (0.5 mL) inhalation Q6RWA 06/03/22 solution for nebulization PRN shortness of breath or wheezing 30 days #30 ea lisinopril 40 mg tablet (Zestril) 40 mg PO QAM 30 days #30 tabs 06/03/22 metoprolol tartrate 25 mg tablet 25 mg PO BID 30 days #60 tabs 06/03/22 polyethylene glycol 3350 17 gram 17 g PO DAILY 30 days #30 ea 06/03/22 oral powder packet (Miralax) Results & Data (ED) Vital Signs Vital Signs - 24 hr 06/11/22 11:12 06/11/22 11:12 06/11/22 11:53 Temperature 37.3 C Temperature Source Oral Pulse Rate 70 73 Pulse Rate from SpO2 Sensor 71 Pulse Rhythm Regular Pulse Strength Normal Respiratory Rate 14 15 21 Respiratory Effort / Characteristics Non-Labored Non-Labored Respiratory Depth Normal Normal Respiratory Pattern Regular Regular Blood Pressure 150/80 H Blood Pressure Mean 103 Pulse Oximetry 98 99 Oxygen Delivery Method Nasal Cannula Oxygen Flow Rate 2 Sepsis Recent Fever Within 48 Hours No Sepsis New/Unexplained Change in Mental Status N/A Sepsis Action Taken by Nursing No Action Required 06/11/22 12:10 06/11/22 12:11 06/11/22 12:11 Temperature Temperature Source Pulse Rate 75 Pulse Rate from SpO2 Sensor 75 75 Pulse Rhythm Pulse Strength Respiratory Rate 21 Respiratory Effort / Characteristics Respiratory Depth Respiratory Pattern Blood Pressure 176/87 H Blood Pressure Mean 116 Pulse Oximetry 99 100 Oxygen Delivery Method Oxygen Flow Rate Sepsis Recent Fever Within 48 Hours Sepsis New/Unexplained Change in Mental Status Sepsis Action Taken by Nursing 06/11/22 12:30 06/11/22 12:30 06/11/22 13:00 Temperature Temperature Source Pulse Rate 68 Pulse Rate from SpO2 Sensor 68 Pulse Rhythm Pulse Strength Respiratory Rate 21 Respiratory Effort / Characteristics Respiratory Depth Respiratory Pattern Blood Pressure 168/100 H 165/99 H Blood Pressure Mean 122 121 Pulse Oximetry 98 Oxygen Delivery Method Oxygen Flow Rate Sepsis Recent Fever Within 48 Hours Sepsis New/Unexplained Change in Mental Status Sepsis Action Taken by Nursing 06/11/22 13:00 06/11/22 13:30 06/11/22 13:30 Temperature Temperature Source Pulse Rate 72 74 Pulse Rate from SpO2 Sensor 74 73 Pulse Rhythm Pulse Strength Respiratory Rate 20 20 Respiratory Effort / Characteristics Respiratory Depth Respiratory Pattern Blood Pressure 150/88 H Blood Pressure Mean 108 Pulse Oximetry 95 94 Oxygen Delivery Method Oxygen Flow Rate Sepsis Recent Fever Within 48 Hours Sepsis New/Unexplained Change in Mental Status Sepsis Action Taken by Nursing 06/11/22 14:00 06/11/22 14:00 06/11/22 14:30 Temperature Temperature Source Pulse Rate 71 73 Pulse Rate from SpO2 Sensor 70 72 Pulse Rhythm Pulse Strength Respiratory Rate 21 16 Respiratory Effort / Characteristics Respiratory Depth Respiratory Pattern Blood Pressure 149/87 H Blood Pressure Mean 107 Pulse Oximetry 95 95 Oxygen Delivery Method Oxygen Flow Rate Sepsis Recent Fever Within 48 Hours Sepsis New/Unexplained Change in Mental Status Sepsis Action Taken by Nursing 06/11/22 14:31 06/11/22 14:31 06/11/22 15:00 Temperature Temperature Source Pulse Rate 75 Pulse Rate from SpO2 Sensor 74 Pulse Rhythm Pulse Strength Respiratory Rate 21 Respiratory Effort / Characteristics Respiratory Depth Respiratory Pattern Blood Pressure 160/111 H 155/89 H Blood Pressure Mean 127 111 Pulse Oximetry 96 Oxygen Delivery Method Oxygen Flow Rate Sepsis Recent Fever Within 48 Hours Sepsis New/Unexplained Change in Mental Status Sepsis Action Taken by Nursing 06/11/22 15:00 06/11/22 15:30 06/11/22 15:30 Temperature Temperature Source Pulse Rate 71 74 Pulse Rate from SpO2 Sensor 72 74 Pulse Rhythm Pulse Strength Respiratory Rate 17 20 Respiratory Effort / Characteristics Respiratory Depth Respiratory Pattern Blood Pressure 165/93 H Blood Pressure Mean 117 Pulse Oximetry 96 97 Oxygen Delivery Method Oxygen Flow Rate Sepsis Recent Fever Within 48 Hours Sepsis New/Unexplained Change in Mental Status Sepsis Action Taken by Nursing 06/11/22 16:00 06/11/22 16:00 06/11/22 16:30 Temperature Temperature Source Pulse Rate 82 Pulse Rate from SpO2 Sensor 81 Pulse Rhythm Pulse Strength Respiratory Rate 19 Respiratory Effort / Characteristics Respiratory Depth Respiratory Pattern Blood Pressure 159/98 H 151/87 H Blood Pressure Mean 118 108 Pulse Oximetry 94 Oxygen Delivery Method Oxygen Flow Rate Sepsis Recent Fever Within 48 Hours Sepsis New/Unexplained Change in Mental Status Sepsis Action Taken by Nursing 06/11/22 16:30 Temperature Temperature Source Pulse Rate 85 Pulse Rate from SpO2 Sensor 84 Pulse Rhythm Pulse Strength Respiratory Rate 15 Respiratory Effort / Characteristics Respiratory Depth Respiratory Pattern Blood Pressure Blood Pressure Mean Pulse Oximetry 94 Oxygen Delivery Method Oxygen Flow Rate Sepsis Recent Fever Within 48 Hours Sepsis New/Unexplained Change in Mental Status Sepsis Action Taken by Nursing Laboratory Data 06/11/22 13:11 06/11/22 13:11 Lab Results 06/11/22 06/11/22 06/11/22 Range/Units 00:00 13:11 13:11 WBC 11.97 H (4.8-10.8) K/ul RBC 4.70 (4.20-5.40) M/uL Hgb 13.9 (12.0-16.0) g/dl Hct 42.3 (37.0-47.0) % MCV 90.0 (80.0-100.0) fL MCH 29.6 (25.0-34.0) pg MCHC 32.9 (32.0-36.0) g/dL RDW Std Deviation 47.4 H (36.4-46.3) fL RDW Coeff of Susan 14.3 (11.5-14.5) % Plt Count 350 (130-400) K/uL MPV 11.2 (9.4-12.4) fL Immature Gran % (Auto) 0.7 % Neut % (Auto) 78.8 % Lymph % (Auto) 10.5 % [place] % (Auto) 8.9 % Eos % (Auto) 0.6 % Baso % (Auto) 0.5 % Neut # (Auto) 9.44 H (1.40-6.50) K/uL Lymph # (Auto) 1.26 (1.2-3.4) K/uL [place] # (Auto) 1.06 H (0.11-0.59) K/uL Eos # (Auto) 0.07 (0-0.50) K/uL Baso # (Auto) 0.06 (0-0.2) K/uL Immature Gran # (Auto) 0.08 (0.01-0.20) K/uL Sodium 139 (136-145) mmol/L Potassium 4.7 (3.5-5.1) mmol/L Chloride 111 H (98-107) mmol/L Carbon Dioxide 20 L (21-32) mmol/L Anion Gap 8 (3-11) BUN 41 H (6-23) mg/dl Creatinine 0.73 (0.6-1.2) mg/dl Est Cr Clr Drug Dosing 73.4 ml/min Est GFR ( Amer) 97.4 ml/min Est GFR (Non-Af Amer) 84.0 ml/min BUN/Creatinine Ratio 56.2 H (10-20) Glucose 143 H (70-99(Fasting)) mg/dl Calcium 9.0 (8.5-10.1) mg/dl Magnesium 2.0 (1.7-2.4) mg/dl Total Bilirubin 0.5 (0.2-1.0) mg/dl Direct Bilirubin 0.0 (0-0.2) mg/dl AST 14 (13-39) U/L ALT 8 (7-52) U/L Alkaline Phosphatase 64 (34-104) U/L Total Protein 6.5 (6.0-8.3) gm/dl Albumin 3.2 L (3.4-5.0) gm/dl Lipase 15 (11-82) U/L Nasal Screen MRSA (PCR) Negative (Negative) SARS-CoV-2 (PCR) (Negative) Influenza Type A (PCR) (Neg) Influenza Type B (PCR) (Neg) RSV (RT-PCR) (Neg) 06/11/22 Range/Units 16:04 WBC (4.8-10.8) K/ul RBC (4.20-5.40) M/uL Hgb (12.0-16.0) g/dl Hct (37.0-47.0) % MCV (80.0-100.0) fL MCH (25.0-34.0) pg MCHC (32.0-36.0) g/dL RDW Std Deviation (36.4-46.3) fL RDW Coeff of Susan (11.5-14.5) % Plt Count (130-400) K/uL MPV (9.4-12.4) fL Immature Gran % (Auto) % Neut % (Auto) % Lymph % (Auto) % [place] % (Auto) % Eos % (Auto) % Baso % (Auto) % Neut # (Auto) (1.40-6.50) K/uL Lymph # (Auto) (1.2-3.4) K/uL [place] # (Auto) (0.11-0.59) K/uL Eos # (Auto) (0-0.50) K/uL Baso # (Auto) (0-0.2) K/uL Immature Gran # (Auto) (0.01-0.20) K/uL Sodium (136-145) mmol/L Potassium (3.5-5.1) mmol/L Chloride (98-107) mmol/L Carbon Dioxide (21-32) mmol/L Anion Gap (3-11) BUN (6-23) mg/dl Creatinine (0.6-1.2) mg/dl Est Cr Clr Drug Dosing ml/min Est GFR ( Amer) ml/min Est GFR (Non-Af Amer) ml/min BUN/Creatinine Ratio (10-20) Glucose (70-99(Fasting)) mg/dl Calcium (8.5-10.1) mg/dl Magnesium (1.7-2.4) mg/dl Total Bilirubin (0.2-1.0) mg/dl Direct Bilirubin (0-0.2) mg/dl AST (13-39) U/L ALT (7-52) U/L Alkaline Phosphatase (34-104) U/L Total Protein (6.0-8.3) gm/dl Albumin (3.4-5.0) gm/dl Lipase (11-82) U/L Nasal Screen MRSA (PCR) (Negative) SARS-CoV-2 (PCR) NEGATIVE (Negative) Influenza Type A (PCR) Negative (Neg) Influenza Type B (PCR) Negative (Neg) RSV (RT-PCR) Negative (Neg) Administered Medications Acetaminophen (Acetaminophen 325 Mg Tab) 650 mg PO Q4H PRN PRN Reason: Pain or Fever Stop: 07/11/22 19:08 Last Admin: 06/12/22 04:49 Dose: 650 mg Documented By: MANISH Amlodipine Besylate (Amlodipine Besylate 5 Mg Tab) 5 mg PO [facility] Stop: 07/12/22 08:59 Last Admin: 06/12/22 08:03 Dose: 5 mg Documented By: ROGELIO Duloxetine HCl (Duloxetine Hcl 30 Mg Cap) 30 mg PO [facility] Stop: 07/12/22 08:59 Last Admin: 06/12/22 08:02 Dose: Not Given Documented By: ROGELIO Fentanyl Citrate (Fentanyl Bolus From Bag) 50 mcg IV Q60M PRN PRN Reason: Pain or Agitation Stop: 06/25/22 22:39 Last Admin: 06/12/22 05:07 Dose: 50 mcg Documented By: MANISH Co-signed By: ELEN Fluticasone/Vilanterol (Fluticasone/Vilanterol 100/25mcg 14 Puffs/Inhaler) 1 puffs INH DAILY [facility] Stop: 07/12/22 08:59 Last Admin: 06/12/22 08:01 Dose: Not Given Documented By: ROGELIO Propofol (Diprivan) 1,000 mg in 100 mls @ 5.967 mls/hr IV .[id number] [facility]; Protocol Stop: 06/14/22 22:44 Last Titration: 06/12/22 07:00 Dose: 15 mcg/kg/min, 6 mls/hr Documented By: MANISH Co-signed By: ROGELIO Titration: 06/12/22 05:55 Dose: 15 mcg/kg/min, 6 mls/hr Documented By: Titration: 06/12/22 05:45 Dose: 20 mcg/kg/min, 8 mls/hr Documented By: Titration: 06/12/22 05:36 Dose: 25 mcg/kg/min, 9.9 mls/hr Documented By: Admin: 06/12/22 05:07 Dose: 30 mcg/kg/min, 11.9 mls/hr Documented By: MANISH Co-signed By: [facility] Titration: 06/12/22 05:07 Dose: 30 mcg/kg/min, 11.9 mls/hr Documented By: MANISH Co-signed By: [facility] Titration: 06/11/22 22:55 Dose: 30 mcg/kg/min, 11.9 mls/hr Documented By: Titration: 06/11/22 22:50 Dose: 25 mcg/kg/min, 9.9 mls/hr Documented By: Admin: 06/11/22 22:40 Dose: 20 mcg/kg/min, 8 mls/hr Documented By: MANISH Co-signed By: HAYLEY Fentanyl Citrate (Fentanyl Citrate) 2,500 mcg in 250 mls @ 2.5 mls/hr IV .Q96H [facility]; Protocol Stop: 06/25/22 22:44 Last Titration: 06/12/22 07:00 Dose: 25 mcg/hr, 2.5 mls/hr Documented By: MANISH Co-signed By: ROGELIO Titration: 06/12/22 05:36 Dose: 25 mcg/hr, 2.5 mls/hr Documented By: MANISH Co-signed By: BPY Titration: 06/12/22 01:00 Dose: 50 mcg/hr, 5 mls/hr Documented By: MANISH Co-signed By: [facility] Admin: 06/11/22 23:07 Dose: 25 mcg/hr, 2.5 mls/hr Documented By: MANISH Co-signed By: HAYLEY Potassium Chloride/Dextrose/Sod Cl (D5w And 1/2nss + 20meq Kcl) 20 meq in 1,000 mls @ 80 mls/hr IV .[id number] [facility]; Protocol Stop: 07/11/22 23:29 Last Admin: 06/11/22 23:36 Dose: 80 mls/hr Documented By: MANISH Pantoprazole Sodium 40 mg/ (Syringe) 10 mls @ 5 mls/min IV BID [facility] Stop: 07/11/22 23:29 Last Admin: 06/12/22 07:40 Dose: 5 mls/min Documented By: Admin: 06/11/22 23:36 Dose: 5 mls/min Documented By: MANISH Cefepime HCl 2,000 mg/ Syringe 20 mls @ 5 mls/min IV Q8H [facility]; Protocol Stop: 06/19/22 00:00 Last Admin: 06/12/22 07:39 Dose: 5 mls/min Documented By: Admin: 06/12/22 00:36 Dose: 5 mls/min Documented By: MANISH Metronidazole (Flagyl) 500 mg in 100 mls @ 100 mls/hr IV Q8H [facility] Stop: 06/19/22 00:00 Last Admin: 06/12/22 07:39 Dose: 100 mls/hr Documented By: Infusion: 06/12/22 01:46 Dose: 0 mls/hr Documented By: Admin: 06/12/22 00:36 Dose: 100 mls/hr Documented By: MANISH Magnesium Sulfate/Dextrose (Magnesium Sulfate / D5w) 1 gm in 100 mls @ 50 mls/hr IV Q2H [facility] Stop: 06/12/22 12:14 Last Admin: 06/12/22 08:51 Dose: 50 mls/hr Documented By: ROGELIO Insulin Aspart (Insulin Aspart Per Unit) 0 units SC Q6 [facility] Stop: 07/12/22 06:59 Last Admin: 06/12/22 07:59 Dose: 1 units Documented By: ROGELIO Co-signed By: EVA Lisinopril (Lisinopril 40 Mg Tab) 40 mg PO QAM [facility] Stop: 07/12/22 08:59 Last Admin: 06/12/22 08:03 Dose: 40 mg Documented By: ROGELIO Metoprolol Tartrate (Metoprolol Tartrate 25 Mg Tab) 25 mg PO BID [facility] Stop: 07/12/22 08:59 Last Admin: 06/12/22 08:04 Dose: 25 mg Documented By: ROGELIO Polyethylene Glycol (Polyethylene (Miralax) 17 Gm Pack) 17 gm PO DAILY [facility] Stop: 07/12/22 08:59 Last Admin: 06/12/22 08:05 Dose: 17 gm Documented By: ROGELIO Propofol (Propofol Bolus From Bag) 20 mg IV Q5M PRN PRN Reason: Sedation Stop: 06/14/22 22:39 Last Admin: 06/11/22 23:35 Dose: 20 mg Documented By: MANISH Co-signed By: BRAD Admin: 06/11/22 22:40 Dose: 20 mg Documented By: MANISH Co-signed By: BRAD Discontinued Medications Bacitracin (Bacitracin Oint 15 Gm Tube) Confirm Administered Dose 45 appln .ROUTE .STK-MED ONE Stop: 06/11/22 20:08 Last Admin: 06/11/22 22:15 Dose: Not Given Documented By: MIRLANDE Bupivacaine HCl (Bupivacaine 0.5 % 5 Mg/1 Ml Mpf 30ml Vial) Confirm Administered Dose 30 ml .ROUTE .STK-MED ONE Stop: 06/11/22 20:08 Last Admin: 06/11/22 22:15 Dose: Not Given Documented By: MIRLANDE Ciprofloxacin (Ciprofloxacin 400mg / 200ml D5w) Confirm Administered Dose 400 mg IV .STK-MED ONE Stop: 06/11/22 19:48 Last Admin: 06/11/22 23:09 Dose: Not Given Documented By: MANISH Clindamycin Phosphate (Clindamycin 600 Mg/D5w 50 Ml Bag) Confirm Administered Dose 600 mg IV .STK-MED ONE Stop: 06/11/22 20:06 Last Admin: 06/11/22 20:39 Dose: 600 mg Documented By: RONDA Sodium Chloride (Nss 1000ml) 1,000 mls @ 125 mls/hr IV .Q8H [facility] Stop: 07/11/22 14:44 Last Infusion: 06/12/22 01:28 Dose: 0 mls/hr Documented By: Admin: 06/11/22 16:37 Dose: 125 mls/hr Documented By: MILENA Cefazolin Sodium (Ancef 1000mg) 1,000 mg in 7.5 mls @ 2.5 mls/min IV Q8H [facility] Stop: 06/22/22 00:00 Last Admin: 06/11/22 23:36 Dose: 2.5 mls/min Documented By: MANISH Ioversol (Optiray 350 100ml) 89 ml IV ONCE ONE Stop: 06/11/22 12:16 Last Admin: 06/11/22 12:04 Dose: 89 ml Documented By: STEPHANIE Labetalol HCl (Labetalol Hcl Iv 5 Mg/Ml 20ml) Confirm Administered Dose 5 mg IV .STK-MED ONE Stop: 06/11/22 22:35 Last Admin: 06/11/22 23:09 Dose: Not Given Documented By: MANISH Lidocaine HCl (Lidocaine 1% Local 20 Ml Vial) Confirm Administered Dose 20 ml .ROUTE .STK-MED ONE Stop: 06/11/22 20:08 Last Admin: 06/11/22 22:15 Dose: Not Given Documented By: MIRLANDE Lorazepam (Lorazepam 2 Mg/1 Ml Vial) 0.5 mg IV NOW STA Stop: 06/11/22 16:08 Last Admin: 06/11/22 16:37 Dose: 0.5 mg Documented By: MILENA Propofol (Propofol Iv Emulsion 10 Mg/Ml 100 Ml Vial) Confirm Administered Dose 1,000 mg IV .STK-MED ONE Stop: 06/11/22 22:35 Last Admin: 06/11/22 23:09 Dose: Not Given Documented By: MANISH Imaging Data Radiologist's Impression: Abdomen/Pelvis CT 06/11/22 11:[address] WITH IV CONTRAST CT DOSE: 474.01 mGycm HISTORY: Acute generalized abdominal pain with distention abdominal distention TECHNIQUE: Multiaxial CT images of the abdomen and pelvis were performed following the IV administration of 89 cc of Optiray, A dose lowering technique was utilized adhering to the principles of ALARA. COMPARISON STUDY: KUB 05/28/2022, CT 05/21/2022 FINDINGS: Cardiomegaly with atherosclerosis of the thoracic aorta. Coronary arterial calcifications. Trace right pleural effusion. Pulmonary emphysema with mild bibasilar consolidation favoring atelectasis. No pneumatosis or pneumoperitoneum identified. Unremarkable spleen, mildly atrophic pancreas, adrenal glands and gallbladder. Coarse calcifications are again noted within the pancreatic head. Unremarkable liver. Patency of the hepatic and portal veins. 3 mm calcification of the inferior pole right kidney. No ureteral calculi or hydronephrosis. Decompressed urinary bladder with Amor catheter in place. Atherosclerosis of the aorta. Fusiform aneurysmal dilation of the infrarenal abdominal aorta measuring 4.6 x 4.2 cm appears stable from prior without evidence of rupture. High-grade stenosis within the left external iliac artery on image 365. No new lymphadenopathy identified. Trace abdominal pelvic ascites. Enteric contrast noted within the rectum. Colonic diverticulosis. Focal area of wall thickening involving the proximal sigmoid colon is similar to prior. A colonic stent is present just proximal to however does not traverse the area of stenosis. Colonic diverticulosis. Upstream large bowel distention measures up to approximately 8 cm. No significant bowel wall thickening. Loops of ileum within the pelvis measure up to 4.4 cm. Probable lipoma measuring 1.3 cm involves a loop of small bowel within the left upper quadrant abdomen, image 130. Unremarkable soft tissues. No acute fracture. Posterior interbody aris and screw fusion hardware with discectomy redemonstrated at L4-L5. IMPRESSION: 1. Focal narrowing/stricture within the proximal sigmoid colon is redemonstrated resulting in a large and small bowel obstruction with progressive dilation compared to the prior study. 2. A colonic stent is present with the distal portion terminating just proximal to without traversing the area of high-grade stricturing. 3. No pneumoperitoneum. 4. Small volume of abdominal pelvic ascites. 5. Trace right pleural effusion with bibasilar opacities favoring atelectasis. 6. Additional findings as above. ACT 112: Negative or not required by law. The above report was generated using voice recognition software. It may contain grammatical, syntax or spelling errors. Electronically signed by: Cesar Regan M.D. 06/11/2022 12:54 PM Discharge Plan Visit Data Chief Complaint: GI Assessment Stated Complaint: possible bowel obstruction ED Provider: Tremaine Haywood Discharge Problem: Large bowel obstruction, Small bowel obstruction, Colonic stricture Patient Disposition: Admitted As Inpatient Discharge Instructions Interventions: ED Discharge Assessment Last Done: 06/11/22 18:44
[2022-06-11] MEDS ORDERED: OPTIRAY 350 100ml IV ONE (12:15)
--- NOTE | 2022-06-11 12:56 | CT Scan Report ---
ABDOMEN AND PELVIS CT WITH IV CONTRAST CT DOSE: 474.01 mGycm HISTORY: Acute generalized abdominal pain with distention abdominal distention TECHNIQUE: Multiaxial CT images of the abdomen and pelvis were performed following the IV administrat ion of 89 cc of Optiray, A dose lowering technique was utilized adhering to the principles of ALARA. COMPARISON STUDY: KUB 05/28/2022, CT 05/21/2022 FINDINGS: Cardiomegaly with atherosclerosis of the thoracic aorta. Coronary arterial calcifications. Trace right pleural effusion. Pulmonary emphysema with mild bibasilar consolidation favoring atelecta sis. No pneumatosis or pneumoperitoneum identified. Unremarkable spleen, mildly atrophic pancreas, adrenal glands and gallbladder. Coarse calcifications are again noted within the pancreatic head. Unremarkable liver. Patency of the hepatic and portal vei ns. 3 mm calcification of the inferior pole right kidney. No ureteral calculi or hydronephrosis. Deco mpressed urinary bladder with Amor catheter in place. Atherosclerosis of the aorta. Fusiform aneurys mal dilation of the infrarenal abdominal aorta measuring 4.6 x 4.2 cm appears stable from prior witho ut evidence of rupture. High-grade stenosis within the left external iliac artery on image 365. No ne w lymphadenopathy identified. Trace abdominal pelvic ascites. Enteric contrast noted within the rectum. Colonic diverticulosis. Focal area of wall thickening invol ving the proximal sigmoid colon is similar to prior. A colonic stent is present just proximal to salazar ildefonso does not traverse the area of stenosis. Colonic diverticulosis. Upstream large bowel distention m easures up to approximately 8 cm. No significant bowel wall thickening. Loops of ileum within the pel vis measure up to 4.4 cm. Probable lipoma measuring 1.3 cm involves a loop of small bowel within the left upper quadrant abdomen, image 130. Unremarkable soft tissues. No acute fracture. Posterior inter body aris and screw fusion hardware with discectomy redemonstrated at L4-L5. IMPRESSION: 1. Focal narrowing/stricture within the proximal sigmoid colon is redemonstrated resulting in a large and small bowel obstruction with progressive dilation compared to the prior study. 2. A colonic stent is present with the distal portion terminating just proximal to without traversing the area of high-grade stricturing. 3. No pneumoperitoneum. 4. Small volume of abdominal pelvic ascites. 5. Trace right pleural effusion with bibasilar opacities favoring atelectasis. 6. Additional findings as above. ACT 112: Negative or not required by law. The above report was generated using voice recognition software. It may contain grammatical, syntax o r spelling errors. Electronically signed by: Cesar Regan M.D. 06/11/2022 12:54 PM
[2022-06-11 13:37] LABS: Basophils # (auto) 0.06 K/uL (0-0.2); Basophils % (auto) 0.5 %; Eosinophils # (auto) 0.07 K/uL (0-0.50); Eosinophils % (auto) 0.6 %; Hematocrit (blood only) 42.3 % (37.0-47.0); Hemoglobin 13.9 g/dl (12.0-16.0); Immature Granulocytes # (auto) 0.08 K/uL (0.01-0.20); Immature Granulocytes % (auto) 0.7 %; Lymphocytes # (auto) 1.26 K/uL (1.2-3.4); Lymphocytes % (auto) 10.5 %; Mean Corpuscular Hemoglobin 29.6 pg (25.0-34.0); Mean Corpuscular Hgb Conc 32.9 g/dL (32.0-36.0); Mean Platelet Volume 11.2 fL (9.4-12.4); Monocytes # (auto) 1.06 K/uL (0.11-0.59); Monocytes % (auto) 8.9 %; Neutrophils # (auto) 9.44 K/uL (1.40-6.50); Neutrophils % (auto) 78.8 %; Platelet Count 350 K/uL (130-400); RDW Coefficient of Variation 14.3 % (11.5-14.5); RDW Standard Deviation 47.4 fL (36.4-46.3); White Blood Count 11.97 K/ul (4.8-10.8)
[2022-06-11 13:53] LABS: Albumin Level 3.2 gm/dl (3.4-5.0); BUN Creatinine Ratio 56.2 (10-20); Bilirubin,Total 0.5 mg/dl (0.2-1.0); Creatinine Clr Calc Pharmacy 73.4 ml/min; Est GFR (African American) 97.4 ml/min; Potassium 4.7 mmol/L (3.5-5.1); Total Protein 6.5 gm/dl (6.0-8.3)
[2022-06-11] MEDS ORDERED: SODIUM CHLORIDE 0.9% 1000ML 1,000 ML IV SCH (14:45)
--- NOTE | 2022-06-11 15:40 | Surgery Consultation ---
Date of Consultation June 11, 2022 Assessment & Plan (1) Large bowel obstruction: pt is a 67 year-old who presents to ER with 2 days history distend abdomen with 2 weeks history stroke, and colon stricture with stent placed. IMP: large bowel obstruction plan, base pt's co-morbilities, new stroke and large bowel obstruction, recommend to transfer to tertiary care level care consult colorectal surgeon and GI as soon as possible, should contact [facility] if [facility] no bed available, pt agreed with transfer, D/W ER attending, NG tube placement, History of Present Illness Reason for Consultation: SBO and large bowel obstruction History of Present Illness History of Present Illness:67-year-old female arrives for evaluation of abdominal distention. Patient with extensive history though complex last 2 weeks. She had a diverticular stricture stented about 2 weeks ago. This was complicated by postop stroke due to paroxysmal A-fib. She has been in a local rehab facility for the last few days. Increasing abdominal distention and some discomfort. KUB showed possible obstruction yesterday. Labs were unremarkable this morning. Patient on evaluation states she is not in any distress but states she has no appetite. She denies any recent vomiting or headaches neck pain or other concerning signs or symptoms. No medications prior to arrival today however did had an enema yesterday without any bowel outs. I ( Fidel Yusuf MD ) got a call for consult SBO and large bowel obstruction, I reviewed pt's H/P, labs and CT scan with pt, pt denies abdominal pain, last BM 2 days ago, pt denies fever, no nausea, no vomiting, Past History:Extensive past medical surgical history see below Allergies Allergy/AdvReac Type Severity Reaction Status Date / Time chlorhexidine Allergy Intermediate ITCHING,RED Verified 05/21/22 16:05 NESS Quinolones Allergy Intermediate RASH-cipro Verified 05/21/22 16:05 Sulfa (Sulfonamide Allergy Intermediate RASH Verified 05/21/22 16:05 Antibiotics) Penicillins Allergy Unknown Unknown Verified 05/21/22 16:05 azithromycin Allergy Anaphylaxis Verified 05/21/22 16:05 Home Medications Medication Instructions Recorded Confirmed Type rosuvastatin 20 mg tablet 20 mg PO HS 09/03/20 05/21/22 History montelukast 10 mg tablet 10 mg PO HS 06/03/22 01/20/23 History amlodipine 5 mg tablet 5 mg PO QAM 05/21/22 05/21/22 History duloxetine 30 mg capsule,delayed 30 mg PO QAM 05/21/22 05/21/22 History release pantoprazole 40 mg tablet,delayed 40 mg PO QAM 05/21/22 05/21/22 History release apixaban 2.5 mg tablet (Eliquis) 2.5 mg PO BID #60 tabs 05/28/22 Rx fluticasone furoate 100 1 puff inhalation DAILY 30 days #1 06/03/22 Rx mcg-vilanterol 25 mcg/dose ea inhalation powder (Breo Ellipta) furosemide 20 mg tablet (Lasix) 20 mg PO DAILY #30 tabs 06/03/22 Rx ipratropium bromide 0.02 % 0.5 mg (2.5 mL) inhalation Q6RWA 06/03/22 Rx solution for inhalation PRN shortness of breath or wheezing 30 days #30 mL levalbuterol HCl 1.25 mg/0.5 mL 1.25 mg (0.5 mL) inhalation Q6RWA 06/03/22 Rx solution for nebulization PRN shortness of breath or wheezing 30 days #30 ea lisinopril 40 mg tablet (Zestril) 40 mg PO QAM 30 days #30 tabs 06/03/22 Rx metoprolol tartrate 25 mg tablet 25 mg PO BID 30 days #60 tabs 06/03/22 Rx polyethylene glycol 3350 17 gram 17 g PO DAILY 30 days #30 ea 06/03/22 Rx oral powder packet (Miralax) Patient History Medical History (Updated 05/28/22 @ 12:39 by Gallo Montero DO, FACS) AAA (abdominal aortic aneurysm) Abnormal thyroid function test Diverticular stricture DM II (diabetes mellitus, type II), controlled Dysfunction of right eustachian tube Feeling light headed Hematochezia HLD (hyperlipidemia) Hypertension Kidney disease stage III Large bowel obstruction Lower gastrointestinal hemorrhage Lung disease Otalgia, right ear Sensorineural hearing loss (SNHL) of right ear with restricted hearing of left ear Surgical History History of back surgery History of delivery x2 History of hernia repair x2 History of knee replacement bilateral History of ovarian cystectomy History of vaginal hysterectomy Family History Other Allergies Asthma Cancer Hearing loss Heart disease Hypertension Social History Smoking Status: Former smoker Tobacco Type: Cigarettes packs per day: 0.5; Cigarettes Per Day: 5; Second Hand Exposure: No; Hx Alcohol Use: No Preferred Language: Cymro Communication Ability: Effective Beliefs That Will Affect Care: None marital status: Single Current Living Situation: Family current occupational status: retired How many Children do You have: 1 Feels Safe at Home: Yes Assistive Devices: Glasses Review of Systems Constitutional: as per Subjective / HPI Eyes: as per Subjective / HPI Respiratory: as per Subjective / HPI (smoker) Cardiovascular: Additional Comments: HTN, A-fib, Gastrointestinal: large bowel stricture, GI large stent 2 weeks, with complicated stroke Neurologic: stroke 2 weeks Psychiatric: as per Subjective / HPI Endocrine: DM Hematologic / Lymphatic: as per Subjective / HPI Physical Exam Constitutional: WD/WN, vitals as above Eyes: PERRL, conjunctivae normal, anicteric sclerae Neck: trachea midline, no thyromegaly Respiratory: normal respiratory effort, lungs clear to auscultation Cardiovascular: Rate/Rhythm: + irregularly irregular A-fib, Gastrointestinal (Abdomen): distend abdomen, no tenderness, BS +, Neurologic: patellar DTR's 2+ bilat, sensation intact Psychiatric: A+Ox3, euthymic affect Results & Data ([facility]) Vital Signs (Past 12 Hours) Vital Signs Temp Pulse Resp BP Pulse Ox O2 Del Method O2 Flow Rate 06/11/22 14:00 71 21 95 06/11/22 14:00 149/87 H 06/11/22 13:30 74 20 94 06/11/22 13:30 150/88 H 06/11/22 13:00 72 20 95 06/11/22 13:00 165/99 H 06/11/22 12:30 68 21 98 06/11/22 12:30 168/100 H 06/11/22 12:11 75 21 100 06/11/22 12:11 176/87 H 06/11/22 12:10 99 06/11/22 11:53 73 21 99 06/11/22 11:12 15 02/10/23 11:12 37.3 C 70 14 150/80 H 98 Nasal Cannula 2 Laboratory Results Abnormal lab results 06/11/22 06/11/22 Range/Units 13:11 13:11 WBC 11.97 H (4.8-10.8) K/ul RDW Std Deviation 47.4 H (36.4-46.3) fL Neut # (Auto) 9.44 H (1.40-6.50) K/uL Jerauld # (Auto) 1.06 H (0.11-0.59) K/uL Chloride 111 H (98-107) mmol/L Carbon Dioxide 20 L (21-32) mmol/L BUN 41 H (6-23) mg/dl BUN/Creatinine Ratio 56.2 H (10-20) Glucose 143 H (70-99(Fasting)) mg/dl Albumin 3.2 L (3.4-5.0) gm/dl Diagnostic Findings ABDOMEN AND PELVIS CT WITH IV CONTRAST CT DOSE: 474.01 mGycm HISTORY: Acute generalized abdominal pain with distention abdominal distention TECHNIQUE: Multiaxial CT images of the abdomen and pelvis were performed following the IV administration of 89 cc of Optiray, A dose lowering technique was utilized adhering to the principles of ALARA. COMPARISON STUDY: KUB 05/28/2022, CT 05/21/2022 FINDINGS: Cardiomegaly with atherosclerosis of the thoracic aorta. Coronary arterial calcifications. Trace right pleural effusion. Pulmonary emphysema with mild bibasilar consolidation favoring atelectasis. No pneumatosis or pneumoperitoneum identified. Unremarkable spleen, mildly atrophic pancreas, adrenal glands and gallbladder. Coarse calcifications are again noted within the pancreatic head. Unremarkable liver. Patency of the hepatic and portal veins. 3 mm calcification of the inferior pole right kidney. No ureteral calculi or hydronephrosis. Decompressed urinary bladder with Amor catheter in place. Atherosclerosis of the aorta. Fusiform aneurysmal dilation of the infrarenal abdominal aorta measuring 4.6 x 4.2 cm appears stable from prior without evidence of rupture. High-grade stenosis within the left external iliac artery on image 365. No new ly mphadenopathy identified. Trace abdominal pelvic ascites. Enteric contrast noted within the rectum. Colonic diverticulosis. Focal area of wall thickening involving the proximal sigmoid colon is similar to prior. A colonic stent is present just proximal to however does not traverse the area of stenosis. Colonic diverticulosis. Upstream large bowel distention measures up to approximately 8 cm. No significant bowel wall thickening. Loops of ileum within the pelvis measure up to 4.4 cm. Probable lipoma measuring 1.3 cm involves a loop of small bowel within the left upper quadrant abdomen, image 130. Unremarkable soft tissues. No acute fracture. Posterior interbody aris and screw fusion hardware with discectomy redemonstrated at L4-L5. IMPRESSION: 1. Focal narrowing/stricture within the proximal sigmoid colon is redemonstrated resulting in a large and small bowel obstruction with progressive dilation compared to the prior study. 2. A colonic stent is present with the distal portion terminating just proximal to without traversing the area of high-grade stricturing. 3. No pneumoperitoneum. 4. Small volume of abdominal pelvic ascites. 5. Trace right pleural effusion with bibasilar opacities favoring atelectasis. 6. Additional findings as above. ACT 112: Negative or not required by law.
[2022-06-11] MEDS ORDERED: LORazepam 2 MG/1 ML VIAL IV STA (16:07)
--- NOTE | 2022-06-11 16:34 | History & Physical Report ---
Date of Service June 11, 2022 Assessment & Plan (1) Small bowel obstruction: Plan: NG tube placed in the ER. Plan per surgery. Keep her NPO. (2) Colonic stricture: Plan: colonic stent placed on 05/26, however, it is not traversing an area of high grade stricture. Ongoing abdominal distension noted at rehab center after discharge. The initial plan was to allow her abdomen to decompress and subsequently perform abdominal surgery. Subsequent large bowel obstruction present and her abdominal distension worsened. Cont plan per surgery as noted above. (3) Diverticular stricture: Plan: Plan as above. (4) PAF (paroxysmal atrial fibrillation): Plan: EKG pending from today. She is in sinus rythm on the tele monitor. She is now on apixaban with last dose this am and takes metoprolol twice daily for rate control. Hold apixaban with upcoming surgery. (5) Stroke: Plan: h/o post-op stroke last month with subsequent mild right hemiparesis and cognitive language impairment. Cannot assess current function given obtunded state. Cont supportive care and PT/OT with back to rehab at discharge. (6) Hypertension: Plan: chronic, around goal but slightly elevated given recent NG tube placement. Currently NPO. Will use parenteral agents for control as needed. (7) DM II (diabetes mellitus, type II), controlled: Plan: A1C reflects good control at 6.9 last month. Cont with basal bolus insulin during admission. DVT proph: holding anticoagulation for upcoming procedure, then resume apixaban when cleared by surgery. Full code Dispo- to OR and likely back to [facility] operatively. Ritika Jj DO [facility] Hospitalist History of Present Illness Chief Complaint: GI assessment Primary Care Provider: Pedro Saba MD 67 yo F with h/o ANGELITA and COPD who presents to the ER for worsening abdominal distension. She is obtunded af ter receiving Ativan 0.5mg IV and cannot provide any history. All history is obtained from records. She was recently admitted for severe constipation and abdominal distension and was found to have a diverticular stricture with colonic obstruction. She was just discharged on 06/03. She underwent colonic stenting on 05/[address] Hope from GI. Her procedure was complicated by atrial fibrillation with RVR and a subsequent stroke. She was placed on apixaban for an acute left KATARZYNA stroke and aspirin was stopped at discharge. She was sent to [facility] for rehab. Sincer discharge she has developed worsening abdominal distension. CT here reports large and small bowel obstruction. Allergies Allergy/AdvReac Type Severity Reaction Status Date / Time chlorhexidine Allergy Intermediate ITCHING,RED Verified 05/21/22 16:05 NESS Quinolones Allergy Intermediate RASH-cipro Verified 05/21/22 16:05 Sulfa (Sulfonamide Allergy Intermediate RASH Verified 05/21/22 16:05 Antibiotics) Penicillins Allergy Unknown Unknown Verified 05/21/22 16:05 azithromycin Allergy Anaphylaxis Verified 05/21/22 16:05 Home Medications Medication Instructions Recorded Confirmed Type rosuvastatin 20 mg tablet 20 mg PO HS 09/03/20 06/11/22 History montelukast 10 mg tablet 10 mg PO HS 10/02/21 06/11/22 History amlodipine 5 mg tablet 5 mg PO QAM 05/21/22 06/11/22 History duloxetine 30 mg capsule,delayed 30 mg PO QAM 05/21/22 06/11/22 History release pantoprazole 40 mg tablet,delayed 40 mg PO QAM 05/21/22 06/11/22 History release apixaban 2.5 mg tablet (Eliquis) 2.5 mg PO BID #60 tabs 05/28/22 06/11/22 Rx fluticasone furoate 100 1 puff inhalation DAILY 30 days #1 06/03/22 06/11/22 Rx mcg-vilanterol 25 mcg/dose ea inhalation powder (Breo Ellipta) furosemide 20 mg tablet (Lasix) 20 mg PO DAILY #30 tabs 06/03/22 06/11/22 Rx ipratropium bromide 0.02 % 0.5 mg (2.5 mL) inhalation Q6RWA 06/03/22 06/11/22 Rx solution for inhalation PRN shortness of breath or wheezing 30 days #30 mL levalbuterol HCl 1.25 mg/0.5 mL 1.25 mg (0.5 mL) inhalation Q6RWA 06/03/22 06/11/22 Rx solution for nebulization PRN shortness of breath or wheezing 30 days #30 ea lisinopril 40 mg tablet (Zestril) 40 mg PO QAM 30 days #30 tabs 06/03/22 06/11/22 Rx metoprolol tartrate 25 mg tablet 25 mg PO BID 30 days #60 tabs 06/03/22 06/11/22 Rx polyethylene glycol 3350 17 gram 17 g PO DAILY 30 days #30 ea 06/03/22 06/11/22 Rx oral powder packet (Miralax) Past Med/Surg History Medical History AAA (abdominal aortic aneurysm) Abnormal thyroid function test Diverticular stricture DM II (diabetes mellitus, type II), controlled Dysfunction of right eustachian tube Feeling light headed Hematochezia HLD (hyperlipidemia) Hypertension Kidney disease stage III Large bowel obstruction Lower gastrointestinal hemorrhage Lung disease Otalgia, right ear Sensorineural hearing loss (SNHL) of right ear with restricted hearing of left ear Surgical History History of back surgery History of delivery x2 History of hernia repair x2 History of knee replacement bilateral History of ovarian cystectomy History of vaginal hysterectomy Family History Other Allergies Asthma Cancer Hearing loss Heart disease Hypertension Social History Smoking Status: Former smoker Tobacco Type: Cigarettes packs per day: 0.5; Cigarettes Per Day: 5; Second Hand Exposure: No; Hx Alcohol Use: No Preferred Language: Divehi Communication Ability: Effective Beliefs That Will Affect Care: None marital status: Single Current Living Situation: Family current occupational status: retired How many Children do You have: 1 Feels Safe at Home: Yes Assistive Devices: Glasses Review of Systems Review of Systems: ROS cannot be obtained 2/2 obtunded state. Physical Exam Physical Exam: CONSTITUTIONAL: WNWD, vitals as above, generally ill-appearing and obtunded. EYES: PERRL, normal n, no scleral icterus ENT: external ear and nose normal, NG tube in place with no output. NECK: trachea midline RESPIRATORY: clear to auscultation bilaterally, no crackles, rales or wheezes, normal respiratory effort on oxygen via nasal canula. CARDIOVASCULAR: regular rate and rhythm, S1 and 2 heard without murmurs, gallops or rubs, no JVD, no peripheral edema CHEST: inspection of chest was normal GASTROINTESTINAL: high pitched bowel sounds present, distended abdomen, no guarding. MUSCULOSKELETAL: obtunded, cannot assess. head is normocephalic and atraumatic SKIN: warm and dry NEUROLOGIC: obtunded, confused, cannot assess. PSYCHIATRIC: obtunded. Results & Data Results & Data ([facility]) Vital Signs (Past 12 Hours) Vital Signs Temp Pulse Resp BP Pulse Ox O2 Del Method O2 Flow Rate 06/11/22 16:00 82 19 94 06/11/22 16:00 159/98 H 06/11/22 15:30 74 20 97 06/11/22 15:30 165/93 H 06/11/22 15:00 71 17 96 06/11/22 15:00 155/89 H 06/11/22 14:31 75 21 96 06/11/22 14:31 160/111 H 06/11/22 14:30 73 16 95 06/11/22 14:00 71 21 95 06/11/22 14:00 149/87 H 06/11/22 13:30 74 20 94 06/11/22 13:30 150/88 H 06/11/22 13:00 72 20 95 06/11/22 13:00 165/99 H 06/11/22 12:30 68 21 98 06/11/22 12:30 168/100 H 06/11/22 12:11 75 21 100 06/11/22 12:11 176/87 H 06/11/22 12:10 99 06/11/22 11:53 73 21 99 06/11/22 11:12 15 06/11/22 11:12 37.3 C 70 14 150/80 H 98 Nasal Cannula 2 Laboratory Results Short CBC 06/11/22 Range/Units 13:11 WBC 11.97 H (4.8-10.8) K/ul Hgb 13.9 (12.0-16.0) g/dl Hct 42.3 (37.0-47.0) % Plt Count 350 (130-400) K/uL BMP 06/11/22 13:11 Sodium 139 Potassium 4.7 Chloride 111 H Carbon Dioxide 20 L BUN 41 H Creatinine 0.73 Glucose 143 H Calcium 9.0 Liver Function 06/11/22 Range/Units 13:11 Total Bilirubin 0.5 (0.2-1.0) mg/dl Direct Bilirubin 0.0 (0-0.2) mg/dl AST 14 (13-39) U/L ALT 8 (7-52) U/L Alkaline Phosphatase 64 (34-104) U/L Albumin 3.2 L (3.4-5.0) gm/dl Diagnostic Findings Abdomen/Pelvis CT 06/11/22 11:[address] WITH IV CONTRAST CT DOSE: 474.01 mGycm HISTORY: Acute generalized abdominal pain with distention abdominal distention TECHNIQUE: Multiaxial CT images of the abdomen and pelvis were performed followi ng the IV administration of 89 cc of Optiray, A dose lowering technique was utilized adhering to the principles of ALARA. COMPARISON STUDY: KUB 05/28/2022, CT 05/21/2022 FINDINGS: Cardiomegaly with atherosclerosis of the thoracic aorta. Coronary arterial calcifications. Trace right pleural effusion. Pulmonary emphysema with mild bibasilar consolidation favoring atelectasis. No pneumatosis or pn eumoperitoneum identified. Unremarkable spleen, mildly atrophic pancreas, adrenal glands and gallbladder. Coarse calcifications are again noted within the pancreatic head. Unremarkable liver. Patency of the hepatic and portal veins. 3 mm calcification of the inferior pole right kidney. No ureteral calculi or hydronephrosis. Decompressed urinary bladder with Amor catheter in place. Atherosclerosis of the aorta. Fusiform aneurysmal dilation of the infrarenal abdominal aorta measuring 4.6 x 4.2 cm appears stable from prior without evidence of rupture. High-grade stenosis within the left external iliac artery on image 365. No new lymphadenopathy identified. Trace abdominal pelvic ascites. Enteric contrast noted within the rectum. Colonic diverticulosis. Focal area of wall thickening involving the proximal sigmoid colon is similar to prior. A colonic stent is present just proximal to however does not traverse the area of stenosis. Colonic diverticulosis. Upstream large bowel distention measures up to approximately 8 cm. No significant bowel wall thickening. Loops of ileum within the pelvis measure up to 4.4 cm. Probable lipoma measuring 1.3 cm involves a loop of small bowel within the left upper quadrant abdomen, image 130. Unremarkable soft tissues. No acute fracture. Posterior interbody aris and screw fusion hardware with discectomy redemonstrated at L4-L5. IMPRESSION: 1. Focal narrowing/stricture within the proximal sigmoid colon is redemonstrated resulting in a large and small bowel obstruction with progressive dilation compared to the prior study. 2. A colonic stent is present with the distal portion terminating just proximal to without traversing the area of high-grade stricturing. 3. No pneumoperitoneum. 4. Small volume of abdominal pelvic ascites. 5. Trace right pleural effusion with bibasilar opacities favoring atelectasis. 6. Additional findings as above. ACT 112: Negative or not required by law. The above report was generated using voice recognition software. It may contain grammatical, syntax or spelling errors. Electronically signed by: Cesar Regan M.D. 06/11/2022 12:54 PM Code Status & VTE Plan VTE Prophylaxis Plan VTE Prophylaxis will be ordered: Yes
--- NOTE | 2022-06-11 16:58 | History & Physical Bridge Note ---
Date of Service June 11, 2022 History & Physical Bridge Note I have examined the patient, reviewed the History & Physical and in the interval since the performance of the History & Physical I have noted the following changes of clinical significance: no changes noted
--- NOTE | 2022-06-11 17:05 | XRay Report ---
XR chest 1V portable HISTORY: Bowel obstruction. pre-op COMPARISON: Chest 06/03/2022. FINDINGS: No pneumothorax. No pleural effusions. Nasogastric tube terminates in the stomach. There ar e low lung volumes with a few bibasilar linear densities consistent with subsegmental atelectasis. Ot herwise, the lungs are clear. The heart is normal in size. There is a mildly tortuous thoracic aorta. Partially visualized distended gas-filled loops of large and small bowel are again noted. There is c ervical spinal fusion hardware. IMPRESSION: 1. Nasogastric tube terminates in the stomach. 2. Bibasilar linear densities favor subsegmental atelectasis. 3. Partially visualized dilated gas-filled loops of large and small bowel are again noted. ACT 112: Negative or not required by law. Electronically signed by: Bruce Hunter M.D. 06/11/2022 5:04 PM
[2022-06-11 17:07] LABS: Influenza A virus by PCR Negative (Neg); Influenza B virus by PCR Negative (Neg); RSV by PCR Negative (Neg); SARS CoV2 RNA(COVID-19) Ceph NEGATIVE (Negative)
[2022-06-11 18:37] LABS: Appearance Urine Cloudy (Clear); Bacteria Urine Automated Negative (Negative); Bilirubin Urine Negative (Negative); Blood Urine Negative (Negative); Color Urine Yellow; Epithelial Cell Urine Auto 20-30 /lpf (0-5); Glucose Urine UA Negative (Negative); Ketones Urine Negative (Negative); Leukocyte Esterase Urine Negative (Negative); Nitrite Urine Negative (Negative); Protein Urine Trace (Negative); Specific Gravity Urine > 1.045 (1.000-1.030); Urobilinogen Urine Negative (Negative)
[2022-06-11] MEDS ORDERED: ACETAMINOPHEN 325 MG TAB PO PRN (19:09)
[2022-06-11] MEDS ORDERED: CIPROFLOXACIN 400MG / 200ML D5W IV ONE (19:47)
[2022-06-11] MEDS ORDERED: CLINDAMYCIN/D5W 600 MG/50 ML BAG IV ONE (20:04)
[2022-06-11] MEDS ORDERED: CLINDAMYCIN 600 MG/D5W 50 ML BAG IV ONE (20:05)
[2022-06-11] MEDS ORDERED: BUPIVACAINE 0.5 % 5 MG/1 ML MPF 30ML VIAL ONE (20:07)
[2022-06-11] MEDS ORDERED: LIDOCAINE 1% LOCAL 20 ML VIAL ONE (20:07)
[2022-06-11] MEDS ORDERED: BACITRACIN OINT 15 GM TUBE ONE (20:07)
--- NOTE | 2022-06-11 20:15 | Anesthesiology Consultation ---
Date of Service June 11, 2022 Assessment & Plan Chart Review Chart Review: Acceptable Risk for Surgery Consults Requested none History Surgery Operation Date: 06/11/22 17:00 Proposed Procedures p Colostomy - Fidel Yusuf MD Height/Weight Height: 5 ft 8 in Weight: 66.3 kg Allergies Allergy/AdvReac Type Severity Reaction Status Date / Time chlorhexidine Allergy Intermediate ITCHING,RED Verified 05/21/22 16:05 NESS ciprofloxacin [From Cipro] Allergy Intermediate Rash Verified 06/11/22 19:59 Quinolones Allergy Intermediate RASH-cipro Verified 05/21/22 16:05 Sulfa (Sulfonamide Allergy Intermediate RASH Verified 05/21/22 16:05 Antibiotics) Penicillins Allergy Unknown Unknown Verified 05/21/22 16:05 azithromycin Allergy Anaphylaxis Verified 05/21/22 16:05 Medications Home Medications Medication Instructions Recorded Confirmed Last Taken rosuvastatin 20 mg tablet 20 mg PO HS 09/03/20 06/11/22 05/20/22 montelukast 10 mg tablet 10 mg PO HS 10/02/21 06/11/22 05/20/22 amlodipine 5 mg tablet 5 mg PO QAM 05/21/22 06/11/22 05/20/22 duloxetine 30 mg capsule,delayed 30 mg PO QAM 05/21/22 06/11/22 05/17/22 release pt holding med pantoprazole 40 mg tablet,delayed 40 mg PO QAM 05/21/22 06/11/22 05/20/22 release apixaban 2.5 mg tablet (Eliquis) 2.5 mg PO BID #60 tabs 05/28/22 06/11/22 Unknown fluticasone furoate 100 1 puff inhalation DAILY 30 days #1 06/03/22 06/11/22 Unknown mcg-vilanterol 25 mcg/dose ea inhalation powder (Breo Ellipta) furosemide 20 mg tablet (Lasix) 20 mg PO DAILY #30 tabs 06/03/22 06/11/22 Unknown ipratropium bromide 0.02 % 0.5 mg (2.5 mL) inhalation Q6RWA 06/03/22 06/11/22 Unknown solution for inhalation PRN shortness of breath or wheezing 30 days #30 mL levalbuterol HCl 1.25 mg/0.5 mL 1.25 mg (0.5 mL) inhalation Q6RWA 06/03/22 06/11/22 Unknown solution for nebulization PRN shortness of breath or wheezing 30 days #30 ea lisinopril 40 mg tablet (Zestril) 40 mg PO QAM 30 days #30 tabs 06/03/22 06/11/22 Unknown metoprolol tartrate 25 mg tablet 25 mg PO BID 30 days #60 tabs 06/03/22 06/11/22 Unknown polyethylene glycol 3350 17 gram 17 g PO DAILY 30 days #30 ea 06/03/22 06/11/22 Unknown oral powder packet (Miralax) Active Medications Generic Name Dose Route Start Last Admin Trade Name Freq PRN Reason Stop Dose Admin Sodium Chloride 1,000 mls @ 125 mls/hr 06/11/22 14:45 06/11/22 16:37 Nss 1000ml IV 07/11/22 14:44 125 mls/hr .Q8H CLARKE Administration NPO Last Intake of Fluids Comment: unknown Last Intake of Solids Comment: unknown Past Medical History Medical History AAA (abdominal aortic aneurysm) Abnormal thyroid function test Diverticular stricture DM II (diabetes mellitus, type II), controlled Dysfunction of right eustachian tube Feeling light headed Hematochezia HLD (hyperlipidemia) Hypertension Kidney disease stage III Large bowel obstruction Lower gastrointestinal hemorrhage Lung disease Otalgia, right ear Sensorineural hearing loss (SNHL) of right ear with restricted hearing of left ear Past Family History Family History Other Allergies Asthma Cancer Hearing loss Heart disease Hypertension Past Surgical History Surgical History History of back surgery History of delivery x2 History of hernia repair x2 History of knee replacement bilateral History of ovarian cystectomy History of vaginal hysterectomy Social History Smoking Status: Former smoker tobacco type: cigarettes Smoking cigarettes per day: 5 Hx Alcohol Use: No Alcohol type: beer and hard liquor alcohol intake frequency: 0-2 drinks per day Physical Exam Vital Signs Last Vital Signs Temp 37.0 C 06/11/22 19:43 Pulse 79 06/11/22 19:43 Resp 19 06/11/22 19:43 BP 167/93 H 06/11/22 19:43 Pulse Ox 98 06/11/22 19:43 O2 Del Method 06/11/22 19:43 O2 Flow Rate 2 06/11/22 19:43 Testing Laboratory Results 06/11/22 13:11 06/11/22 13:11 Urine Color Yellow 06/11/22 18:24 Urine Appearance Cloudy (Clear) A 06/11/22 18:24 Urine pH 5.0 (4.5-7.5) 06/11/22 18:24 Ur Specific [place] > 1.045 (1.000-1.030) H 06/11/22 18:24 Urine Protein Trace (Negative) H 06/11/22 18:24 Urine Glucose (UA) Negative (Negative) 06/11/22 18:24 Urine Ketones Negative (Negative) 06/11/22 18:24 Urine Nitrite Negative (Negative) 06/11/22 18:24 Ur Leukocyte Esterase Negative (Negative) 06/11/22 18:24 Urine WBC (Auto) 1-5 /hpf (0-5) 06/11/22 18:24 Urine RBC (Auto) 5-10 /hpf (0-4) H 06/11/22 18:24 U Hyaline Cast (Auto) 1-5 /lpf (0-5) 06/11/22 18:24 U Epithel Cells (Auto) 20-30 /lpf (0-5) H 06/11/22 18:24 Urine Bacteria (Auto) Negative (Negative) 06/11/22 18:24 06/11/22 19:52 POC Glucose 129 H
[2022-06-11] MEDS ORDERED: fentaNYL citrate 100 MCG/2 ML VIAL ONE ×2 (20:28→22:24)
[2022-06-11] MEDS ORDERED: PROPOFOL IV EMULSION 10 MG/ML 20 ML VIAL IV ONE (20:28)
[2022-06-11] MEDS ORDERED: ROCURONIUM BROMIDE 10 MG/ML 5 ML VIAL IV ONE (20:29)
[2022-06-11] MEDS ORDERED: LIDOCAINE 2% MPF LOCAL 5 ML VIAL INFIL ONE (20:29)
[2022-06-11] MEDS ORDERED: MIDAZOLAM HCL 1 MG/ML 2ML VIAL ONE ×2 (22:11→22:14)
--- NOTE | 2022-06-11 22:16 | Post Operative Brief Note ---
Immediate Post Op Note v1 Date of Surgery June 11, 2022 Pre & Post Diagnosis Operation Date: 06/11/22 17:00 Pre-Op Diagnosis: Large bowel obstruction. Post-Op Diagnosis: Large bowel obstruction. I identified the patient and participated in the time-out.: Yes Procedure Operation Date: 06/11/22 17:00 Actual Procedures loop Colostomy - Fidel Yusuf MD Surgeon Fidel Yusuf MD [employer] patient service technician pst Estimated Blood Loss 10 Findings Consistent with Post-Op Diagnosis large bowel obstruction Fluids 1000ml Drains Amor Catheter Anesthesia Type General Complications none Disposition Accompanied Patient To Recovery: Yes
[2022-06-11] MEDS ORDERED: HYDROmorphone INJ 2 MG/ML SYR/VIAL ONE (22:23)
[2022-06-11] MEDS ORDERED: LABETALOL HCL IV 5 MG/ML 20ML IV ONE (22:34)
[2022-06-11] MEDS ORDERED: PROPOFOL IV EMULSION 10 MG/ML 100 ML VIAL IV ONE (22:34)
[2022-06-11] MEDS: PROPOFOL BOLUS FROM BAG IV PRN ×2 (22:40→23:35)
[2022-06-11] MEDS: propofoL 1,000 MG/100 ML VIAL IV SCH (22:40)
[2022-06-11] MEDS ORDERED: STAT IV Infusion **Titration per Protocol STA (22:40)
[2022-06-11] MEDS ORDERED: fentaNYL BOLUS from BAG IV PRN (22:40)
[2022-06-11] MEDS ORDERED: fentaNYL citrate 2,500 MCG/250 ML BAG IV SCH (22:45)
[2022-06-11] MEDS ORDERED: MoRPHine SULFATE 2 MG/ML CARP IV PRN (23:05)
[2022-06-11] MEDS ORDERED: LEVALBUTEROL 1.25MG/0.5ML NEB INH PRN (23:05)
[2022-06-11] MEDS ORDERED: IPRATROPIUM BROMIDE NEB SOLN 0.02% 2.5 ML VIAL INH PRN (23:05)
[2022-06-11] MEDS ORDERED: ATROPINE SULFATE 0.1 MG/ML 10ML SYR IV PRN (23:11)
[2022-06-11] MEDS ORDERED: ePHEDrine sulfate 50 MG/ML AMP IV PRN (23:11)
--- NOTE | 2022-06-11 23:11 | Anesthesiology Progress Note ---
Date of Service June 11, 2022 Anesthesia Post Procedure Vital Signs Vital Signs: Temp Pulse Pulse Resp BP BP Pulse Ox 06/11/22 22:37 36.4 C L 78 18 200/103 H 98 06/11/22 22:27 36.4 C L 101 H 18 228/135 H 100 06/11/22 19:15 06/11/22 18:45 36.5 C 79 18 151/86 H 96 06/11/22 19:43 37.0 C 79 19 167/93 H 98 06/11/22 18:44 06/11/22 18:00 85 22 95 06/11/22 18:00 152/88 H 06/11/22 17:31 85 22 95 06/11/22 17:31 137/99 06/11/22 17:30 89 22 96 06/11/22 17:00 78 23 97 06/11/22 17:00 178/102 H 06/11/22 16:30 85 15 94 06/11/22 16:30 151/87 H 06/11/22 16:00 82 19 94 06/11/22 16:00 159/98 H 06/11/22 15:30 74 20 97 06/11/22 15:30 165/93 H 06/11/22 15:00 71 17 96 06/11/22 15:00 155/89 H 06/11/22 14:31 75 21 96 06/11/22 14:31 160/111 H 06/11/22 14:30 73 16 95 06/11/22 14:00 71 21 95 06/11/22 14:00 149/87 H 06/11/22 13:30 74 20 94 06/11/22 13:30 150/88 H 06/11/22 13:00 72 20 95 06/11/22 13:00 165/99 H 06/11/22 12:30 68 21 98 06/11/22 12:30 168/100 H 06/11/22 12:11 75 21 100 06/11/22 12:11 176/87 H 06/11/22 12:10 99 06/11/22 11:53 73 21 99 06/11/22 11:12 15 06/11/22 11:12 37.3 C 70 14 150/80 H 98 O2 Del Method O2 Flow Rate FiO2 06/11/22 22:37 Mechanical Vent 45 06/11/22 22:27 Mechanical Vent 45 06/11/22 19:15 Nasal Cannula 2 06/11/22 18:45 Nasal Cannula 2 06/11/22 19:43 Nasal Cannula 2 06/11/22 18:44 Room Air 06/11/22 18:00 06/11/22 18:00 06/11/22 17:31 06/11/22 17:31 06/11/22 17:30 06/11/22 17:00 06/11/22 17:00 06/11/22 16:30 06/11/22 16:30 06/11/22 16:00 06/11/22 16:00 06/11/22 15:30 06/11/22 15:30 06/11/22 15:00 06/11/22 15:00 06/11/22 14:31 06/11/22 14:31 06/11/22 14:30 06/11/22 14:00 06/11/22 14:00 06/11/22 13:30 06/11/22 13:30 06/11/22 13:00 06/11/22 13:00 06/11/22 12:30 06/11/22 12:30 06/11/22 12:11 06/11/22 12:11 06/11/22 12:10 06/11/22 11:53 06/11/22 11:12 06/11/22 11:12 Nasal Cannula 2 Transfer of Care Handoff Completed per policy Notes Mental Status: see notes below Patient Amnestic to Procedure: Yes Nausea / Vomiting: adequately controlled Pain: adequately controlled Airway Patency, RR, SpO2: stable & adequate BP & HR: stable & adequate Hydration State: stable & adequate Anesthetic Complications: no major complications apparent Notes: Pt had colostomy for bowel obstruction under [place] without problems. Elected to vent post-op due to depressed baseline mental status resulting from recent CVA. Placed on vent in SICU post op, VSS. Report given.
--- NOTE | 2022-06-11 23:34 | Critical Care Consultation ---
Date of Consultation June 11, 2022 Assessment & Plan (1) Small bowel obstruction: Reason Critically Ill: 67-year-old female presents to the ICU following a colostomy for large bowel obstruction and remains mechanically ventilated due to altered mental status. Neuro - Encephalopathypatient presented to the emergency department obtunded. She had a recent CVA in which she had residual right hemiplegia and dysarthria and was undergoing treatment and [facility]. -Patient does have mild elevated BUN 41. LFTs are within normal limits -She is currently sedated with propofol and fentanyl drips -Suspect this is metabolic in nature. May consider CT imaging when stable if unimproved. Continue to monitor for now and wean sedation as tolerated Cardiac - Paroxysmal A-fibnormal sinus rhythm. Patient previously on apixaban which is currently being held due to surgery. Last dose 2/10 in a.m. We will continue with anticoagulation when appropriate. Continue MTP HLDcontinue statin HTNcontinue amlodipine, lisinopril, MTP Respiratory - Mechanically ventilatedpatient with history of COPD and prior smoker. Remains ventilated postop and plan to wean from vent in ICU. -Current vent settings: 18/380/5/40 percent. ABG pending. Chest x-ray pending -Continue Singulair, Breo Ellipta, nebs -Continuous monitoring pulse ox -Wean vent as tolerated GI - Large bowel obstruction/diverticular stricturepatient now postop for colostomy. Management per surgical team -CT abdomen and pelvis as described above -NG tube to intermittent low wall suction per surgery -N.p.o. -Continue PPI RENAL/LYTES - Creatinine within normal limits. No significant electrolyte abnormalities. Monitor routine BMPs and replete as indicated. Continue with fluid resuscitation - Foleystrict I's and O's ENDO - DM type IIcurrently euglycemic. Last hemoglobin A1c 6.9 -ICU hyperglycemic protocol HEME - H&H stable. EBL 10 Monitor routine CBCs and transfuse if indicated ID - Patient did receive Ancef x2 doses [place] for surgery. Unsure if patient may have aspirated due to hypoxia following procedure. We will start on cefepime and Flagyl. Pro-Mino and lactate pending. Sputum culture pending LINES/IV ACCESS - Peripheral IVs DVT PROPHYLAXIS - SCDs, holding anticoagulation postop for now I have personally spent 70 minutes of critical care time in the direct management of this patient. This is a life/limb threatening event. This includes time spent evaluating patient, direct bedside care, chart review, placing orders, interpretation of diagnostic studies, discussion with consultants, patient, and family members, as well as other required patient management activities. This time is exclusive of all separately billable procedures, and teaching time and separate from and in addition to any other critical care service time. Thank you for allowing us to participate in the care of this patient. Please refer to my attending physician's documentation for any further recommendations. (2) Large bowel obstruction: (3) Colonic stricture: (4) Diverticular stricture: (5) PAF (paroxysmal atrial fibrillation): (6) Stroke: (7) Diverticulitis: (8) HLD (hyperlipidemia): (9) Hypertension: (10) On mechanically assisted ventilation: History of Present Illness Attending Physician: Ritika Jj DO History of Present Illness Is a 67-year-old female with past medical history of DM type II, HLD, HTN, CKD stage III, diverticular stricture, AAA and recent admission where she underwent colonic stenting on 05/26 which was complicated by atrial fibrillation with RVR and subsequent stroke in which she was left with right hemiplegia and language impairment. Patient had been discharged to [facility] to undergo rehab. She presented to the emergency department today with worsening abdominal distention and she was found to be obtunded. CT abdomen and pelvis showed focal narrowing/stricture within the proximal sigmoid colon than redemonstrated results in a large and small obstruction with progressive dilation compared to prior study, and colonic stent with distal portion terminating just proximal to without traversing the area of high-grade stricturing. She was taken to the OR where she underwent loop colostomy for her large bowel obstruction. Patient now presents to the ICU postop. She remains intubated postop as she was experiencing altered mental status and with her recent stroke will likely be difficult to wean from vent. Further management in ICU for now. Allergies Allergy/AdvReac Type Severity Reaction Status Date / Time chlorhexidine Allergy Intermediate ITCHING,RED Verified 05/21/22 16:05 NESS ciprofloxacin [From Cipro] Allergy Intermediate Rash Verified 06/11/22 19:59 Quinolones Allergy Intermediate RASH-cipro Verified 05/21/22 16:05 Sulfa (Sulfonamide Allergy Intermediate RASH Verified 05/21/22 16:05 Antibiotics) Penicillins Allergy Unknown Unknown Verified 05/21/22 16:05 azithromycin Allergy Anaphylaxis Verified 05/21/22 16:05 Home Medications Medication Instructions Recorded Confirmed Type rosuvastatin 20 mg tablet 20 mg PO HS 09/03/20 06/11/22 History montelukast 10 mg tablet 10 mg PO HS 10/02/21 06/11/22 History amlodipine 5 mg tablet 5 mg PO QAM 05/21/22 06/11/22 History duloxetine 30 mg capsule,delayed 30 mg PO QAM 05/21/22 06/11/22 History release pantoprazole 40 mg tablet,delayed 40 mg PO QAM 05/21/22 06/11/22 History release apixaban 2.5 mg tablet (Eliquis) 2.5 mg PO BID #60 tabs 05/28/22 06/11/22 Rx fluticasone furoate 100 1 puff inhalation DAILY 30 days #1 06/03/22 06/11/22 Rx mcg-vilanterol 25 mcg/dose ea inhalation powder (Breo Ellipta) furosemide 20 mg tablet (Lasix) 20 mg PO DAILY #30 tabs 06/03/22 06/11/22 Rx ipratropium bromide 0.02 % 0.5 mg (2.5 mL) inhalation Q6RWA 06/03/22 06/11/22 Rx solution for inhalation PRN shortness of breath or wheezing 30 days #30 mL levalbuterol HCl 1.25 mg/0.5 mL 1.25 mg (0.5 mL) inhalation Q6RWA 06/03/22 06/11/22 Rx solution for nebulization PRN shortness of breath or wheezing 30 days #30 ea lisinopril 40 mg tablet (Zestril) 40 mg PO QAM 30 days #30 tabs 06/03/22 06/11/22 Rx metoprolol tartrate 25 mg tablet 25 mg PO BID 30 days #60 tabs 06/03/22 06/11/22 Rx polyethylene glycol 3350 17 gram 17 g PO DAILY 30 days #30 ea 06/03/22 06/11/22 Rx oral powder packet (Miralax) Patient History Medical History AAA (abdominal aortic aneurysm) Abnormal thyroid function test Diverticular stricture DM II (diabetes mellitus, type II), controlled Dysfunction of right eustachian tube Feeling light headed Hematochezia HLD (hyperlipidemia) Hypertension Kidney disease stage III Large bowel obstruction Lower gastrointestinal hemorrhage Lung disease Otalgia, right ear Sensorineural hearing loss (SNHL) of right ear with restricted hearing of left ear Surgical History History of back surgery History of delivery x2 History of hernia repair x2 History of knee replacement bilateral History of ovarian cystectomy History of vaginal hysterectomy Family History Other Allergies Asthma Cancer Hearing loss Heart disease Hypertension Social History Smoking Status: Former smoker Tobacco Type: Cigarettes packs per day: 0.5; Cigarettes Per Day: 5; Second Hand Exposure: No; Hx Alcohol Use: No Preferred Language: Setswana Communication Ability: difficult Communication Ability Comment: old admisson used to answer questions, follows commands, speech garbled [employer]uke[employer] Route [employer] Required: No Beliefs That Will Affect Care: None marital status: Single Current Living Situation: Family current occupational status: retired How many Children do You have: 1 Feels Safe at Home: Yes Assistive Devices: None Review of Systems Review of Systems: Unobtainable due to cognitive status and Unobtainable due to endotracheal tube Physical Exam Constitutional: + mechanically ventilated Sedated Eyes: PERRL, conjunctivae normal, anicteric sclerae ENMT: external ear and nose normal, oropharynx normal Neck: trachea midline, no thyromegaly Respiratory: Rhonchi auscultated bilaterally in all lung faustin. Symmetrical chest wall movement. Mechanically ventilated Cardiovascular: RRR, no murmur, no edema Heart Sounds: normal S1 and normal S2 Extremities: no edema Gastrointestinal (Abdomen): Abdomen soft but distended in the right lower and upper quadrants, bowel sounds auscultated all 4 quadrants. Colostomy in the right upper quadrant pink in color without cyanosis. Moderate amount of bile colored gastric content noted in ostomy bag. Musculoskeletal: No muscular deformities. Exam limited due to sedation Skin: No rashes, warm and dry Neurologic: Unable to assess due to sedation/paralytic Psychiatric: Unable to assess due to sedation/paralytics Genitourinary: Indwelling Amor catheter present Results & Data Results & Data ([facility]) Vital Signs (Past 12 Hours) Vital Signs Temp Pulse Pulse Resp BP BP Pulse Ox 06/11/22 22:37 36.4 C L 78 18 200/103 H 98 06/11/22 22:27 36.4 C L 101 H 18 228/135 H 100 06/11/22 19:15 06/11/22 18:45 36.5 C 79 18 151/86 H 96 06/11/22 19:43 37.0 C 79 19 167/93 H 98 06/11/22 18:44 06/11/22 18:00 85 22 95 06/11/22 18:00 152/88 H 06/11/22 17:31 85 22 95 06/11/22 17:31 137/99 06/11/22 17:30 89 22 96 06/11/22 17:00 78 23 97 06/11/22 17:00 178/102 H 06/11/22 16:30 85 15 94 06/11/22 16:30 151/87 H 06/11/22 16:00 82 19 94 06/11/22 16:00 159/98 H 06/11/22 15:30 74 20 97 06/11/22 15:30 165/93 H 06/11/22 15:00 71 17 96 06/11/22 15:00 155/89 H 06/11/22 14:31 75 21 96 06/11/22 14:31 160/111 H 06/11/22 14:30 73 16 95 06/11/22 14:00 71 21 95 06/11/22 14:00 149/87 H 06/11/22 13:30 74 20 94 06/11/22 13:30 150/88 H 06/11/22 13:00 72 20 95 06/11/22 13:00 165/99 H 06/11/22 12:30 68 21 98 06/11/22 12:30 168/100 H 06/11/22 12:11 75 21 100 06/11/22 12:11 176/87 H 06/11/22 12:10 99 06/11/22 11:53 73 21 99 O2 Del Method O2 Flow Rate FiO2 06/11/22 22:37 Mechanical Vent 45 06/11/22 22:27 Mechanical Vent 45 06/11/22 19:15 Nasal Cannula 2 06/11/22 18:45 Nasal Cannula 2 06/11/22 19:43 Nasal Cannula 2 06/11/22 18:44 Room Air 06/11/22 18:00 06/11/22 18:00 06/11/22 17:31 06/11/22 17:31 06/11/22 17:30 06/11/22 17:00 06/11/22 17:00 06/11/22 16:30 06/11/22 16:30 06/11/22 16:00 06/11/22 16:00 06/11/22 15:30 06/11/22 15:30 06/11/22 15:00 06/11/22 15:00 06/11/22 14:31 06/11/22 14:31 06/11/22 14:30 06/11/22 14:00 06/11/22 14:00 06/11/22 13:30 06/11/22 13:30 06/11/22 13:00 06/11/22 13:00 06/11/22 12:30 06/11/22 12:30 06/11/22 12:11 06/11/22 12:11 06/11/22 12:10 06/11/22 11:53 Coding Level of Care Code Critical Care 1st 30-74 mins Diagnoses Small bowel obstruction K56.609 Large bowel obstruction K56.609 Colonic stricture K56.699 Diverticular stricture K56.699 PAF (paroxysmal atrial fibrillation) I48.0 Stroke I63.9 Diverticulitis K57.92 HLD (hyperlipidemia) E78.5 Hypertension I10 On mechanically assisted ventilation Z99.11
[2022-06-11 23:35] LABS: iSTAT Allen Test Pass; iSTAT Arterial Blood Gas HCO3 19 meg/L (19-24); iSTAT Arterial Blood Gas pCO2 33 mmHg (35-46); iSTAT Arterial Blood Gas pH 7.36 (7.35-7.45); iSTAT Arterial Blood Gas pO2 51 mmHg (80-95); iSTAT Carbon Dioxide 19 mmol/L (24-31); iSTAT FiO2 80 %; iSTAT Site L Radial
[2022-06-11] MEDS: D5W AND 1/2NSS + 20MEQ KCL 20 MEQ/1,000 ML BAG IV SCH (23:36)
[2022-06-11] MEDS: PANTOprazole 40 MG in SYRINGE 0 ML IV SCH (23:36)
[2022-06-12] MEDS ORDERED: ceFAZolin 1000MG 1,000 MG/7.5 ML SYR IV SCH
[2022-06-12 00:07] LABS: Basophils # (auto) 0.04 K/uL (0-0.2); Basophils % (auto) 0.4 %; Eosinophils # (auto) 0.04 K/uL (0-0.50); Eosinophils % (auto) 0.4 %; Hematocrit (blood only) 40.4 % (37.0-47.0); Immature Granulocytes # (auto) 0.05 K/uL (0.01-0.20); Immature Granulocytes % (auto) 0.5 %; Lymphocytes # (auto) 1.16 K/uL (1.2-3.4); Lymphocytes % (auto) 11.2 %; Mean Corpuscular Hemoglobin 30.3 pg (25.0-34.0); Mean Corpuscular Hgb Conc 32.2 g/dL (32.0-36.0); Mean Corpuscular Volume 94.2 fL (80.0-100.0); Mean Platelet Volume 11.1 fL (9.4-12.4); Monocytes # (auto) 0.74 K/uL (0.11-0.59); Monocytes % (auto) 7.2 %; Neutrophils % (auto) 80.3 %; Platelet Count 255 K/uL (130-400); RDW Coefficient of Variation 14.6 % (11.5-14.5); RDW Standard Deviation 50.4 fL (36.4-46.3); Red Blood Count 4.29 M/uL (4.20-5.40); White Blood Count 10.33 K/ul (4.8-10.8)
[2022-06-12 00:27] LABS: BUN Creatinine Ratio 43.8 (10-20); Calcium 7.5 mg/dl (8.5-10.1); Est GFR (African American) 87.2 ml/min; Est GFR (Non-African American) 75.2 ml/min; Potassium 4.4 mmol/L (3.5-5.1)
[2022-06-12] MEDS: metroNIDAZOLE 500 MG/100 ML BAG IV SCH ×4 (00:36→23:17)
[2022-06-12] MEDS: CEFEPIME 2,000 MG in SYRINGE 0 ML IV SCH ×4 (00:36→23:16)
[2022-06-12] MEDS: propofoL 1,000 MG/100 ML VIAL IV SCH (05:07)
[2022-06-12 05:27] LABS: iSTAT Allen Test Pass; iSTAT Arterial Blood Gas HCO3 19 meg/L (19-24); iSTAT Arterial Blood Gas pCO2 32 mmHg (35-46); iSTAT Arterial Blood Gas pH 7.39 (7.35-7.45); iSTAT Arterial Blood Gas pO2 91 mmHg (80-95); iSTAT Carbon Dioxide 20 mmol/L (24-31); iSTAT FiO2 40 %; iSTAT Site L Radial
[2022-06-12 06:18] LABS: Hematocrit (blood only) 35.1 % (37.0-47.0); Hemoglobin 11.3 g/dl (12.0-16.0); Mean Corpuscular Hemoglobin 29.4 pg (25.0-34.0); Mean Corpuscular Hgb Conc 32.2 g/dL (32.0-36.0); Mean Corpuscular Volume 91.4 fL (80.0-100.0); Mean Platelet Volume 11.3 fL (9.4-12.4); Platelet Count 261 K/uL (130-400); RDW Coefficient of Variation 14.6 % (11.5-14.5); RDW Standard Deviation 48.4 fL (36.4-46.3); Red Blood Count 3.84 M/uL (4.20-5.40)
[2022-06-12 06:30] LABS: Albumin Globulin Ratio 0.9 (0.9-2); Albumin Level 2.5 gm/dl (3.4-5.0); BUN Creatinine Ratio 44.2 (10-20); Bilirubin,Total 0.5 mg/dl (0.2-1.0); Calcium 7.9 mg/dl (8.5-10.1); Creatinine Clr Calc Pharmacy 62.3 ml/min; Est GFR (African American) 79.9 ml/min; Est GFR (Non-African American) 68.9 ml/min; Globulin 2.8 gm/dl (2.5-4.0); Magnesium 1.8 mg/dl (1.7-2.4); Phosphorus 3.4 mg/dl (2.5-4.9); Potassium 4.1 mmol/L (3.5-5.1); Total Protein 5.3 gm/dl (6.0-8.3)
[2022-06-12] MEDS ORDERED: CARBOHYDRATES FOR HYPOGLYCEMIA PO PRN (06:44)
[2022-06-12] MEDS ORDERED: GLUCAGON FOR INJ 1 MG VIAL SQ PRN (06:44)
[2022-06-12] MEDS ORDERED: GLUCOSE 10 TAB/TUBE PO PRN (06:44)
[2022-06-12] MEDS ORDERED: DEXTROSE 50% 50 ML SYRINGE IV PRN (06:44)
[2022-06-12] MEDS ORDERED: GLUCOSE 40% GEL 15 GM TUBE PO PRN (06:44)
[2022-06-12 06:46] LABS: Basophils # (auto) 0.01 K/uL (0-0.2); Basophils % (auto) 0.1 %; Eosinophils # (auto) 0.01 K/uL (0-0.50); Eosinophils % (auto) 0.1 %; Immature Granulocytes # (auto) 0.04 K/uL (0.01-0.20); Immature Granulocytes % (auto) 0.4 %; Lymphocytes # (auto) 0.68 K/uL (1.2-3.4); Lymphocytes % (auto) 7.4 %; Monocytes # (auto) 0.59 K/uL (0.11-0.59); Monocytes % (auto) 6.4 %; Neutrophils # (auto) 7.87 K/uL (1.40-6.50); Neutrophils % (auto) 85.6 %
[2022-06-12] MEDS: PANTOprazole 40 MG in SYRINGE 0 ML IV SCH ×2 (07:40→20:00)
[2022-06-12] MEDS: INSULIN ASPART PER UNIT SC SCH ×4 (07:59→23:31)
[2022-06-12] MEDS: DULoxetine HCL 30 MG CAP PO SCH (08:02)
[2022-06-12] MEDS: lisinopril 40 MG TAB PO SCH (08:03)
[2022-06-12] MEDS: amLODIPine BESYLATE 5 MG TAB PO SCH (08:03)
[2022-06-12] MEDS: METOPROLOL TARTRATE 25 MG TAB PO SCH ×2 (08:04→19:58)
[2022-06-12] MEDS: POLYETHYLENE (MIRALAX) 17 GM PACK PO SCH (08:05)
[2022-06-12] MEDS: MAGNESIUM SULFATE / D5W 1 GM/100 ML BAG IV SCH ×2 (08:51→10:48)
[2022-06-12] MEDS ORDERED: FUROSEMIDE 20 MG TAB PO SCH (09:00)
[2022-06-12] MEDS ORDERED: PANTOprazole 40 MG TAB PO SCH (09:00)
[2022-06-12] MEDS ORDERED: FLUTICASONE/VILANTEROL 100/25MCG 14 PUFFS/INHALER INH SCH (09:00)
--- NOTE | 2022-06-12 10:29 | XRay Report ---
XR chest 1V portable HISTORY: ETT placement COMPARISON: Chest 06/11/2022. FINDINGS: Endotracheal tube terminates approximately 5 cm from the vel. A nasogastric tube termina alaina below the diaphragm. The fenestrated line is at the gastroesophageal junction. Cervical spinal fu nimisha hardware is noted. No pneumothorax. A few bibasilar linear densities have progressed. No evidenc e for pulmonary edema. The heart is normal in size. IMPRESSION: 1. The endotracheal tube terminates 5 cm from the vel. 2. Nasogastric tube terminates in the stomach. The fenestrated line is at the gastroesophageal juncti on. Therefore, this should be advanced by approximately 5 cm. 3. A few bibasilar linear densities. These are nonspecific but could represent subsegmental atelectas is or a pneumonia. ACT 112: Negative or not required by law. Electronically signed by: Bruce Hunter M.D. 06/12/2022 10:28 AM
--- NOTE | 2022-06-12 11:46 | Surgery Progress Note ---
Date of Service June 12, 2022 Assessment & Plan (1) Large bowel obstruction: Plan: pt is a 67 year-old who presents to ER with 2 days history distend abdomen with 2 weeks history stroke, and colon stricture with stent placed. IMP: large bowel obstruction plan, base pt's co-morbilities, new stroke and large bowel obstruction, recommend to transfer to tertiary care level care consult colorectal surgeon and GI as soon as possible, should contact [facility] if [facility] no bed available, pt agreed with transfer, D/W ER attending, NG tube placement, 06/12/2022 11:[address] Yusuf F/U S/P loop colostomy, doing fine, extubated, continue treatment, keep NG tube one more day, will F/U, Admission and Anticipated Discharge Date Admission Date: June 11, 2022 Subjective F/U S/P loop colostomy, POD 1 pt is stable, pt is extubated now, no fever, colostomy bag with stool, NG for po meds Review of Systems Constitutional: as per Subjective / HPI Eyes: as per Subjective / HPI Respiratory: as per Subjective / HPI (smoker) Cardiovascular: Additional Comments: HTN, A-fib, Gastrointestinal: large bowel stricture, GI large stent 2 weeks, with complicated stroke Neurologic: stroke 2 weeks Psychiatric: as per Subjective / HPI Endocrine: DM Hematologic / Lymphatic: as per Subjective / HPI Physical Exam Constitutional: WD/WN, vitals as above Eyes: PERRL, conjunctivae normal, anicteric sclerae Neck: trachea midline, no thyromegaly Respiratory: normal respiratory effort, lungs clear to auscultation Cardiovascular: Rate/Rhythm: + irregularly irregular Gastrointestinal (Abdomen): soft, no distend, colostomy bag intact, some stool in the bag, NT, BS +, Neurologic: patellar DTR's 2+ bilat, sensation intact Psychiatric: A+Ox3, euthymic affect Results & Data ([facility]) Vital Signs (Past 12 Hours) Vital Signs Temp Pulse Resp BP Pulse Ox O2 Del Method FiO2 06/12/22 11:11 83 15 95 30 06/12/22 09:30 37.6 C H 75 13 96 06/12/22 09:30 93/42 L 06/12/22 09:15 129/66 06/12/22 09:15 37.7 C H 85 15 95 06/12/22 09:00 37.8 C H 90 12 86 L 06/12/22 09:00 152/71 H 06/12/22 08:45 107/57 L 06/12/22 08:45 37.8 C H 87 16 99 Mechanical Vent 06/12/22 08:30 37.8 C H 89 16 99 Mechanical Vent 06/12/22 08:30 111/57 L 06/12/22 08:15 120/60 06/12/22 08:15 37.9 C H 88 18 99 Mechanical Vent 06/12/22 08:04 112/59 L 06/12/22 08:04 37.9 C H 91 H 18 98 Mechanical Vent 06/12/22 08:00 37.9 C H 90 18 98 Mechanical Vent 06/12/22 08:00 108/58 L 06/12/22 07:45 102/57 L 06/12/22 07:45 37.9 C H 87 18 98 Mechanical Vent 06/12/22 07:30 37.9 C H 87 18 98 Mechanical Vent 06/12/22 07:30 103/57 L 06/12/22 07:15 91/55 L 06/12/22 07:15 37.9 C H 85 18 97 Mechanical Vent 06/12/22 07:00 37.9 C H 84 18 97 Mechanical Vent 06/12/22 07:00 102/56 L 06/12/22 09:36 85 06/12/22 08:00 Mechanical Vent 06/12/22 08:00 30 06/12/22 07:29 87 18 98 30 06/12/22 05:30 38.2 C H 92 H 18 96 06/12/22 05:30 82/49 L 06/12/22 05:15 38.2 C H 90 18 100 06/12/22 05:15 96/57 L 06/12/22 05:00 38.2 C H 97 H 18 99 06/12/22 05:00 137/74 06/12/22 04:45 38.2 C H 94 H 18 98 06/12/22 04:45 109/64 06/12/22 04:30 38.2 C H 91 H 18 99 06/12/22 04:30 124/70 06/12/22 04:15 122/65 06/12/22 04:15 38.1 C H 87 18 97 06/12/22 04:00 38.1 C H 86 18 99 06/12/22 04:00 124/64 06/12/22 03:45 131/66 06/12/22 03:45 38.0 C H 87 18 98 06/12/22 03:30 113/61 06/12/22 03:30 38.0 C H 86 18 99 06/12/22 03:15 37.9 C H 86 18 99 06/12/22 03:15 119/65 06/12/22 03:00 37.8 C H 88 18 99 06/12/22 03:00 117/66 06/12/22 02:45 103/60 06/12/22 02:45 37.8 C H 89 18 100 06/12/22 02:30 126/68 06/12/22 02:30 37.7 C H 84 18 100 06/12/22 02:15 37.6 C H 85 18 100 06/12/22 02:15 145/74 H 06/12/22 02:11 191/91 H 06/12/22 02:11 37.5 C 86 18 100 06/12/22 02:10 196/93 H 06/12/22 02:10 37.5 C 88 18 100 06/12/22 02:05 167/78 H 06/12/22 02:05 37.4 C 81 18 100 06/12/22 02:00 37.4 C 79 18 98 06/12/22 02:00 153/76 H 06/12/22 01:55 146/72 H 06/12/22 01:55 37.3 C 80 18 99 06/12/22 01:50 157/78 H 06/12/22 01:50 37.3 C 78 18 97 06/12/22 01:45 37.3 C 81 18 97 06/12/22 01:45 166/80 H 06/12/22 01:40 37.2 C 77 18 98 06/12/22 01:40 166/86 H 06/12/22 01:35 119/65 06/12/22 01:35 37.2 C 76 18 97 06/12/22 01:30 120/64 06/12/22 01:30 37.1 C 77 18 97 06/12/22 01:25 123/68 06/12/22 01:25 37.1 C 76 18 97 06/12/22 01:20 37.0 C 75 18 96 06/12/22 01:20 130/68 06/12/22 01:15 121/65 06/12/22 01:15 37.0 C 76 18 97 06/12/22 01:10 123/67 06/12/22 01:10 36.9 C 77 18 97 06/12/22 01:05 120/64 06/12/22 01:05 36.9 C 74 18 97 06/12/22 01:00 36.9 C 75 18 97 06/12/22 01:00 129/68 06/12/22 00:55 36.8 C 75 18 95 06/12/22 00:55 135/69 06/12/22 04:00 40 06/12/22 03:57 87 18 99 40 06/12/22 00:00 Mechanical Vent 55 06/12/22 00:00 55 06/11/22 23:45 74 18 91 70 Laboratory Results Abnormal lab results 06/11/22 06/11/22 06/11/22 Range/Units 13:11 13:11 18:24 WBC 11.97 H (4.8-10.8) K/ul RBC (4.20-5.40) M/uL Hgb (12.0-16.0) g/dl Hct (37.0-47.0) % RDW Std Deviation 47.4 H (36.4-46.3) fL RDW Coeff of Susan (11.5-14.5) % Neut # (Auto) 9.44 H (1.40-6.50) K/uL Lymph # (Auto) (1.2-3.4) K/uL [place] # (Auto) 1.06 H (0.11-0.59) K/uL POC pCO2 (35-46) mmHg POC pO2 (80-95) mmHg POC Total CO2 (24-31) mmol/L POC ABG O2 Sat (90-95) % Chloride 111 H (98-107) mmol/L Carbon Dioxide 20 L (21-32) mmol/L BUN 41 H (6-23) mg/dl BUN/Creatinine Ratio 56.2 H (10-20) Glucose 143 H (70-99(Fasting)) mg/dl POC Glucose (70-99) mg/dl Calcium (8.5-10.1) mg/dl AST (13-39) U/L ALT (7-52) U/L Total Protein (6.0-8.3) gm/dl Albumin 3.2 L (3.4-5.0) gm/dl Urine Appearance Cloudy A (Clear) Ur Specific [place] > 1.045 H (1.000-1.030) Urine Protein Trace H (Negative) Urine RBC (Auto) 5-10 H (0-4) /hpf U Epithel Cells (Auto) 20-30 H (0-5) /lpf 06/11/22 06/11/22 06/11/22 Range/Units 19:52 23:19 23:52 WBC (4.8-10.8) K/ul RBC (4.20-5.40) M/uL Hgb (12.0-16.0) g/dl Hct (37.0-47.0) % RDW Std Deviation 50.4 H (36.4-46.3) fL RDW Coeff of Susan 14.6 H (11.5-14.5) % Neut # (Auto) 8.30 H (1.40-6.50) K/uL Lymph # (Auto) 1.16 L (1.2-3.4) K/uL [place] # (Auto) 0.74 H (0.11-0.59) K/uL POC pCO2 33 L (35-46) mmHg POC pO2 51 L (80-95) mmHg POC Total CO2 19 L (24-31) mmol/L POC ABG O2 Sat 85.0 L (90-95) % Chloride (98-107) mmol/L Carbon Dioxide (21-32) mmol/L BUN (6-23) mg/dl BUN/Creatinine Ratio (10-20) Glucose (70-99(Fasting)) mg/dl POC Glucose 129 H (70-99) mg/dl Calcium (8.5-10.1) mg/dl AST (13-39) U/L ALT (7-52) U/L Total Protein (6.0-8.3) gm/dl Albumin (3.4-5.0) gm/dl Urine Appearance (Clear) Ur Specific [place] (1.000-1.030) Urine Protein (Negative) Urine RBC (Auto) (0-4) /hpf U Epithel Cells (Auto) (0-5) /lpf 06/11/22 06/12/22 06/12/22 Range/Units 23:52 05:14 05:57 WBC (4.8-10.8) K/ul RBC 3.84 L (4.20-5.40) M/uL Hgb 11.3 L (12.0-16.0) g/dl Hct 35.1 L (37.0-47.0) % RDW Std Deviation 48.4 H (36.4-46.3) fL RDW Coeff of Susan 14.6 H (11.5-14.5) % Neut # (Auto) 7.87 H (1.40-6.50) K/uL Lymph # (Auto) 0.68 L (1.2-3.4) K/uL [place] # (Auto) (0.11-0.59) K/uL POC pCO2 32 L (35-46) mmHg POC pO2 (80-95) mmHg POC Total CO2 20 L (24-31) mmol/L POC ABG O2 Sat 97.0 H (90-95) % Chloride 112 H (98-107) mmol/L Carbon Dioxide 20 L (21-32) mmol/L BUN 35 H (6-23) mg/dl BUN/Creatinine Ratio 43.8 H (10-20) Glucose 114 H (70-99(Fasting)) mg/dl POC Glucose (70-99) mg/dl Calcium 7.5 L (8.5-10.1) mg/dl AST (13-39) U/L ALT (7-52) U/L Total Protein (6.0-8.3) gm/dl Albumin (3.4-5.0) gm/dl Urine Appearance (Clear) Ur Specific [place] (1.000-1.030) Urine Protein (Negative) Urine RBC (Auto) (0-4) /hpf U Epithel Cells (Auto) (0-5) /lpf 06/12/22 06/12/22 06/12/22 Range/Units 05:57 07:53 11:25 WBC (4.8-10.8) K/ul RBC (4.20-5.40) M/uL Hgb (12.0-16.0) g/dl Hct (37.0-47.0) % RDW Std Deviation (36.4-46.3) fL RDW Coeff of Susan (11.5-14.5) % Neut # (Auto) (1.40-6.50) K/uL Lymph # (Auto) (1.2-3.4) K/uL [place] # (Auto) (0.11-0.59) K/uL POC pCO2 (35-46) mmHg POC pO2 (80-95) mmHg POC Total CO2 (24-31) mmol/L POC ABG O2 Sat (90-95) % Chloride 113 H (98-107) mmol/L Carbon Dioxide (21-32) mmol/L BUN 38 H (6-23) mg/dl BUN/Creatinine Ratio 44.2 H (10-20) Glucose 226 H (70-99(Fasting)) mg/dl POC Glucose 217 H 214 H (70-99) mg/dl Calcium 7.9 L (8.5-10.1) mg/dl AST 11 L (13-39) U/L ALT 6 L (7-52) U/L Total Protein 5.3 L (6.0-8.3) gm/dl Albumin 2.5 L (3.4-5.0) gm/dl Urine Appearance (Clear) Ur Specific [place] (1.000-1.030) Urine Protein (Negative) Urine RBC (Auto) (0-4) /hpf U Epithel Cells (Auto) (0-5) /lpf
[2022-06-12] MEDS: D5W AND 1/2NSS + 20MEQ KCL 20 MEQ/1,000 ML BAG IV SCH (12:04)
--- NOTE | 2022-06-12 12:19 | Critical Care Progress Note ---
Date of Service June 12, 2022 Assessment & Plan (1) Small bowel obstruction: (2) Large bowel obstruction: (3) Colonic stricture: (4) Diverticular stricture: (5) PAF (paroxysmal atrial fibrillation): (6) Stroke: (7) Diverticulitis: (8) HLD (hyperlipidemia): (9) Hypertension: (10) On mechanically assisted ventilation: Plan Reason Critically Ill: 67-year-old female presents to the ICU following a colostomy for large bowel obstruction and remains mechanically ventilated due to altered mental status. Neuro - Encephalopathypatient presented to the emergency department obtunded. 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 -Currently on fentanyl and propofol for sedation Cardiac - Paroxysmal A-fibnormal sinus rhythm. -On apixaban at home Being held due to surgery. Last dose 06/11 in a.m HLDcontinue statin HTNcontinue amlodipine, lisinopril, MTP Respiratory - Mechanically ventilatedpatient with history of COPD and prior smoker. Continue with ventilatory support Keep RASS -1 Daily sedation holidays and SBT's -- COPD -Continue Singulair, Breo Ellipta, nebs -Continuous monitoring pulse ox GI - Large bowel obstruction/diverticular stricturepatient now postop for colostomy. Management per surgical team -NG tube to intermittent low wall suction per surgery -N.p.o. -Continue PPI RENAL/LYTES - Monitor BUNs/creatinine Avoid nephrotoxic medication - Foleystrict I's and O's ENDO - DM type IIcurrently euglycemic. Last hemoglobin A1c 6.9 -ICU hyperglycemic protocol HEME - H&H stable. EBL 10 Monitor routine CBCs and transfuse if indicated ID - -- Possible right lower lobe aspiration Continue with Flagyl and cefepime to cover for gram-negative's and anaerobes Procalcitonin 0.13 Although blood culture --Prophylaxis VTE: IPC, home apixaban on hold GI: Pantoprazole Lines: Peripheral Diet: N.p.o. Plan: In/out: +92 mL, urine output 1150 AB.39/32/91 on PEEP of 5 Turn the sedation off with trial of extubation today Repeat H&H in the afternoon. Magnesium being replaced I have personally spent 40 minutes of critical care time in the direct management of this patient. This is a life/limb threatening event. This includes time spent evaluating patient, direct bedside care, chart review, placing orde rs, interpretation of diagnostic studies, discussion with consultants, patient, and family members, as well as other required patient management activities. This time is exclusive of all separately billable procedures, and teaching time and separate from and in addition to any other critical care service time. Thank you for allowing us to participate in the care of this patient. Please refer to my attending physician's documentation for any further recommendations. Admission and Anticipated Discharge Date Admission Date: June 11, 2022 Subjective Patient seen and examined at bedside. No acute distress, no adverse events overnight She was on 15 of propofol, 25 of fentanyl at the time of examination She was opening her eyes but she was not following any commands at that time. She was breathing with the vent Blood pressure was in the systolic 120s. She is spiking low-grade fever. Review of Systems Review of Systems: All systems reviewed & are unremarkable except as noted in Subjective and Unobtainable due to endotracheal tube Physical Exam Physical Exam: Constitutional: No acute distress HEENT: PERRLA Respiratory system: Decreased air entry bilaterally, no wheeze, rhonchi, mild crackles bilateral lower lobes CVS: S1-S2 positive, no murmurs or gallops Abdomen: Soft, nontender, nondistended, positive bowel sounds x4, colostomy in place Extremities: +2 pulses bilaterally radialis/ dorsalis pedis, no cyanosis, no edema Neuro: RASS -2, breathing with the vent, trying to move the left upper extremity, history of right-sided paresis Psych: Unable to assess G/U: Positive Amor Skin: no rashes, warm and dry Lymphatic: no cervical or axillary lymphadenopathy Results & Data Results & Data ([facility]) Vital Signs (Past 12 Hours) Vital Signs Temp Pulse Resp BP Pulse Ox O2 Del Method FiO2 06/12/22 11:45 66 24 95 31 06/12/22 11:11 83 15 95 30 06/12/22 09:30 37.6 C H 75 13 96 06/12/22 09:30 93/42 L 06/12/22 09:15 129/66 06/12/22 09:15 37.7 C H 85 15 95 06/12/22 09:00 37.8 C H 90 12 86 L 06/12/22 09:00 152/71 H 06/12/22 08:45 107/57 L 06/12/22 08:45 37.8 C H 87 16 99 Mechanical Vent 06/12/22 08:30 37.8 C H 89 16 99 Mechanical Vent 06/12/22 08:30 111/57 L 06/12/22 08:15 120/60 06/12/22 08:15 37.9 C H 88 18 99 Mechanical Vent 06/12/22 08:04 112/59 L 06/12/22 08:04 37.9 C H 91 H 18 98 Mechanical Vent 06/12/22 08:00 37.9 C H 90 18 98 Mechanical Vent 06/12/22 08:00 108/58 L 06/12/22 07:45 102/57 L 06/12/22 07:45 37.9 C H 87 18 98 Mechanical Vent 06/12/22 07:30 37.9 C H 87 18 98 Mechanical Vent 06/12/22 07:30 103/57 L 06/12/22 07:15 91/55 L 06/12/22 07:15 37.9 C H 85 18 97 Mechanical Vent 06/12/22 07:00 37.9 C H 84 18 97 Mechanical Vent 06/12/22 07:00 102/56 L 06/12/22 09:36 85 06/12/22 08:00 Mechanical Vent 06/12/22 08:00 30 06/12/22 07:29 87 18 98 30 06/12/22 05:30 38.2 C H 92 H 18 96 06/12/22 05:30 82/49 L 06/12/22 05:15 38.2 C H 90 18 100 06/12/22 05:15 96/57 L 06/12/22 05:00 38.2 C H 97 H 18 99 06/12/22 05:00 137/74 06/12/22 04:45 38.2 C H 94 H 18 98 06/12/22 04:45 109/64 06/12/22 04:30 38.2 C H 91 H 18 99 06/12/22 04:30 124/70 06/12/22 04:15 122/65 06/12/22 04:15 38.1 C H 87 18 97 06/12/22 04:00 38.1 C H 86 18 99 06/12/22 04:00 124/64 06/12/22 03:45 131/66 06/12/22 03:45 38.0 C H 87 18 98 06/12/22 03:30 113/61 06/12/22 03:30 38.0 C H 86 18 99 06/12/22 03:15 37.9 C H 86 18 99 06/12/22 03:15 119/65 06/12/22 03:00 37.8 C H 88 18 99 06/12/22 03:00 117/66 06/12/22 02:45 103/60 06/12/22 02:45 37.8 C H 89 18 100 06/12/22 02:30 126/68 06/12/22 02:30 37.7 C H 84 18 100 06/12/22 02:15 37.6 C H 85 18 100 06/12/22 02:15 145/74 H 06/12/22 02:11 191/91 H 06/12/22 02:11 37.5 C 86 18 100 06/12/22 02:10 196/93 H 06/12/22 02:10 37.5 C 88 18 100 06/12/22 02:05 167/78 H 06/12/22 02:05 37.4 C 81 18 100 06/12/22 02:00 37.4 C 79 18 98 06/12/22 02:00 153/76 H 06/12/22 01:55 146/72 H 06/12/22 01:55 37.3 C 80 18 99 06/12/22 01:50 157/78 H 06/12/22 01:50 37.3 C 78 18 97 06/12/22 01:45 37.3 C 81 18 97 06/12/22 01:45 166/80 H 06/12/22 01:40 37.2 C 77 18 98 06/12/22 01:40 166/86 H 06/12/22 01:35 119/65 06/12/22 01:35 37.2 C 76 18 97 06/12/22 01:30 120/64 06/12/22 01:30 37.1 C 77 18 97 06/12/22 01:25 123/68 06/12/22 01:25 37.1 C 76 18 97 02/11/23 01:20 37.0 C 75 18 96 06/12/22 01:20 130/68 06/12/22 01:15 121/65 06/12/22 01:15 37.0 C 76 18 97 06/12/22 01:10 123/67 06/12/22 01:10 36.9 C 77 18 97 06/12/22 01:05 120/64 06/12/22 01:05 36.9 C 74 18 97 06/12/22 01:00 36.9 C 75 18 97 06/12/22 01:00 129/68 06/12/22 00:55 36.8 C 75 18 95 06/12/22 00:55 135/69 06/12/22 04:00 40 06/12/22 03:57 87 18 99 40 Laboratory Results 06/12/22 05:57 06/12/22 05:57 Coding Level of Care Code Critical Care 1st 30-74 mins Diagnoses Small bowel obstruction K56.609 Large bowel obstruction K56.609 Colonic stricture K56.699 Diverticular stricture K56.699 PAF (paroxysmal atrial fibrillation) I48.0 Stroke I63.9 Diverticulitis K57.92 HLD (hyperlipidemia) E78.5 Hypertension I10 On mechanically assisted ventilation Z99.11 Time Spent (min) 40
[2022-06-12 14:33] LABS: BUN Creatinine Ratio 34.7 (10-20); Calcium 7.9 mg/dl (8.5-10.1); Creatinine Clr Calc Pharmacy 54.7 ml/min; Est GFR (African American) 68.2 ml/min; Est GFR (Non-African American) 58.9 ml/min; Potassium 4.2 mmol/L (3.5-5.1)
[2022-06-12 14:38] LABS: Hematocrit (blood only) 42.2 % (37.0-47.0); Hemoglobin 12.9 g/dl (12.0-16.0)
--- NOTE | 2022-06-12 17:32 | Hospitalist Progress Note ---
Date of Service June 12, 2022 Assessment & Plan (1) Small bowel obstruction: (2) Diverticular stricture: Plan: Plan as above. (3) Colonic stricture: Plan: colonic stent placed on 05/26, however, it is not traversing an area of high grade stricture. Ongoing abdominal distension noted at rehab center after discharge. The initial plan was to allow her abdomen to decompress and subsequently perform abdominal surgery. Subsequent large bowel obstruction present and her abdominal distension worsened. 06/11: diverting colostomy performed and she is recovering on BIPAP in the ICU. NG tube still in place for one more day per surgery. (4) PAF (paroxysmal atrial fibrillation): Plan: Hold apixaban perioperatively until surgery is ok with restarting. (5) Stroke: Plan: h/o post-op stroke last month with subsequent mild right hemiparesis and cognitive language impairment. Cannot assess current function given obtunded state. Cont supportive care and PT/OT with back to rehab at discharge. (6) Hypertension: Plan: chronic, at goal. Currently NPO with NG tube in place. (7) DM II (diabetes mellitus, type II), controlled: Plan: A1C reflects good control at 6.9 last month. Cont with basal bolus insulin during admission. DVT proph: holding anticoagulants in post op setting. Full code Dispo- ICU Ritika Jj DO [facility] Hospitalist Admission and Anticipated Discharge Date Admission Date: June 11, 2022 Subjective 67 yo F admitted with small and large bowel obstruction s/p diverting colostomy placement overnight by Dr. Yusuf. She was intubated in the ICU untl this morning and has been extubated to BIPAP. She is fatigued and sleeping so ROS was not obtained. She is not on sedation and is currently on NSS. Review of Systems Review of Systems: ROS cannot be obtained 2/2 obtunded state. Physical Exam Physical Exam: CONSTITUTIONAL: WNWD, vitals as above, NAD, breathing comfortably on BIPAP. EYES: normal conjunctivae ENT: external ear and nose normal, BIPAP in place. NG tube in place. NECK: trachea midline RESPIRATORY: clear to auscultation bilaterally, no crackles, rales or wheezes CARDIOVASCULAR: regular rate and rhythm, S1 and 2 heard without murmurs, gallops or rubs, no JVD, no peripheral edema CHEST: inspection of chest was normal GASTROINTESTINAL: colostomy in place with brown stool. abdomen is soft and nondistended. there is no guarding. MUSCULOSKELETAL: fatigued, cannot assess. head is normocephalic and atraumatic SKIN: warm and dry NEUROLOGIC: fatigued, cannot assess. Results & Data Results & Data ([facility]) Vital Signs (Past 12 Hours) Vital Signs Temp Pulse Resp BP Pulse Ox O2 Del Method FiO2 06/12/22 14:40 75 15 97 30 06/12/22 14:33 72 06/12/22 14:00 37.5 C 77 17 97 BiPAP 06/12/22 14:00 140/64 06/12/22 13:45 131/62 06/12/22 13:45 37.5 C 76 16 97 BiPAP 06/12/22 13:30 137/63 06/12/22 13:30 37.5 C 74 16 96 BiPAP 06/12/22 13:15 123/60 06/12/22 13:15 37.5 C 74 17 96 BiPAP 06/12/22 13:00 37.5 C 72 17 95 BiPAP 06/12/22 13:00 126/56 L 06/12/22 12:57 37.5 C 70 16 95 BiPAP 06/12/22 12:57 122/56 L 06/12/22 12:30 128/63 06/12/22 12:30 37.4 C 71 16 97 BiPAP 06/12/22 12:15 119/58 L 06/12/22 12:15 37.5 C 72 15 97 BiPAP 06/12/22 12:00 37.4 C 73 16 96 BiPAP 06/12/22 12:00 123/57 L 06/12/22 11:45 111/53 L 06/12/22 11:45 37.5 C 64 26 H 97 BiPAP 06/12/22 11:30 119/58 L 06/12/22 11:30 37.5 C 72 14 97 CPAP 06/12/22 11:15 161/79 H 06/12/22 11:15 37.5 C 81 15 95 CPAP 06/12/22 11:00 37.5 C 70 14 96 CPAP 06/12/22 11:00 116/60 06/12/22 10:45 119/61 06/12/22 10:45 37.5 C 69 14 96 CPAP 06/12/22 10:30 110/60 06/12/22 10:30 37.6 C H 65 14 96 CPAP 06/12/22 10:15 110/54 L 06/12/22 10:15 37.6 C H 71 17 96 CPAP 06/12/22 10:07 37.6 C H 69 14 98 CPAP 06/12/22 10:07 118/58 L 06/12/22 10:00 37.6 C H 69 14 98 CPAP 06/12/22 10:00 89/47 L 06/12/22 09:45 37.6 C H 71 15 96 06/12/22 09:45 100/43 L 06/12/22 11:45 66 24 95 31 06/12/22 11:11 83 15 95 30 06/12/22 09:30 37.6 C H 75 13 96 06/12/22 09:30 93/42 L 06/12/22 09:15 129/66 06/12/22 09:15 37.7 C H 85 15 95 06/12/22 09:00 37.8 C H 90 12 86 L 06/12/22 09:00 152/71 H 06/12/22 08:45 107/57 L 06/12/22 08:45 37.8 C H 87 16 99 Mechanical Vent 06/12/22 08:30 37.8 C H 89 16 99 Mechanical Vent 06/12/22 08:30 111/57 L 06/12/22 08:15 120/60 06/12/22 08:15 37.9 C H 88 18 99 Mechanical Vent 06/12/22 08:04 112/59 L 06/12/22 08:04 37.9 C H 91 H 18 98 Mechanical Vent 06/12/22 08:00 37.9 C H 90 18 98 Mechanical Vent 06/12/22 08:00 108/58 L 06/12/22 07:45 102/57 L 06/12/22 07:45 37.9 C H 87 18 98 Mechanical Vent 06/12/22 07:30 37.9 C H 87 18 98 Mechanical Vent 06/12/22 07:30 103/57 L 06/12/22 07:15 91/55 L 06/12/22 07:15 37.9 C H 85 18 97 Mechanical Vent 06/12/22 07:00 37.9 C H 84 18 97 Mechanical Vent 06/12/22 07:00 102/56 L 06/12/22 09:36 85 06/12/22 08:00 Mechanical Vent 06/12/22 08:00 30 06/12/22 07:29 87 18 98 30 06/12/22 05:30 38.2 C H 92 H 18 96 06/12/22 05:30 82/49 L Laboratory Results Short CBC 06/11/22 06/12/22 06/12/22 Range/Units 23:52 05:57 13:50 WBC 10.33 9.20 (4.8-10.8) K/ul Hgb 13.0 11.3 L 12.9 (12.0-16.0) g/dl Hct 40.4 35.1 L 42.2 (37.0-47.0) % Plt Count 255 261 (130-400) K/uL BMP 06/11/22 06/12/22 06/12/22 23:52 05:57 13:50 Sodium 140 141 143 Potassium 4.4 4.1 4.2 Chloride 112 H 113 H 114 H Carbon Dioxide 20 L 22 23 BUN 35 H 38 H 34 H Creatinine 0.80 0.86 0.98 Glucose 114 H 226 H 196 H Calcium 7.5 L 7.9 L 7.9 L Liver Function 06/12/22 Range/Units 05:57 Total Bilirubin 0.5 (0.2-1.0) mg/dl AST 11 L (13-39) U/L ALT 6 L (7-52) U/L Alkaline Phosphatase 48 (34-104) U/L Albumin 2.5 L (3.4-5.0) gm/dl Urine 06/11/22 Range/Units 18:24 Urine Color Yellow Urine Appearance Cloudy A (Clear) Urine pH 5.0 (4.5-7.5) Ur Specific [place] > 1.045 H (1.000-1.030) Urine Protein Trace H (Negative) Urine Glucose (UA) Negative (Negative) Diagnostic Findings Chest X-Ray 06/11/22 22:43 XR chest 1V portable HISTORY: ETT placement COMPARISON: Chest 06/11/2022. FINDINGS: Endotracheal tube terminates approximately 5 cm from the vel. A nasogastric tube terminates below the diaphragm. The fenestrated line is at the gastroesophageal junction. Cervical spinal fusion hardware is noted. No pneumothorax. A few bibasilar linear densities have progressed. No evidence for pulmonary edema. The heart is normal in size. IMPRESSION: 1. The endotracheal tube terminates 5 cm from the vel. 2. Nasogastric tube terminates in the stomach. The fenestrated line is at the gastroesophageal junction. Therefore, this should be advanced by approximately 5 cm. 3. A few bibasilar linear densities. These are nonspecific but could represent subsegmental atelectasis or a pneumonia. ACT 112: Negative or not required by law. Electronically signed by: Bruce Hunter M.D. 06/12/2022 10:28 AM Medications Administered Current Inpatient Medications Acetaminophen (Acetaminophen 325 Mg Tab) 650 mg PO Q4H PRN PRN Reason: Pain or Fever Stop: 07/11/22 19:08 Last Admin: 06/12/22 04:49 Dose: 650 mg Amlodipine Besylate (Amlodipine Besylate 5 Mg Tab) 5 mg PO QAM [facility] Stop: 07/12/22 08:59 Last Admin: 06/12/22 08:03 Dose: 5 mg Dextrose (Dextrose 50% 50 Ml Syringe) 25 - 50 ml IV UD PRN; Protocol PRN Reason: Hypoglycemia Protocol Stop: 07/12/22 06:43 Duloxetine HCl (Duloxetine Hcl 30 Mg Cap) 30 mg PO QAM [facility] Stop: 07/12/22 08:59 Last Admin: 06/12/22 08:02 Dose: Not Given Fentanyl Citrate (Fentanyl Bolus From Bag) 50 mcg IV Q60M PRN PRN Reason: Pain or Agitation Stop: 06/25/22 22:39 Last Admin: 06/12/22 05:07 Dose: 50 mcg Fluticasone/Vilanterol (Fluticasone/Vilanterol 100/25mcg 14 Puffs/Inhaler) 1 puffs INH DAILY [facility] Stop: 07/12/22 08:59 Last Admin: 06/12/22 08:01 Dose: Not Given Glucagon (Glucagon For Inj 1 Mg Vial) 1 mg SQ UD PRN; Protocol PRN Reason: Hypoglycemia Protocol Stop: 07/12/22 06:43 Glucose (Glucose 40% Gel 15 Gm Tube) 15 - 30 gm PO UD PRN; Protocol PRN Reason: Hypoglycemia Protocol Stop: 07/12/22 06:43 Glucose (Glucose 10 Tab/Tube) 4 - 8 tab PO UD PRN; Protocol PRN Reason: Hypoglycemia Treatment Stop: 07/12/22 06:43 Propofol (Diprivan) 1,000 mg in 100 mls @ 0 mls/hr IV .Q0M [facility]; Protocol Stop: 06/14/22 22:44 Last Titration: 06/12/22 07:40 Dose: 0 mcg/kg/min, 0 mls/hr Fentanyl Citrate (Fentanyl Citrate) 2,500 mcg in 250 mls @ 0 mls/hr IV .Q0M [facility]; Protocol Stop: 06/25/22 22:44 Last Titration: 06/12/22 08:54 Dose: 0 mcg/hr, 0 mls/hr Potassium Chloride/Dextrose/Sod Cl (D5w And 1/2nss + 20meq Kcl) 20 meq in 1,000 mls @ 80 mls/hr IV .[id number] [facility]; Protocol Stop: 07/11/22 23:29 Last Admin: 06/12/22 12:04 Dose: 80 mls/hr Pantoprazole Sodium 40 mg/ (Syringe) 10 mls @ 5 mls/min IV BID [facility] Stop: 07/11/22 23:29 Last Admin: 06/12/22 07:40 Dose: 5 mls/min Cefepime HCl 2,000 mg/ Syringe 20 mls @ 5 mls/min IV Q8H [facility]; Protocol Stop: 06/19/22 00:00 Last Admin: 06/12/22 15:34 Dose: 5 mls/min Metronidazole (Flagyl) 500 mg in 100 mls @ 100 mls/hr IV Q8H [facility] Stop: 06/19/22 00:00 Last Infusion: 06/12/22 17:21 Dose: Infused Insulin Aspart (Insulin Aspart Per Unit) 0 units SC Q6 [facility] Stop: 07/12/22 06:59 Last Admin: 06/12/22 12:08 Dose: 1 units Ipratropium [place] (Ipratropium [place] Neb Soln 0.02% 2.5 Ml Vial) 0.5 mg INH Q6RWA PRN PRN Reason: shortness of breath or wheezing Stop: 07/11/22 23:04 Levalbuterol HCl (Levalbuterol 1.25mg/0.5ml Neb) 1.25 mg INH Q6RWA PRN; Protocol PRN Reason: shortness of breath or wheezing Stop: 07/11/22 23:04 Lisinopril (Lisinopril 40 Mg Tab) 40 mg PO QAM [facility] Stop: 07/12/22 08:59 Last Admin: 06/12/22 08:03 Dose: 40 mg Metoprolol Tartrate (Metoprolol Tartrate 25 Mg Tab) 25 mg PO BID [facility] Stop: 07/12/22 08:59 Last Admin: 06/12/22 08:04 Dose: 25 mg Miscellaneous (Carbohydrates For Hypoglycemia ) 15 - 30 gm PO UD PRN PRN Reason: Hypoglycemia Protocol Stop: 07/12/22 06:43 Montelukast Sodium (Montelukast Sodium 10 Mg Tablet) 10 mg PO HS [facility] Stop: 07/12/22 20:59 Morphine Sulfate (Morphine Sulfate 2 Mg/Ml Carp) 2 mg IV Q3H PRN PRN Reason: Pain Stop: 06/25/22 23:04 Polyethylene Glycol (Polyethylene (Miralax) 17 Gm Pack) 17 gm PO DAILY [facility] Stop: 07/12/22 08:59 Last Admin: 06/12/22 08:05 Dose: 17 gm Propofol (Propofol Bolus From Bag) 20 mg IV Q5M PRN PRN Reason: Sedation Stop: 06/14/22 22:39 Last Admin: 06/11/22 23:35 Dose: 20 mg Rosuvastatin Calcium (Rosuvastatin Calcium 20 Mg Tab) 20 mg PO HS [facility]KE Stop: 07/12/22 20:59
[2022-06-12] MEDS: MONTELUKAST SODIUM 10 MG TABLET PO SCH (19:58)
[2022-06-12] MEDS: ROSUVASTATIN CALCIUM 20 MG TAB PO SCH (19:58)
--- NOTE | 2022-06-12 22:32 | Electrocardiogram Report ---
Test Reason : Blood Pressure : / mmHG Vent. Rate : 085 BPM Atrial Rate : 085 BPM P-R Int : 172 ms QRS Dur : 092 ms QT Int : 372 ms P-R-T Axes : 055 005 081 degrees QTc Int : 442 ms Poor data quality, interpretation may be adversely affected Sinus rhythm with with sinus arrhythmia Otherwise normal ECG When compared with ECG of 26-MAY-2022 15:41, T wave inversion no longer evident in Anterior leads QT has shortened Confirmed by Georges Pantoja ([id number]) on 06/12/2022 10:32:35 PM Referred By: REFERRED SELF Confirmed By:Georges Pantoja
[2022-06-13] MEDS: D5W AND 1/2NSS + 20MEQ KCL 20 MEQ/1,000 ML BAG IV SCH ×3 (01:32→16:25)
[2022-06-13] MEDS: INSULIN ASPART PER UNIT SC SCH ×3 (05:35→18:29)
[2022-06-13 05:43] LABS: Basophils # (auto) 0.03 K/uL (0-0.2); Basophils % (auto) 0.3 %; Eosinophils # (auto) 0.18 K/uL (0-0.50); Eosinophils % (auto) 1.9 %; Hematocrit (blood only) 38.8 % (37.0-47.0); Hemoglobin 12.3 g/dl (12.0-16.0); Immature Granulocytes % (auto) 1.1 %; Lymphocytes % (auto) 12.9 %; Mean Corpuscular Hemoglobin 29.3 pg (25.0-34.0); Mean Corpuscular Hgb Conc 31.7 g/dL (32.0-36.0); Mean Corpuscular Volume 92.4 fL (80.0-100.0); Mean Platelet Volume 11.1 fL (9.4-12.4); Monocytes # (auto) 0.76 K/uL (0.11-0.59); Monocytes % (auto) 8.2 %; Neutrophils # (auto) 7.02 K/uL (1.40-6.50); Neutrophils % (auto) 75.6 %; Platelet Count 235 K/uL (130-400); RDW Coefficient of Variation 14.5 % (11.5-14.5); RDW Standard Deviation 49.1 fL (36.4-46.3); White Blood Count 9.29 K/ul (4.8-10.8)
[2022-06-13 05:58] LABS: BUN Creatinine Ratio 29.9 (10-20); Calcium 7.7 mg/dl (8.5-10.1); Creatinine Clr Calc Pharmacy 69.6 ml/min; Est GFR (African American) 91.3 ml/min; Est GFR (Non-African American) 78.8 ml/min; Magnesium 2.2 mg/dl (1.7-2.4); Phosphorus 2.1 mg/dl (2.5-4.9); Potassium 3.7 mmol/L (3.5-5.1)
[2022-06-13] MEDS ORDERED: POTASSIUM PHOS 3 MMOL/1 ML INFUSION IV STA (06:57)
--- NOTE | 2022-06-13 07:26 | Critical Care Progress Note ---
Date of Service June 13, 2022 Assessment & Plan (1) Small bowel obstruction: (2) Large bowel obstruction: (3) Colonic stricture: (4) Diverticular stricture: (5) PAF (paroxysmal atrial fibrillation): (6) Stroke: (7) Diverticulitis: (8) HLD (hyperlipidemia): (9) Hypertension: (10) On mechanically assisted ventilation: Plan Reason Critically Ill: 67-year-old female presents to the ICU following a colostomy for large bowel obstruction and remains mechanically ventilated due to altered mental status. Neuro - Encephalopathypatient presented to the emergency department obtunded. 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 -Currently on fentanyl and propofol for sedation Cardiac - Paroxysmal A-fibnormal sinus rhythm. -On apixaban at home Being held due to surgery. Last dose 06/11 in a.m HLDcontinue statin HTNcontinue amlodipine, lisinopril, MTP Respiratory - S/p VDRF Extubated 06/12/2022 -- COPD -Continue Singulair and nebs -Continuous monitoring pulse ox GI - Large bowel obstruction/diverticular stricturepatient now postop for colostomy. Management per surgical team -NG tube to intermittent low wall suction per surgery -N.p.o. -Continue PPI RENAL/LYTES - Monitor BUNs/creatinine Avoid nephrotoxic medication - Foleystrict I's and O's ENDO - DM type IIcurrently euglycemic. Last hemoglobin A1c 6.9 -ICU hyperglycemic protocol HEME - H&H stable. EBL 10 Monitor routine CBCs and transfuse if indicated ID - -- Right lower lobe aspiration Continue with Flagyl and cefepime to cover for gram-negative's and anaerobes Procalcitonin 0.13 Although blood culture Sputum culture growing gram-negative bacilli, follow-up sensitivity --Prophylaxis VTE: IPC, home apixaban on hold GI: Pantoprazole Lines: Peripheral Diet: N.p.o. Plan: In/out: +678, urine output 1870 Phosphorus and potassium are being replaced. H&H is stable Sputum culture growing gram-negative bacilli, continue with cefepime and Flagyl Follow-up sensitivities Anticoagulation to be resumed once cleared by surgery. Patient hemodynamically stable to be downgrade to medical floor BIJAN Amor before downgrading Please note the above document was generated using voice recognition software. It may contain grammatical, syntax or spelling errors.Any formal questions or concerns about the content, text or information contained within the body of this dictation should be directly addressed to the provider for clarification. Admission and Anticipated Discharge Date Admission Date: June 11, 2022 Subjective Patient seen and examined at bedside. No acute distress, no adverse events overnight Patient is following commands. She is answering all the questions appropriately Denies any abdominal pain. Does complain of some mild abdominal cramping No nausea vomiting No headache, no blurry vision Still spiking low-grade fevers. No shortness of breath Review of Systems Review of Systems: All systems reviewed & are unremarkable except as noted in Subjective Physical Exam Physical Exam: Constitutional: No acute distress HEENT: PERRLA, EOMI Respiratory system: Decreased air entry bilaterally, no wheeze, rhonchi, mild crackles bilateral lower lobes CVS: S1-S2 positive, no murmurs or gallops Abdomen: Soft, nontender, nondistended, positive bowel sounds x4, colostomy in place Extremities: +2 pulses bilaterally radialis/ dorsalis pedis, no cyanosis, no edema Neuro: Awake alert oriented to self and place, right upper extremity 2 out of 5, right lower extremity 2 out of 5, left upper extremity and left lower extremity 5 out of 5 Psych: Normal mood and affect G/U: Positive Amor Skin: no rashes, warm and dry Lymphatic: no cervical or axillary lymphadenopathy Results & Data Results & Data ([facility]) Vital Signs (Past 12 Hours) Vital Signs Temp Pulse Resp BP Pulse Ox O2 Del Method FiO2 06/13/22 05:00 37.7 C H 78 20 97 06/13/22 05:00 160/78 H 06/13/22 04:00 37.8 C H 77 16 97 06/13/22 04:00 157/75 H 06/13/22 03:59 70 20 97 25 06/13/22 03:00 37.8 C H 69 18 98 06/13/22 03:00 168/73 H 06/13/22 02:30 37.8 C H 71 15 98 06/13/22 02:00 37.9 C H 67 17 97 06/13/22 02:00 145/62 H 06/13/22 01:30 37.9 C H 72 19 97 06/13/22 01:00 37.9 C H 66 21 97 06/13/22 01:00 163/74 H 06/13/22 00:30 37.9 C H 69 19 97 06/13/22 00:00 37.9 C H 71 18 97 06/13/22 00:00 162/74 H 06/12/22 23:30 38.0 C H 68 18 97 06/12/22 23:00 38.0 C H 67 18 98 06/12/22 23:00 157/69 H 06/12/22 22:30 38.0 C H 67 16 98 06/12/22 22:00 38.0 C H 60 21 98 06/12/22 22:00 139/66 06/12/22 21:30 37.9 C H 62 18 98 06/12/22 21:00 37.9 C H 68 15 97 06/12/22 21:00 135/69 06/12/22 20:30 37.8 C H 66 17 98 06/12/22 20:00 37.8 C H 73 21 97 06/12/22 20:00 158/70 H 06/12/22 19:30 37.7 C H 74 19 97 06/13/22 00:01 72 06/12/22 22:32 65 21 97 30 06/12/22 20:00 BiPAP 25 Laboratory Results 06/13/22 05:22 06/13/22 05:22 Coding Level of Care Code 55193 SUB INP/OBS CARE 350MIN Diagnoses Small bowel obstruction K56.609 Large bowel obstruction K56.609 Colonic stricture K56.699 Diverticular stricture K56.699 PAF (paroxysmal atrial fibrillation) I48.0 Stroke I63.9 Diverticulitis K57.92 HLD (hyperlipidemia) E78.5 Hypertension I10 On mechanically assisted ventilation Z99.11
[2022-06-13] MEDS ORDERED: POTASSIUM PHOSPHATE 15 MMOL in SODIUM CHLORIDE 0.9% 250 ML IV ONE (07:30)
[2022-06-13] MEDS: CEFEPIME 2,000 MG in SYRINGE 0 ML IV SCH ×2 (07:38→16:23)
[2022-06-13] MEDS: PANTOprazole 40 MG in SYRINGE 0 ML IV SCH ×2 (07:39→20:03)
[2022-06-13] MEDS: metroNIDAZOLE 500 MG/100 ML BAG IV SCH ×2 (07:39→16:23)
[2022-06-13] MEDS: POLYETHYLENE (MIRALAX) 17 GM PACK PO SCH (07:52)
[2022-06-13] MEDS: DULoxetine HCL 30 MG CAP PO SCH (07:52)
[2022-06-13] MEDS: amLODIPine BESYLATE 5 MG TAB PO SCH (07:53)
[2022-06-13] MEDS: METOPROLOL TARTRATE 25 MG TAB PO SCH ×2 (07:53→20:02)
[2022-06-13] MEDS: lisinopril 40 MG TAB PO SCH (07:54)
[2022-06-13] MEDS: FORMOTEROL 20 MCG/2 ML VIAL NEB SCH ×2 (10:51→20:00)
[2022-06-13] MEDS ORDERED: ENOXAPARIN INJ 30 MG/0.3 ML SYR SQ SCH (11:00)
--- NOTE | 2022-06-13 11:00 | Surgery Progress Note ---
Date of Service June 13, 2022 Assessment & Plan (1) Large bowel obstruction: Plan: pt is a 67 year-old who presents to ER with 2 days history distend abdomen with 2 weeks history stroke, and colon stricture with stent placed. IMP: large bowel obstruction plan, base pt's co-morbilities, new stroke and large bowel obstruction, recommend to transfer to tertiary care level care consult colorectal surgeon and GI as soon as possible, should contact [facility] if [facility] [place] available, pt agreed with transfer, D/W ER attending, NG tube placement, 06/12/2022 11:[address] Yusuf F/U S/P loop colostomy, doing fine, extubated, continue treatment, keep NG tube one more day, will F/U, 06/13/2022 10:[address] Yusuf F/Jackie S/P loop colostomy, POD 2 doing fine, better, start lovenox 30 mg SC once day, consult neurology for stroke pull out NG speech evaluation continue treatment, will F/U, Admission and Anticipated Discharge Date Admission Date: June 11, 2022 Subjective Patient seen and examined at bedside. No acute distress, no adverse events overnight Patient is following commands. She is answering all the questions appropriately Denies any abdominal pain. Does complain of some mild abdominal cramping No nausea vomiting No headache, no blurry vision Still spiking low-grade fevers. No shortness of breath 06/13/2022 10: 54AM, Paramjit ZIMMERMAN F/U S/P lopp colostomy, POD 2, doing better, more awake, no abdominal pain, no fever, Review of Systems Constitutional: as per Subjective / HPI Eyes: as per Subjective / HPI Respiratory: as per Subjective / HPI (smoker) Cardiovascular: Additional Comments: HTN, A-fib, Gastrointestinal: large bowel stricture, GI large stent 2 weeks, with complicated stroke Neurologic: stroke 2 weeks Psychiatric: as per Subjective / HPI Endocrine: DM Hematologic / Lymphatic: as per Subjective / HPI Physical Exam Constitutional: WD/WN, vitals as above Eyes: PERRL, conjunctivae normal, anicteric sclerae Neck: trachea midline, no thyromegaly Respiratory: normal respiratory effort, lungs clear to auscultation Cardiovascular: Rate/Rhythm: + irregularly irregular Gastrointestinal (Abdomen): soft, NT, ND, colostomy working well, stool in bag, Musculoskeletal: weakness at right side body, Neurologic: patellar DTR's 2+ bilat, sensation intact Psychiatric: A+Ox3, euthymic affect Results & Data ([facility]) Vital Signs (Past 12 Hours) Vital Signs Temp Pulse Pulse Resp BP Pulse Ox O2 Del Method 06/13/22 10:51 83 16 97 Nasal Cannula 06/13/22 09:00 37.3 C 67 16 95 Room Air 06/13/22 09:00 154/67 H 06/13/22 08:00 37.4 C 73 25 H 97 Nasal Cannula 06/13/22 08:00 152/76 H 06/13/22 07:00 37.6 C H 70 24 99 BiPAP 06/13/22 07:00 165/76 H 06/13/22 08:57 71 06/13/22 08:00 Nasal Cannula 06/13/22 05:00 37.7 C H 78 20 97 06/13/22 05:00 160/78 H 06/13/22 04:00 37.8 C H 77 16 97 06/13/22 04:00 157/75 H 06/13/22 03:59 70 20 97 06/13/22 03:00 37.8 C H 69 18 98 06/13/22 03:00 168/73 H 06/13/22 02:30 37.8 C H 71 15 98 06/13/22 02:00 37.9 C H 67 17 97 06/13/22 02:00 145/62 H 06/13/22 01:30 37.9 C H 72 19 97 06/13/22 01:00 37.9 C H 66 21 97 06/13/22 01:00 163/74 H 06/13/22 00:30 37.9 C H 69 19 97 06/13/22 00:00 37.9 C H 71 18 97 06/13/22 00:00 162/74 H 06/12/22 23:30 38.0 C H 68 18 97 06/12/22 23:00 38.0 C H 67 18 98 06/12/22 23:00 157/69 H 06/13/22 00:01 72 O2 Flow Rate FiO2 06/13/22 10:51 1 06/13/22 09:00 06/13/22 09:00 06/13/22 08:00 2 06/13/22 08:00 06/13/22 07:00 06/13/22 07:00 06/13/22 08:57 06/13/22 08:00 2 06/13/22 05:00 06/13/22 05:00 06/13/22 04:00 06/13/22 04:00 06/13/22 03:59 25 06/13/22 03:00 06/13/22 03:00 06/13/22 02:30 06/13/22 02:00 06/13/22 02:00 06/13/22 01:30 06/13/22 01:00 06/13/22 01:00 06/13/22 00:30 06/13/22 00:00 06/13/22 00:00 06/12/22 23:30 06/12/22 23:00 06/12/22 23:00 06/13/22 00:01 Laboratory Results Abnormal lab results 06/12/22 06/12/22 06/12/22 Range/Units 11:25 13:50 17:23 MCHC (32.0-36.0) g/dL RDW Std Deviation (36.4-46.3) fL Neut # (Auto) (1.40-6.50) K/uL [place] # (Auto) (0.11-0.59) K/uL Chloride 114 H (98-107) mmol/L BUN 34 H (6-23) mg/dl BUN/Creatinine Ratio 34.7 H (10-20) Glucose 196 H (70-99(Fasting)) mg/dl POC Glucose 214 H 166 H (70-99) mg/dl Calcium 7.9 L (8.5-10.1) mg/dl Phosphorus (2.5-4.9) mg/dl 06/12/22 06/13/22 06/13/22 Range/Units 23:24 05:22 05:22 MCHC 31.7 L (32.0-36.0) g/dL RDW Std Deviation 49.1 H (36.4-46.3) fL Neut # (Auto) 7.02 H (1.40-6.50) K/uL [place] # (Auto) 0.76 H (0.11-0.59) K/uL Chloride 112 H (98-107) mmol/L BUN (6-23) mg/dl BUN/Creatinine Ratio 29.9 H (10-20) Glucose 224 H (70-99(Fasting)) mg/dl POC Glucose 138 H (70-99) mg/dl Calcium 7.7 L (8.5-10.1) mg/dl Phosphorus 2.1 L D (2.5-4.9) mg/dl 06/13/22 Range/Units 05:26 MCHC (32.0-36.0) g/dL RDW Std Deviation (36.4-46.3) fL Neut # (Auto) (1.40-6.50) K/uL [place] # (Auto) (0.11-0.59) K/uL Chloride (98-107) mmol/L BUN (6-23) mg/dl BUN/Creatinine Ratio (10-20) Glucose (70-99(Fasting)) mg/dl POC Glucose 216 H (70-99) mg/dl Calcium (8.5-10.1) mg/dl Phosphorus (2.5-4.9) mg/dl
--- NOTE | 2022-06-13 13:07 | Neurology Consultation ---
Date of Consultation June 13, 2022 Assessment & Plan (1) Acute left KATARZYNA ischemic stroke: Plan 67-year-old female with an acute left anterior cerebral artery territory stroke diagnosed 2 weeks ago, resulting in a right hemiparesis, leg greater than arm. She has atrial fibrillation and has been seen by cardiology. She was also seen by the [facility]'s neurologist at that time. I did review his clinic note and examination findings. Patient's right-sided weakness is similar, to perhaps slightly worse today, and she is mildly obtunded, although she is status post loop colostomy for large bowel obstruction, 2 days ago. At this point, I do have some concern for hemorrhagic conversion or extension of her previous stroke. Would recommend urgent noncontrast CT of the head. If there is evidence of hemorrhage would need to hold blood thinners including Lovenox. Would also recommend checking a noncontrast brain MRI when medically stable. Allow for permissive hypertension, systolic blood pressure goal 140 to 160 mmHg. If there is no evidence of hemorrhagic conversion, would be safe to resume Lovenox and anticoagulation when appropriate from a postsurgical, medical standpoint. Patient remains critically ill in the context of recent colostomy for large bowel obstruction although she was recently extubated. Discussed with Dr. Yusuf. History of Present Illness Reason for Consultation: stroke Requesting Physician: Fidel Yusuf MD Attending Physician: Ritika Jj DO History of Present Illness The patient is a 67-year-old female with a history of acute left anterior cerebral artery territory stroke that was identified on May 26, 2022, presenting with acute right-sided weakness at that time. Was not given tPA given findings were subacute on CT of the head as well as history of GI bleeding. Looks like the stroke was identified after the patient underwent placement of a colonic stent. She was seen in neurological consultation the following day, with Dr. Miner who noted patient's history of atrial fibrillation, left A2 occlusion, had recommended anticoagulation although also noting patient's history of abdominal aortic aneurysm, GI bleed, had recommended lower dose of Eliquis with no need for aspirin once Eliquis started. Patient's echocardiogram was unremarkable. Again, was not an appropriate candidate for neurovascular intervention. On examination at that time, patient had a right hemiplegia, leg greater than arm. Right arm was 3 out of 5, right lower extremity 2+ out of 5. I did review the results of the imaging completed at that time including CT of the head, CT angiography of the head and neck, and brain MRI. I agree there early stroke changes within the left KATARZYNA territory on the CT of the head. The CTA of the head revealed abrupt occlusion of the A2 segment of the left anterior cerebral artery as well as extensive plaque within the intracranial vessels, moderate to severe multifocal stenoses. CTA of the neck revealed extensive atherosclerotic plaque within the bilateral carotid bifurcations resulting in mild stenosis of the proximal right ICA, no significant stenosis of the left common carotid or cervical internal carotid artery. There was moderate to severe multifocal stenosis within the left vertebral artery. Dominant patent right vertebral artery. Extensive plaque within the aortic arch. Brain MRI reviewed as well, the acute left anterior cerebral artery distribution infarct was observed with mild mass effect with sulcal effacement, no hemorrhage. I did independently review these images and was able to appreciate the area of restricted diffusion within the left KATARZYNA territory consistent with an acute to subacute infarct. I was able to observe the mild degree of cytotoxic edema associated with this infarct, with mild effacement of the left lateral ventricle. Axial T2*gradient echo sequences negative for obvious signs of hemorrhage. Axial T1 sequences also appear negative for hemorrhage. She was discharged from the [facility] on June 03, 2022. She was on Eliquis 2.5 mg twice daily at that time. Rosuvastatin was continued. Low-dose aspirin was discontinued. The patient presented to the emergency department on June 11, 2022 with abdominal distention. Diagnosed with large bowel obstruction. History of paroxysmal atrial fibrillation noted, on Eliquis and metoprolol. History of recent stroke noted as well with residual right hemiparesis. Patient underwent a loop colostomy procedure to address her large bowel obstruction on June 11, 2022. She has been somewhat encephalopathic in the context of this current hospitalization but again noting her recent stroke with residual right hemiplegia and dysarthria. Has been sedated in the postoperative timeframe, had been on propofol, fentanyl drips, consideration was to potentially obtain up-to-date CAT scans when stable, if unimproved. Patient's apixaban had been on hold perioperatively but with plans to restart. She has remained mildly obtunded and an up-to-date neurology consult was ordered today by her surgeon, Dr. Yusuf. The patient is currently obtunded and is a limited historian. See examination below for further details. There has been no up-to-date or further neuroimaging completed, other than what has been done 2 weeks prior. Allergies Allergy/AdvReac Type Severity Reaction Status Date / Time chlorhexidine Allergy Intermediate ITCHING,RED Verified 05/21/22 16:05 NESS ciprofloxacin [From Cipro] Allergy Intermediate Rash Verified 06/11/22 19:59 Quinolones Allergy Intermediate RASH-cipro Verified 05/21/22 16:05 Sulfa (Sulfonamide Allergy Intermediate RASH Verified 05/21/22 16:05 Antibiotics) Penicillins Allergy Unknown Unknown Verified 05/21/22 16:05 azithromycin Allergy Anaphylaxis Verified 05/21/22 16:05 Home Medications Medication Instructions Recorded Confirmed Type rosuvastatin 20 mg tablet 20 mg PO HS 09/03/20 06/11/22 History montelukast 10 mg tablet 10 mg PO HS 10/02/21 06/11/22 History amlodipine 5 mg tablet 5 mg PO QAM 05/21/22 06/11/22 History duloxetine 30 mg capsule,delayed 30 mg PO QAM 05/21/22 06/11/22 History release pantoprazole 40 mg tablet,delayed 40 mg PO QAM 05/21/22 06/11/22 History release apixaban 2.5 mg tablet (Eliquis) 2.5 mg PO BID #60 tabs 05/28/22 06/11/22 Rx fluticasone furoate 100 1 puff inhalation DAILY 30 days #1 06/03/22 06/11/22 Rx mcg-vilanterol 25 mcg/dose ea inhalation powder (Breo Ellipta) furosemide 20 mg tablet (Lasix) 20 mg PO DAILY #30 tabs 06/03/22 06/11/22 Rx ipratropium bromide 0.02 % 0.5 mg (2.5 mL) inhalation Q6RWA 06/03/22 06/11/22 Rx solution for inhalation PRN shortness of breath or wheezing 30 days #30 mL levalbuterol HCl 1.25 mg/0.5 mL 1.25 mg (0.5 mL) inhalation Q6RWA 06/03/22 06/11/22 Rx solution for nebulization PRN shortness of breath or wheezing 30 days #30 ea lisinopril 40 mg tablet (Zestril) 40 mg PO QAM 30 days #30 tabs 06/03/22 06/11/22 Rx metoprolol tartrate 25 mg tablet 25 mg PO BID 30 days #60 tabs 06/03/22 06/11/22 Rx polyethylene glycol 3350 17 gram 17 g PO DAILY 30 days #30 ea 06/03/22 06/11/22 Rx oral powder packet (Miralax) Patient History Medical History AAA (abdominal aortic aneurysm) Abnormal thyroid function test Diverticular stricture DM II (diabetes mellitus, type II), controlled Dysfunction of right eustachian tube Feeling light headed Hematochezia HLD (hyperlipidemia) Hypertension Kidney disease stage III Large bowel obstruction Lower gastrointestinal hemorrhage Lung disease Otalgia, right ear Sensorineural hearing loss (SNHL) of right ear with restricted hearing of left ear Surgical History History of back surgery History of delivery x2 History of hernia repair x2 History of knee replacement bilateral History of ovarian cystectomy History of vaginal hysterectomy Family History Other Allergies Asthma Cancer Hearing loss Heart disease Hypertension Social History Smoking Status: Former smoker Tobacco Type: Cigarettes packs per day: 0.5; Cigarettes Per Day: 5; Second Hand Exposure: No; Hx Alcohol Use: No Preferred Language: Surinamese Communication Ability: difficult Communication Ability Comment: old admisson used to answer questions, follows commands, speech garbled Mechanical Service Specialist Required: No Beliefs That Will Affect Care: None marital status: Single Current Living Situation: Family current occupational status: retired How many Children do You have: 1 Feels Safe at Home: Yes Assistive Devices: None Review of Systems Review of Systems: Unobtainable due to cognitive status and Unobtainable due to reduced consciousness Exam (Neuro) Constitutional: well developed and + altered mental status Eyes: normal visual faustin by confrontation, PERRL and EOM intact bilaterally; no fundoscopic abnormality and no papilledema Cardiovascular: Vessels: no carotid bruit Neurologic: Oriented to:: Person; negative Place or Time Cognitive Function: negative Attention or Concentration Memory: negative Short Term Intact or Remote Intact Attention: negative Span Intact or Concentration Intact Speech Fluency: Dysarthria and Dysfluency Fund of Knowledge: Vocabulary; negative Current Events or Past History Cranial Nerves: Normal II, III, IV, , V, VIII, IX, X, XI and XII; Abnorm VII (Right lower facial droop noted) Motor Strength: Hemiparesis (Right upper extremity 2/5, right lower extremity 0/5) Laterality: Right; negative Normal Lower Extremities or Normal Upper Extremities Flaccidity: Hemiflaccidity Laterality: Right Muscle Bulk/Involuntary Movements: No Involuntary Movements; negative Muscle Atrophy Sensation: Light Touch Intact, Pain/Temperature Intact, Vibration Intact and Proprioception Intact Coordination: Finger-Nose Abnormal Laterality: Right and Heel-Cloud Abnormal Laterality: Right Deep Tendon Reflexes: Rt Triceps: 3+, Lt Triceps: 2+, Rt Biceps: 3+, Lt Biceps: 2+, Rt Brachioradialis: 3+, Lt Brachioradialis: 2+, Rt Patellar: 3+, Lt Patellar: 2+, Rt Ankle: 2+ and Lt Ankle: 1+ Special Tests: Babinski Present (right) Details: Gait cannot be evaluated. Results & Data ([facility]) Vital Signs (Past 12 Hours) Vital Signs Temp Pulse Pulse Resp BP Pulse Ox O2 Del Method 06/13/22 10:51 83 16 97 Nasal Cannula 06/13/22 09:00 37.3 C 67 16 95 Room Air 06/13/22 09:00 154/67 H 06/13/22 08:00 37.4 C 73 25 H 97 Nasal Cannula 06/13/22 08:00 152/76 H 06/13/22 07:00 37.6 C H 70 24 99 BiPAP 06/13/22 07:00 165/76 H 06/13/22 08:57 71 06/13/22 08:00 Nasal Cannula 06/13/22 05:00 37.7 C H 78 20 97 06/13/22 05:00 160/78 H 06/13/22 04:00 37.8 C H 77 16 97 06/13/22 04:00 157/75 H 06/13/22 03:59 70 20 97 06/13/22 03:00 37.8 C H 69 18 98 06/13/22 03:00 168/73 H 06/13/22 02:30 37.8 C H 71 15 98 06/13/22 02:00 37.9 C H 67 17 97 06/13/22 02:00 145/62 H 06/13/22 01:30 37.9 C H 72 19 97 06/13/22 01:00 37.9 C H 66 21 97 06/13/22 01:00 163/74 H O2 Flow Rate FiO2 06/13/22 10:51 1 06/13/22 09:00 06/13/22 09:00 06/13/22 08:00 2 06/13/22 08:00 06/13/22 07:00 06/13/22 07:00 06/13/22 08:57 06/13/22 08:00 2 06/13/22 05:00 06/13/22 05:00 06/13/22 04:00 06/13/22 04:00 06/13/22 03:59 25 06/13/22 03:00 06/13/22 03:00 06/13/22 02:30 06/13/22 02:00 06/13/22 02:00 06/13/22 01:30 06/13/22 01:00 06/13/22 01:00 Laboratory Results WBC 9.29, hemoglobin 12.3, hematocrit 38.8, platelet count 235, sodium 138, potassium 3.7, BUN 23, creatinine 0.77, glucose 224, magnesium 2.2, AST 11, ALT [address] of the head, CT angiography, and brain MRI from May 26, May 27 are as described in the HPI. I independently reviewed these images. Electrocardiogram completed June 11, 2022 revealed a sinus rhythm with sinus arrhythmia. An echocardiogram completed May 27, 2022 was technically limited, left ventricular function grossly normal. EF 65 to 70%. Left atrium not well visualized. Electrocardiogram completed May 26, 2022 revealed a normal sinus rhythm. PG Care Time/CCT Total # of Minutes Spent Total Time Spent with Patient: Total time spent reviewing current and previous records, including neuro imaging assessments, previous neurology consultation report, previous cardiology consultation, examining patient, documenting current consultation, discussing with Dr. Yusuf, 90 minutes Coding Level of Care Code 78280 INT INP/OBS CARE 3/75MIN Diagnoses Acute left KATARZYNA ischemic stroke I63.522
--- NOTE | 2022-06-13 13:42 | CT Scan Report ---
CT OF THE HEAD WITHOUT CONTRAST CLINICAL HISTORY: Recent stroke, evaluate for hemorrhage. COMPARISON STUDY: Head CT and CTA of the head May 26, 2022 and MRI of the brain May 27, [address] DOSE: 614.27 mGy.cm TECHNIQUE: Helical axial images of the head were obtained without IV contrast. Automated exposure con trol was utilized for the study. A dose lowering technique was utilized adhering to the principles o f ALARA. FINDINGS: No acute intracranial hemorrhage, midline shift or significant mass effect is present. Vent ricular system is stable. Basal cisterns are patent. There are no extra-axial collections. There is s ubtle hypodensity with loss of blankenship-white differentiation within the left anterior cerebral artery di stribution which corresponds to the infarct on prior MRI and head CT. Old left basal ganglia infarct is noted. Additional hypodensities within the bilateral centrum semiovale ovale are also chronic. The re are no significant calvarial abnormalities. IMPRESSION: 1. No acute intracranial hemorrhage. 2. Subacute left anterior cerebral artery infarct as shown on prior MRI. No significant mass effect. 3. Additional old bilateral infarcts, as described above. ACT 112: Negative or not required by law. Electronically signed by: Paul Su M.D. 06/13/2022 1:40 PM
--- NOTE | 2022-06-13 14:18 | Hospitalist Progress Note ---
Date of Service June 13, 2022 Assessment & Plan (1) Small bowel obstruction: (2) Diverticular stricture: Plan: Plan as above. (3) Colonic stricture: Plan: colonic stent placed on 05/26, however, it is not traversing an area of high grade stricture. Ongoing abdominal distension noted at rehab center after discharge. The initial plan was to allow her abdomen to decompress and subsequently perform abdominal surgery. Subsequent large bowel obstruction present and her abdominal distension worsened. 06/11: diverting colostomy performed and she is recovering on BIPAP in the ICU. NG tube still in place for one more day per surgery. 06/13: NG tube is out, clears ordered. Speech to assess patient when she is amenable to it. She is in no acute distress and denies any abdominal pain. (4) PAF (paroxysmal atrial fibrillation): Plan: Hold apixaban perioperatively until surgery is ok with restarting. (5) Stroke: Plan: h/o post-op stroke last month with subsequent mild right hemiparesis and cognitive language impairment. Appears to be at her new baseline post stroke last week. Cont supportive care and PT/OT with back to rehab at discharge. (6) Hypertension: Plan: chronic, at goal. Cont amlodipine, lisinopril 40mg daily, Lopressor (7) DM II (diabetes mellitus, type II), controlled: Plan: A1C reflects good control at 6.9 last month. Cont with basal bolus insulin during admission. Continues on a dextrose infusion but is not hyperglycemic and is being closely monitored. She is not eating much at this point. DVT proph: holding anticoagulants in post op setting. Full code Dispo- PCU Ritika Jj DO [facility] Hospitalist Admission and Anticipated Discharge Date Admission Date: June 11, 2022 Subjective 67 yo F admitted with small and large bowel obstruction s/p diverting colostomy placement by Dr. Yusuf. She has the NG tube out but has not eaten Speech came by per RN but patient declined exam. Patient was asked where she is and wasn't able to respond She appeared to not be able to find the words, although speech and language is intact. She was then asked if she could reiterate why she was in the hospital She told me she was going to "slap me silly" (she said it twice when I asked her to repeat herself) I asked her if she was threatening me with violence and she replied yes. I asked her if that was how she spoke to her family members and she replied yes. She was otherwise cooperative with exam. Review of Systems Review of Systems: ROS cannot be obtained 2/2 obtunded state. Physical Exam Physical Exam: CONSTITUTIONAL: WNWD, vitals as above, NAD, breathing comfortably on BIPAP. EYES: normal conjunctivae ENT: external ear and nose normal, oral mucosa is dry. NECK: trachea midline RESPIRATORY: clear to auscultation bilaterally, no crackles, rales or wheezes CARDIOVASCULAR: regular rate and rhythm, S1 and 2 heard without murmurs, gallops or rubs, no JVD, no peripheral edema CHEST: inspection of chest was normal GASTROINTESTINAL: colostomy in place with brown stool. abdomen is soft and nondistended. there is no guarding. MUSCULOSKELETAL: cannot move right arm or leg and min to no chief pharmacist strength on the right hand, intact on the left. She is supine and unable to move around the bed with ease. SKIN: warm and dry NEUROLOGIC: CN 2-12 grossly intact, Speech, language intact. Possible issues with memory given she cannot answer orientation questions. Results & Data Results & Data ([facility]) Vital Signs (Past 12 Hours) Vital Signs Temp Pulse Pulse Resp BP Pulse Ox O2 Del Method 06/13/22 14:00 37.7 C H 69 20 91 Room Air 06/13/22 14:00 149/95 H 06/13/22 13:40 165/77 H 06/13/22 13:40 67 28 H 06/13/22 13:00 37.6 C H 68 17 96 Room Air 06/13/22 13:00 155/71 H 06/13/22 12:00 37.5 C 66 19 97 Room Air 06/13/22 12:00 168/73 H 06/13/22 11:00 37.5 C 69 19 97 Room Air 06/13/22 11:00 157/76 H 06/13/22 10:00 37.4 C 69 21 96 Room Air 06/13/22 10:00 158/71 H 06/13/22 10:51 83 16 97 Nasal Cannula 06/13/22 09:00 37.3 C 67 16 95 Room Air 06/13/22 09:00 154/67 H 06/13/22 08:00 37.4 C 73 25 H 97 Nasal Cannula 06/13/22 08:00 152/76 H 06/13/22 07:00 37.6 C H 70 24 99 BiPAP 06/13/22 07:00 165/76 H 06/13/22 08:57 71 06/13/22 08:00 Nasal Cannula 06/13/22 05:00 37.7 C H 78 20 97 06/13/22 05:00 160/78 H 06/13/22 04:00 37.8 C H 77 16 97 06/13/22 04:00 157/75 H 06/13/22 03:59 70 20 97 06/13/22 03:00 37.8 C H 69 18 98 06/13/22 03:00 168/73 H 06/13/22 02:30 37.8 C H 71 15 98 O2 Flow Rate FiO2 06/13/22 14:00 06/13/22 14:00 06/13/22 13:40 06/13/22 13:40 06/13/22 13:00 06/13/22 13:00 06/13/22 12:00 06/13/22 12:00 06/13/22 11:00 06/13/22 11:00 06/13/22 10:00 06/13/22 10:00 06/13/22 10:51 1 06/13/22 09:00 06/13/22 09:00 06/13/22 08:00 2 06/13/22 08:00 06/13/22 07:00 06/13/22 07:00 06/13/22 08:57 06/13/22 08:00 2 06/13/22 05:00 06/13/22 05:00 06/13/22 04:00 06/13/22 04:00 06/13/22 03:59 25 06/13/22 03:00 06/13/22 03:00 06/13/22 02:30 Laboratory Results Short CBC 06/12/22 06/13/22 Range/Units 13:50 05:22 WBC 9.29 (4.8-10.8) K/ul Hgb 12.9 12.3 (12.0-16.0) g/dl Hct 42.2 38.8 (37.0-47.0) % Plt Count 235 (130-400) K/uL BMP 06/12/22 06/13/22 13:50 05:22 Sodium 143 138 Potassium 4.2 3.7 Chloride 114 H 112 H Carbon Dioxide 23 21 BUN 34 H 23 Creatinine 0.98 0.77 Glucose 196 H 224 H Calcium 7.9 L 7.7 L Diagnostic Findings Head CT 06/13/22 13:03 CT OF THE HEAD WITHOUT CONTRAST CLINICAL HISTORY: Recent stroke, evaluate for hemorrhage. COMPARISON STUDY: Head CT and CTA of the head May 26, 2022 and MRI of the brain May 27, [address] DOSE: 614.27 mGy.cm TECHNIQUE: Helical axial images of the head were obtained without IV contrast. Automated exposure control was utilized for the study. A dose lowering technique was utilized adhering to the principles of ALARA. FINDINGS: No acute intracranial hemorrhage, midline shift or significant mass effect is present. Ventricular system is stable. Basal cisterns are patent. There are no extra-axial collections. There is subtle hypodensity with loss of blankenship-white differentiation within the left anterior cerebral artery distribution which corresponds to the infarct on prior MRI and head CT. Old left basal ganglia infarct is noted. Additional hypodensities within the bilateral centrum semiovale ovale are also chronic. There are no significant calvarial abnormalities. IMPRESSION: 1. No acute intracranial hemorrhage. 2. Subacute left anterior cerebral artery infarct as shown on prior MRI. No significant mass effect. 3. Additional old bilateral infarcts, as described above. ACT 112: Negative or not required by law. Electronically signed by: Paul Su M.D. 06/13/2022 1:40 PM Medications Administered Current Inpatient Medications Acetaminophen (Acetaminophen 325 Mg Tab) 650 mg PO Q4H PRN PRN Reason: Pain or Fever Stop: 07/11/22 19:08 Last Admin: 06/12/22 04:49 Dose: 650 mg Amlodipine Besylate (Amlodipine Besylate 5 Mg Tab) 5 mg PO QAM [facility] Stop: 07/12/22 08:59 Last Admin: 06/13/22 07:53 Dose: 5 mg Budesonide (Budesonide 0.25 Mg/2 Ml Vial (Pulmicort)) 0.25 mg NEB BIDR [facility] Stop: 07/13/22 18:59 Dextrose (Dextrose 50% 50 Ml Syringe) 25 - 50 ml IV UD PRN; Protocol PRN Reason: Hypoglycemia Protocol Stop: 07/12/22 06:43 Duloxetine HCl (Duloxetine Hcl 30 Mg Cap) 30 mg PO QAM [facility] Stop: 07/12/22 08:59 Last Admin: 06/13/22 07:52 Dose: Not Given Formoterol Fumarate (Formoterol 20 Mcg/2 Ml Vial) 20 mcg NEB BIDR [facility] Stop: 07/13/22 08:59 Last Admin: 06/13/22 10:51 Dose: 20 mcg Glucagon (Glucagon For Inj 1 Mg Vial) 1 mg SQ UD PRN; Protocol PRN Reason: Hypoglycemia Protocol Stop: 07/12/22 06:43 Glucose (Glucose 40% Gel 15 Gm Tube) 15 - 30 gm PO UD PRN; Protocol PRN Reason: Hypoglycemia Protocol Stop: 07/12/22 06:43 Glucose (Glucose 10 Tab/Tube) 4 - 8 tab PO UD PRN; Protocol PRN Reason: Hypoglycemia Treatment Stop: 07/12/22 06:43 Potassium Chloride/Dextrose/Sod Cl (D5w And 1/2nss + 20meq Kcl) 20 meq in 1,000 mls @ 125 mls/hr IV .Q8H [facility]; Protocol Stop: 07/11/22 23:29 Last Admin: 06/13/22 07:54 Dose: 125 mls/hr Pantoprazole Sodium 40 mg/ (Syringe) 10 mls @ 5 mls/min IV BID [facility] Stop: 07/11/22 23:29 Last Admin: 06/13/22 07:39 Dose: 5 mls/min Cefepime HCl 2,000 mg/ Syringe 20 mls @ 5 mls/min IV Q8H [facility]; Protocol Stop: 06/19/22 00:00 Last Admin: 06/13/22 07:38 Dose: 5 mls/min Metronidazole (Flagyl) 500 mg in 100 mls @ 100 mls/hr IV Q8H [facility] Stop: 06/19/22 00:00 Last Infusion: 06/13/22 08:58 Dose: Infused Insulin Aspart (Insulin Aspart Per Unit) 0 units SC Q6 [facility] Stop: 07/12/22 06:59 Last Admin: 06/13/22 11:19 Dose: 2 units Ipratropium [place] (Ipratropium [place] Neb Soln 0.02% 2.5 Ml Vial) 0.5 mg INH Q6RWA PRN PRN Reason: shortness of breath or wheezing Stop: 07/11/22 23:04 Levalbuterol HCl (Levalbuterol 1.25mg/0.5ml Neb) 1.25 mg INH Q6RWA PRN; Protocol PRN Reason: shortness of breath or wheezing Stop: 07/11/22 23:04 Lisinopril (Lisinopril 40 Mg Tab) 40 mg PO QAM [facility] Stop: 07/12/22 08:59 Last Admin: 06/13/22 07:54 Dose: 40 mg Metoprolol Tartrate (Metoprolol Tartrate 25 Mg Tab) 25 mg PO BID [facility] Stop: 07/12/22 08:59 Last Admin: 06/13/22 07:53 Dose: 25 mg Miscellaneous (Carbohydrates For Hypoglycemia ) 15 - 30 gm PO UD PRN PRN Reason: Hypoglycemia Protocol Stop: 07/12/22 06:43 Montelukast Sodium (Montelukast Sodium 10 Mg Tablet) 10 mg PO HS [facility] Stop: 07/12/22 20:59 Last Admin: 06/12/22 19:58 Dose: 10 mg Morphine Sulfate (Morphine Sulfate 2 Mg/Ml Carp) 2 mg IV Q3H PRN PRN Reason: Pain Stop: 06/25/22 23:04 Polyethylene Glycol (Polyethylene (Miralax) 17 Gm Pack) 17 gm PO DAILY [facility] Stop: 07/12/22 08:59 Last Admin: 06/13/22 07:52 Dose: 17 gm Rosuvastatin Calcium (Rosuvastatin Calcium 20 Mg Tab) 20 mg PO HS [facility] Stop: 07/12/22 20:59 Last Admin: 06/12/22 19:58 Dose: 20 mg
--- NOTE | 2022-06-13 18:01 | Magnetic Resonance Report ---
Brain MRI WITHOUT CONTRAST HISTORY: recent stroke, clinically worse TECHNIQUE: Multiplanar multisequence MRI of the brain was performed without the use of contrast. COMPARISON STUDY: Brain MRI 05/27/2022. FINDINGS: Interval improvement in the restricted diffusion involving the left KATARZYNA territory infarct c ompared to the prior study consistent with expected evolution of the subacute infarct. No new areas r estricted diffusion to suggest an acute infarction. Cytotoxic edema within the left KATARZYNA territory has improved. There are patchy and cortical areas of increased T1 signal with located within the left AC A territory likely representing accommodation of cortical laminar necrosis and petechial hemorrhage. The ventricles and sulci are within normal limits. There is no mass or midline shift. The major vascu lar flow-voids at the skull base are well-maintained. Patchy periventricular white matter T2 hyperint ensity is nonspecific but favors microvascular ischemic change. Old left basal ganglia infarct, uncha nged IMPRESSION: 1. Interval improvement in the restricted diffusion and edema at the left KATARZYNA territory infarct consi stent with expected evolution of a now subacute infarct. 2. Interval development of patchy and cortical areas of increased T1 signal at the left ACT measured likely representing a combination of cortical laminar necrosis and petechial hemorrhage. Follow up he ad CT in 24 hours recommended to ensure stability. 3. No new/acute infarct identified. ACT 112: Negative or not required by law. Electronically signed by: Bruce Hunter M.D. 06/13/2022 6:00 PM
[2022-06-13] MEDS ORDERED: hydrALAZINE HCL 20 MG/ML VIAL IV STA (19:36)
[2022-06-13] MEDS: BUDESONIDE 0.25 MG/2 ML VIAL (PULMICORT) NEB SCH (20:00)
[2022-06-13] MEDS: MONTELUKAST SODIUM 10 MG TABLET PO SCH (20:02)
[2022-06-13] MEDS: ROSUVASTATIN CALCIUM 20 MG TAB PO SCH (20:03)
[2022-06-14] MEDS: CEFEPIME 2,000 MG in SYRINGE 0 ML IV SCH ×4 (00:20→23:14)
[2022-06-14] MEDS: metroNIDAZOLE 500 MG/100 ML BAG IV SCH ×4 (00:20→23:15)
[2022-06-14] MEDS: INSULIN ASPART PER UNIT SC SCH ×5 (00:33→23:57)
[2022-06-14] MEDS: D5W AND 1/2NSS + 20MEQ KCL 20 MEQ/1,000 ML BAG IV SCH ×2 (03:00→07:51)
[2022-06-14 06:04] LABS: Basophils # (auto) 0.03 K/uL (0-0.2); Basophils % (auto) 0.4 %; Eosinophils # (auto) 0.41 K/uL (0-0.50); Eosinophils % (auto) 4.8 %; Hemoglobin 12.6 g/dl (12.0-16.0); Immature Granulocytes # (auto) 0.11 K/uL (0.01-0.20); Immature Granulocytes % (auto) 1.3 %; Lymphocytes # (auto) 1.51 K/uL (1.2-3.4); Lymphocytes % (auto) 17.7 %; Mean Corpuscular Hemoglobin 29.4 pg (25.0-34.0); Mean Corpuscular Hgb Conc 32.3 g/dL (32.0-36.0); Mean Corpuscular Volume 90.9 fL (80.0-100.0); Mean Platelet Volume 10.9 fL (9.4-12.4); Monocytes # (auto) 0.68 K/uL (0.11-0.59); Neutrophils # (auto) 5.78 K/uL (1.40-6.50); Neutrophils % (auto) 67.8 %; Platelet Count 214 K/uL (130-400); RDW Coefficient of Variation 14.2 % (11.5-14.5); RDW Standard Deviation 47.5 fL (36.4-46.3); Red Blood Count 4.29 M/uL (4.20-5.40); White Blood Count 8.52 K/ul (4.8-10.8)
[2022-06-14 06:16] LABS: Calcium 7.6 mg/dl (8.5-10.1); Creatinine Clr Calc Pharmacy 86.4 ml/min; Est GFR (African American) 106.6 ml/min; Magnesium 1.7 mg/dl (1.7-2.4); Phosphorus 1.9 mg/dl (2.5-4.9); Potassium 3.5 mmol/L (3.5-5.1)
[2022-06-14] MEDS: BUDESONIDE 0.25 MG/2 ML VIAL (PULMICORT) NEB SCH ×2 (07:29→19:43)
[2022-06-14] MEDS: FORMOTEROL 20 MCG/2 ML VIAL NEB SCH ×2 (07:29→19:43)
[2022-06-14] MEDS: PANTOprazole 40 MG in SYRINGE 0 ML IV SCH (07:49)
[2022-06-14] MEDS: DULoxetine HCL 30 MG CAP PO SCH (07:50)
[2022-06-14] MEDS: METOPROLOL TARTRATE 25 MG TAB PO SCH ×2 (07:50→20:22)
[2022-06-14] MEDS: lisinopril 40 MG TAB PO SCH (07:50)
[2022-06-14] MEDS: POLYETHYLENE (MIRALAX) 17 GM PACK PO SCH (07:51)
[2022-06-14] MEDS: amLODIPine BESYLATE 5 MG TAB PO SCH (07:51)
--- NOTE | 2022-06-14 08:45 | Operative Report (OR) ---
DATE OF PROCEDURE: 06/11/2022. PREOPERATIVE DIAGNOSIS: Large bowel obstruction completely. POSTOPERATIVE DIAGNOSIS: Large bowel obstruction completely. NAME OF THE OPERATION: Create loop colostomy. SURGEON: Fidel Yusuf MD. ANESTHESIA: General. ESTIMATED BLOOD LOSS: About 10 mL. FINDINGS: Complete large bowel obstruction. COMPLICATIONS: None. INDICATIONS FOR THE PROCEDURE: This is a 67-year-old female, who had a complete large bowel obstruct ion due to the colon stricture and the patient's abdomen has significant distention almost for two da ys and at the beginning, we tried to transfer to the [facility] and was out of bed [facility] in the next 24-48 hours and also ER doctor contacted the [facility] colorectal surg mariluz on-call and the surgeon called me and he recommended to do the colostomy at [facility] and they do not recommend to transfer. So, I did talk to the patient and the patient's son, Ace eid on the phone and discussed the benefits, risks, and alternative of the loop colostomy and I in dicated the risks may include, but not limited to, such as bleeding, infection, injury to other organ s, hernia, myocardial infarction, stroke, DVT, even , and the patient and the patient's son unde rstand. The patient's son gave consent on the phone. I answered all questions. DETAILS OF PROCEDURE: After we identified the patient and verified the procedure, we brought the pat ient to the OR, put the patient in the supine position on the OR table. The patient received SCDs on bilateral legs to prevent DVT. Also, the patient received 600 mg of clindamycin IV for prophylactic antibiotic. The patient received general anesthesia without difficulty. So, the patient had a Amor catheter insertion. The abdomen was prepped and draped in routine sterile fashion. After timeout, I decided to create the loop colostomy in the transverse colon. So, I made about 2.5 cm big sandy incis ion 2 inches above the umbilicus. We removed the skin and subcutaneous layer, the fat tissue, and nazia ched the external oblique layer and fascial layer. Then, I made an incision on the fascial layer and closed the incision, opened peritoneum under direct vision, and the patient had a significantly dila rosalinda transverse colon. We mobilized the transverse colon, put the loop colostomy bag just below the t ransverse colon. Hemostasis obtained. Then, I used 0 Vicryl to fix the colon and the fascial layer interruptedly and then we used the Bovie to make a caudal incision and then we suctioned all the stoo l, liquid fluid came out about 500 mL, decompressed the colon right away. The colon with significant dilatation before decompressing near 12 cm. So, once we decompressed, the abdomen was flat and then I used 0 Vicryl to fix the colon edge to the skin edge interruptedly. Then, we put the bag on and t he patient tolerated the procedure well and all instrument, needle, and sponge counts were correct x2 at the end of the case. The patient was transferred to ICU in stable condition. After the procedur e, I did talk to the patient's son on the phone about the OR finding procedure we did, he understands . Job ID: [id number]
--- NOTE | 2022-06-14 09:37 | Neurology Progress Note ---
Date of Service June 14, 2022 Assessment & Plan (1) Acute left KATARZYNA ischemic stroke: (2) PAF (paroxysmal atrial fibrillation): (3) Hypertension: Plan Patient is post left anterior cerebral artery stroke May 26, resulting in right tano paresis ( leg greater than arm). Neurologically she is stable this morning with unchanged neurologic deficits. She has a worked and oriented, pleasant and cooperative. Repeat MRI of the brain showed no new lesions and the involving left KATARZYNA stroke. She has moderate old small vessel ischemic disease also. The patient has atrial fibrillation, followed by Cardiology. Her blood pressure has been elevated this morning. Recommendations: 1. agree with allowing some "permissive hypertension" with systolic anywhere from 140-160. However, she is higher than this now. I would try to control her blood pressure, aiming for a mean arterial pressure of closer to 100. 2. there is no need for additional neurologic testing at this time. 3. since there was no evidence of hemorrhage on CT June 13, or MRI of the brain today, it is likely safe ( from a neurologic standpoint) to resume Lovenox or Eliquis. 4. please contact me if I can be of further clarification or assistance on this case. Overall, I spent A total of 35 minutes with this case including review of records, review of MRI films, direct evaluation the patient bedside, and discussion of the case with the patient and RN at bedside, and Dr. Jj, inc luding differential diagnosis and treatment options. Admission and Anticipated Discharge Date Admission Date: June 11, 2022 Subjective Patient has no complaint of pain or headache. Nursing reports that the patient has been oriented and cooperative ( and pleasant). Blood pressure has been running a little bit high and currently is 183/86. MRI of the brain showed no new or worsening spots or lesions. I reviewed these films. CBC was unremarkable. Chem profile showed a glucose of 193 with mildly low calcium and phosphorus. Temperature was mildly elevated this morning at 37.7. Results & Data ([facility]) Vital Signs (Past 12 Hours) Vital Signs Pulse Pulse Resp BP Pulse Ox O2 Del Method 06/14/22 08:35 Room Air 06/14/22 07:33 85 18 96 Room Air 06/14/22 07:21 71 06/14/22 04:00 72 18 156/78 H 97 Room Air 06/14/22 00:00 69 06/13/22 22:39 65 171/76 H 98 Room Air Exam (Neuro) Physical Exam: She is awake and alert. Speech is without any obvious a phase or dysarthria although she is quite intense to give single word answers. There is no facial droop. Tongue is midline. Extraocular eye muscles are intact without nystagmus. The patient can hold her right arm up some but it is very weak being 3/5 proximally. It is 4/5 distally. The right lower extremity is 1/5 distally and she cannot lift her leg. The left arm and leg are closer to 5/5 diffusely both proximally and distally. PG Care Time/CCT Total # of Minutes Spent Total Time Spent with Patient: Total time spent is greater than 50% in coordination of care (as documented) at patient's floor/unit and/or counseling patient: Coding Level of Care Code 56897 SUB INP/OBS CARE 2/35MIN Diagnoses Acute left KATARZYNA ischemic stroke I63.522 PAF (paroxysmal atrial fibrillation) I48.0 Hypertension I10
--- NOTE | 2022-06-14 12:15 | Hospitalist Progress Note ---
Date of Service June 14, 2022 Assessment & Plan (1) Small bowel obstruction: (2) Diverticular stricture: Plan: Plan as above. (3) Colonic stricture: Plan: colonic stent placed on 05/26, however, it is not traversing an area of high grade stricture. Ongoing abdominal distension noted at rehab center after discharge. The initial plan was to allow her abdomen to decompress and subsequently perform abdominal surgery. Subsequent large bowel obstruction present and her abdominal distension worsened. 06/11: diverting colostomy performed and she recovered intubated in ICU- extubated to BIPAP the following morning. NG tube still in place for one more day per surgery 06/13: NG tube is out, clears ordered. Speech to assess patient when she is amenable to it. She is in no acute distress and denies any abdominal pain. 06/14: tolerating diet, colostomy in place with brown stool. No pain to abdomen. Doing well overall. Clears wtih diet per surgery. (4) PAF (paroxysmal atrial fibrillation): Plan: she remains in sinus rhythm. Cont holding apixaban perioperatively until surgery is ok with restarting. Cont metoprolol. (5) Stroke: Plan: h/o post-op stroke last month with subsequent mild right hemiparesis and cognitive language impairment. Appears to be at her new baseline post stroke last week. Cont supportive care and PT/OT with back to rehab at discharge. (6) Hypertension: Plan: elevated and required hydralazine overnight. Cont amlodipine, lisinopril 40mg daily, Lopressor-may consider increasing dose of amlodipine. (7) DM II (diabetes mellitus, type II), controlled: Plan: A1C reflects good control at 6.9 last month. Cont with basal bolus insulin during admission. Continues on a dextrose infusion but is not hyperglycemic and is being closely monitored. DVT proph: holding anticoagulants in post op setting per surgery request. Full code Dispo- PCU Ritika Jj DO [facility] Hospitalist Admission and Anticipated Discharge Date Admission Date: June 11, 2022 Subjective 67 yo F admitted with small and large bowel obstruction s/p diverting colostomy placement by Dr. Yusuf. She is communicating clearly today Denies any acute issues but reports feeling "miserable" Does not specify why Appears to be gaining some strength in her right arm a little more. tolerating PO Per surgery still holding apixaban. Review of Systems Review of Systems: All systems were reviewed and negative except as indicated on subjective above. Physical Exam Physical Exam: CONSTITUTIONAL: WNWD, vitals as above, NAD EYES: normal conjunctivae ENT: external ear and nose normal NECK: trachea midline RESPIRATORY: clear to auscultation bilaterally, no crackles, rales or wheezes CARDIOVASCULAR: regular rate and rhythm, S1 and 2 heard without murmurs, gallops or rubs, no JVD, no peripheral edema CHEST: inspection of chest was normal GASTROINTESTINAL: colostomy in place with brown stool. abdomen is soft and nondistended. there is no guarding. 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 She is supine with HOB elevated. SKIN: warm and dry NEUROLOGIC: CN 2-12 grossly intact, Speech, language intact. Right hemiparesis present. Results & Data Results & Data ([facility]) Vital Signs (Past 12 Hours) Vital Signs Pulse Pulse Resp BP Pulse Ox O2 Del Method 06/14/22 11:57 65 18 06/14/22 11:57 132/80 06/14/22 11:30 64 13 06/14/22 10:30 65 18 97 Room Air 06/14/22 10:00 60 18 97 Room Air 06/14/22 09:00 63 18 06/14/22 08:00 68 15 06/14/22 08:00 183/86 H 06/14/22 07:00 66 20 06/14/22 08:35 Room Air 06/14/22 07:33 85 18 96 Room Air 06/14/22 07:21 71 06/14/22 04:00 72 18 156/78 H 97 Room Air Laboratory Results Short CBC 06/14/22 Range/Units 05:40 WBC 8.52 (4.8-10.8) K/ul Hgb 12.6 (12.0-16.0) g/dl Hct 39.0 (37.0-47.0) % Plt Count 214 (130-400) K/uL BMP 06/14/22 05:40 Sodium 138 Potassium 3.5 Chloride 112 H Carbon Dioxide 19 L BUN 13 Creatinine 0.62 Glucose 193 H Calcium 7.6 L Medications Administered Current Inpatient Medications Acetaminophen (Acetaminophen 325 Mg Tab) 650 mg PO Q4H PRN PRN Reason: Pain or Fever Stop: 07/11/22 19:08 Last Admin: 06/12/22 04:49 Dose: 650 mg Amlodipine Besylate (Amlodipine Besylate 5 Mg Tab) 5 mg PO QAM [facility] Stop: 07/12/22 08:59 Last Admin: 06/14/22 07:51 Dose: 5 mg Budesonide (Budesonide 0.25 Mg/2 Ml Vial (Pulmicort)) 0.25 mg NEB BIDR [facility] Stop: 07/13/22 18:59 Last Admin: 06/14/22 07:29 Dose: 0.25 mg Dextrose (Dextrose 50% 50 Ml Syringe) 25 - 50 ml IV UD PRN; Protocol PRN Reason: Hypoglycemia Protocol Stop: 07/12/22 06:43 Duloxetine HCl (Duloxetine Hcl 30 Mg Cap) 30 mg PO QAM [facility] Stop: 07/12/22 08:59 Last Admin: 06/14/22 07:50 Dose: 30 mg Formoterol Fumarate (Formoterol 20 Mcg/2 Ml Vial) 20 mcg NEB BIDR [facility] Stop: 07/13/22 08:59 Last Admin: 06/14/22 07:29 Dose: 20 mcg Glucagon (Glucagon For Inj 1 Mg Vial) 1 mg SQ UD PRN; Protocol PRN Reason: Hypoglycemia Protocol Stop: 07/12/22 06:43 Glucose (Glucose 40% Gel 15 Gm Tube) 15 - 30 gm PO UD PRN; Protocol PRN Reason: Hypoglycemia Protocol Stop: 07/12/22 06:43 Glucose (Glucose 10 Tab/Tube) 4 - 8 tab PO UD PRN; Protocol PRN Reason: Hypoglycemia Treatment Stop: 07/12/22 06:43 Potassium Chloride/Dextrose/Sod Cl (D5w And 1/2nss + 20meq Kcl) 20 meq in 1,000 mls @ 125 mls/hr IV .Q8H [facility]; Protocol Stop: 07/11/22 23:29 Last Admin: 06/14/22 07:51 Dose: 125 mls/hr Pantoprazole Sodium 40 mg/ (Syringe) 10 mls @ 5 mls/min IV BID [facility] Stop: 07/11/22 23:29 Last Admin: 06/14/22 07:49 Dose: 5 mls/min Cefepime HCl 2,000 mg/ Syringe 20 mls @ 5 mls/min IV Q8H [facility]; Protocol Stop: 06/19/22 00:00 Last Admin: 06/14/22 07:49 Dose: 5 mls/min Metronidazole (Flagyl) 500 mg in 100 mls @ 100 mls/hr IV Q8H [facility] Stop: 06/19/22 00:00 Last Infusion: 06/14/22 09:16 Dose: Infused Insulin Aspart (Insulin Aspart Per Unit) 0 units SC Q6 [facility] Stop: 07/12/22 06:59 Last Admin: 06/14/22 11:49 Dose: 1 units Ipratropium [place] (Ipratropium [place] Neb Soln 0.02% 2.5 Ml Vial) 0.5 mg INH Q6RWA PRN PRN Reason: shortness of breath or wheezing Stop: 07/11/22 23:04 Levalbuterol HCl (Levalbuterol 1.25mg/0.5ml Neb) 1.25 mg INH Q6RWA PRN; Protocol PRN Reason: shortness of breath or wheezing Stop: 07/11/22 23:04 Lisinopril (Lisinopril 40 Mg Tab) 40 mg PO QAM [facility] Stop: 07/12/22 08:59 Last Admin: 06/14/22 07:50 Dose: 40 mg Metoprolol Tartrate (Metoprolol Tartrate 25 Mg Tab) 25 mg PO BID [facility] Stop: 07/12/22 08:59 Last Admin: 06/14/22 07:50 Dose: 25 mg Miscellaneous (Carbohydrates For Hypoglycemia ) 15 - 30 gm PO UD PRN PRN Reason: Hypoglycemia Protocol Stop: 07/12/22 06:43 Montelukast Sodium (Montelukast Sodium 10 Mg Tablet) 10 mg PO HS [facility] Stop: 07/12/22 20:59 Last Admin: 06/13/22 20:02 Dose: 10 mg Morphine Sulfate (Morphine Sulfate 2 Mg/Ml Carp) 2 mg IV Q3H PRN PRN Reason: Pain Stop: 06/25/22 23:04 Polyethylene Glycol (Polyethylene (Miralax) 17 Gm Pack) 17 gm PO DAILY [facility] Stop: 07/12/22 08:59 Last Admin: 06/14/22 07:51 Dose: 17 gm Rosuvastatin Calcium (Rosuvastatin Calcium 20 Mg Tab) 20 mg PO HS [facility] Stop: 07/12/22 20:59 Last Admin: 06/13/22 20:03 Dose: 20 mg
--- NOTE | 2022-06-14 16:09 | Surgery Progress Note ---
Date of Service June 14, 2022 Assessment & Plan (1) Large bowel obstruction: Plan: POD # 3 creation of loop colostomy for large bowel obstruction secondary to diverticular stricture and stent migration - tmax 37.7 , vss -no abdominal pain - adequate urine output - + ostomy output Plan: heart healthy diet pain management as needed incentive spirometry PT/OT ostomy care continue current medical management Discussed with dr. hernández who agrees with above. Admission and Anticipated Discharge Date Admission Date: June 11, 2022 Subjective feeling okay no abdominal pain tolerating diet no n,v ostomy functioning Physical Exam Constitutional: WD/WN, vitals as above cooperative and comfortable; no acute distress and not ill appearing Respiratory: normal respiratory effort; no respiratory distress Gastrointestinal (Abdomen): Inspection/Auscultation: abdomen normal to inspection; abdomen not distended Percussion/Palpation: abdomen soft; abdomen nontender, no guarding and abdomen not rigid Loop colostomy present with liquid brown stool Skin: no rashes, warm and dry Psychiatric: Orientation: alert and oriented x 3 Affect: + flat affect Results & Data ([facility]) Vital Signs (Past 12 Hours) Vital Signs Pulse Pulse Resp BP Pulse Ox O2 Del Method 06/14/22 12:00 63 18 06/14/22 12:00 133/69 06/14/22 11:57 65 18 06/14/22 11:57 132/80 06/14/22 11:30 64 13 06/14/22 10:30 65 18 97 Room Air 06/14/22 10:00 60 18 97 Room Air 06/14/22 09:00 63 18 06/14/22 08:00 68 15 06/14/22 08:00 183/86 H 06/14/22 07:00 66 20 06/14/22 08:35 Room Air 06/14/22 07:33 85 18 96 Room Air 06/14/22 07:21 71 Laboratory Results 06/14/22 06/14/22 06/14/22 Range/Units 11:26 05:40 05:40 WBC 8.52 (4.8-10.8) K/ul RBC 4.29 (4.20-5.40) M/uL Hgb 12.6 (12.0-16.0) g/dl Hct 39.0 (37.0-47.0) % MCV 90.9 (80.0-100.0) fL MCH 29.4 (25.0-34.0) pg MCHC 32.3 (32.0-36.0) g/dL RDW Std Deviation 47.5 H (36.4-46.3) fL RDW Coeff of Susan 14.2 (11.5-14.5) % Plt Count 214 (130-400) K/uL MPV 10.9 (9.4-12.4) fL Immature Gran % (Auto) 1.3 % Neut % (Auto) 67.8 % Lymph % (Auto) 17.7 % [place] % (Auto) 8.0 % Eos % (Auto) 4.8 % Baso % (Auto) 0.4 % Neut # (Auto) 5.78 (1.40-6.50) K/uL Lymph # (Auto) 1.51 (1.2-3.4) K/uL [place] # (Auto) 0.68 H (0.11-0.59) K/uL Eos # (Auto) 0.41 (0-0.50) K/uL Baso # (Auto) 0.03 (0-0.2) K/uL Immature Gran # (Auto) 0.11 (0.01-0.20) K/uL Sodium 138 (136-145) mmol/L Potassium 3.5 (3.5-5.1) mmol/L Chloride 112 H (98-107) mmol/L Carbon Dioxide 19 L (21-32) mmol/L Anion Gap 7 (3-11) BUN 13 (6-23) mg/dl Creatinine 0.62 (0.6-1.2) mg/dl Est Cr Clr Drug Dosing 86.4 ml/min Est GFR ( Amer) 106.6 ml/min Est GFR (Non-Af Amer) 92.0 ml/min BUN/Creatinine Ratio 21.0 H (10-20) Glucose 193 H (70-99(Fasting)) mg/dl POC Glucose 219 H (70-99) mg/dl Calcium 7.6 L (8.5-10.1) mg/dl Phosphorus 1.9 L (2.5-4.9) mg/dl Magnesium 1.7 (1.7-2.4) mg/dl 06/14/22 06/13/22 Range/Units 00:24 18:27 WBC (4.8-10.8) K/ul RBC (4.20-5.40) M/uL Hgb (12.0-16.0) g/dl Hct (37.0-47.0) % MCV (80.0-100.0) fL MCH (25.0-34.0) pg MCHC (32.0-36.0) g/dL RDW Std Deviation (36.4-46.3) fL RDW Coeff of Susan (11.5-14.5) % Plt Count (130-400) K/uL MPV (9.4-12.4) fL Immature Gran % (Auto) % Neut % (Auto) % Lymph % (Auto) % [place] % (Auto) % Eos % (Auto) % Baso % (Auto) % Neut # (Auto) (1.40-6.50) K/uL Lymph # (Auto) (1.2-3.4) K/uL [place] # (Auto) (0.11-0.59) K/uL Eos # (Auto) (0-0.50) K/uL Baso # (Auto) (0-0.2) K/uL Immature Gran # (Auto) (0.01-0.20) K/uL Sodium (136-145) mmol/L Potassium (3.5-5.1) mmol/L Chloride (98-107) mmol/L Carbon Dioxide (21-32) mmol/L Anion Gap (3-11) BUN (6-23) mg/dl Creatinine (0.6-1.2) mg/dl Est Cr Clr Drug Dosing ml/min Est GFR ( Amer) ml/min Est GFR (Non-Af Amer) ml/min BUN/Creatinine Ratio (10-20) Glucose (70-99(Fasting)) mg/dl POC Glucose 175 H 160 H (70-99) mg/dl Calcium (8.5-10.1) mg/dl Phosphorus (2.5-4.9) mg/dl Magnesium (1.7-2.4) mg/dl
[2022-06-14] MEDS: MONTELUKAST SODIUM 10 MG TABLET PO SCH (20:22)
[2022-06-14] MEDS: ROSUVASTATIN CALCIUM 20 MG TAB PO SCH (20:22)
[2022-06-14] MEDS ORDERED: amLODIPine BESYLATE 5 MG TAB PO ONE (21:35)
[2022-06-14] MEDS ORDERED: hydrALAZINE HCL 20 MG/ML VIAL IV STA (23:00)
[2022-06-15] MEDS: INSULIN ASPART PER UNIT SC SCH ×3 (05:56→22:00)
[2022-06-15 06:12] LABS: Basophils # (auto) 0.02 K/uL (0-0.2); Basophils % (auto) 0.2 %; Eosinophils # (auto) 0.32 K/uL (0-0.50); Eosinophils % (auto) 3.7 %; Hematocrit (blood only) 39.8 % (37.0-47.0); Hemoglobin 13.2 g/dl (12.0-16.0); Immature Granulocytes # (auto) 0.09 K/uL (0.01-0.20); Lymphocytes # (auto) 1.25 K/uL (1.2-3.4); Lymphocytes % (auto) 14.3 %; Mean Corpuscular Hemoglobin 29.3 pg (25.0-34.0); Mean Corpuscular Hgb Conc 33.2 g/dL (32.0-36.0); Mean Corpuscular Volume 88.2 fL (80.0-100.0); Mean Platelet Volume 11.2 fL (9.4-12.4); Monocytes # (auto) 0.68 K/uL (0.11-0.59); Monocytes % (auto) 7.8 %; Neutrophils # (auto) 6.39 K/uL (1.40-6.50); Platelet Count 235 K/uL (130-400); RDW Coefficient of Variation 13.8 % (11.5-14.5); RDW Standard Deviation 44.7 fL (36.4-46.3); Red Blood Count 4.51 M/uL (4.20-5.40); White Blood Count 8.75 K/ul (4.8-10.8)
[2022-06-15 06:16] LABS: BUN Creatinine Ratio 20.3 (10-20); Creatinine Clr Calc Pharmacy 90.8 ml/min; Est GFR (African American) 108.4 ml/min; Est GFR (Non-African American) 93.5 ml/min; Magnesium 1.7 mg/dl (1.7-2.4); Potassium 3.5 mmol/L (3.5-5.1)
[2022-06-15] MEDS: FORMOTEROL 20 MCG/2 ML VIAL NEB SCH ×2 (07:17→19:25)
[2022-06-15] MEDS: BUDESONIDE 0.25 MG/2 ML VIAL (PULMICORT) NEB SCH ×2 (07:17→19:25)
[2022-06-15] MEDS: metroNIDAZOLE 500 MG/100 ML BAG IV SCH (08:19)
[2022-06-15] MEDS: CEFEPIME 2,000 MG in SYRINGE 0 ML IV SCH (08:20)
[2022-06-15] MEDS: METOPROLOL TARTRATE 25 MG TAB PO SCH (08:20)
[2022-06-15] MEDS: lisinopril 40 MG TAB PO SCH (08:20)
[2022-06-15] MEDS: POLYETHYLENE (MIRALAX) 17 GM PACK PO SCH (08:20)
[2022-06-15] MEDS: DULoxetine HCL 30 MG CAP PO SCH (08:21)
[2022-06-15] MEDS: amLODIPine BESYLATE 5 MG TAB PO SCH ×2 (08:21→11:33)
--- NOTE | 2022-06-15 09:21 | Hospitalist Progress Note ---
Date of Service June 15, 2022 Assessment & Plan (1) Small bowel obstruction: (2) Diverticular stricture: Plan: Plan as above. (3) Colonic stricture: Plan: colonic stent placed on 05/26, however, it is not traversing an area of high grade stricture. Ongoing abdominal distension noted at rehab center after discharge. The initial plan was to allow her abdomen to decompress and subsequently perform abdominal surgery. Subsequent large bowel obstruction present and her abdominal distension worsened. 06/11: diverting colostomy performed and she recovered intubated in ICU- extubated to BIPAP the following morning. NG tube still in place for one more day per surgery 06/13: NG tube is out, clears ordered. Speech to assess patient when she is amenable to it. She is in no acute distress and denies any abdominal pain. 06/14: tolerating diet, colostomy in place with brown stool. No pain to abdomen. Doing well overall. Clears wtih diet per surgery. 06/15: tolerating diet, advanced to solids, apixaban restarted. Notably she should be getting the 5mg doses twice daily with normal creatinine and age <80 yrs. She does have a body weight <60kg, but doesn't meet the other criteria necessary for the 2.5mg BID dosing. In review of the cardiology notes from last admission, the lower dose was used in an effort to minimize bleeding, and the plan was to adjust to this higher dose at some point. (4) PAF (paroxysmal atrial fibrillation): Plan: she remains in sinus rhythm. Restart apixaban at higher dose as above. Cont metoprolol. (5) Stroke: Plan: h/o post-op stroke last month with subsequent mild right hemiparesis and cognitive language impairment. Appears to be at her new baseline post stroke last week. Cont supportive care and PT/OT with back to rehab at discharge. (6) Hypertension: Plan: elevated and required hydralazine overnight. Cont amlodipine at higher dose of 10mg, lisinopril 40mg daily, Lopressor was switched to metoprolol succinate. BP this morning was 104 systolic PRIOR to taking any amlodipine. The amlodipine 10mg was given and repeat was 165/90. Will cont to monitor for goal <!40/90 on average. (7) DM II (diabetes mellitus, type II), controlled: Plan: A1C reflects good control at 6.9 last month. Cont with basal bolus insulin during admission. DVT proph: apixaban Full code Dispo- med/surg, medically stable for transition to rehab when bed is available. Ritika Jj DO [facility] Hospitalist Admission and Anticipated Discharge Date Admission Date: June 11, 2022 Subjective 67 yo F admitted with small and large bowel obstruction s/p diverting colostomy placement by Dr. Yusuf on 06/11. She is doing well, out of bed to chair She is off oxygen and denies SOB Denies pain Wants to get back in bed tolerating diet. Review of Systems Review of Systems: All systems were reviewed and negative except as indicated on subjective above. Physical Exam Physical Exam: CONSTITUTIONAL: WNWD, vitals as above, NAD EYES: normal conjunctivae ENT: external ear and nose normal NECK: trachea midline RESPIRATORY: clear to auscultation bilaterally, no crackles, rales or wheezes CARDIOVASCULAR: regular rate and rhythm, S1 and 2 heard without murmurs, gallops or rubs, no JVD, no peripheral edema CHEST: inspection of chest was normal GASTROINTESTINAL: colostomy in place with brown stool. abdomen is soft and nondistended. there is no guarding. 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 She is supine with HOB elevated. SKIN: warm and dry NEUROLOGIC: CN 2-12 grossly intact, Speech, language intact. Right hemiparesis present. Results & Data Results & Data ([facility]) Vital Signs (Past 12 Hours) Vital Signs Temp Pulse Pulse Resp BP BP Pulse Ox 06/15/22 07:18 66 16 98 06/15/22 04:00 36.7 C 79 18 165/76 H 97 06/15/22 00:00 70 06/14/22 21:33 195/91 H 06/14/22 22:50 195/95 H 06/15/22 00:07 36.4 C L 63 18 134/69 97 O2 Del Method 06/15/22 07:18 Room Air 06/15/22 04:00 Room Air 06/15/22 00:00 06/14/22 21:33 06/14/22 22:50 06/15/22 00:07 Room Air Laboratory Results Short CBC 06/15/22 Range/Units 05:30 WBC 8.75 (4.8-10.8) K/ul Hgb 13.2 (12.0-16.0) g/dl Hct 39.8 (37.0-47.0) % Plt Count 235 (130-400) K/uL [facility] 06/15/22 05:30 Sodium 135 L Potassium 3.5 Chloride 109 H Carbon Dioxide 21 BUN 12 Creatinine 0.59 L Glucose 122 H Calcium 8.0 L Medications Administered Current Inpatient Medications Acetaminophen (Acetaminophen 325 Mg Tab) 650 mg PO Q4H PRN PRN Reason: Pain or Fever Stop: 07/11/22 19:08 Last Admin: 06/12/22 04:49 Dose: 650 mg Amlodipine Besylate (Aml[facility]ipine Besylate 5 Mg Tab) [facility]: 07/15/22 08:59 Budesonide (Budesonide 0.25 Mg/2 Ml Vial (Pulmicort)) 0.25 mg NEB BIDR [facility] Stop: 07/13/22 18:59 Last Admin: 06/15/22 07:17 Dose: 0.25 mg Dextrose (Dextrose 50% 50 Ml Syringe) 25 - 50 ml IV UD PRN; Protocol PRN Reason: Hypoglycemia Protocol Stop: 07/12/22 06:43 Duloxetine HCl (Duloxetine Hcl 30 Mg Cap) [facility] [place] Stop: 07/12/22 08:59 Last Admin: 06/14/22 07:50 Dose: 30 mg Formoterol Fumarate (Formoterol 20 Mcg/2 Ml Vial) 20 mcg NEB BIDR [facility] Stop: 07/13/22 08:59 Last Admin: 06/15/22 07:17 Dose: 20 mcg Glucagon (Glucagon For Inj 1 Mg Vial) 1 mg SQ UD PRN; Protocol PRN Reason: Hypoglycemia Protocol Stop: 07/12/22 06:43 Glucose (Glucose 40% Gel 15 Gm Tube) 15 - 30 gm PO UD PRN; Protocol PRN Reason: Hypoglycemia Protocol Stop: 07/12/22 06:43 Glucose (Glucose 10 Tab/Tube) 4 - 8 tab PO UD PRN; Protocol PRN Reason: Hypoglycemia Treatment Stop: 07/12/22 06:43 Cefepime HCl 2,000 mg/ Syringe 20 mls @ 5 mls/min IV Q8H [facility]; Protocol Stop: 06/19/22 00:00 Last Admin: 06/14/22 23:14 Dose: 5 mls/min Metronidazole (Flagyl) 500 mg in 100 mls @ 100 mls/hr IV Q8H [facility] Stop: 06/19/22 00:00 Last Infusion: 06/15/22 01:49 Dose: Infused Insulin Aspart (Insulin Aspart Per Unit) 0 units SC Q6 [facility] Stop: 07/12/22 06:59 Last Admin: 06/15/22 05:56 Dose: Not Given Ipratropium [place] (Ipratropium [place] Neb Soln 0.02% 2.5 Ml Vial) 0.5 mg INH Q6RWA PRN PRN Reason: shortness of breath or wheezing Stop: 07/11/22 23:04 Levalbuterol HCl (Levalbuterol 1.25mg/0.5ml Neb) 1.25 mg INH Q6RWA PRN; Protocol PRN Reason: shortness of breath or wheezing Stop: 07/11/22 23:04 Lisinopril (Lisinopril 40 Mg Tab) 40 mg PO QAM [facility] Stop: 07/12/22 08:59 Last Admin: 06/14/22 07:50 Dose: 40 mg Miscellaneous (Carbohydrates For Hypoglycemia ) 15 - 30 gm PO UD PRN PRN Reason: Hypoglycemia Protocol Stop: 07/12/22 06:43 Montelukast Sodium (Montelukast Sodium 10 Mg Tablet) 10 mg PO HS [facility] Stop: 07/12/22 20:59 Last Admin: 06/14/22 20:22 Dose: 10 mg Morphine Sulfate (Morphine Sulfate 2 Mg/Ml Carp) 2 mg IV Q3H PRN PRN Reason: Pain Stop: 06/25/22 23:04 Polyethylene Glycol (Polyethylene (Miralax) 17 Gm Pack) 17 gm PO DAILY [facility] Stop: 07/12/22 08:59 Last Admin: 06/14/22 07:51 Dose: 17 gm Rosuvastatin Calcium (Rosuvastatin Calcium 20 Mg Tab) 20 mg PO HS [facility] Stop: 07/12/22 20:59 Last Admin: 06/14/22 20:22 Dose: 20 mg
[2022-06-15] MEDS: POT PHOSPHATE MONOBASIC W/ SOD TAB PO SCH ×3 (11:32→22:00)
--- NOTE | 2022-06-15 13:49 | Surgery Progress Note ---
Date of Service June 15, 2022 Assessment & Plan (1) Large bowel obstruction: Plan: POD # 4 creation of loop colostomy for large bowel obstruction secondary to diverticular stricture and stent migration - avss -no abdominal pain - adequate urine output - + ostomy output Plan: heart healthy diet okay to resume Eliquis from surgical standpoint incentive spirometry PT/OT ostomy care discontinue gong catheter continue current medical management Discussed with Dr. hernández who agrees with above. Admission and Anticipated Discharge Date Admission Date: June 11, 2022 Subjective feeling okay no abdominal pain tolerating diet no n/v colostomy functioning Physical Exam Constitutional: WD/WN, vitals as above cooperative and comfortable; no acute distress and not ill appearing Neck: normal visual inspection and trachea midline Respiratory: normal respiratory effort; no respiratory distress Gastrointestinal (Abdomen): Inspection/Auscultation: abdomen normal to inspection; abdomen not distended Percussion/Palpation: abdomen soft; abdomen nontender, no guarding and abdomen not rigid Colostomy with brown soft/liquid stool output, ostomy pink Skin: no rashes, warm and dry Psychiatric: Orientation: alert and oriented x 3 Results & Data ([facility]) Vital Signs (Past 12 Hours) Vital Signs Temp Pulse Pulse Resp BP Pulse Ox O2 Del Method 06/15/22 11:28 62 19 97 06/15/22 11:28 165/90 H 06/15/22 11:00 79 20 06/15/22 10:00 77 20 96 06/15/22 09:19 70 18 96 06/15/22 09:19 104/63 06/15/22 09:00 74 20 06/15/22 08:00 87 18 06/15/22 07:00 67 17 06/15/22 08:00 65 06/15/22 07:18 66 16 98 Room Air 06/15/22 04:00 36.7 C 79 18 165/76 H 97 Room Air Laboratory Results 06/15/22 06/15/22 06/15/22 Range/Units 11:32 07:25 05:56 WBC (4.8-10.8) K/ul RBC (4.20-5.40) M/uL Hgb (12.0-16.0) g/dl Hct (37.0-47.0) % MCV (80.0-100.0) fL MCH (25.0-34.0) pg MCHC (32.0-36.0) g/dL RDW Std Deviation (36.4-46.3) fL RDW Coeff of Susan (11.5-14.5) % Plt Count (130-400) K/uL MPV (9.4-12.4) fL Immature Gran % (Auto) % Neut % (Auto) % Lymph % (Auto) % [place] % (Auto) % Eos % (Auto) % Baso % (Auto) % Neut # (Auto) (1.40-6.50) K/uL Lymph # (Auto) (1.2-3.4) K/uL [place] # (Auto) (0.11-0.59) K/uL Eos # (Auto) (0-0.50) K/uL Baso # (Auto) (0-0.2) K/uL Immature Gran # (Auto) (0.01-0.20) K/uL Sodium (136-145) mmol/L Potassium (3.5-5.1) mmol/L Chloride (98-107) mmol/L Carbon Dioxide (21-32) mmol/L Anion Gap (3-11) BUN (6-23) mg/dl Creatinine (0.6-1.2) mg/dl Est Cr Clr Drug Dosing ml/min Est GFR ( Amer) ml/min Est GFR (Non-Af Amer) ml/min BUN/Creatinine Ratio (10-20) Glucose (70-99(Fasting)) mg/dl POC Glucose 143 H 106 H 110 H (70-99) mg/dl Calcium (8.5-10.1) mg/dl Phosphorus (2.5-4.9) mg/dl Magnesium (1.7-2.4) mg/dl 06/15/22 06/15/22 06/14/22 Range/Units 05:30 05:30 23:37 WBC 8.75 (4.8-10.8) K/ul RBC 4.51 (4.20-5.40) M/uL Hgb 13.2 (12.0-16.0) g/dl Hct 39.8 (37.0-47.0) % MCV 88.2 (80.0-100.0) fL MCH 29.3 (25.0-34.0) pg MCHC 33.2 (32.0-36.0) g/dL RDW Std Deviation 44.7 (36.4-46.3) fL RDW Coeff of Susan 13.8 (11.5-14.5) % Plt Count 235 (130-400) K/uL MPV 11.2 (9.4-12.4) fL Immature Gran % (Auto) 1.0 % Neut % (Auto) 73.0 % Lymph % (Auto) 14.3 % [place] % (Auto) 7.8 % Eos % (Auto) 3.7 % Baso % (Auto) 0.2 % Neut # (Auto) 6.39 (1.40-6.50) K/uL Lymph # (Auto) 1.25 (1.2-3.4) K/uL [place] # (Auto) 0.68 H (0.11-0.59) K/uL Eos # (Auto) 0.32 (0-0.50) K/uL Baso # (Auto) 0.02 (0-0.2) K/uL Immature Gran # (Auto) 0.09 (0.01-0.20) K/uL Sodium 135 L (136-145) mmol/L Potassium 3.5 (3.5-5.1) mmol/L Chloride 109 H (98-107) mmol/L Carbon Dioxide 21 (21-32) mmol/L Anion Gap 5 (3-11) BUN 12 (6-23) mg/dl Creatinine 0.59 L (0.6-1.2) mg/dl Est Cr Clr Drug Dosing 90.8 ml/min Est GFR ( Amer) 108.4 ml/min Est GFR (Non-Af Amer) 93.5 ml/min BUN/Creatinine Ratio 20.3 H (10-20) Glucose 122 H (70-99(Fasting)) mg/dl POC Glucose 94 (70-99) mg/dl Calcium 8.0 L (8.5-10.1) mg/dl Phosphorus 2.0 L (2.5-4.9) mg/dl Magnesium 1.7 (1.7-2.4) mg/dl 06/14/22 Range/Units 17:06 WBC (4.8-10.8) K/ul RBC (4.20-5.40) M/uL Hgb (12.0-16.0) g/dl Hct (37.0-47.0) % MCV (80.0-100.0) fL MCH (25.0-34.0) pg MCHC (32.0-36.0) g/dL RDW Std Deviation (36.4-46.3) fL RDW Coeff of Susan (11.5-14.5) % Plt Count (130-400) K/uL MPV (9.4-12.4) fL Immature Gran % (Auto) % Neut % (Auto) % Lymph % (Auto) % [place] % (Auto) % Eos % (Auto) % Baso % (Auto) % Neut # (Auto) (1.40-6.50) K/uL Lymph # (Auto) (1.2-3.4) K/uL [place] # (Auto) (0.11-0.59) K/uL Eos # (Auto) (0-0.50) K/uL Baso # (Auto) (0-0.2) K/uL Immature Gran # (Auto) (0.01-0.20) K/uL Sodium (136-145) mmol/L Potassium (3.5-5.1) mmol/L Chloride (98-107) mmol/L Carbon Dioxide (21-32) mmol/L Anion Gap (3-11) BUN (6-23) mg/dl Creatinine (0.6-1.2) mg/dl Est Cr Clr Drug Dosing ml/min Est GFR ( Amer) ml/min Est GFR (Non-Af Amer) ml/min BUN/Creatinine Ratio (10-20) Glucose (70-99(Fasting)) mg/dl POC Glucose 180 H (70-99) mg/dl Calcium (8.5-10.1) mg/dl Phosphorus (2.5-4.9) mg/dl Magnesium (1.7-2.4) mg/dl
[2022-06-15] MEDS ORDERED: metroNIDAZOLE 500 MG TAB PO SCH (14:00)
[2022-06-15] MEDS: METOPROLOL SUCC 25MG EXT REL TAB PO SCH (21:59)
[2022-06-15] MEDS: metroNIDAZOLE 500 MG TAB PO SCH ×2 (21:59→22:00)
[2022-06-15] MEDS: APIXABAN 5 MG TABLET PO SCH (21:59)
[2022-06-15] MEDS: MONTELUKAST SODIUM 10 MG TABLET PO SCH (21:59)
[2022-06-15] MEDS: CEFDINIR 300 MG CAP PO SCH (21:59)
[2022-06-15] MEDS: ROSUVASTATIN CALCIUM 20 MG TAB PO SCH (22:00)
[2022-06-16] MEDS: INSULIN ASPART PER UNIT SC SCH ×5 (00:50→20:37)
[2022-06-16] MEDS: FORMOTEROL 20 MCG/2 ML VIAL NEB SCH ×2 (07:11→19:11)
[2022-06-16] MEDS: BUDESONIDE 0.25 MG/2 ML VIAL (PULMICORT) NEB SCH ×2 (07:11→19:11)
[2022-06-16 07:26] LABS: Hematocrit (blood only) 38.6 % (37.0-47.0); Hemoglobin 12.9 g/dl (12.0-16.0); Mean Corpuscular Hemoglobin 29.8 pg (25.0-34.0); Mean Corpuscular Hgb Conc 33.4 g/dL (32.0-36.0); Mean Corpuscular Volume 89.1 fL (80.0-100.0); Mean Platelet Volume 10.7 fL (9.4-12.4); Platelet Count 215 K/uL (130-400); RDW Coefficient of Variation 14.3 % (11.5-14.5); RDW Standard Deviation 46.1 fL (36.4-46.3); Red Blood Count 4.33 M/uL (4.20-5.40); White Blood Count 8.45 K/ul (4.8-10.8)
[2022-06-16 07:59] LABS: BUN Creatinine Ratio 19.7 (10-20); Creatinine Clr Calc Pharmacy 71.9 ml/min; Est GFR (African American) 104.5 ml/min; Est GFR (Non-African American) 90.1 ml/min; Phosphorus 3.3 mg/dl (2.5-4.9); Potassium 3.2 mmol/L (3.5-5.1)
[2022-06-16] MEDS ORDERED: POTASSIUM CHLORIDE CRTAB 20 MEQ TABCR PO ONE (08:38)
--- NOTE | 2022-06-16 09:35 | CT Scan Report ---
CT head/brain wo con CLINICAL HISTORY: 67 years-old Female with cortical laminar necrosis and petechial hemorrhage. Follo w-up study in a patient with acute strokelike symptoms TECHNIQUE: Multiple axial CT images of the head were obtained without contrast. A dose lowering tech nique was utilized adhering to the principles of ALARA. CT DOSE: 614.27 mGy.cm COMPARISON: Brain MRI 06/13/2022, head CT 06/13/2022 FINDINGS: No acute intracranial hemorrhage, midline shift, intracranial mass, hydrocephalus, territorial ischem ia or abnormal extra-axial collection. Involutional changes with chronic microvascular ischemic disea se. Cytotoxic edema related to the subacute left anterior cerebral artery infarct redemonstrated. No significant mass effect. Chronic left basal ganglia infarcts. The calvarium is intact. The paranasal sinuses, mastoid air cells, and middle ear cavities are clear . IMPRESSION: 1. No acute intracranial hemorrhage or midline shift. 2. Subacute left anterior cerebral artery infarct redemonstrated. Areas of petechial hemorrhage/huber ar necrosis are better seen on comparison brain MRI. ACT 112: Negative or not required by law. The above report was generated using voice recognition software. It may contain grammatical, syntax o r spelling errors. Electronically signed by: Cesar Regan M.D. 06/16/2022 9:34 AM
[2022-06-16] MEDS: APIXABAN 5 MG TABLET PO SCH ×2 (10:14→20:18)
[2022-06-16] MEDS: CEFDINIR 300 MG CAP PO SCH ×2 (10:14→20:18)
[2022-06-16] MEDS: lisinopril 40 MG TAB PO SCH (10:15)
[2022-06-16] MEDS: METOPROLOL SUCC 25MG EXT REL TAB PO SCH ×2 (10:16→20:19)
[2022-06-16] MEDS: POT PHOSPHATE MONOBASIC W/ SOD TAB PO SCH ×4 (10:18→20:19)
[2022-06-16] MEDS: amLODIPine BESYLATE 5 MG TAB PO SCH (10:47)
[2022-06-16] MEDS: DULoxetine HCL 30 MG CAP PO SCH (10:48)
[2022-06-16] MEDS: metroNIDAZOLE 500 MG TAB PO SCH ×2 (10:48→20:19)
--- NOTE | 2022-06-16 12:24 | Surgery Progress Note ---
Date of Service June 16, 2022 Assessment & Plan (1) Large bowel obstruction: Plan: POD # 5 creation of loop colostomy for large bowel obstruction secondary to diverticular stricture and stent migration - avss -no abdominal pain - adequate urine output - + ostomy output Plan: heart healthy diet continue eliquis okay from surgical standpoint for discharge to rehab once bed available. will need 2 week follow up with Dr. hernández for removal of colostomy bar Discussed with Dr. hernández who agrees with above. Admission and Anticipated Discharge Date Admission Date: June 11, 2022 Subjective feeling fine no abdominal pain no n,v tolerating diet ostomy is functioning Physical Exam Constitutional: WD/WN, vitals as above cooperative and comfortable; no acute distress and not ill appearing Neck: normal visual inspection and trachea midline Respiratory: normal respiratory effort; no respiratory distress Gastrointestinal (Abdomen): Inspection/Auscultation: abdomen normal to inspection; abdomen not distended Percussion/Palpation: abdomen soft; abdomen nontender, no guarding and abdomen not rigid Loop colostomy beefy red and with liquid stool output Skin: no rashes, warm and dry Psychiatric: Orientation: alert and oriented x 3 Results & Data ([facility]) Vital Signs (Past 12 Hours) Vital Signs Temp Pulse Resp BP Pulse Ox O2 Del Method 06/16/22 08:27 Room Air 06/16/22 07:23 36.4 C L 72 18 161/78 H 97 Room Air 06/16/22 07:13 69 16 94 Room Air Laboratory Results 06/16/22 06/16/22 06/16/22 Range/Units 12:14 08:08 07:03 WBC (4.8-10.8) K/ul RBC (4.20-5.40) M/uL Hgb (12.0-16.0) g/dl Hct (37.0-47.0) % MCV (80.0-100.0) fL MCH (25.0-34.0) pg MCHC (32.0-36.0) g/dL RDW Std Deviation (36.4-46.3) fL RDW Coeff of Susan (11.5-14.5) % Plt Count (130-400) K/uL MPV (9.4-12.4) fL Sodium 138 (136-145) mmol/L Potassium 3.2 L (3.5-5.1) mmol/L Chloride 109 H (98-107) mmol/L Carbon Dioxide 22 (21-32) mmol/L Anion Gap 7 (3-11) BUN 13 (6-23) mg/dl Creatinine 0.66 (0.6-1.2) mg/dl Est Cr Clr Drug Dosing 71.9 ml/min Est GFR ( Amer) 104.5 ml/min Est GFR (Non-Af Amer) 90.1 ml/min BUN/Creatinine Ratio 19.7 (10-20) Glucose 106 H (70-99(Fasting)) mg/dl POC Glucose 133 H 127 H (70-99) mg/dl Calcium 8.0 L (8.5-10.1) mg/dl Phosphorus 3.3 D (2.5-4.9) mg/dl 06/16/22 06/16/22 06/16/22 Range/Units 07:03 06:12 00:46 WBC 8.45 (4.8-10.8) K/ul RBC 4.33 (4.20-5.40) M/uL Hgb 12.9 (12.0-16.0) g/dl Hct 38.6 (37.0-47.0) % MCV 89.1 (80.0-100.0) fL MCH 29.8 (25.0-34.0) pg MCHC 33.4 (32.0-36.0) g/dL RDW Std Deviation 46.1 (36.4-46.3) fL RDW Coeff of Susan 14.3 (11.5-14.5) % Plt Count 215 (130-400) K/uL MPV 10.7 (9.4-12.4) fL Sodium (136-145) mmol/L Potassium (3.5-5.1) mmol/L Chloride (98-107) mmol/L Carbon Dioxide (21-32) mmol/L Anion Gap (3-11) BUN (6-23) mg/dl Creatinine (0.6-1.2) mg/dl Est Cr Clr Drug Dosing ml/min Est GFR ( Amer) ml/min Est GFR (Non-Af Amer) ml/min BUN/Creatinine Ratio (10-20) Glucose (70-99(Fasting)) mg/dl POC Glucose 94 119 H (70-99) mg/dl Calcium (8.5-10.1) mg/dl Phosphorus (2.5-4.9) mg/dl 06/15/22 06/15/22 Range/Units 20:49 16:12 WBC (4.8-10.8) K/ul RBC (4.20-5.40) M/uL Hgb (12.0-16.0) g/dl Hct (37.0-47.0) % MCV (80.0-100.0) fL MCH (25.0-34.0) pg MCHC (32.0-36.0) g/dL RDW Std Deviation (36.4-46.3) fL RDW Coeff of Susan (11.5-14.5) % Plt Count (130-400) K/uL MPV (9.4-12.4) fL Sodium (136-145) mmol/L Potassium (3.5-5.1) mmol/L Chloride (98-107) mmol/L Carbon Dioxide (21-32) mmol/L Anion Gap (3-11) BUN (6-23) mg/dl Creatinine (0.6-1.2) mg/dl Est Cr Clr Drug Dosing ml/min Est GFR ( Amer) ml/min Est GFR (Non-Af Amer) ml/min BUN/Creatinine Ratio (10-20) Glucose (70-99(Fasting)) mg/dl POC Glucose 94 119 H (70-99) mg/dl Calcium (8.5-10.1) mg/dl Phosphorus (2.5-4.9) mg/dl
[2022-06-16] MEDS: POLYETHYLENE (MIRALAX) 17 GM PACK PO SCH (13:36)
--- NOTE | 2022-06-16 15:53 | Hospitalist Progress Note ---
Date of Service June 16, 2022 Assessment & Plan (1) Small bowel obstruction: (2) Diverticular stricture: Plan: Plan as above. (3) Colonic stricture: Plan: Large bowel obstruction H/O colonic stent placed on 05/26 S/P creation of loop colostomy for large bowel obstruction secondary to diverticular stricture and stent migration by on 06/11/22 --CT ABD: Focal narrowing/stricture within the proximal sigmoid colon is re- demonstrated resulting in a large and small bowel obstruction with progressive dilation compared to the prior study. A colonic stent is present with the distal portion terminating just proximal to without traversing the area of high-grade stricturing. No pneumoperitoneum. Small volume of abdominal pelvic ascites. Trace right pleural effusion with bibasilar opacities favoring atelectasis. -- Extubated, NG tube discontinued --Tolerating regular diet Appreciate surgery input Monitor colostomy output Apixaban resumed Needs follow-up with surgery in 2 weeks upon discharge for removal of colostomy bar (4) PAF (paroxysmal atrial fibrillation): Plan: Continue metoprolol On Eliquis for anticoagulation (5) Stroke: Plan: H/O CVA last month with subsequent mild right hemiparesis and cognitive language impairment --MRI Brain:Interval improvement in the restricted diffusion and edema at the left KATARZYNA territory infarct consistent with expected evolution of a now subacute infarct. Interval development of patchy and cortical areas of increased T1 signal at the left ACT measured likely representing a combination of cortical laminar necrosis and petechial hemorrhage. Follow up head CT in 24 hours recommended to ensure stability. No new/acute infarct identified. --repeat CT Head: No acute intracranial hemorrhage or midline shift. Subacute left anterior cerebral artery infarct redemonstrated. Areas of petechial hemorrhage/laminar necrosis are better seen on comparison brain MRI. -- On apixaban, Crestor Continue PT OT Rehab as able (6) Hypertension: Plan: Continue amlodipine, lisinopril, metoprolol Monitor BP Adjust medications as needed Possible pneumonia Continue empiric antibiotics (7) DM II (diabetes mellitus, type II), controlled: Plan: HbA1C 6.9 Continue insulin Monitor BGs DVT Px: Eliquis Code Status Full code Admission and Anticipated Discharge Date Admission Date: June 11, 2022 Subjective Patient is seen and examined at bedside States feeling better today Denies any nausea, vomiting, abdominal pain Tolerating diet Discussed with surgery today Also denies any chest pain, dyspnea, dizziness Reports generalized weakness and some mild abdominal soreness Review of Systems Review of Systems: All systems reviewed & are unremarkable except as noted in Subjective Physical Exam Physical Exam: Physical Exam: Vitals signs as noted above General Appearance:Moderately built and nourished, no apparent distress Head: normocephalic, Atraumatic Eyes: normal inspection, EOMI Neck: supple, Trachea midline Respiratory/Chest: Normal breath sounds, CTA, No accessory muscle use Cardiovascular: S1, S2, No murmur Abdomen/GI:Soft, Non tender, Bowel sounds present, +Colostomy Extremities/Musculoskeletal:normal inspection, no edema Neurologic/Psych:AAOX3, RLE 1/5, RUE 3/5, +Dysarthria Skin: normal color, warm Results & Data Results & Data ([facility]) Vital Signs (Past 12 Hours) Vital Signs Temp Pulse Resp BP Pulse Ox O2 Del Method 06/16/22 15:37 36.5 C 71 18 155/79 H 98 Room Air 06/16/22 08:27 Room Air 06/16/22 07:23 36.4 C L 72 18 161/78 H 97 Room Air 06/16/22 07:13 69 16 94 Room Air Laboratory Results Short CBC 06/16/22 Range/Units 07:03 WBC 8.45 (4.8-10.8) K/ul Hgb 12.9 (12.0-16.0) g/dl Hct 38.6 (37.0-47.0) % Plt Count 215 (130-400) K/uL BMP 06/16/22 07:03 Sodium 138 Potassium 3.2 L Chloride 109 H Carbon Dioxide 22 BUN 13 Creatinine 0.66 Glucose 106 H Calcium 8.0 L
[2022-06-16] MEDS: ROSUVASTATIN CALCIUM 20 MG TAB PO SCH (20:19)
[2022-06-16] MEDS: MONTELUKAST SODIUM 10 MG TABLET PO SCH (20:19)
[2022-06-17] MEDS: FORMOTEROL 20 MCG/2 ML VIAL NEB SCH ×2 (07:00→19:24)
[2022-06-17] MEDS: BUDESONIDE 0.25 MG/2 ML VIAL (PULMICORT) NEB SCH ×2 (07:00→19:23)
[2022-06-17] MEDS: lisinopril 40 MG TAB PO SCH (08:03)
[2022-06-17] MEDS: amLODIPine BESYLATE 5 MG TAB PO SCH (08:03)
[2022-06-17] MEDS: CEFDINIR 300 MG CAP PO SCH ×2 (08:03→20:27)
[2022-06-17] MEDS: APIXABAN 5 MG TABLET PO SCH ×2 (08:03→20:27)
[2022-06-17] MEDS: POT PHOSPHATE MONOBASIC W/ SOD TAB PO SCH (08:03)
[2022-06-17] MEDS: DULoxetine HCL 30 MG CAP PO SCH (08:04)
[2022-06-17] MEDS: metroNIDAZOLE 500 MG TAB PO SCH ×2 (08:04→20:29)
[2022-06-17] MEDS: METOPROLOL SUCC 25MG EXT REL TAB PO SCH ×2 (08:04→20:28)
[2022-06-17] MEDS: POLYETHYLENE (MIRALAX) 17 GM PACK PO SCH (08:06)
[2022-06-17] MEDS: INSULIN ASPART PER UNIT SC SCH ×4 (08:52→20:42)
[2022-06-17 08:59] LABS: BUN Creatinine Ratio 15.9 (10-20); Calcium 8.3 mg/dl (8.5-10.1); Creatinine Clr Calc Pharmacy 68.8 ml/min; Est GFR (African American) 102.9 ml/min; Est GFR (Non-African American) 88.8 ml/min; Magnesium 1.7 mg/dl (1.7-2.4); Phosphorus 3.3 mg/dl (2.5-4.9); Potassium 3.6 mmol/L (3.5-5.1)
--- NOTE | 2022-06-17 15:46 | Hospitalist Progress Note ---
Date of Service June 17, 2022 Assessment & Plan (1) Large bowel obstruction: (2) Small bowel obstruction: (3) Diverticular stricture: Plan: Large bowel obstruction H/O colonic stent placed on 05/26 S/P creation of loop colostomy for large bowel obstruction secondary to diverticular stricture and stent migration by on 06/11/22 --CT ABD:Focal narrowing/stricture within the proximal sigmoid colon is re- demonstrated resulting in a large and small bowel obstruction with progressive dilation compared to the prior study. A colonic stent is present with the distal portion terminating just proximal to without traversing the area of high-grade stricturing. No pneumoperitoneum. Small volume of abdominal pelvic ascites. Trace right pleural effusion with bibasilar opacities favoring atelectasis. -- Extubated, NG tube discontinued --Tolerating regular diet Appreciate surgery input Monitor colostomy output Apixaban resumed Needs follow-up with surgery in 2 weeks upon discharge for removal of colostomy bar Stable for discharge, Waiting for Insurance Auth for placement PAF (paroxysmal atrial fibrillation): Continue metoprolol On Eliquis for anticoagulation Stroke: H/O CVA last month with subsequent mild right hemiparesis and cognitive language impairment --MRI Brain:Interval improvement in the restricted diffusion and edema at the left KATARZNYA territory infarct consistent with expected evolution of a now subacute infarct. Interval development of patchy and cortical areas of increased T1 signal at the left ACT measured likely representing a combination of cortical laminar necrosis and petechial hemorrhage. Follow up head CT in 24 hours recommended to ensure stability. No new/acute infarct identified. --repeat CT Head:No acute intracranial hemorrhage or midline shift. Subacute left anterior cerebral artery infarct redemonstrated. Areas of petechial hemorrhage/laminar necrosis are better seen on comparison brain MRI. -- On apixaban, Crestor Continue PT OT Rehab when accepted Hypertension: Continue amlodipine, lisinopril, metoprolol Monitor BP Adjust medications as needed Possible pneumonia Continue empiric antibiotics DM II (diabetes mellitus, type II), controlled: HbA1C 6.9 Continue insulin Monitor BGs DVT Px: Eliquis Code Status Full code Admission and Anticipated Discharge Date Admission Date: June 11, 2022 Subjective Patient is seen and examined at bedside Feels well No new complaints Denies any nausea, vomiting, abdominal pain, chest pain, dyspnea, dizziness Waiting for placement Review of Systems Review of Systems: All systems reviewed & are unremarkable except as noted in Subjective Physical Exam Physical Exam: Physical Exam: Vitals signs as noted above General Appearance:Moderately built and nourished, no apparent distress Head: normocephalic, Atraumatic Eyes: normal inspection, EOMI Neck: supple, Trachea midline Respiratory/Chest: Normal breath sounds, CTA, No accessory muscle use Cardiovascular: S1, S2, No murmur Abdomen/GI:Soft, Non tender, Bowel sounds present, +Colostomy Extremities/Musculoskeletal:normal inspection, no edema Neurologic/Psych:AAOX3, RLE 1/5, RUE 3/5, +Dysarthria Skin: normal color, warm Results & Data Results & Data ([facility]) Vital Signs (Past 12 Hours) Vital Signs Temp Pulse Resp BP Pulse Ox O2 Del Method 06/17/22 15:20 36.5 C 65 17 133/71 96 Room Air 06/17/22 07:30 36.6 C 66 18 148/79 H 94 Room Air 06/17/22 07:01 77 16 94 Room Air Laboratory Results [facility] 06/17/22 08:04 Sodium 138 Potassium 3.6 Chloride 108 H Carbon Dioxide 23 BUN 11 Creatinine 0.69 Glucose 118 H Calcium 8.3 L
[2022-06-17] MEDS: ROSUVASTATIN CALCIUM 20 MG TAB PO SCH (20:28)
[2022-06-17] MEDS: MONTELUKAST SODIUM 10 MG TABLET PO SCH (20:29)
[2022-06-18] MEDS: BUDESONIDE 0.25 MG/2 ML VIAL (PULMICORT) NEB SCH (07:05)
[2022-06-18] MEDS: FORMOTEROL 20 MCG/2 ML VIAL NEB SCH (07:05)
[2022-06-18 08:26] LABS: Hematocrit (blood only) 39.1 % (37.0-47.0); Hemoglobin 12.8 g/dl (12.0-16.0); Mean Corpuscular Hemoglobin 29.6 pg (25.0-34.0); Mean Corpuscular Hgb Conc 32.7 g/dL (32.0-36.0); Mean Corpuscular Volume 90.3 fL (80.0-100.0); Mean Platelet Volume 10.5 fL (9.4-12.4); Platelet Count 213 K/uL (130-400); RDW Coefficient of Variation 14.4 % (11.5-14.5); RDW Standard Deviation 47.5 fL (36.4-46.3); Red Blood Count 4.33 M/uL (4.20-5.40); White Blood Count 8.06 K/ul (4.8-10.8)
[2022-06-18 08:35] LABS: BUN Creatinine Ratio 21.1 (10-20); Calcium 8.4 mg/dl (8.5-10.1); Creatinine Clr Calc Pharmacy 83.2 ml/min; Est GFR (African American) 109.6 ml/min; Est GFR (Non-African American) 94.6 ml/min; Potassium 3.6 mmol/L (3.5-5.1)
[2022-06-18] MEDS: INSULIN ASPART PER UNIT SC SCH ×2 (09:15→13:19)
[2022-06-18] MEDS: lisinopril 40 MG TAB PO SCH (09:16)
[2022-06-18] MEDS: metroNIDAZOLE 500 MG TAB PO SCH (09:16)
[2022-06-18] MEDS: METOPROLOL SUCC 25MG EXT REL TAB PO SCH (09:16)
[2022-06-18] MEDS: CEFDINIR 300 MG CAP PO SCH (09:16)
[2022-06-18] MEDS: APIXABAN 5 MG TABLET PO SCH (09:16)
[2022-06-18] MEDS: amLODIPine BESYLATE 5 MG TAB PO SCH (09:16)
[2022-06-18] MEDS: DULoxetine HCL 30 MG CAP PO SCH (09:16)
[2022-06-18] MEDS: POLYETHYLENE (MIRALAX) 17 GM PACK PO SCH (09:17)
--- NOTE | 2022-06-18 13:47 | Discharge Summary ---
Discharge Summary Date of Service June 18, 2022 Notes For Next Care Provider Admitted with large bowel obstruction and diverticular stricture s/p surgical repair by Dr. Yusuf on 06/11/22. Colostomy in place. History of stroke last month with subsequent mild right hemiparesis and cognitive language impairment. Repeat brain BMI with interval improvement, CT head without acute intracranial hemorrhage or midline shift. Continue Eliquis for anticoagulation for history of paroxysmal atrial fibrillation. Repeat a1c 6.9 (last 7.1 in 03/23). Continued on carb consistent diet for now, follow up with PCP. Needs follow-up with surgery in 2 weeks upon discharge for removal of colostomy bar. Medication Changes From Visit Complete cefdinir, flagyl course for pneumonia (5 days remaining) Eliquis increased to 5mg BID Admission HPI Per Admitting Provider 67 yo F with h/o ANGELITA and COPD who presents to the ER for worsening abdominal distension. She is obtunded af ter receiving Ativan 0.5mg IV and cannot provide any history. All history is obtained from records. She was recently admitted for severe constipation and abdominal distension and was found to have a diverticular stricture with colonic obstruction. She was just discharged on 06/03. She underwent colonic stenting on 05/[address] Hope from GI. Her procedure was complicated by atrial fibrillation with RVR and a subsequent stroke. She was placed on apixaban for an acute left KATARZYNA stroke and aspirin was stopped at discharge. She was sent to [facility] for rehab. Sincer discharge she has developed worsening abdominal distension. CT here reports large and small bowel obstruction. Admission Exam Per Admitting Provider CONSTITUTIONAL: WNWD, vitals as above, generally ill-appearing and obtunded. EYES: PERRL, normal n, no scleral icterus ENT: external ear and nose normal, NG tube in place with no output. NECK: trachea midline RESPIRATORY: clear to auscultation bilaterally, no crackles, rales or wheezes, normal respiratory effort on oxygen via nasal canula. CARDIOVASCULAR: regular rate and rhythm, S1 and 2 heard without murmurs, gallops or rubs, no JVD, no peripheral edema CHEST: inspection of chest was normal GASTROINTESTINAL:high pitched bowel sounds present, distended abdomen,no guarding. MUSCULOSKELETAL: obtunded, cannot assess. head is normocephalic and atraumatic SKIN: warm and dry NEUROLOGIC: obtunded, confused, cannot assess. PSYCHIATRIC: obtunded. Principal Dx & Hospital Course #1 = Principal Diagnosis (1) Large bowel obstruction: (2) Small bowel obstruction: (3) Diverticular stricture: Plan This is a 67 yo F with h/o ANGELITA and COPD who presents to the ER for worsening abdominal distension and was found to have a large and small bowel obstruction and diverticular stricture. Had recently been admitted for severe constipation and abdominal distension and was found to have a diverticular stricture with colonic obstruction and was discharged a few weeks ago with plans for outpatient surgery. Also underwent colonic stenting on 05/[address] Hope from GI. Procedure was complicated by atrial fibrillation with RVR and a subsequent st roke. She was placed on apixaban for an acute left KATARZYNA stroke and aspirin was stopped at discharge and sent to rehab but then developed worsening abdominal distension and returned for this admission with CT reports showing large and small bowel obstruction. Underwent surgical repair by Dr. Yusuf on 06/11/22. Patient initially recovered in ICU but extubated the following day. Initially required NG tube but has gradually been advanced back to normal diet and is tolerating without issue. History of stroke last month with subsequent mild right hemiparesis and cognitive language impairment. Repeat brain MRI with interval improvement, CT head without acute intracranial hemorrhage or midline shift. Continue Eliquis for anticoagulation for history of paroxysmal atrial fibrillation and dose increased to 5mg BID based on cardiology recommendation. Repeat a1c 6.9 (last 7.1 in 03/23). Continued on carb consistent diet for now, follow up with PCP. Complete cefdinir and flagyl course for pneumonia. Needs follow-up with general surgery in 2 weeks upon discharge for removal of colostomy bar. Patient hemodynamically stable and comfortable at time of discharge to inpatient rehab. Discharge Exam Gen: WD/WN, NAD, lying in bed, pleasant, cooperative HEENT: Normocephalic, atraumatic, conjunctivae moist, sclerae anicteric, mucous membranes moist Lung: Clear to Auscultation bilaterally, no wheezes/rales/rhonchi Heart: Regular rate, regular rhythm, no murmurs, rubs, or gallops Abdomen: Soft, NT, ND +BS x 4 Extremities: no edema Skin: Warm, no rash Updated Medication List Medication Instructions Recorded Confirmed Type rosuvastatin 20 mg tablet 20 mg PO HS 09/03/20 06/11/22 History montelukast 10 mg tablet 10 mg PO HS 10/02/21 06/11/22 History amlodipine 5 mg tablet 5 mg PO QAM 05/21/22 06/11/22 History duloxetine 30 mg capsule,delayed 30 mg PO QAM 05/21/22 06/11/22 History release pantoprazole 40 mg tablet,delayed 40 mg PO QAM 05/21/22 06/11/22 History release fluticasone furoate 100 1 puff inhalation DAILY 30 days #1 06/03/22 06/11/22 Rx mcg-vilanterol 25 mcg/dose ea inhalation powder (Breo Ellipta) furosemide 20 mg tablet (Lasix) 20 mg PO DAILY #30 tabs 06/03/22 06/11/22 Rx ipratropium bromide 0.02 % 0.5 mg (2.5 mL) inhalation Q6RWA 06/03/22 06/11/22 Rx solution for inhalation PRN shortness of breath or wheezing 30 days #30 mL levalbuterol HCl 1.25 mg/0.5 mL 1.25 mg (0.5 mL) inhalation Q6RWA 06/03/2206/02 Rx solution for nebulization PRN shortness of breath or wheezing 30 days #30 ea lisinopril 40 mg tablet (Zestril) 40 mg PO QAM 30 days #30 tabs 06/03/22 06/11/22 Rx metoprolol tartrate 25 mg tablet 25 mg PO BID 30 days #60 tabs 06/03/22 06/11/22 Rx polyethylene glycol 3350 17 gram 17 g PO DAILY 30 days #30 ea 06/03/22 06/11/22 Rx oral powder packet (Miralax) apixaban 5 mg tablet (Eliquis) 5 mg PO BID #30 tabs 06/18/22 Rx cefdinir 300 mg capsule 300 mg PO BID #10 caps 06/18/22 Rx metronidazole 500 mg tablet 500 mg PO BID #10 tabs 06/18/22 Rx Hospital Stay Data Consultations 06/11/22 16:22 ED Decision to Admit Stat 06/11/22 19:09 Consult General Surgery Routine 06/11/22 22:38 Consult Musical String Maker Routine 06/13/22 11:00 Consult Neurology Routine Procedures Performed Operation Date: 06/11/22 17:00 Actual Procedures p Colostomy - Fidel Yusuf MD Diagnostic Imagining Performed 06/11/22 11:32 CT abd pelvis IV con only Stat 06/13/22 13:03 CT head/brain wo con Urgent 06/13/22 13:41 MR brain wo con Routine 06/16/22 08:46 CT head/brain wo con Urgent Pending Results Patient Have Any Pending Studies at Discharge: No Discharge Instructions Given to Patient (Per Discharging Provider) Admitted with large bowel obstruction and diverticular stricture s/p surgical repair by Dr. Yusuf on 06/11/22. Colostomy in place. History of stroke last month with subsequent mild right hemiparesis and cognitive language impairment. Repeat brain BMI with interval improvement, CT head without acute intracranial hemorrhage or midline shift. Continue Eliquis for anticoagulation for history of paroxysmal atrial fibrillation. Repeat a1c 6.9 (last 7.1 in 03/23). Continued on carb consistent diet for now, follow up with PCP. MEDICATION CHANGES: Complete cefdinir, flagyl course for pneumonia (5 days remaining) RECOMMENDATIONS FOR FOLLOW-UP: Needs follow-up with surgery in 2 weeks upon discharge for removal of colostomy bar. Follow up with PCP as above. OTHER INSTRUCTIONS: Seek medical attention if you have: * temperature above 101 * chest pain or trouble breathing * abdominal pain, nausea, vomiting * diarrhea, dark stools or bloody stools * any unanswered questions or concerns Call 911 if symptoms are severe. Please take good care of yourself. Call if you have any questions or problems. You can reach a [facility] hospitalist on duty at [facility] 24 hours a day by calling [phone]. Total Time Total Time Spent Total Time Spent (In Minutes): 65
== END 2022-06-18 15:46 | DRG 330 ==
LOC: ED 11:21 → 2S 16:32 → SUATTDRO 16:32 → 2S 18:44 → 1E 22:53 → 3W 06-15 16:33
DX: K57.10 Diverticulosis of small intestine without perforation or abscess without bleeding; Z87.891 Personal history of nicotine dependence; E11.9 Type 2 diabetes mellitus without complications; Z88.0 Allergy status to penicillin; I69.322 Dysarthria following cerebral infarction; N18.9 Chronic kidney disease, unspecified; G47.33 Obstructive sleep apnea (adult) (pediatric); I69.351 Hemiplegia and hemiparesis following cerebral infarction affecting right dominant side; Z96.653 Presence of artificial knee joint, bilateral; J44.9 Chronic obstructive pulmonary disease, unspecified; I71.40 Abdominal aortic aneurysm, without rupture, unspecified; N18.30 Chronic kidney disease, stage 3 unspecified; G93.40 Encephalopathy, unspecified; Z79.01 Long term (current) use of anticoagulants; K56.601 Complete intestinal obstruction, unspecified as to cause; I48.0 Paroxysmal atrial fibrillation; E78.5 Hyperlipidemia, unspecified; Z88.2 Allergy status to sulfonamides